=== PATIENT | female | born 1990 | race African-American/Black ===

== ENCOUNTER 2016-11-21 20:25 | Inpatient (IN) ==
[2016-11-21] MEDS ORDERED: MORPHINE 2 MG/1 ML SYRINGE IV STA (21:08)
[2016-11-21] MEDS ORDERED: ONDANSETRON 4 MG/2 ML VIAL IV STA (21:08)
[2016-11-21] MEDS ORDERED: SODIUM CHLORIDE 0.9% 1,000 ML IV STA (21:08)
[2016-11-21] MEDS ORDERED: MORPHINE 2 MG/1 ML SYRINGE ONE (21:13)
[2016-11-21] MEDS ORDERED: ONDANSETRON 4 MG/2 ML VIAL ONE (21:13)
--- NOTE | 2016-11-21 21:17 | Emergency Department Note ---
Osvaldo Ceja Emily, am scribing for, and in the presence of, Zenon Lin MD 21: 11. Riley Ceja Robert M, MD, personally performed the services described in this documentation, ascribed by Lucia Riley in my presence, and it is both accurate and complete . Arrival - Arrival Chief Complaint: Sickle Cell Stated Complaint: sickle cell anemia/hurting ED Nursing Triage Note: patient states she has scc and lupus and is hurting real bad all over. Mode of Arrival: Wheelchair Limitations: No Limitations Source: Patient - History of Present Illness HPI Narrative: Pt is a 26 y/o female with PMHx of sickle cell aneima & SCC, who came to ED with c/o generalized pain that started today. Pt notes having calf tenderness, feels bilateral hands are starting to swell, and a "knot" on the back of left knee. Pt has provider in [place]. Onset (ago): hour(s) Consistency: constant Severity: moderate Severity scale (1-10): 6 Quality: aching Allergies/Adverse Reactions: Allergies Allergy/AdvReac Type Severity Reaction Status Date / Time azithromycin Allergy RASH Verified 11/21/16 20:38 ketorolac [From Toradol] Allergy ITCHING Verified 11/21/16 20:38 vancomycin Allergy RASH Verified 11/21/16 20:38 Home Medications: Home Medications Medication Instructions Recorded Confirmed Type Unable To Obtain [Unable to Obtain] 11/21/16 11/21/16 History Review of System - Review of System 12 point system: reviewed and no additional remarkable complaints except as stated - Review of System Constitutional: Present: weakness (generalized pain). Absent: fever Respiratory: Absent: respiratory distress Gastrointestinal: Absent: nausea Musculoskeletal: Present: leg pain (calf tenderness; knot to back of left knee) . Absent: arm pain, neck pain Skin: Absent: rash Medical,Surgical,& Family Hx - Social History Smoking Status: Never smoker Frequency of Alcohol Use: None Type of Drug Use: None Marital Status: Single Functional capacity: independent ambulation Exam Vital Signs: Vital Signs Temperature 98.3 F 11/21/16 20:32 Pulse Rate 112 H 11/21/16 21:00 Respiratory Rate 18 11/21/16 21:00 Blood Pressure 115/72 11/21/16 21:00 O2 Sat by Pulse Oximetry 100 11/21/16 21:00 - General General appearance: alert, in distress (moderate secondary to pain) - Head Head exam: Present: atraumatic, normocephalic - Eye Eye exam: Present: PERRL, EOMI - ENT ENT exam: Present: mucous membranes moist. Absent: mucous membranes dry - Neck Neck exam: Present: full ROM. Absent: tenderness - Chest Chest inspection: Present: symmetric chest wall rise. Absent: tenderness - Respiratory Respiratory exam: Present: normal lung sounds bilaterally. Absent: respiratory distress - Cardiovascular Cardiovascular exam: Present: tachycardia, normal heart sounds - Abdominal Exam Abdominal exam: Present: soft. Absent: distention, tenderness - Extremities Exam Extremities exam: Present: full ROM, tenderness (2 cm soft, non mobile right posterior fossa). Absent: pedal edema - Neurological Exam Neurological exam: Present: alert, oriented X3, CN II-XII intact. Absent: motor sensory deficit - Psychiatric Psychiatric exam: Present: anxious - Skin Skin exam: Present: warm, dry Course - Consultations Consultation #1: Dr. King will admit the patient to the hospitalist service. Time: 21:50 Results - Labs CBC & BMP: 11/21/16 21:10 11/21/16 21:10 Lab Results: I have reviewed the patients labs Labs: Lab Results WBC 9.0 T/CUMM (4-12) 11/21/16 21:10 RBC 2.79 MC/CUMM (3.8-5.5) L 11/21/16 21:10 Hgb 7.9 GM/DL (12.0-16.0) L 11/21/16 21:10 Hct 22.5 VOL% (35.7-47.0) L 11/21/16 21:10 MCV 80.6 FL (87-102) L 11/21/16 21:10 MCH 28 PG (27-34) 11/21/16 21:10 MCHC 35.1 GM/DL (32-36) 11/21/16 21:10 RDW 18.0 % (9.3-17.3) H 11/21/16 21:10 Plt Count 370 T/CUMM (130-400) 11/21/16 21:10 MPV 10.3 FL (9.6-12.0) 11/21/16 21:10 Neut % (Auto) 82.3 % (38.7-73.9) H 11/21/16 21:10 Lymph % (Auto) 11.9 % (21.3-54.2) L 11/21/16 21:10 Wilkin % (Auto) 3.1 % (1.7-12.7) 11/21/16 21:10 Eos % (Auto) 0.1 % (0.00-10.9) 11/21/16 21:10 Baso % (Auto) 0.1 % (0.0-0.8) 11/21/16 21:10 Neut # (Auto) 7.4 10*3/uL (1.4-7.4) 11/21/16 21:10 Lymph # (Auto) 1.1 10*3/uL (1.4-4.0) L 11/21/16 21:10 Wilkin # (Auto) 0.3 10*3/uL (0.11-0.8) 11/21/16 21:10 Eos # (Auto) 0.0 10*3/uL (0.0-0.87) 11/21/16 21:10 Baso # (Auto) 0.0 10*3/uL (0.0-0.2) 11/21/16 21:10 Immature Gran % 2.5 % 11/21/16 21:10 Nucleated RBC % 2.1 /100WBC 11/21/16 21:10 Immature Gran # 0.23 # 11/21/16 21:10 Nucleated RBCs # 0.19 10*3/uL 11/21/16 21:10 Immature Plt Fraction 0.0 % (0.0-7.0) 11/21/16 21:10 Absolute Retic 0.1 10*6/uL 11/21/16 21:10 Percent Retic 3.3 % (0.5-1.5) H 11/21/16 21:10 Retic Hgb Equivalent 28.7 pg (28.2-36.6) 11/21/16 21:10 Sodium 134 MMOL/L (136-145) L 11/21/16 21:10 Potassium 4.3 MMOL/L (3.5-5.1) 11/21/16 21:10 Chloride 104 MMOL/L (98-107) 11/21/16 21:10 Carbon Dioxide 23 MMOL/L (21-32) 11/21/16 21:10 Anion Gap 11.3 MMOL/L (5.0-15.0) 11/21/16 21:10 BUN 7 MG/DL (7-18) 11/21/16 21:10 Creatinine 0.60 MG/DL (0.55-1.02) 11/21/16 21:10 GFR Calculation 133 ML/MIN 11/21/16 21:10 BUN/Creatinine Ratio 11.00 RATIO (6.00-20.00) 11/21/16 21:10 Glucose 94 MG/DL (74-106) 11/21/16 21:10 Calculated Osmolality 265.2 MOS/KG (273-304) L 11/21/16 21:10 Calcium 8.9 MG/DL (8.5-10.1) 11/21/16 21:10 Total Bilirubin 0.50 MG/DL (0.2-1.0) 11/21/16 21:10 Direct Bilirubin 0.20 MG/DL (0.0-0.20) 11/21/16 21:10 AST 34 U/L (0-37) 11/21/16 21:10 ALT 16 U/L (13-56) 11/21/16 21:10 Alkaline Phosphatase 68 U/L (45-117) 11/21/16 21:10 Lactate Dehydrogenase 257 U/L (84-246) H 11/21/16 21:10 Total Protein 10.1 G/DL (6.4-8.3) H 11/21/16 21:10 Albumin 2.8 G/DL (3.4-5.0) L 11/21/16 21:10 Globulin 7.3 G/DL (2.3-3.5) H 11/21/16 21:10 Albumin/Globulin Ratio 0.3 RATIO (1.1-2.2) L 11/21/16 21:10 Urine Color Yellow (Yellow) 11/21/16 21:10 Urine Appearance Slightly hazy (Clear) 11/21/16 21:10 Urine pH 7.0 (4.5-8.0) 11/21/16 21:10 Ur Specific [place] 1.008 (1.001-1.035) 11/21/16 21:10 Urine Protein Negative MG/DL 11/21/16 21:10 Urine Glucose (UA) Negative mg/dL (Negative) 11/21/16 21:10 Urine Ketones Negative mg/dL (Negative) 11/21/16 21:10 Urine Blood Negative mg/dL (Negative) 11/21/16 21:10 Urine Nitrate Negative (Negative) 11/21/16 21:10 Urine Bilirubin Negative mg/dL (Negative) 11/21/16 21:10 Urine Urobilinogen 2.0 EU/DL (0.2-1.0) H 11/21/16 21:10 Urine Leukocytes Negative Manjula/ul (Negative) 11/21/16 21:10 Urine WBC 1 /HPF (0-6) 11/21/16 21:10 Ur Squamous Epith Cells Few /HPF (0-10) 11/21/16 21:10 Urine Bacteria Occasional /HPF (Few) 11/21/16 21:10 Hyaline Casts 10 /LPF (0-3) 11/21/16 21:10 Granular Casts 1 /LPF (0-1) 11/21/16 21:10 Urine Mucus Occasional /LPF (Occasional) 11/21/16 21:10 Ur Culture Indicated? Not indicated 11/21/16 21:10 Disposition Clinical Impression: Sickle cell anemia with pain Case discussed with: patient Disposition: Still a Patient Condition: Stable Time of Disposition: 21:50
[2016-11-21 21:20] LABS: Basophils % 0.1 % (0.0-0.8); Eosinophils % 0.1 % (0.00-10.9); Hematocrit 22.5 VOL% (35.7-47.0); Hemoglobin 7.9 GM/DL (12.0-16.0); Immature Granulocytes % 2.5 %; Immature Granulocytes Absolute 0.23 #; Lymphocytes # 1.1 10*3/uL (1.4-4.0); Lymphocytes % 11.9 % (21.3-54.2); Mean Corpuscular HGB Conc 35.1 GM/DL (32-36); Mean Corpuscular Hemoglobin 28 PG (27-34); Mean Corpuscular Volume 80.6 FL (87-102); Mean Platelet Volume 10.3 FL (9.6-12.0); Monocytes # 0.3 10*3/uL (0.11-0.8); Monocytes % 3.1 % (1.7-12.7); NRBC # 0.19 10*3/uL; Neutrophils # 7.4 10*3/uL (1.4-7.4); Neutrophils % 82.3 % (38.7-73.9); Platelet Count 370 T/CUMM (130-400); Red Blood Count 2.79 MC/CUMM (3.8-5.5)
[2016-11-21 21:32] LABS: Apearance,Urine Slightly Hazy (Clear); Bacteria,Urine Occasional /HPF (Few); Bilirubin,Urine Negative (Negative); Blood, Urine Negative (Negative); Glucose,Urine (UA) Negative (Negative); Granular Casts,Urine 1 /LPF (0-1); Hyaline Casts,Urine 10 /LPF (0-3); Ketones,Urine Negative (Negative); Mucus,Urine Occasional /LPF (Occasional); Nitrite,Urine Negative (Negative); Protein,Urine Negative; Squamous Epithelial Cell,Urine Few /HPF (0-10); Urine Color Yellow (Yellow); Urine Specific Gravity 1.008 (1.001-1.035); WBC,Urine 1 /HPF (0-6)
[2016-11-21 21:36] LABS: Bilirubin,Direct 0.2 MG/DL (0.0-0.20)
[2016-11-21 21:38] LABS: Albumin 2.8 G/DL (3.4-5.0); Bilirubin,Total 0.5 MG/DL (0.2-1.0); Calcium 8.9 MG/DL (8.5-10.1); Osmolality,Calculated 265.2 MOS/KG (273-304); Potassium 4.3 MMOL/L (3.5-5.1); Total Protein 10.1 G/DL (6.4-8.3)
[2016-11-21 21:52] LABS: Band Neutrophils 2 % (0-10); Lymphocytes 13 % (20-55); Nucleated Red Blood Cells 3 (0-5); Platelet Estimate Adequate; Segmented Neutrophils 82 % (50-85); Total Cells Counted 100
[2016-11-21 21:53] LABS: Hypochromasia 1+; Poikilocytosis Few; Polychromasia Few; Sickle Cells Few; Target Cells 2+
[2016-11-21 21:54] LABS: Anisocytosis 1+
[2016-11-21] MEDS ORDERED: HYDROmorphone 2 MG/1 ML VIAL ONE (22:21)
[2016-11-21] MEDS ORDERED: HYDROmorphone 2 MG/1 ML VIAL IV STA (22:26)
--- NOTE | 2016-11-21 23:04 | Hospitalist History & Physical ---
Assessment and Plan (1) Sickle cell anemia with pain Status: Acute Assessment and plan: Vs acute Lupus exacerbation Plan IVF IV morphine Prednisone ESR, C-reactive protein monitor H/H, repeat retic count in am CXR cardiac enzymes, D-dimer Current Visit: Yes (2) Anemia Status: Acute Assessment and plan: due to sickle cell crisis Plan monitor H/H see management plan above Current Visit: Yes (3) Bacteriuria Status: Acute Assessment and plan: BC, UC -will give Rocephin if she spikes a temp Current Visit: Yes History of Present Illness Chief complaint: generalized pain History of present illness: Ms. Renner is a 26 year old female with a history of sickle cell disease, Lupus whose last hospitalization was about 3-4months ago presents to the ER with generalized body pain. Pain started two days ago and had progressively worsened. She also complains of calf tenderness, feels bilateral hands are starting to swell, and a "knot" on the back of left knee.She denies associated nausea, vomiting,SOB, though she states a history of a low grade fever, chills and occasional chest pain.Upon arrival to the ER,H/H were 7.9/22.5, Retic count was 3.3 and LDH was 257. UA showed bacteria.She was given IV morphine, Zofran and IVF and we will admit for continuation of care. Home Medications Medication Instructions Recorded Confirmed Type Unable To Obtain [Unable to Obtain] 11/21/16 11/21/16 History Allergies Allergy/AdvReac Type Severity Reaction Status Date / Time azithromycin Allergy RASH Verified 11/21/16 20:38 ketorolac [From Toradol] Allergy ITCHING Verified 11/21/16 20:38 vancomycin Allergy RASH Verified 11/21/16 20:38 Medical,Surgical,& Family Hx - Medical History Rheumatology: History of;: Systemic Lupus Erythematosus Hematology: History of: Sickle Cell Disease - Surgical History Abdominal Surgeries: Surgical HX of: Cholecystectomy Reproductive Surgeries: Surgical HX of;: Section Orthopedic Surgeries: Surgical HX of;: Orthopedic Surgery - Social History Smoking Status: Never smoker Frequency of Alcohol Use: None Type of Drug Use: None 12 point system: reviewed and no additional remarkable complaints except as stated Exam - Constitutional Vitals: Period Temp Pulse Resp BP Sys/Mcqueen Pulse Ox Last 24 Hr 98.3 F-98.3 F 83-119 16-20 92-115/68-77 100-100 General appearance: no acute distress, other (moaning and groaning in pain) - Respiratory Respiratory exam: Present: clear to auscultation bilaterally - Cardiovascular Cardiovascular exam: Present: regular rate and rhythm - GI/Abdominal GI/Abdominal exam: Present: normal bowel sounds - Extremities Exam Extremities exam: Present: normal inspection - Neurological Exam Neurological exam: Present: alert, oriented X3 Results - Labs CBC & BMP: 11/21/16 21:10 11/21/16 21:10 Lab Results: I have reviewed the past 24 hour labs
[2016-11-21] MEDS ORDERED: DOCUSATE SODIUM 100 MG CAPSULE PO PRN (23:40)
[2016-11-21] MEDS ORDERED: ACETAMINOPHEN 325 MG TABLET PO PRN (23:40)
[2016-11-21] MEDS ORDERED: PROMETHAZINE 25 MG TABLET PO PRN (23:40)
[2016-11-21] MEDS ORDERED: ONDANSETRON 4 MG/2 ML VIAL IV PRN (23:40)
[2016-11-21] MEDS ORDERED: predniSONE 20 MG TABLET PO STA (23:40)
[2016-11-22] MEDS: SODIUM CHLORIDE 0.9% 1,000 ML IV SCH ×3 (00:46→17:56)
[2016-11-22] MEDS: MORPHINE 2 MG/1 ML SYRINGE IV PRN ×2 (01:34→05:30)
[2016-11-22 01:50] LABS: Risk Ratio 4.26; Thyroid Stimulating Hormone 0.308 uIU/ml (0.358-3.74); VLDL CHOLESTEROL 12.6 MG/DL
[2016-11-22 02:21] LABS: Sedimentation Rate-Westergren 136 MM/HR (0-20)
[2016-11-22 06:34] LABS: Basophils % 0.2 % (0.0-0.8); Eosinophils # 0.1 10*3/uL (0.0-0.87); Eosinophils % 1.6 % (0.00-10.9); Hematocrit 19.1 VOL% (35.7-47.0); Immature Granulocytes % 3.4 %; Immature Granulocytes Absolute 0.21 #; Lymphocytes # 1.3 10*3/uL (1.4-4.0); Lymphocytes % 20.5 % (21.3-54.2); Mean Corpuscular HGB Conc 34.6 GM/DL (32-36); Mean Corpuscular Hemoglobin 28 PG (27-34); Mean Corpuscular Volume 80.9 FL (87-102); Mean Platelet Volume 12.8 FL (9.6-12.0); Monocytes # 0.3 10*3/uL (0.11-0.8); Monocytes % 4.2 % (1.7-12.7); NRBC # 0.17 10*3/uL; Neutrophils # 4.4 10*3/uL (1.4-7.4); Neutrophils % 70.1 % (38.7-73.9); Red Blood Count 2.36 MC/CUMM (3.8-5.5); White Blood Count 6.2 T/CUMM (4-12)
[2016-11-22 06:55] LABS: Alanine Aminotransferase 14 U/L (13-56); Albumin 2.1 G/DL (3.4-5.0); Alkaline Phosphatase 58 U/L (45-117); Aspartate Amino Transferase 28 U/L (0-37); Bilirubin,Total < 0.39 MG/DL (0.2-1.0); Blood Urea Nitrogen 7 MG/DL (7-18); Calcium 7.8 MG/DL (8.5-10.1); Glucose 94 MG/DL (74-106); Osmolality,Calculated 272.7 MOS/KG (273-304); Potassium 4.2 MMOL/L (3.5-5.1); Sodium 138 MMOL/L (136-145); Total Protein 8.1 G/DL (6.4-8.3)
--- NOTE | 2016-11-22 07:24 | XRay Report ---
Exam: XR chest 1V portable Date: 11/22/2016 4:00 AM Indication: Shortness of breath Comparison: 07/25/2013 Findings: Mild cardiomegaly. A port catheter is in placement right IJ approach with the distal tip in the superior vena cava. Minimal interstitial thickening in the right base. No obvious pneumothorax or effusions on the mid inspiratory exam. Bony structures are intact Impression: 1. Mild cardiac prominence 2. Interval placement of a right-sided subclavian port catheter with compared to the previous study from 2013. Are at least placement of a new port and repositioning of the catheter track cephalad on the previous exam 3. Mild interstitial thickening right base and atelectatic change left base minimally present PROCEDURE INTERPRETED AT [facility] DEPARTMENT OF RADIOLOGY Final Report Signed by: Dr. Pernell Frye
[2016-11-22 08:49] LABS: Hemoglobin 6.6 GM/DL (12.0-16.0)
[2016-11-22 08:50] LABS: Platelet Count 200 T/CUMM (130-400)
[2016-11-22 09:00] LABS: Band Neutrophils 2 % (0-10); Lymphocytes 13 % (20-55); Nucleated Red Blood Cells 6 (0-5); Segmented Neutrophils 80 % (50-85); Total Cells Counted 100
[2016-11-22 09:01] LABS: Hypochromasia 1+; Microcytosis 1+; Target Cells 2+
[2016-11-22 09:02] LABS: Anisocytosis 1+; Pappenheimer Bodies Few
[2016-11-22 09:03] LABS: Sickle Cells Slight
[2016-11-22 09:04] LABS: Polychromasia Slight
[2016-11-22] MEDS ORDERED: ALUMINUM/MAGNES/SIMETH MAX STR 30 ML UDCUP PO PRN (09:16)
[2016-11-22] MEDS: PANTOPRAZOLE 40 MG TABLET PO SCH (09:30)
[2016-11-22] MEDS: ENOXAPARIN 40 MG/0.4 ML SYRINGE SUBCUT SCH (09:31)
[2016-11-22] MEDS: IBUPROFEN 800 MG TABLET PO SCH ×4 (10:07→23:41)
[2016-11-22] MEDS: HYDROmorphone 2 MG/1 ML VIAL IV PRN ×5 (10:11→21:32)
[2016-11-22] MEDS: diphenhydrAMINE 50 MG/1 ML VIAL IV PRN ×3 (10:20→23:41)
--- NOTE | 2016-11-22 11:02 | Hospitalist Progress Note ---
Assessment and Plan (1) Sickle cell anemia with pain Status: Acute Assessment and plan: This appears a p.o. of his occlusive crisis. LDH is not very elevated. Patient has some musculoskeletal pains including the substernal area. EKG is normal there is no suggestion of chest syndrome at this time. If symptoms get worse he has since the patient has chest x-ray EKG and cover her with the atypical coverage with antibiotics i.e. Levaquin 750 daily Current Visit: Yes (2) Anemia Status: Acute Assessment and plan: Continue to observe repeat H&H in the morning Current Visit: Yes (3) Bacteriuria Status: Acute Assessment and plan: This is a symptomatic bacteriuria continue to observe Current Visit: Yes Hospitalist: Subjective Interval history: Patient has been seen interviewed and examined and chart has been reviewed and a 6-year-old female admitted overnight with sickle cell crisis. Still complaining of a lot of pain especially in the carbs of both lower extremity also on the left side. Patient had an ultrasound of the venous structures in the lower extremity will be reviewed for DVTs. She acknowledges history of DVTs. She claimed allergy to Toradol which will verify that this itching. There is no anaphylaxis to these medication. This patient would benefit from a high dose ibuprofen from start to continue with inflammatory process that is contributing to the pain crisis. Patient will be given Benadryl 50 mg IV 5 getting the ibuprofen. She is asked agreed to doing the ultrasound. Exam - Constitutional Vitals: Period Temp Pulse Resp BP Sys/Mcqueen Pulse Ox Last 24 Hr 97.5 F-99.2 F 80-119 16-20 92-115/60-77 97-100 General appearance: normal weight, severe distress, other (Distress with pain. Patient crying ) - Head Head exam: Present: normocephalic, atraumatic - Eye Eye exam: Present: EOMI, other Pupils: Present: MOLINA - Respiratory Respiratory exam: Present: clear to auscultation bilaterally - Cardiovascular Cardiovascular exam: Present: regular rate and rhythm - GI/Abdominal GI/Abdominal exam: Present: normal bowel sounds, soft - Extremities Exam Extremities exam: Present: full ROM, other (Diffuse musculoskeletal pain) - Neurological Exam Neurological exam: Present: alert, oriented X3, CN II-XII intact - Psychiatric Psychiatric exam: Present: other (Subdued affect) - Skin Skin exam: Present: normal color, warm Results - Labs CBC & BMP: 11/22/16 08:01 11/22/16 04:55 Lab Results: I have reviewed the past 24 hour labs (Noted drop in hematocrit of 6.6/19.1 this morning. LDH is not elevated. This could be effect of her crystalloid infusions. Repeat H&H in the morning)
--- NOTE | 2016-11-22 14:57 | Ultrasound Report ---
History: Bilateral calf tenderness Date: 11/22/2016 Study: Bilateral lower extremity color-flow venous Doppler study Comparison exam: No previous venous ultrasound available Color Doppler, wave form analysis, and compression analysis of the deep veins of both lower extremities from the common femoral vein level through the popliteal vein level shows that the veins are readily compressible. There is no abnormal intraluminal material to suggest thrombus. Waveform analysis is unremarkable. Ultrasound images were captured and archived. Incidental note is made of some mild left inguinal lymphadenopathy. Impression: No evidence of acute DVT. Mild left inguinal lymphadenopathy PROCEDURE INTERPRETED AT [facility] DEPARTMENT OF RADIOLOGY Final Report Signed by: Dr. Shari Morris
[2016-11-23] MEDS: HYDROmorphone 2 MG/1 ML VIAL IV PRN ×6 (01:32→22:08)
[2016-11-23] MEDS: SODIUM CHLORIDE 0.9% 1,000 ML IV SCH ×3 (01:33→18:17)
[2016-11-23] MEDS: diphenhydrAMINE 50 MG/1 ML VIAL IV PRN ×3 (05:36→19:14)
[2016-11-23 06:04] LABS: Hematocrit 18.6 VOL% (35.7-47.0)
[2016-11-23 06:13] LABS: Hemoglobin 6.4 GM/DL (12.0-16.0)
[2016-11-23] MEDS ORDERED: SODIUM CHLORIDE 0.9% 250 ML IV PRN (07:19)
[2016-11-23 07:47] LABS: Alanine Aminotransferase 13 U/L (13-56); Albumin 2.1 G/DL (3.4-5.0); Alkaline Phosphatase 57 U/L (45-117); Aspartate Amino Transferase 25 U/L (0-37); Bilirubin,Total < 0.39 MG/DL (0.2-1.0); Blood Urea Nitrogen 8 MG/DL (7-18); Calcium 8.1 MG/DL (8.5-10.1); Glucose 81 MG/DL (74-106); Osmolality,Calculated 279.1 MOS/KG (273-304); Phosphorous 3.3 MG/DL (2.5-4.9); Potassium 4.3 MMOL/L (3.5-5.1); Sodium 142 MMOL/L (136-145); Total Protein 7.7 G/DL (6.4-8.3)
[2016-11-23] MEDS: IBUPROFEN 800 MG TABLET PO SCH ×3 (08:43→21:26)
[2016-11-23] MEDS: MORPHINE 2 MG/1 ML SYRINGE IV PRN ×2 (08:43→15:01)
[2016-11-23] MEDS: ENOXAPARIN 40 MG/0.4 ML SYRINGE SUBCUT SCH ×2 (08:44→08:45)
[2016-11-23] MEDS ORDERED: HYDROmorphone 2 MG/1 ML VIAL IM PRN (08:45)
--- NOTE | 2016-11-23 08:49 | Hospitalist Progress Note ---
<AngelSheila - Last Filed: 11/23/16 08:47> Assessment and Plan (1) Anemia Status: Acute Assessment and plan: Hemoglobin and hematocrit noted at 6.4/18.6. We will type and screen transfuse 2 units PRBCs. Will recheck H&H in a.m. Current Visit: Yes Qualifiers: Anemia type: other cause (2) Sickle cell anemia with pain Status: Acute Assessment and plan: We will continue supportive measures hydration, pain management, oxygen supplementation as previously ordered. Current Visit: Yes Hospitalist: Subjective Interval history: Patient seen and examined; no significant overnight events reported per staff. Hemoglobin and hematocrit noted at 6.4/18.6; we will transfuse this a.m. Exam - Constitutional Vitals: Period Temp Pulse Resp BP Sys/Mcqueen Pulse Ox Last 24 Hr 97.0 F-99.2 F 61-90 18-20 101-110/65-73 94-98 General appearance: mild distress, under weight - Head Head exam: Present: normal inspection, normocephalic, atraumatic - Eye Eye exam: Present: EOMI. Absent: conjunctival injection Pupils: Present: MOLINA, normal accommodation - ENT ENT exam: Present: normal exam, normal external ear exam, normal oropharynx - Neck Neck exam: Present: normal inspection. Absent: lymphadenopathy, meningismus, thyromegaly - Respiratory Respiratory exam: Present: clear to auscultation bilaterally. Absent: rales, rhonchi, stridor, wheezes - Cardiovascular Cardiovascular exam: Present: regular rate and rhythm. Absent: carotid bruit, diastolic murmur, gallop, JVD, rubs, systolic murmur - GI/Abdominal GI/Abdominal exam: Present: normal bowel sounds, soft - Extremities Exam Extremities exam: Present: normal inspection, normal capillary refill, full ROM. Absent: edema - Back Exam Back exam: Present: normal inspection - Neurological Exam Neurological exam: Present: alert, oriented X3, altered - Psychiatric Psychiatric exam: Present: flat affect - Skin Skin exam: Present: normal color, warm, dry Results - Labs CBC & BMP: 11/23/16 05:30 11/23/16 05:30 Lab Results: I have reviewed the past 24 hour labs <Erika Chapa - Last Filed: 11/23/16 09:29> Assessment and Plan (1) Sickle cell anemia with pain Status: Acute Current Visit: Yes (2) Anemia Status: Acute Current Visit: Yes Qualifiers: Anemia type: other cause (3) Bacteriuria Status: Acute Current Visit: Yes Hospitalist: Subjective Interval history: Patient is still in pain, I think she also having some Lupus flare as well. Her ESR is high. We will start her on prednisone and continue with pain meds and IVF Exam - Constitutional Vitals: Period Temp Pulse Resp BP Sys/Mcqueen Pulse Ox Last 24 Hr 97.0 F-99.2 F 61-90 18-20 101-110/65-73 94-98 Results - Labs CBC & BMP: 11/23/16 05:30 11/23/16 05:30
[2016-11-23] MEDS: predniSONE 20 MG TABLET PO SCH (09:38)
[2016-11-23] MEDS: PANTOPRAZOLE 40 MG TABLET PO SCH (09:38)
--- NOTE | 2016-11-23 15:26 | XRay Report ---
XR chest 1V portable Indication: Sickle cell crisis. Comparison: Chest x-ray 11/22/2016. Technique: Portable AP chest was performed. Findings: Heart size is normal. Pulmonary vasculature appears within normal limits. No significant abnormality of the mediastinal contours demonstrated. Interstitial markings in the lung bases are minimally prominent. This prominence has slightly increased since comparison but this may reflect difference in technique. Right-sided venous access device is stable.. Bones and soft tissues demonstrate no significant abnormalities. Impression: 1. Increased interstitial markings in the lung bases have increased in prominence since comparison study. This likely reflects differences in technique. Other considerations could include atelectasis, edema, or infection. 11/23/2016 3:23 PM PROCEDURE INTERPRETED AT [facility] DEPARTMENT OF RADIOLOGY Final Report Signed by: Dr. Uriel Lin
[2016-11-23] MEDS: ZALEPLON 5 MG CAPSULE PO PRN (21:26)
[2016-11-24] MEDS: HYDROmorphone 2 MG/1 ML VIAL IV PRN ×8 (01:12→22:26)
[2016-11-24] MEDS: diphenhydrAMINE 50 MG/1 ML VIAL IV PRN ×4 (01:12→19:29)
[2016-11-24] MEDS: SODIUM CHLORIDE 0.9% 1,000 ML IV SCH ×3 (02:19→19:30)
[2016-11-24 07:46] LABS: Basophils % 0.2 % (0.0-0.8); Eosinophils % 0.6 % (0.00-10.9); Immature Granulocytes % 2.2 %; Immature Granulocytes Absolute 0.14 #; Lymphocytes # 1.2 10*3/uL (1.4-4.0); Lymphocytes % 19.3 % (21.3-54.2); Mean Corpuscular Hemoglobin 28 PG (27-34); Mean Corpuscular Volume 80.5 FL (87-102); Mean Platelet Volume 11.5 FL (9.6-12.0); Monocytes # 0.3 10*3/uL (0.11-0.8); Monocytes % 5.3 % (1.7-12.7); NRBC # 0.12 10*3/uL; Neutrophils # 4.7 10*3/uL (1.4-7.4); Neutrophils % 72.4 % (38.7-73.9); Platelet Count 279 T/CUMM (130-400); Red Cell Distribution Width 18.2 % (9.3-17.3); White Blood Count 6.4 T/CUMM (4-12)
[2016-11-24 07:49] LABS: Hematocrit 17.7 VOL% (35.7-47.0); Hemoglobin 6.2 GM/DL (12.0-16.0)
[2016-11-24 08:20] LABS: Albumin 2.1 G/DL (3.4-5.0); Bilirubin,Total 0.4 MG/DL (0.2-1.0); Calcium 7.8 MG/DL (8.5-10.1); Magnesium 1.8 MG/DL (1.8-2.4); Osmolality,Calculated 281.1 MOS/KG (273-304); Phosphorous 2.9 MG/DL (2.5-4.9); Potassium 3.9 MMOL/L (3.5-5.1); Total Protein 7.8 G/DL (6.4-8.3)
[2016-11-24 08:22] LABS: Band Neutrophils 5 % (0-10); Elliptocytes Few; Eosinophils 1 % (0-10); Giant Platelets Few; Hypochromasia 1+; Lymphocytes 16 % (20-55); Myelocytes 1 %; Nucleated Red Blood Cells 2 (0-5); Platelet Estimate Adequate; Segmented Neutrophils 71 % (50-85); Target Cells 1+; Total Cells Counted 100
[2016-11-24 08:23] LABS: Pappenheimer Bodies Few; Sickle Cells Slight
[2016-11-24] MEDS ORDERED: NALOXONE 0.4 MG/ML VIAL IV PRN (08:34)
--- NOTE | 2016-11-24 08:38 | Hospitalist Progress Note ---
<Sheila Ortiz - Last Filed: 11/24/16 08:36> Assessment and Plan (1) Anemia Status: Acute Assessment and plan: Hemoglobin and hematocrit noted at 6.4/18.6. We will type and screen transfuse 2 units PRBCs. Will recheck H&H in a.m. 11/24-Patient refused blood transfusion on yesterday reported to staff that she had multiple blood antibodies and that she had experience severe reactions in the past. External facility medical records were obtained and reviewed. The multiple antibodies were identified and reported to the blood bank. Hemoglobin and hematocrit are noted at 6.2 and 17.7 today. We will await blood product preparation and transfuse when available. We will recheck hemoglobin and hematocrit in a.m. Current Visit: Yes Qualifiers: Anemia type: other cause (2) Sickle cell anemia with pain Status: Acute Assessment and plan: We will continue supportive measures hydration, pain management, oxygen supplementation as previously ordered. 11/24-The patient was started on low-dose steroids on yesterday; however the patient continues to verbalize ineffective pain management measures. We will start Dilaudid SILK SOAKER pump with basal dose and reassess. We will continue supportive measures as previously ordered. Current Visit: Yes Hospitalist: Subjective Interval history: Patient seen and examined; chart reviewed. The patient refused blood transfusion on yesterday reported to staff that she had multiple antibodies and had experienced severe reactions in the past. Medical records were obtained from an outside facility in which the patient had been previously transfused and the antibodies were identified. We will await blood preparation for transfusion. In addition, the patient also verbalized issues regarding lack of pain control. We will start Dilaudid SILK SOAKER pump this a.m. Exam - Constitutional Vitals: Period Temp Pulse Resp BP Sys/Mcqueen Pulse Ox Last 24 Hr 97.0 F-98.8 F 53-78 18-20 113-128/65-90 96-99 General appearance: normal weight, mild distress - Head Head exam: Present: normal inspection, normocephalic, atraumatic - Eye Eye exam: Present: EOMI. Absent: conjunctival injection Pupils: Present: MOLINA, normal accommodation - ENT ENT exam: Present: normal exam, normal external ear exam, normal oropharynx - Neck Neck exam: Present: normal inspection. Absent: lymphadenopathy, meningismus, tenderness, thyromegaly - Respiratory Respiratory exam: Present: clear to auscultation bilaterally. Absent: rales, rhonchi, stridor, wheezes - Cardiovascular Cardiovascular exam: Present: regular rate and rhythm. Absent: carotid bruit, diastolic murmur, gallop, JVD, rubs, systolic murmur - GI/Abdominal GI/Abdominal exam: Present: normal bowel sounds, soft. Absent: tenderness - Extremities Exam Extremities exam: Present: normal inspection, normal capillary refill, full ROM. Absent: edema - Back Exam Back exam: Present: normal inspection - Neurological Exam Neurological exam: Present: alert, oriented X3, CN II-XII intact - Psychiatric Psychiatric exam: Present: flat affect - Skin Skin exam: Present: normal color, warm, dry Results - Labs CBC & BMP: 11/24/16 07:16 11/24/16 07:16 Lab Results: I have reviewed the past 24 hour labs <Erika Chapa - Last Filed: 11/24/16 10:01> Assessment and Plan (1) Sickle cell anemia with pain Status: Acute Current Visit: Yes (2) Anemia Status: Acute Current Visit: Yes Qualifiers: Anemia type: other cause (3) Bacteriuria Status: Acute Current Visit: Yes Hospitalist: Subjective Interval history: Patient is still complaining of pain. We offered her a SILK SOAKER pump and she declined , she states she would rather continue with the current regime.She states that she was unable to swallow her prednisone yesterday. Plan: give IV steroids x1 and continue with po, start hydoxyCQ, get ESR, C-reactive protein and DNA double stranded Ab. Since patient has a history of multiple antibodies in her blood, we will hold off on transfusion till Hb drops less than 6.0 or if patient becomes symptomatic. Exam - Constitutional Vitals: Period Temp Pulse Resp BP Sys/Mcqueen Pulse Ox Last 24 Hr 97.0 F-98.8 F 53-78 18-20 113-128/65-90 96-99 Results - Labs CBC & BMP: 11/24/16 07:16 11/24/16 07:16
[2016-11-24] MEDS ORDERED: HYDROmorphone PCA 30 MG/30 ML SYRINGE IV SCH (09:00)
[2016-11-24] MEDS ORDERED: methylPREDNISolone SOD SUC 40 MG/1 ML VIAL IV ONE (09:54)
[2016-11-24] MEDS ORDERED: methylPREDNISolone SOD SUC 40 MG/1 ML VIAL IV SCH (10:00)
[2016-11-24] MEDS: ENOXAPARIN 40 MG/0.4 ML SYRINGE SUBCUT SCH (10:15)
[2016-11-24] MEDS: PANTOPRAZOLE 40 MG TABLET PO SCH (10:16)
[2016-11-24] MEDS: predniSONE 20 MG TABLET PO SCH (10:17)
[2016-11-24] MEDS: HYDROXYCHLOROQUINE 200 MG TABLET PO SCH (10:17)
[2016-11-24] MEDS: LINEZOLID INJ 600 MG in PREMIX 1 EACH IV SCH (16:02)
[2016-11-24] MEDS: ZALEPLON 5 MG CAPSULE PO PRN (22:28)
[2016-11-25] MEDS: diphenhydrAMINE 50 MG/1 ML VIAL IV PRN ×4 (01:28→19:33)
[2016-11-25] MEDS: HYDROmorphone 2 MG/1 ML VIAL IV PRN ×8 (01:29→22:32)
[2016-11-25] MEDS: LINEZOLID INJ 600 MG in PREMIX 1 EACH IV SCH ×2 (02:59→15:36)
[2016-11-25 06:27] LABS: Basophils % 0.1 % (0.0-0.8); Eosinophils % 0.5 % (0.00-10.9); Immature Granulocytes % 6.4 %; Immature Granulocytes Absolute 0.55 #; Lymphocytes % 22.6 % (21.3-54.2); Mean Corpuscular Hemoglobin 28 PG (27-34); Mean Corpuscular Volume 80.4 FL (87-102); Mean Platelet Volume 12.3 FL (9.6-12.0); Monocytes # 0.5 10*3/uL (0.11-0.8); Monocytes % 5.6 % (1.7-12.7); NRBC # 0.26 10*3/uL; Neutrophils # 5.6 10*3/uL (1.4-7.4); Neutrophils % 64.8 % (38.7-73.9); Platelet Count 252 T/CUMM (130-400); Red Blood Count 2.24 MC/CUMM (3.8-5.5); White Blood Count 8.6 T/CUMM (4-12)
[2016-11-25 06:43] LABS: Hemoglobin 6.3 GM/DL (12.0-16.0)
[2016-11-25 07:07] LABS: Albumin 2.3 G/DL (3.4-5.0); Bilirubin,Total 0.6 MG/DL (0.2-1.0); Calcium 8.4 MG/DL (8.5-10.1); Magnesium 1.7 MG/DL (1.8-2.4); Osmolality,Calculated 275.4 MOS/KG (273-304); Phosphorous 2.3 MG/DL (2.5-4.9); Potassium 3.4 MMOL/L (3.5-5.1); Total Protein 8.1 G/DL (6.4-8.3)
[2016-11-25 07:11] LABS: Macrocytosis 1+; Target Cells 1+
[2016-11-25 07:12] LABS: Hypochromasia Slight; Pappenheimer Bodies 1+
[2016-11-25] MEDS: PANTOPRAZOLE 40 MG TABLET PO SCH (08:28)
[2016-11-25] MEDS: ENOXAPARIN 40 MG/0.4 ML SYRINGE SUBCUT SCH (08:28)
[2016-11-25] MEDS: HYDROXYCHLOROQUINE 200 MG TABLET PO SCH (08:28)
[2016-11-25] MEDS: predniSONE 10 MG TABLET PO SCH (08:30)
[2016-11-25] MEDS: SODIUM CHLORIDE 0.9% 1,000 ML IV SCH ×2 (08:30→15:26)
--- NOTE | 2016-11-25 10:21 | Hospitalist Progress Note ---
Assessment and Plan (1) Sickle cell anemia with pain Status: Acute Assessment and plan: Vs acute Lupus exacerbation .CXR showed Increased interstitial markings in the lung bases have increased in prominence since comparison study. This likely reflects differences in technique. Other considerations could include atelectasis, edema, or infection. Plan Continue IVF IV Dilaudid,Prednisone, Plaquenil monitor H/H, repeat retic count in am CT chest for PTE protocol Current Visit: Yes (2) Anemia Status: Acute Assessment and plan: due to sickle cell crisis Plan monitor H/H see management plan above Current Visit: Yes Qualifiers: Anemia type: other cause (3) Bacteriuria Status: Acute Assessment and plan: UC grew Staph epidermidis -Patient is on IV Linezolid Current Visit: Yes (4) Bacteremia Status: Acute Assessment and plan: BC grew staph aureus, MRSA negative Continue with current Iv antibiotics, follow sensitivity Current Visit: Yes (5) Lupus Status: Acute Assessment and plan: Flare up. continue with steroids and plaquenil Current Visit: Yes Hospitalist: Subjective Interval history: Patient states pain is fairly controlled. Her H/H is still stable. Exam - Constitutional Vitals: Period Temp Pulse Resp BP Sys/Mcqueen Pulse Ox Last 24 Hr 98.0 F-99.0 F 63-80 18-20 124-143/77-102 96-98 General appearance: no acute distress - Head Head exam: Present: normal inspection - Respiratory Respiratory exam: Present: clear to auscultation bilaterally - Cardiovascular Cardiovascular exam: Present: regular rate and rhythm - GI/Abdominal GI/Abdominal exam: Present: normal bowel sounds - Extremities Exam Extremities exam: Present: normal inspection - Neurological Exam Neurological exam: Present: alert, oriented X3 Results - Labs CBC & BMP: 11/25/16 05:41 11/25/16 05:41 Lab Results: I have reviewed the past 24 hour labs
--- NOTE | 2016-11-25 12:44 | CT Report ---
CT chest PE study Indication: Chest pain, sickle cell, lupus Comparison: None Technique: Multiple axial tomographic images of the chest were obtained after the administration of 80 cc Omnipaque 350 intravenous contrast. PE protocol followed. Coronal and sagittal maximum intensity projection images provided. Findings: No definitive segmental or larger pulmonary embolism demonstrated. Mild cardiomegaly. [id number] bibasilar atelectasis. Linear atelectasis noted within the posterior right middle lobe. Port catheter noted within the right chest. Visualized upper abdomen demonstrates no acute abnormality. Visualized osseous and surrounding soft tissue structures demonstrate no acute abnormality. IMPRESSION: No definitive segmental or larger pulmonary embolism. Mild cardiomegaly. Scattered atelectasis. The CT exam was performed using one or more of the following dose reduction techniques: Automated exposure control, adjustment of the mA and/or kV according to patient size, or use of iterative reconstruction technique. PROCEDURE INTERPRETED AT [facility] DEPARTMENT OF RADIOLOGY Final Report Signed by: Dr David Bryan
[2016-11-26] MEDS: HYDROmorphone 2 MG/1 ML VIAL IV PRN ×8 (01:32→23:19)
[2016-11-26] MEDS: diphenhydrAMINE 50 MG/1 ML VIAL IV PRN ×4 (01:33→20:03)
[2016-11-26] MEDS: SODIUM CHLORIDE 0.9% 1,000 ML IV SCH ×2 (01:33→13:58)
[2016-11-26] MEDS: LINEZOLID INJ 600 MG in PREMIX 1 EACH IV SCH ×2 (02:36→15:33)
[2016-11-26 05:05] LABS: Basophils % 0.1 % (0.0-0.8); Eosinophils # 0.1 10*3/uL (0.0-0.87); Eosinophils % 1.6 % (0.00-10.9); Hematocrit 20.4 VOL% (35.7-47.0); Immature Granulocytes % 4.3 %; Immature Granulocytes Absolute 0.35 #; Lymphocytes # 1.2 10*3/uL (1.4-4.0); Lymphocytes % 14.3 % (21.3-54.2); Mean Corpuscular HGB Conc 34.3 GM/DL (32-36); Mean Corpuscular Hemoglobin 28 PG (27-34); Mean Platelet Volume 11.5 FL (9.6-12.0); Monocytes # 0.3 10*3/uL (0.11-0.8); Monocytes % 3.1 % (1.7-12.7); NRBC # 0.66 10*3/uL; Neutrophils # 6.2 10*3/uL (1.4-7.4); Neutrophils % 76.6 % (38.7-73.9); Platelet Count 183 T/CUMM (130-400); Red Blood Count 2.52 MC/CUMM (3.8-5.5); Red Cell Distribution Width 18.4 % (9.3-17.3); White Blood Count 8.1 T/CUMM (4-12)
[2016-11-26 06:14] LABS: Band Neutrophils 1 % (0-10); Eosinophils 1 % (0-10); Lymphocytes 15 % (20-55); Nucleated Red Blood Cells 8 (0-5); Segmented Neutrophils 78 % (50-85); Total Cells Counted 100
[2016-11-26 06:15] LABS: Hypochromasia 2+; Macrocytosis 1+
[2016-11-26 06:16] LABS: Pappenheimer Bodies 1+; Platelet Estimate Adequate; Polychromasia 1+
[2016-11-26] MEDS: HYDROXYCHLOROQUINE 200 MG TABLET PO SCH (08:00)
[2016-11-26] MEDS: PANTOPRAZOLE 40 MG TABLET PO SCH (08:00)
[2016-11-26] MEDS: predniSONE 10 MG TABLET PO SCH (09:06)
[2016-11-26] MEDS: ENOXAPARIN 40 MG/0.4 ML SYRINGE SUBCUT SCH (09:06)
[2016-11-26] MEDS: methylPREDNISolone SOD SUC 40 MG/1 ML VIAL IV SCH (10:53)
--- NOTE | 2016-11-26 11:30 | Hospitalist Progress Note ---
Assessment and Plan (1) Sickle cell anemia with pain Status: Acute Assessment and plan: Vs acute Lupus exacerbation . CXR showed Increased interstitial markings in the lung bases have increased in prominence since comparison study. This likely reflects differences in technique. Other considerations could include atelectasis, edema, or infection. CT chest- negative for a PE Plan Continue IVF IV Dilaudid, Plaquenil monitor H/H, repeat retic count in am Switch steroids to IV Current Visit: Yes (2) Anemia Status: Acute Assessment and plan: due to sickle cell crisis. H/H is slowly improving Plan monitor H/H see management plan above Current Visit: Yes Qualifiers: Anemia type: other cause (3) Bacteriuria Status: Acute Assessment and plan: UC grew Staph epidermidis -Patient is on IV Linezolid Current Visit: Yes (4) Bacteremia Status: Acute Assessment and plan: BC grew staph aureus, MRSA negative Continue with current Iv antibiotics, follow sensitivity Current Visit: Yes (5) Lupus Status: Acute Assessment and plan: Flare up. continue with steroids and plaquenil Current Visit: Yes Hospitalist: Subjective Interval history: Patient states her pain is slowly improving. She requests for IV steroids and starts she is unable to tolerate po prednisone.CT chest was negative for a PE. Exam - Constitutional Vitals: Period Temp Pulse Resp BP Sys/Mcqueen Pulse Ox Last 24 Hr 96.5 F-100.3 F 77-88 18-22 118-135/76-81 94-98 General appearance: no acute distress - Head Head exam: Present: normal inspection - Respiratory Respiratory exam: Present: clear to auscultation bilaterally - Cardiovascular Cardiovascular exam: Present: regular rate and rhythm - GI/Abdominal GI/Abdominal exam: Present: normal bowel sounds - Extremities Exam Extremities exam: Present: normal inspection - Neurological Exam Neurological exam: Present: alert, oriented X3 Results - Labs CBC & BMP: 11/26/16 03:38 11/25/16 05:41 Lab Results: I have reviewed the past 24 hour labs
[2016-11-27] MEDS: diphenhydrAMINE 50 MG/1 ML VIAL IV PRN ×4 (02:12→20:18)
[2016-11-27] MEDS: HYDROmorphone 2 MG/1 ML VIAL IV PRN ×8 (02:14→23:24)
[2016-11-27] MEDS: SODIUM CHLORIDE 0.9% 1,000 ML IV SCH ×3 (02:15→23:29)
[2016-11-27] MEDS: LINEZOLID INJ 600 MG in PREMIX 1 EACH IV SCH ×2 (02:16→17:16)
[2016-11-27 07:52] LABS: Eosinophils # 0.1 10*3/uL (0.0-0.87); Hematocrit 19.2 VOL% (35.7-47.0); Hemoglobin 6.8 GM/DL (12.0-16.0); Immature Granulocytes % 1.6 %; Immature Granulocytes Absolute 0.11 #; Lymphocytes # 1.8 10*3/uL (1.4-4.0); Lymphocytes % 26.6 % (21.3-54.2); Mean Corpuscular HGB Conc 35.4 GM/DL (32-36); Mean Corpuscular Hemoglobin 28 PG (27-34); Mean Corpuscular Volume 79.3 FL (87-102); Monocytes # 0.4 10*3/uL (0.11-0.8); Monocytes % 5.3 % (1.7-12.7); NRBC # 0.75 10*3/uL; Neutrophils # 4.4 10*3/uL (1.4-7.4); Neutrophils % 65.5 % (38.7-73.9); Platelet Count 339 T/CUMM (130-400); Red Blood Count 2.42 MC/CUMM (3.8-5.5); Red Cell Distribution Width 18.1 % (9.3-17.3); White Blood Count 6.7 T/CUMM (4-12)
[2016-11-27 08:16] LABS: Elliptocytes Few; Hypochromasia 1+; Platelet Estimate Adequate; Target Cells Few
[2016-11-27 08:17] LABS: Macrocytosis Slight; Polychromasia Slight
[2016-11-27] MEDS: ENOXAPARIN 40 MG/0.4 ML SYRINGE SUBCUT SCH (08:21)
[2016-11-27] MEDS: methylPREDNISolone SOD SUC 40 MG/1 ML VIAL IV SCH (09:58)
[2016-11-27] MEDS: PANTOPRAZOLE 40 MG TABLET PO SCH (09:59)
[2016-11-27] MEDS: HYDROXYCHLOROQUINE 200 MG TABLET PO SCH (09:59)
--- NOTE | 2016-11-27 12:12 | EKG Report ---
Stationary ECG Study [facility] Test Date: 11/27/2016 12:10:15 PM Pat Name: LIAN FERNÁNDEZ Department: Room: 234 Gender: F Activity Director: AMOL : 1990 Requested by: Erika Chapa Order Number: [id number] Reading MD: EDGAR NDIAYE Intervals Baker Rate: 77 P: 69 MI: 148 QRS: 80 QRSD: 93 T: 89 QT: 404 QTc: 436 Interpretive Statements SINUS RHYTHM NONSPECIFIC T-WAVE ABNORMALITY Electronically Signed On 11-27-16 14:15:48 CDT by EDGAR NDIAYE [email or web address]
--- NOTE | 2016-11-27 12:17 | Hospitalist Progress Note ---
Assessment and Plan (1) Sickle cell anemia with pain Status: Acute Assessment and plan: Vs acute Lupus exacerbation .Still in pain CXR showed Increased interstitial markings in the lung bases have increased in prominence since comparison study. This likely reflects differences in technique. Other considerations could include atelectasis, edema, or infection. CT chest- negative for a PE Plan Continue IVF IV Dilaudid, Plaquenil, steroids monitor H/H, repeat retic count in am Current Visit: Yes (2) Anemia Status: Acute Assessment and plan: due to sickle cell crisis. H/H is slowly improving Plan monitor H/H see management plan above Current Visit: Yes Qualifiers: Anemia type: other cause (3) Bacteriuria Status: Acute Assessment and plan: UC grew Staph epidermidis -Patient is on IV Linezolid Current Visit: Yes (4) Bacteremia Status: Acute Assessment and plan: BC grew staph aureus, MRSA negative Continue with current Iv antibiotics Current Visit: Yes (5) Lupus Status: Acute Assessment and plan: Flare up. continue with steroids and plaquenil Current Visit: Yes (6) Chest pain Status: Acute Assessment and plan: most likely due to sickle cell crisis. CT was negative for a PE plan EKG Cardiac enzymes. asa 81mg Current Visit: Yes Hospitalist: Subjective Interval history: Patient seen. She was moaning and groaning in pain. She had some chest pain. Exam - Constitutional Vitals: Period Temp Pulse Resp BP Sys/Mcqueen Pulse Ox Last 24 Hr 97.8 F-99.0 F 64-81 16-20 118-140/67-93 97-100 General appearance: no acute distress - Head Head exam: Present: normal inspection - Respiratory Respiratory exam: Present: clear to auscultation bilaterally - Cardiovascular Cardiovascular exam: Present: regular rate and rhythm - GI/Abdominal GI/Abdominal exam: Present: normal bowel sounds - Extremities Exam Extremities exam: Present: normal inspection - Neurological Exam Neurological exam: Present: alert, oriented X3 Results - Labs CBC & BMP: 11/27/16 07:35 11/25/16 05:41 Lab Results: I have reviewed the past 24 hour labs
[2016-11-27] MEDS: ASPIRIN CHEW 81 MG TABLET PO SCH (12:48)
[2016-11-27 13:25] LABS: Troponin I Only < 0.015 NG/ML (0.00-0.045)
[2016-11-28] MEDS: HYDROmorphone 2 MG/1 ML VIAL IV PRN ×8 (02:13→23:55)
[2016-11-28] MEDS: diphenhydrAMINE 50 MG/1 ML VIAL IV PRN ×4 (02:14→20:27)
[2016-11-28 07:15] LABS: Basophils % 0.1 % (0.0-0.8); Eosinophils # 0.1 10*3/uL (0.0-0.87); Eosinophils % 0.6 % (0.00-10.9); Hematocrit 18.8 VOL% (35.7-47.0); Hemoglobin 6.7 GM/DL (12.0-16.0); Immature Granulocytes % 1.4 %; Immature Granulocytes Absolute 0.12 #; Lymphocytes # 1.9 10*3/uL (1.4-4.0); Lymphocytes % 21.1 % (21.3-54.2); Mean Corpuscular HGB Conc 35.6 GM/DL (32-36); Mean Corpuscular Hemoglobin 29 PG (27-34); Mean Corpuscular Volume 80.7 FL (87-102); Mean Platelet Volume 11.3 FL (9.6-12.0); Monocytes # 0.4 10*3/uL (0.11-0.8); Monocytes % 4.8 % (1.7-12.7); NRBC # 1.24 10*3/uL; Neutrophils # 6.4 10*3/uL (1.4-7.4); Platelet Count 260 T/CUMM (130-400); Red Blood Count 2.33 MC/CUMM (3.8-5.5); Red Cell Distribution Width 18.4 % (9.3-17.3); White Blood Count 8.8 T/CUMM (4-12)
[2016-11-28 07:50] LABS: Calcium 8.3 MG/DL (8.5-10.1); Osmolality,Calculated 278.3 MOS/KG (273-304); Potassium 3.5 MMOL/L (3.5-5.1)
[2016-11-28] MEDS: LINEZOLID INJ 600 MG in PREMIX 1 EACH IV SCH ×2 (08:03→20:34)
[2016-11-28] MEDS: HYDROXYCHLOROQUINE 200 MG TABLET PO SCH (08:07)
[2016-11-28] MEDS: PANTOPRAZOLE 40 MG TABLET PO SCH (08:07)
[2016-11-28] MEDS: SODIUM CHLORIDE 0.9% 1,000 ML IV SCH ×2 (08:07→17:18)
[2016-11-28] MEDS: ENOXAPARIN 40 MG/0.4 ML SYRINGE SUBCUT SCH (08:19)
[2016-11-28] MEDS: ASPIRIN CHEW 81 MG TABLET PO SCH (08:19)
[2016-11-28] MEDS: methylPREDNISolone SOD SUC 40 MG/1 ML VIAL IV SCH (08:20)
[2016-11-28 08:37] LABS: Band Neutrophils 1 % (0-10); Eosinophils 1 % (0-10); Hypochromasia 1+; Lymphocytes 31 % (20-55); Nucleated Red Blood Cells 13 (0-5); Segmented Neutrophils 62 % (50-85); Total Cells Counted 100
[2016-11-28 08:38] LABS: Macrocytosis 1+; Pappenheimer Bodies 1+; Target Cells 1+
[2016-11-28 08:39] LABS: Ovalocytes Slight; Polychromasia Slight
[2016-11-28 08:40] LABS: Platelet Estimate Normal
--- NOTE | 2016-11-28 14:24 | Hospitalist Progress Note ---
Assessment and Plan (1) Sickle cell anemia with pain Status: Acute Assessment and plan: Vs acute Lupus exacerbation .Still complaining of pleuritic chest pain. Cardiac enzymes, EKG are negative CXR showed Increased interstitial markings in the lung bases have increased in prominence since comparison study. This likely reflects differences in technique. Other considerations could include atelectasis, edema, or infection. CT chest- negative for a PE Plan Repeat CXR Echo Continue IVF IV Dilaudid, Plaquenil, steroids monitor H/H, repeat retic count in am Current Visit: Yes (2) Anemia Status: Acute Assessment and plan: due to sickle cell crisis. H/H is stable Plan monitor H/H see management plan above Current Visit: Yes Qualifiers: Anemia type: other cause (3) Bacteriuria Status: Acute Assessment and plan: UC grew Staph epidermidis -Patient is on IV Linezolid Current Visit: Yes (4) Bacteremia Status: Acute Assessment and plan: BC grew staph aureus, MRSA negative Continue with current Iv antibiotics Current Visit: Yes (5) Lupus Status: Acute Assessment and plan: Flare up. continue with steroids and plaquenil Current Visit: Yes (6) Chest pain Status: Acute Assessment and plan: most likely due to sickle cell crisis. CT was negative for a PE.cardiac enzymes and EKG are negative. It is pleuritic in nature plan repeat CXR ECHO continue with pain meds and asa Current Visit: Yes (7) Hypokalemia Status: Acute Assessment and plan: Improved Current Visit: Yes Hospitalist: Subjective Interval history: patient was still complaining of chest pain which is pleuritic in nature. Cardiac enzymes, EKG are negative. Exam - Constitutional Vitals: Period Temp Pulse Resp BP Sys/Mcqueen Pulse Ox Last 24 Hr 98.2 F-99.3 F 63-85 18-20 121-154/74-104 96-99 General appearance: no acute distress - Head Head exam: Present: normal inspection - Respiratory Respiratory exam: Present: clear to auscultation bilaterally - Cardiovascular Cardiovascular exam: Present: regular rate and rhythm - GI/Abdominal GI/Abdominal exam: Present: normal bowel sounds - Extremities Exam Extremities exam: Present: normal inspection - Neurological Exam Neurological exam: Present: alert, oriented X3 Results - Labs CBC & BMP: 11/28/16 06:45 11/28/16 06:00 Lab Results: I have reviewed the past 24 hour labs
--- NOTE | 2016-11-28 14:44 | ECHO Report ---
Anatoliy Renner Exam Date: 11/28/2016 11:37 Referring Physician: Technologist: Britany Gao RDCS Age: 26 Ht (in): 65 Wt (lb): 117 Gender: F Exam Location: [facility] Echo Indications: Chest pain, unspecified, Sickle cell anemia with pain, Lupus, Bacteremia BP: 121 / 74 HR: 74 Rhythm: Sinus Technical Quality: IMPRESSIONS Normal left ventricular cavity size. Mild left ventricular hypertrophy. Left ventricular ejection fraction is estimated at 60 %. The right ventricle is normal in size and function. The right atrium is mildly enlarged. The left atrium is mildly enlarged. Mildly thickened mitral valve. Trace mitral valve regurgitation. Morphologically normal aortic valve without significant sclerosis or stenosis. There is no aortic regurgitation. Morphologically normal tricuspid valve. Mild to moderate tricuspid valve regurgitation. Tricuspid regurgitation velocities suggest a PAP of 42 mmHg. Morphologically normal pulmonic valve without significant stenosis. There is no pulmonic regurgitation. Normal pericardium without effusion. Normal ascending aorta dimension. MEASUREMENTS (Male / Female) Normal Values 2D ECHO LV Diastolic Diameter PLAX 3.8 cm 4.2 - 5.9 / 3.9 - 5.3 cm LV Systolic Diameter PLAX 2.6 cm LV Fractional Shortening PLAX 30.1 % IVS Diastolic Thickness 1.2 cm 0.6 - 1.0 / 0.6 - 0.9 cm LVPW Diastolic Thickness 1.2 cm 0.6 - 1.0 / 0.6 - 0.9 cm RV Internal Dim ED PLAX 3.1 cm Aortic Root Diameter 3.5 cm LA Systolic Diameter LX 4.1 cm 3.0 - 4.0 / 2.7 - 3.8 cm DOPPLER TR Peak Velocity 282.0 cm/s TR Peak Gradient 31.8 mmHg FINDINGS Left Ventricle Normal left ventricular cavity size. Mild left ventricular hypertrophy. Left ventricular ejection fraction is estimated at 60 %. Right Ventricle The right ventricle is normal in size and function. Right Atrium The right atrium is mildly enlarged. Left Atrium The left atrium is mildly enlarged. Mitral Valve Mildly thickened mitral valve. Trace mitral valve regurgitation. Aortic Valve Morphologically normal aortic valve without significant sclerosis or stenosis. There is no aortic regurgitation. Tricuspid Valve Morphologically normal tricuspid valve. Mild to moderate tricuspid valve regurgitation. Tricuspid regurgitation velocities suggest a PAP of 42 mmHg. Pulmonic Valve Morphologically normal pulmonic valve without significant stenosis. There is no pulmonic regurgitation. Pericardium Normal pericardium without effusion. Aorta Normal ascending aorta dimension. Rao Amanda MD (Electronically Signed) Final Date: 28 November 2016 14:43
--- NOTE | 2016-11-28 15:14 | XRay Report ---
XR chest 1V portable Indication: Chest pain and Comparison: Chest x-ray 11/23/2016 Technique: Portable AP chest was performed. Findings: The heart is borderline in size, stable. Right-sided venous access device is stable. Lungs demonstrate interval partial clearing since comparison study with nonspecific interstitial stranding remain present bilaterally. Minimal blunting of the right costophrenic angle is suggested. Impression: 1. There is been some improvement in aeration of the lung bases likely in part due to improved inspiration. A small amount of right-sided pleural fluid is not excluded. Infectious process of the lung bases and/or atelectasis could be considered. 11/28/2016 3:10 PM PROCEDURE INTERPRETED AT [facility] DEPARTMENT OF RADIOLOGY Final Report Signed by: Dr. Uriel Lin
[2016-11-28] MEDS: ZALEPLON 5 MG CAPSULE PO PRN (23:59)
[2016-11-29] MEDS: HYDROmorphone 2 MG/1 ML VIAL IV PRN ×7 (02:53→22:23)
[2016-11-29] MEDS: diphenhydrAMINE 50 MG/1 ML VIAL IV PRN ×4 (02:54→22:23)
[2016-11-29] MEDS: SODIUM CHLORIDE 0.9% 1,000 ML IV SCH (03:00)
[2016-11-29 05:29] LABS: Basophils % 0.1 % (0.0-0.8); Eosinophils # 0.1 10*3/uL (0.0-0.87); Eosinophils % 0.6 % (0.00-10.9); Hematocrit 19.7 VOL% (35.7-47.0); Immature Granulocytes % 2.1 %; Immature Granulocytes Absolute 0.18 #; Lymphocytes # 1.9 10*3/uL (1.4-4.0); Lymphocytes % 21.6 % (21.3-54.2); Mean Corpuscular HGB Conc 35.5 GM/DL (32-36); Mean Corpuscular Hemoglobin 29 PG (27-34); Mean Corpuscular Volume 80.1 FL (87-102); Mean Platelet Volume 10.7 FL (9.6-12.0); Monocytes # 0.3 10*3/uL (0.11-0.8); Monocytes % 3.9 % (1.7-12.7); NRBC # 2.27 10*3/uL; Neutrophils # 6.3 10*3/uL (1.4-7.4); Neutrophils % 71.7 % (38.7-73.9); Platelet Count 276 T/CUMM (130-400); Red Blood Count 2.46 MC/CUMM (3.8-5.5); Red Cell Distribution Width 18.5 % (9.3-17.3); White Blood Count 8.7 T/CUMM (4-12)
[2016-11-29 05:51] LABS: Band Neutrophils 1 % (0-10); Eosinophils 1 % (0-10); Lymphocytes 27 % (20-55); Myelocytes 2 %; Nucleated Red Blood Cells 38 (0-5); Segmented Neutrophils 68 % (50-85); Total Cells Counted 100
[2016-11-29 05:52] LABS: Anisocytosis 2+; Ovalocytes 1+; Platelet Estimate Normal; Target Cells 3+
[2016-11-29 06:04] LABS: Osmolality,Calculated 278.1 MOS/KG (273-304); Potassium 3.2 MMOL/L (3.5-5.1)
[2016-11-29] MEDS: methylPREDNISolone SOD SUC 40 MG/1 ML VIAL IV SCH (08:38)
[2016-11-29] MEDS: ASPIRIN CHEW 81 MG TABLET PO SCH (08:39)
[2016-11-29] MEDS: HYDROXYCHLOROQUINE 200 MG TABLET PO SCH (08:39)
[2016-11-29] MEDS: PANTOPRAZOLE 40 MG TABLET PO SCH (08:40)
[2016-11-29] MEDS: LINEZOLID INJ 600 MG in PREMIX 1 EACH IV SCH ×2 (08:46→21:40)
[2016-11-29] MEDS ORDERED: POTASSIUM CHLORIDE 20 MEQ TABLET PO ONE (09:18)
[2016-11-29] MEDS: ENOXAPARIN 40 MG/0.4 ML SYRINGE SUBCUT SCH (09:51)
--- NOTE | 2016-11-29 12:19 | Hospitalist Progress Note ---
Assessment and Plan (1) Sickle cell anemia with pain Status: Acute Assessment and plan: Vs acute Lupus exacerbation .Pleuritic chest pain is improved. Cardiac enzymes, EKG are negative CXR showed Increased interstitial markings in the lung bases have increased in prominence since comparison study. This likely reflects differences in technique. Other considerations could include atelectasis, edema, or infection. CT chest- negative for a PE Repeat CXR showed some improvement in aeration of the lung bases likely in part due to improved inspiration. A small amount of right-sided pleural fluid is not excluded. Infectious process of the lung bases and/or atelectasis could be considered. Echo showed Normal left ventricular cavity size. Mild left ventricular hypertrophy. Left ventricular ejection fraction is estimated at 60 %. Plan reduce IVF Continue IV Dilaudid, Plaquenil, steroids monitor H/H, repeat retic count in am Current Visit: Yes (2) Anemia Status: Acute Assessment and plan: due to sickle cell crisis. H/H is stable Plan monitor H/H see management plan above Current Visit: Yes Qualifiers: Anemia type: other cause (3) Bacteriuria Status: Acute Assessment and plan: UC grew Staph epidermidis -Patient is on IV Linezolid Current Visit: Yes (4) Bacteremia Status: Acute Assessment and plan: BC grew staph aureus, MRSA negative Continue with current Iv antibiotics Current Visit: Yes (5) Lupus Status: Acute Assessment and plan: Flare up. continue with steroids and plaquenil Current Visit: Yes (6) Chest pain Status: Acute Assessment and plan: most likely due to sickle cell crisis. CT was negative for a PE.cardiac enzymes and EKG are negative. It is pleuritic in nature Repeat CXR showed some improvement in aeration of the lung bases likely in part due to improved inspiration. A small amount of right-sided pleural fluid is not excluded. Infectious process of the lung bases and/or atelectasis could be considered. Echo showed Normal left ventricular cavity size. Mild left ventricular hypertrophy. Left ventricular ejection fraction is estimated at 60 %. Plan reduce IVF continue with pain meds and asa Current Visit: Yes (7) Hypokalemia Status: Acute Assessment and plan: will replete Current Visit: Yes Hospitalist: Subjective Interval history: Patient seen. She appears comfortable today.Pain is subsiding. Exam - Constitutional Vitals: Period Temp Pulse Resp BP Sys/Mcqueen Pulse Ox Last 24 Hr 97.0 F-99.2 F 62-75 18-20 124-154/90-102 96-100 General appearance: no acute distress - Head Head exam: Present: normal inspection - Respiratory Respiratory exam: Present: clear to auscultation bilaterally - Cardiovascular Cardiovascular exam: Present: regular rate and rhythm - GI/Abdominal GI/Abdominal exam: Present: normal bowel sounds - Extremities Exam Extremities exam: Present: normal inspection - Neurological Exam Neurological exam: Present: alert, oriented X3 Results - Labs CBC & BMP: 11/29/16 05:01 11/29/16 05:01
[2016-11-30] MEDS: HYDROmorphone 2 MG/1 ML VIAL IV PRN ×8 (01:39→22:22)
[2016-11-30] MEDS: diphenhydrAMINE 50 MG/1 ML VIAL IV PRN ×4 (04:27→22:23)
[2016-11-30] MEDS: PANTOPRAZOLE 40 MG TABLET PO SCH (08:22)
[2016-11-30] MEDS: HYDROXYCHLOROQUINE 200 MG TABLET PO SCH (08:22)
[2016-11-30] MEDS: ASPIRIN CHEW 81 MG TABLET PO SCH (08:22)
[2016-11-30] MEDS: methylPREDNISolone SOD SUC 40 MG/1 ML VIAL IV SCH (08:22)
[2016-11-30] MEDS: LINEZOLID INJ 600 MG in PREMIX 1 EACH IV SCH ×2 (08:25→21:58)
[2016-11-30] MEDS: ENOXAPARIN 40 MG/0.4 ML SYRINGE SUBCUT SCH (09:13)
--- NOTE | 2016-11-30 10:28 | Hospitalist Progress Note ---
Assessment and Plan (1) Sickle cell anemia with pain Status: Acute Assessment and plan: Vs acute Lupus exacerbation .Pleuritic chest pain is improved. Cardiac enzymes, EKG are negative CXR showed Increased interstitial markings in the lung bases have increased in prominence since comparison study. This likely reflects differences in technique. Other considerations could include atelectasis, edema, or infection. CT chest- negative for a PE Repeat CXR showed some improvement in aeration of the lung bases likely in part due to improved inspiration. A small amount of right-sided pleural fluid is not excluded. Infectious process of the lung bases and/or atelectasis could be considered. Echo showed Normal left ventricular cavity size. Mild left ventricular hypertrophy. Left ventricular ejection fraction is estimated at 60 %. Pain is slowly subsiding. Plan Continue IVF, IV Dilaudid, Plaquenil, steroids monitor H/H, repeat retic count in am Current Visit: Yes (2) Anemia Status: Acute Assessment and plan: due to sickle cell crisis. H/H is stable Plan monitor H/H see management plan above Current Visit: Yes Qualifiers: Anemia type: other cause (3) Bacteriuria Status: Acute Assessment and plan: UC grew Staph epidermidis -Patient is on IV Linezolid Current Visit: Yes (4) Bacteremia Status: Acute Assessment and plan: BC grew staph aureus, MRSA negative Continue with current Iv antibiotics Current Visit: Yes (5) Lupus Status: Acute Assessment and plan: Flare up. continue with steroids and plaquenil Current Visit: Yes (6) Chest pain Status: Acute Assessment and plan: most likely due to sickle cell crisis. CT was negative for a PE.cardiac enzymes and EKG are negative. It is pleuritic in nature Repeat CXR showed some improvement in aeration of the lung bases likely in part due to improved inspiration. A small amount of right-sided pleural fluid is not excluded. Infectious process of the lung bases and/or atelectasis could be considered. Echo showed Normal left ventricular cavity size. Mild left ventricular hypertrophy. Left ventricular ejection fraction is estimated at 60 %. Plan will reduce IVF more continue with pain meds and asa Current Visit: Yes (7) Hypokalemia Status: Acute Assessment and plan: will replete Current Visit: Yes Hospitalist: Subjective Interval history: Patient seen, she requests for a heating pad.Pain is slowly subsiding Exam - Constitutional Vitals: Period Temp Pulse Resp BP Sys/Mcqueen Pulse Ox Last 24 Hr 97.1 F-99.7 F 71-90 18-22 126-131/88-95 96-99 General appearance: no acute distress - Head Head exam: Present: normal inspection - Respiratory Respiratory exam: Present: clear to auscultation bilaterally - Cardiovascular Cardiovascular exam: Present: regular rate and rhythm - GI/Abdominal GI/Abdominal exam: Present: normal bowel sounds - Extremities Exam Extremities exam: Present: normal inspection Results - Labs CBC & BMP: 11/29/16 05:01 11/29/16 05:01 Lab Results: I have reviewed the past 24 hour labs
[2016-11-30] MEDS: POTASSIUM CHLORIDE 20 MEQ/15 ML UDCUP PO SCH (11:33)
[2016-12-01] MEDS: HYDROmorphone 2 MG/1 ML VIAL IV PRN ×8 (01:38→21:50)
[2016-12-01] MEDS: diphenhydrAMINE 50 MG/1 ML VIAL IV PRN ×4 (04:24→21:49)
[2016-12-01] MEDS: ASPIRIN CHEW 81 MG TABLET PO SCH (08:27)
[2016-12-01] MEDS: PANTOPRAZOLE 40 MG TABLET PO SCH (08:27)
[2016-12-01] MEDS: HYDROXYCHLOROQUINE 200 MG TABLET PO SCH (08:27)
[2016-12-01] MEDS: methylPREDNISolone SOD SUC 40 MG/1 ML VIAL IV SCH (08:28)
[2016-12-01] MEDS: LINEZOLID INJ 600 MG in PREMIX 1 EACH IV SCH ×2 (08:32→21:50)
--- NOTE | 2016-12-01 10:56 | Hospitalist Progress Note ---
Assessment and Plan (1) Sickle cell anemia with pain Status: Acute Assessment and plan: Vs acute Lupus exacerbation .Pleuritic chest pain is improved. Cardiac enzymes, EKG are negative CXR showed Increased interstitial markings in the lung bases have increased in prominence since comparison study. This likely reflects differences in technique. Other considerations could include atelectasis, edema, or infection. CT chest- negative for a PE Repeat CXR showed some improvement in aeration of the lung bases likely in part due to improved inspiration. A small amount of right-sided pleural fluid is not excluded. Infectious process of the lung bases and/or atelectasis could be considered. Echo showed Normal left ventricular cavity size. Mild left ventricular hypertrophy. Left ventricular ejection fraction is estimated at 60 %. Pain is slowly subsiding. Plan Continue IVF, IV Dilaudid, Plaquenil, steroids monitor H/H, Current Visit: Yes (2) Anemia Status: Acute Assessment and plan: due to sickle cell crisis. H/H is stable Plan monitor H/H see management plan above Current Visit: Yes Qualifiers: Anemia type: other cause (3) Bacteriuria Status: Acute Assessment and plan: UC grew Staph epidermidis -Patient is on IV Linezolid Current Visit: Yes (4) Bacteremia Status: Acute Assessment and plan: BC grew staph aureus, MRSA negative Continue with current Iv antibiotics Current Visit: Yes (5) Lupus Status: Acute Assessment and plan: Flare up. continue with steroids and plaquenil Current Visit: Yes (6) Chest pain Status: Acute Assessment and plan: most likely due to sickle cell crisis. CT was negative for a PE.cardiac enzymes and EKG are negative. It is pleuritic in nature Repeat CXR showed some improvement in aeration of the lung bases likely in part due to improved inspiration. A small amount of right-sided pleural fluid is not excluded. Infectious process of the lung bases and/or atelectasis could be considered. Echo showed Normal left ventricular cavity size. Mild left ventricular hypertrophy. Left ventricular ejection fraction is estimated at 60 %. Plan dc IVf continue with pain meds and asa Current Visit: Yes (7) Hypokalemia Status: Acute Assessment and plan: repleted Current Visit: Yes Hospitalist: Subjective Interval history: Patient appears to be slowly improving. She has no new issues. Exam - Constitutional Vitals: Period Temp Pulse Resp BP Sys/Mcqueen Pulse Ox Last 24 Hr 97.3 F-98.1 F 76-91 16-20 115-128/77-88 96-97 General appearance: no acute distress - Head Head exam: Present: normal inspection - Respiratory Respiratory exam: Present: clear to auscultation bilaterally - Cardiovascular Cardiovascular exam: Present: regular rate and rhythm - GI/Abdominal GI/Abdominal exam: Present: normal bowel sounds - Extremities Exam Extremities exam: Present: normal inspection - Neurological Exam Neurological exam: Present: alert, oriented X3 Results - Labs CBC & BMP: 11/29/16 05:01 11/29/16 05:01 Lab Results: I have reviewed the past 24 hour labs
[2016-12-01] MEDS: POTASSIUM CHLORIDE 20 MEQ/15 ML UDCUP PO SCH (12:04)
[2016-12-01] MEDS: ENOXAPARIN 40 MG/0.4 ML SYRINGE SUBCUT SCH (12:04)
[2016-12-01] MEDS: SODIUM CHLORIDE 0.9% 1,000 ML IV SCH (23:05)
[2016-12-02] MEDS: HYDROmorphone 2 MG/1 ML VIAL IV PRN ×8 (00:39→21:27)
[2016-12-02] MEDS: diphenhydrAMINE 50 MG/1 ML VIAL IV PRN ×4 (03:55→21:24)
--- NOTE | 2016-12-02 10:34 | Hospitalist Progress Note ---
Assessment and Plan (1) Sickle cell anemia with pain Status: Acute Assessment and plan: Vs acute Lupus exacerbation .Pleuritic chest pain is improved. Cardiac enzymes, EKG are negative CXR showed Increased interstitial markings in the lung bases have increased in prominence since comparison study. This likely reflects differences in technique. Other considerations could include atelectasis, edema, or infection. CT chest- negative for a PE Repeat CXR showed some improvement in aeration of the lung bases likely in part due to improved inspiration. A small amount of right-sided pleural fluid is not excluded. Infectious process of the lung bases and/or atelectasis could be considered. Echo showed Normal left ventricular cavity size. Mild left ventricular hypertrophy. Left ventricular ejection fraction is estimated at 60 %. Pain is much better. Plan continue current regime. Hopefully dc in am Current Visit: Yes (2) Anemia Status: Acute Assessment and plan: due to sickle cell crisis. H/H is stable Plan monitor H/H see management plan above Current Visit: Yes Qualifiers: Anemia type: other cause (3) Bacteriuria Status: Acute Assessment and plan: UC grew Staph epidermidis -Patient is on IV Linezolid Current Visit: Yes (4) Bacteremia Status: Acute Assessment and plan: BC grew staph aureus, MRSA negative Continue with current Iv antibiotics Current Visit: Yes (5) Lupus Status: Acute Assessment and plan: Flare up. continue with steroids and plaquenil Current Visit: Yes (6) Chest pain Status: Acute Assessment and plan: most likely due to sickle cell crisis. CT was negative for a PE.cardiac enzymes and EKG are negative. It is pleuritic in nature Repeat CXR showed some improvement in aeration of the lung bases likely in part due to improved inspiration. A small amount of right-sided pleural fluid is not excluded. Infectious process of the lung bases and/or atelectasis could be considered. Echo showed Normal left ventricular cavity size. Mild left ventricular hypertrophy. Left ventricular ejection fraction is estimated at 60 %. Plan continue with pain meds and asa Current Visit: Yes (7) Hypokalemia Status: Acute Assessment and plan: repleted Current Visit: Yes Hospitalist: Subjective Interval history: Patient is feeling much better. She has agreed to be dcd in am. No new complaints. Exam - Constitutional Vitals: Period Temp Pulse Resp BP Sys/Mcqueen Pulse Ox Last 24 Hr 97.5 F-98.1 F 88-98 18-18 119-125/87-88 96-98 General appearance: no acute distress - Head Head exam: Present: normal inspection - Respiratory Respiratory exam: Present: clear to auscultation bilaterally - Cardiovascular Cardiovascular exam: Present: regular rate and rhythm - GI/Abdominal GI/Abdominal exam: Present: normal bowel sounds - Extremities Exam Extremities exam: Present: normal inspection - Neurological Exam Neurological exam: Present: alert, oriented X3 Results - Labs CBC & BMP: 11/29/16 05:01 11/29/16 05:01 Lab Results: I have reviewed the past 24 hour labs
[2016-12-02] MEDS: HYDROXYCHLOROQUINE 200 MG TABLET PO SCH (11:34)
[2016-12-02] MEDS: ENOXAPARIN 40 MG/0.4 ML SYRINGE SUBCUT SCH ×2 (11:34→12:02)
[2016-12-02] MEDS: ASPIRIN CHEW 81 MG TABLET PO SCH (11:34)
[2016-12-02] MEDS: methylPREDNISolone SOD SUC 40 MG/1 ML VIAL IV SCH (11:35)
[2016-12-02] MEDS: POTASSIUM CHLORIDE 20 MEQ/15 ML UDCUP PO SCH (11:35)
[2016-12-02] MEDS: PANTOPRAZOLE 40 MG TABLET PO SCH (11:35)
[2016-12-02] MEDS: LINEZOLID INJ 600 MG in PREMIX 1 EACH IV SCH ×2 (11:36→21:32)
[2016-12-03] MEDS: HYDROmorphone 2 MG/1 ML VIAL IV PRN ×6 (00:46→14:43)
[2016-12-03] MEDS: diphenhydrAMINE 50 MG/1 ML VIAL IV PRN ×3 (03:32→14:43)
[2016-12-03 06:35] LABS: Basophils % 0.1 % (0.0-0.8); Eosinophils % 0.3 % (0.00-10.9); Hematocrit 22.4 VOL% (35.7-47.0); Hemoglobin 7.9 GM/DL (12.0-16.0); Immature Granulocytes % 1.1 %; Lymphocytes % 22.8 % (21.3-54.2); Mean Corpuscular HGB Conc 35.3 GM/DL (32-36); Mean Corpuscular Hemoglobin 29 PG (27-34); Mean Corpuscular Volume 81.2 FL (87-102); Monocytes # 0.4 10*3/uL (0.11-0.8); NRBC # 2.56 10*3/uL; Neutrophils # 6.3 10*3/uL (1.4-7.4); Neutrophils % 71.7 % (38.7-73.9); Platelet Count 231 T/CUMM (130-400); Red Blood Count 2.76 MC/CUMM (3.8-5.5); Red Cell Distribution Width 19.2 % (9.3-17.3); White Blood Count 8.8 T/CUMM (4-12)
[2016-12-03 07:11] LABS: Calcium 8.8 MG/DL (8.5-10.1); Osmolality,Calculated 276.4 MOS/KG (273-304)
[2016-12-03 07:14] LABS: Anisocytosis 1+; Band Neutrophils 1 % (0-10); Hypochromasia 1+; Lymphocytes 23 % (20-55); Microcytosis 1+; Nucleated Red Blood Cells 32 (0-5); Segmented Neutrophils 74 % (50-85); Target Cells 2+; Total Cells Counted 100
[2016-12-03 07:15] LABS: Pappenheimer Bodies 1+; Platelet Estimate Normal; Polychromasia Slight
[2016-12-03] MEDS: ENOXAPARIN 40 MG/0.4 ML SYRINGE SUBCUT SCH (08:32)
[2016-12-03] MEDS: POTASSIUM CHLORIDE 20 MEQ/15 ML UDCUP PO SCH (08:32)
[2016-12-03] MEDS: HYDROXYCHLOROQUINE 200 MG TABLET PO SCH (08:33)
[2016-12-03] MEDS: LINEZOLID INJ 600 MG in PREMIX 1 EACH IV SCH (08:33)
[2016-12-03] MEDS: methylPREDNISolone SOD SUC 40 MG/1 ML VIAL IV SCH (08:33)
[2016-12-03] MEDS: PANTOPRAZOLE 40 MG TABLET PO SCH (08:33)
[2016-12-03] MEDS: ASPIRIN CHEW 81 MG TABLET PO SCH (08:34)
--- NOTE | 2016-12-03 08:51 | Discharge Summary ---
<Iris Ortizda - Last Filed: 12/03/16 08:38> Hospital Course - Hospital Course Hospital Course: This is a chronically ill 26-year-old female that presented to the ED at [facility] on the night of November 21, 2016 further evaluation of sickle cell crisis. The patient has a medical history significant for sickle cell anemia and systemic lupus erythematous. The patient reported no surgical history at the time of ED encounter. The patient reported the onset of symptoms on the day of presentation. She describes the pain as "calf tenderness", "bilateral hand swelling", and a "knot" on the back of the left knee. Labs were obtained and remarkable for hemoglobin of 7.9, hematocrit 22.5, and sodium of 134. The patient was subsequently admitted to the hospitalist service for continuation of care. Aggressive rehydration, oxygen supplementation, and pain management was initiated at the time of admission. The patient's hemoglobin and hematocrit on November 22, 2016 was noted at 6.6 and 19.1; at that time blood products were ordered for transfusion. Due to the presence of multiple antibodies reported by the patient, blood products were not transfused during the clinical encounter. The patient's hemoglobin and hematocrit gradually improved. Blood and urine cultures obtained at the time of admission reported staphylococcus epidermidis methicillin-resistant Staphylococcus; She was treated with IV Linezolid. She complained of a chest pain, CT chest- negative for a PE, CXR showed Increased interstitial markings in the lung bases have increased in prominence since comparison study. This likely reflects differences in technique. Other considerations could include atelectasis, edema, or infection. Cardiac enzymes, EKG were negative.Echo showed Normal left ventricular cavity size. Mild left ventricular hypertrophy.Left ventricular ejection fraction is estimated at 60 %.She also received some steroids for her Lupus flare up and was placed on plaquenil. The patient's condition is stable. She has not experienced any significant overnight events. Today, we feel that the patient is indeed appropriate for discharge to follow-up with her primary care physician as directed. Diagnosis - Discharge Diagnosis (1) Anemia Status: Acute (2) Sickle cell anemia with pain Status: Acute Discharge Plan - Discharge Data Disposition: Disch To Home/Self Care - Discharge Medications New Acetaminophen Tab [Tylenol Tab] 325 mg PO Q4H PRN tablet PRN Reason: fever, headache/body aches Alum/Mag/Simeth Max Str Liquid [Mylanta Max Strength Liquid] 30 ml PO Q4H PRN PRN Reason: Dyspepsia Docusate Sodium Cap [Colace Cap] 100 mg PO BID PRN #30 capsule PRN Reason: Constipation HYDROmorphone TAB [Dilaudid Tab] 1 mg PO Q4H #20 tablet Hydroxychloroquine [Plaquenil] 200 mg PO DAILY #30 tablet Linezolid Tab [Zyvox Tab] 600 mg PO Q12HR #7 tablet predniSONE TAB [PredniSONE] 10 mg PO DAILY #7 tablet Promethazine Tab [Phenergan Tab] 25 mg PO Q6H PRN #20 tablet PRN Reason: Nausea Aspirin Chew Tab 81 mg PO DAILY #30 tablet Pantoprazole Tab [Protonix Tab] 40 mg PO DAILY #30 tablet Folic Acid Tab 1 mg PO DAILY #30 tablet Iron,Carbonyl [Ferretts Chew Tab] 18 mg PO DAILY #30 tablet - Follow Up or Referral - Forms/Instructions Exam - Constitutional Vitals: Period Temp Pulse Resp BP Sys/Mcqueen Pulse Ox Last 24 Hr 98 F-98.9 F 75-88 20-20 115-139/71-99 98-99 Discharge Results Procedures and tests throughout hospitalization: Pending Orders 11/23/16 05:30 Red Blood Cells Leuko Red Stat Type and Screen Stat Labs on day of discharge: Labs from last 24 hours 12/03/16 12/03/16 05:44 05:44 WBC 8.8 RBC 2.76 L Hgb 7.9 L Hct 22.4 L MCV 81.2 L MCH 29 MCHC 35.3 RDW 19.2 H Plt Count 231 MPV 12.0 Neut % (Auto) 71.7 Lymph % (Auto) 22.8 Winn % (Auto) 4.0 Eos % (Auto) 0.3 Baso % (Auto) 0.1 Neut # (Auto) 6.3 Lymph # (Auto) 2.0 Winn # (Auto) 0.4 Eos # (Auto) 0.0 Baso # (Auto) 0.0 Total Counted 100 Immature Gran % 1.1 Nucleated RBC % 29.0 Immature Gran # 0.10 Segmented Neutrophils 74 Band Neutrophils 1 Lymphocytes 23 Monocytes 2 Nucleated RBCs 32 H Nucleated RBCs # 2.56 Platelet Estimate Normal Immature Plt Fraction 0.0 Polychromasia Slight Hypochromasia 1+ Anisocytosis 1+ Microcytosis 1+ Pappenheimer Bodies 1+ Target Cells 2+ Morphology Comment Sodium 140 Potassium 4.0 Chloride 107 Carbon Dioxide 28 Anion Gap 9.0 BUN 9 Creatinine 0.50 L GFR Calculation 141 BUN/Creatinine Ratio 18.00 Glucose 72 L Calculated Osmolality 276.4 Calcium 8.8 DS: Provider Date of admission: 11/21/16 23:08 Primary care physician: . No PCP Attending physician on admission: Erika Chapa MD Discharging clinician: Sheila Ortiz CNP <Erika Chapa - Last Filed: 12/03/16 12:50> Hospital Course - Time spent with patient Time with patient DS: Greater than 30 minutes (Time spent greater than 35mins) Diagnosis - Discharge Diagnosis (1) Sickle cell anemia with pain Status: Acute (2) Anemia Status: Acute (3) Bacteriuria Status: Acute (4) Bacteremia Status: Acute (5) Lupus Status: Acute (6) Chest pain Status: Acute (7) Hypokalemia Status: Acute Discharge Plan - Discharge Data Condition at Discharge: Stable Discharge Diet: advance to your usual diet Activity: resume usual activities as tolerated - Forms/Instructions Additional Discharge Instructions: Follow with PCP in 1week Exam - Constitutional General appearance: no acute distress - Head Head exam: Present: normal inspection - Eye Eye exam: Present: EOMI - Neck Neck exam: Present: normal inspection - Respiratory Respiratory exam: Present: clear to auscultation bilaterally - GI/Abdominal GI/Abdominal exam: Present: normal bowel sounds - Extremities Exam Extremities exam: Present: normal inspection - Neurological Exam Neurological exam: Present: alert, oriented X3
[2016-12-03 12:05] VITALS: BP 115/71
== END 2016-12-03 16:29 | disposition home or self-care (01) | DRG 545 ==
LOC: N.ED 20:25 → SUATTDRO 23:08 → N.EDINP 23:08 → N.2E 23:26
PROVIDERS: ADMIT Internal Medicine; ATTEND Internal Medicine

== ENCOUNTER 2017-09-11 19:44 | Inpatient (IN) ==
[2017-09-11] MEDS ORDERED: SODIUM CHLORIDE 0.9% 1,000 ML IV STA (20:18)
[2017-09-11] MEDS ORDERED: ONDANSETRON 4 MG/2 ML VIAL IV STA (20:18)
[2017-09-11] MEDS ORDERED: ALUM/MAG/SIMETH/LIDO VISC 1:1 30 ML BOTTLE PO STA (20:18)
[2017-09-11] MEDS ORDERED: HYDROmorphone 2 MG/1 ML VIAL IV STA (20:18)
[2017-09-11 20:30] LABS: Basophils # 0.1 10*3/uL (0.0-0.2); Basophils % 0.5 % (0.0-0.8); Eosinophils # 0.2 10*3/uL (0.0-0.87); Eosinophils % 1.5 % (0.00-10.9); Hematocrit 32.4 VOL% (35.7-47.0); Hemoglobin 11.6 GM/DL (12.0-16.0); Immature Granulocytes % 1.4 %; Immature Granulocytes Absolute 0.16 #; Lymphocytes # 0.9 10*3/uL (1.4-4.0); Lymphocytes % 7.9 % (21.3-54.2); Mean Corpuscular HGB Conc 35.8 GM/DL (32-36); Mean Corpuscular Hemoglobin 30 PG (27-34); Mean Corpuscular Volume 82.9 FL (87-102); Mean Platelet Volume 11.1 FL (9.6-12.0); Monocytes # 0.8 10*3/uL (0.11-0.8); Monocytes % 7.6 % (1.7-12.7); NRBC # 0.18 10*3/uL; Neutrophils % 81.1 % (38.7-73.9); Platelet Count 187 T/CUMM (130-400); Red Blood Count 3.91 MC/CUMM (3.8-5.5); Red Cell Distribution Width 20.7 % (9.3-17.3); White Blood Count 11.1 T/CUMM (4-12)
[2017-09-11 20:47] LABS: Albumin 3.9 G/DL (3.4-5.0); Bilirubin,Total 0.7 MG/DL (0.2-1.0); Calcium 9.2 MG/DL (8.5-10.1); Osmolality,Calculated 263.4 MOS/KG (273-304); Total Protein 8.6 G/DL (6.4-8.3)
[2017-09-11] MEDS ORDERED: ENOXAPARIN 100 MG/ML SYRINGE SUBCUT STA (21:13)
[2017-09-11] MEDS ORDERED: HEPARIN 5,000 UNIT/1 ML VIAL ONE (22:12)
[2017-09-11] MEDS ORDERED: HEPARIN/NACL 0.9% 2 UNITS/ML 0 ML IV ONE (22:18)
[2017-09-11] MEDS ORDERED: fentaNYL 100 MCG/2 ML VIAL ONE (22:43)
[2017-09-11] MEDS ORDERED: MIDAZOLAM 2 MG/2 ML VIAL ONE (22:43)
[2017-09-11 22:55] LABS: Apearance,Urine CLOUDY (Clear); Bacteria,Urine Few /HPF (Few); Bilirubin,Urine Negative (Negative); Blood, Urine Small mg/dL (Negative); Glucose,Urine (UA) Negative (Negative); Ketones,Urine Negative (Negative); Mucus,Urine Occasional /LPF (Occasional); Nitrite,Urine Positive (Negative); Protein,Urine Negative; Urine Color Yellow (Yellow); Urine Specific Gravity 1.025 (1.001-1.035); WBC,Urine 234 /HPF (0-6)
[2017-09-11 22:57] LABS: Barbiturates Screen,Urine Negative (Negative); Benzodiazepines Screen,Urine Negative (Negative); Cannabinoid Screen,Urine Negative (Negative); Opiate Screen,Urine Positive (Negative); Phencyclidine Screen,Urine Negative (Negative)
[2017-09-11] MEDS ORDERED: HEPARIN 1,000 UNIT/1 ML VIAL IV STA (23:01)
[2017-09-11] MEDS ORDERED: ACETAMINOPHEN 325 MG TABLET PO PRN (23:03)
[2017-09-11] MEDS ORDERED: BISACODYL 5 MG TABLET PO PRN (23:03)
[2017-09-11] MEDS ORDERED: ONDANSETRON 4 MG/2 ML VIAL IV PRN (23:03)
[2017-09-11] MEDS ORDERED: PROMETHAZINE 25 MG TABLET PO PRN (23:06)
[2017-09-11] MEDS ORDERED: LORazepam 4 MG/1 ML VIAL ONE (23:20)
[2017-09-11] MEDS ORDERED: ALTEPLASE 12 MG in SODIUM CHLORIDE 0.9% 240 ML IV SCH (23:30)
[2017-09-11] MEDS ORDERED: HEPARIN DRIP 25,000 UNITS/500 ML PREMIX IV SCH ×2 (23:30)
[2017-09-12] MEDS: SODIUM CHLORIDE 0.9% 1,000 ML IV SCH ×4 (00:57→17:16)
[2017-09-12] MEDS: BACLOFEN 20 MG TABLET PO SCH ×6 (00:58→23:41)
[2017-09-12] MEDS: MORPHINE 4 MG/1 ML VIAL IV PRN ×4 (01:21→20:37)
[2017-09-12 02:37] LABS: Basophils % 0.3 % (0.0-0.8); Eosinophils # 0.1 10*3/uL (0.0-0.87); Immature Granulocytes % 1.6 %; Immature Granulocytes Absolute 0.18 #; Lymphocytes % 9.2 % (21.3-54.2); Mean Corpuscular HGB Conc 36.2 GM/DL (32-36); Mean Corpuscular Hemoglobin 30 PG (27-34); Mean Corpuscular Volume 82.3 FL (87-102); Mean Platelet Volume 11.1 FL (9.6-12.0); Monocytes # 1.3 10*3/uL (0.11-0.8); Monocytes % 11.7 % (1.7-12.7); NRBC # 0.16 10*3/uL; Neutrophils # 8.5 10*3/uL (1.4-7.4); Neutrophils % 76.2 % (38.7-73.9); Platelet Count 165 T/CUMM (130-400); Red Blood Count 3.16 MC/CUMM (3.8-5.5); Red Cell Distribution Width 19.7 % (9.3-17.3); White Blood Count 11.2 T/CUMM (4-12)
[2017-09-12 02:42] LABS: INR 1.1; PT Patient Result 11.8 SECS; Partial Thromboplastin Time 36.9 SECS (0-40)
[2017-09-12 02:43] LABS: Hemoglobin 9.4 GM/DL (12.0-16.0)
[2017-09-12] MEDS: ZALEPLON 5 MG CAPSULE PO PRN (02:59)
[2017-09-12 03:05] LABS: Albumin 3.4 G/DL (3.4-5.0); Bilirubin,Total 0.7 MG/DL (0.2-1.0); Calcium 8.2 MG/DL (8.5-10.1); Osmolality,Calculated 276.4 MOS/KG (273-304); Potassium 3.3 MMOL/L (3.5-5.1); Total Protein 6.7 G/DL (6.4-8.3)
[2017-09-12] MEDS: HYDROmorphone 2 MG TABLET PO PRN ×4 (03:27→23:44)
[2017-09-12] MEDS ORDERED: SODIUM CHLORIDE 0.9% 1,000 ML IV PRN (04:35)
[2017-09-12] MEDS: POTASSIUM CHLORIDE RIDER 10 MEQ in PREMIX 1 EACH IV PRN ×4 (05:04→09:02)
[2017-09-12] MEDS ORDERED: hydroCHLOROthiazide 25 MG TABLET PO SCH (09:00)
[2017-09-12 11:14] LABS: Hematocrit 25.8 VOL% (35.7-47.0); Hemoglobin 9.2 GM/DL (12.0-16.0)
[2017-09-12 11:17] LABS: Partial Thromboplastin Time 37.6 SECS (0-40)
[2017-09-12] MEDS: GABAPENTIN 600 MG TABLET PO SCH ×2 (11:43→20:37)
[2017-09-12] MEDS: carBAMazepine 200 MG TABLET PO SCH ×2 (11:44→20:38)
[2017-09-12] MEDS: FOLIC ACID 1 MG TABLET PO SCH (11:45)
[2017-09-12] MEDS: HYDROXYUREA 500 MG CAPSULE PO SCH ×2 (11:46→20:38)
[2017-09-12] MEDS: HYDROXYCHLOROQUINE 200 MG TABLET PO SCH (11:48)
[2017-09-12] MEDS: PANTOPRAZOLE 40 MG TABLET PO SCH (11:48)
[2017-09-12] MEDS: MYCOPHENOLATE MOFETIL 250 MG CAPSULE PO SCH ×2 (11:50→20:38)
[2017-09-12] MEDS: predniSONE 10 MG TABLET PO SCH (11:50)
[2017-09-12] MEDS: DULoxetine 30 MG CAPSULE PO SCH (11:52)
[2017-09-12] MEDS: NYSTATIN 500,000 UNIT/5 ML UDCUP PO SCH ×4 (11:57→20:39)
[2017-09-12] MEDS ORDERED: CIPROFLOXACIN 500 MG TABLET PO SCH (13:00)
[2017-09-12] MEDS: diphenhydrAMINE 50 MG/1 ML VIAL IV PRN (15:03)
[2017-09-12] MEDS: ENOXAPARIN 80 MG/0.8 ML SYRINGE SUBCUT SCH (15:11)
[2017-09-12] MEDS: MEROPENEM 1,000 MG in SYRINGE 1 EACH IV SCH ×2 (16:56→23:41)
[2017-09-12 17:23] LABS: Hematocrit 25.4 VOL% (35.7-47.0); Hemoglobin 9.3 GM/DL (12.0-16.0)
[2017-09-12 23:29] LABS: Partial Thromboplastin Time 33.6 SECS (0-40)
[2017-09-13] MEDS: ENOXAPARIN 80 MG/0.8 ML SYRINGE SUBCUT SCH ×2 (02:52→15:27)
[2017-09-13] MEDS: MORPHINE 4 MG/1 ML VIAL IV PRN ×5 (02:53→20:29)
[2017-09-13 04:53] LABS: Basophils % 0.2 % (0.0-0.8); Eosinophils % 0.1 % (0.00-10.9); Hematocrit 24.3 VOL% (35.7-47.0); Hemoglobin 8.9 GM/DL (12.0-16.0); Immature Granulocytes % 1.3 %; Immature Granulocytes Absolute 0.23 #; Lymphocytes # 1.2 10*3/uL (1.4-4.0); Lymphocytes % 7.3 % (21.3-54.2); Mean Corpuscular HGB Conc 36.6 GM/DL (32-36); Mean Corpuscular Hemoglobin 30 PG (27-34); Mean Corpuscular Volume 81.5 FL (87-102); Mean Platelet Volume 11.5 FL (9.6-12.0); Monocytes # 1.5 10*3/uL (0.11-0.8); Monocytes % 8.6 % (1.7-12.7); NRBC # 0.07 10*3/uL; Neutrophils # 14.1 10*3/uL (1.4-7.4); Neutrophils % 82.5 % (38.7-73.9); Platelet Count 162 T/CUMM (130-400); Red Blood Count 2.98 MC/CUMM (3.8-5.5); Red Cell Distribution Width 20.1 % (9.3-17.3); White Blood Count 17.1 T/CUMM (4-12)
[2017-09-13 05:29] LABS: Calcium 8.4 MG/DL (8.5-10.1); Osmolality,Calculated 279.3 MOS/KG (273-304); Potassium 3.9 MMOL/L (3.5-5.1)
[2017-09-13] MEDS: BACLOFEN 20 MG TABLET PO SCH ×4 (05:36→22:56)
[2017-09-13] MEDS: HYDROmorphone 2 MG TABLET PO PRN ×3 (05:37→20:52)
[2017-09-13] MEDS: POTASSIUM CHLORIDE RIDER 10 MEQ in PREMIX 1 EACH IV PRN ×2 (06:50→08:32)
[2017-09-13] MEDS: MEROPENEM 1,000 MG in SYRINGE 1 EACH IV SCH ×3 (07:17→22:55)
[2017-09-13] MEDS: SODIUM CHLORIDE 0.9% 1,000 ML IV SCH (07:18)
[2017-09-13] MEDS: GABAPENTIN 600 MG TABLET PO SCH ×2 (08:32→20:51)
[2017-09-13] MEDS: DULoxetine 30 MG CAPSULE PO SCH (08:33)
[2017-09-13] MEDS: MYCOPHENOLATE MOFETIL 250 MG CAPSULE PO SCH ×2 (08:33→20:52)
[2017-09-13] MEDS: HYDROXYUREA 500 MG CAPSULE PO SCH ×2 (08:33→20:51)
[2017-09-13] MEDS: carBAMazepine 200 MG TABLET PO SCH ×2 (08:33→20:52)
[2017-09-13] MEDS: FOLIC ACID 1 MG TABLET PO SCH (08:34)
[2017-09-13] MEDS: PANTOPRAZOLE 40 MG TABLET PO SCH (08:35)
[2017-09-13] MEDS: predniSONE 10 MG TABLET PO SCH (08:35)
[2017-09-13] MEDS: HYDROXYCHLOROQUINE 200 MG TABLET PO SCH (08:36)
[2017-09-13] MEDS: NYSTATIN 500,000 UNIT/5 ML UDCUP PO SCH ×3 (08:36→16:35)
[2017-09-13] MEDS ORDERED: SODIUM CHLORIDE 0.9% 1,000 ML IV PRN (10:04)
[2017-09-13 11:51] LABS: Partial Thromboplastin Time 33.2 SECS (0-40)
[2017-09-13] MEDS: ZALEPLON 5 MG CAPSULE PO PRN (20:52)
[2017-09-13 23:27] LABS: Partial Thromboplastin Time 33.6 SECS (0-40)
[2017-09-14] MEDS: MORPHINE 4 MG/1 ML VIAL IV PRN ×6 (00:22→22:08)
[2017-09-14] MEDS: NYSTATIN 500,000 UNIT/5 ML UDCUP PO SCH ×5 (00:43→20:23)
[2017-09-14] MEDS: ENOXAPARIN 80 MG/0.8 ML SYRINGE SUBCUT SCH ×2 (04:39→15:49)
[2017-09-14] MEDS: BACLOFEN 20 MG TABLET PO SCH ×3 (04:39→17:39)
[2017-09-14 05:02] LABS: Basophils # 0.1 10*3/uL (0.0-0.2); Basophils % 0.3 % (0.0-0.8); Eosinophils # 0.1 10*3/uL (0.0-0.87); Eosinophils % 0.3 % (0.00-10.9); Hematocrit 25.8 VOL% (35.7-47.0); Hemoglobin 9.3 GM/DL (12.0-16.0); Immature Granulocytes % 1.8 %; Immature Granulocytes Absolute 0.32 #; Lymphocytes # 1.9 10*3/uL (1.4-4.0); Lymphocytes % 10.6 % (21.3-54.2); Mean Corpuscular Hemoglobin 30 PG (27-34); Mean Corpuscular Volume 82.4 FL (87-102); Mean Platelet Volume 11.7 FL (9.6-12.0); Monocytes # 1.9 10*3/uL (0.11-0.8); Monocytes % 10.7 % (1.7-12.7); NRBC # 0.07 10*3/uL; Neutrophils # 13.4 10*3/uL (1.4-7.4); Neutrophils % 76.3 % (38.7-73.9); Platelet Count 188 T/CUMM (130-400); Red Blood Count 3.13 MC/CUMM (3.8-5.5); Red Cell Distribution Width 19.9 % (9.3-17.3); White Blood Count 17.6 T/CUMM (4-12)
[2017-09-14 05:32] LABS: Calcium 8.7 MG/DL (8.5-10.1); Osmolality,Calculated 277.3 MOS/KG (273-304)
[2017-09-14 05:40] LABS: Band Neutrophils 2 % (0-10); Hypochromasia 1+; Lymphocytes 16 % (20-55); Nucleated Red Blood Cells 2 (0-5); Pappenheimer Bodies Slight; Platelet Estimate Normal; Segmented Neutrophils 73 % (50-85); Target Cells Few; Total Cells Counted 100
[2017-09-14 05:42] LABS: Macrocytosis Slight
[2017-09-14] MEDS ORDERED: FUROSEMIDE 40 MG/4 ML VIAL IV ONE (07:18)
[2017-09-14] MEDS: MEROPENEM 1,000 MG in SYRINGE 1 EACH IV SCH ×2 (09:04→15:48)
[2017-09-14] MEDS: carBAMazepine 200 MG TABLET PO SCH ×2 (09:05→20:23)
[2017-09-14] MEDS: HYDROXYCHLOROQUINE 200 MG TABLET PO SCH (09:05)
[2017-09-14] MEDS: GABAPENTIN 600 MG TABLET PO SCH ×2 (09:05→20:23)
[2017-09-14] MEDS: FOLIC ACID 1 MG TABLET PO SCH (09:05)
[2017-09-14] MEDS: HYDROXYUREA 500 MG CAPSULE PO SCH ×2 (09:05→20:23)
[2017-09-14] MEDS: PANTOPRAZOLE 40 MG TABLET PO SCH (09:05)
[2017-09-14] MEDS: predniSONE 10 MG TABLET PO SCH (09:06)
[2017-09-14] MEDS: MYCOPHENOLATE MOFETIL 250 MG CAPSULE PO SCH ×2 (09:06→20:22)
[2017-09-14] MEDS: HYDROmorphone 2 MG TABLET PO PRN ×4 (09:07→20:23)
[2017-09-14] MEDS: DULoxetine 30 MG CAPSULE PO SCH (09:08)
[2017-09-14 11:44] LABS: Partial Thromboplastin Time 31.9 SECS (0-40)
[2017-09-14] MEDS: SODIUM CHLORIDE 0.9% 1,000 ML IV SCH (15:48)
[2017-09-14] MEDS: diphenhydrAMINE 50 MG/1 ML VIAL IV PRN (19:41)
[2017-09-14] MEDS: ZALEPLON 5 MG CAPSULE PO PRN (20:23)
[2017-09-15] MEDS: BACLOFEN 20 MG TABLET PO SCH ×5 (00:10→23:09)
[2017-09-15 00:52] LABS: Partial Thromboplastin Time 31.7 SECS (0-40)
[2017-09-15] MEDS: diphenhydrAMINE 50 MG/1 ML VIAL IV PRN ×4 (01:50→20:12)
[2017-09-15] MEDS: MORPHINE 4 MG/1 ML VIAL IV PRN ×6 (02:22→22:01)
[2017-09-15] MEDS: ENOXAPARIN 80 MG/0.8 ML SYRINGE SUBCUT SCH ×2 (02:36→14:09)
[2017-09-15 05:34] LABS: Basophils % 0.2 % (0.0-0.8); Eosinophils # 0.1 10*3/uL (0.0-0.87); Eosinophils % 0.6 % (0.00-10.9); Hematocrit 24.3 VOL% (35.7-47.0); Hemoglobin 8.6 GM/DL (12.0-16.0); Immature Granulocytes % 1.7 %; Immature Granulocytes Absolute 0.25 #; Lymphocytes # 2.3 10*3/uL (1.4-4.0); Lymphocytes % 15.9 % (21.3-54.2); Mean Corpuscular HGB Conc 35.4 GM/DL (32-36); Mean Corpuscular Hemoglobin 29 PG (27-34); Mean Corpuscular Volume 82.4 FL (87-102); Mean Platelet Volume 12.5 FL (9.6-12.0); Monocytes # 1.5 10*3/uL (0.11-0.8); Monocytes % 10.5 % (1.7-12.7); NRBC # 0.15 10*3/uL; Neutrophils # 10.4 10*3/uL (1.4-7.4); Neutrophils % 71.1 % (38.7-73.9); Platelet Count 241 T/CUMM (130-400); Red Blood Count 2.95 MC/CUMM (3.8-5.5); Red Cell Distribution Width 20.2 % (9.3-17.3); White Blood Count 14.6 T/CUMM (4-12)
[2017-09-15 06:23] LABS: Calcium 8.5 MG/DL (8.5-10.1); Osmolality,Calculated 274.4 MOS/KG (273-304); Potassium 3.7 MMOL/L (3.5-5.1)
[2017-09-15] MEDS: HYDROmorphone 2 MG TABLET PO PRN ×5 (08:33→23:08)
[2017-09-15] MEDS: MYCOPHENOLATE MOFETIL 250 MG CAPSULE PO SCH ×2 (09:26→20:07)
[2017-09-15] MEDS: GABAPENTIN 600 MG TABLET PO SCH ×2 (09:27→20:08)
[2017-09-15] MEDS: DULoxetine 30 MG CAPSULE PO SCH (09:27)
[2017-09-15] MEDS: FOLIC ACID 1 MG TABLET PO SCH (09:28)
[2017-09-15] MEDS: predniSONE 10 MG TABLET PO SCH (09:28)
[2017-09-15] MEDS: carBAMazepine 200 MG TABLET PO SCH ×2 (09:28→20:08)
[2017-09-15] MEDS: HYDROXYCHLOROQUINE 200 MG TABLET PO SCH (09:29)
[2017-09-15] MEDS: HYDROXYUREA 500 MG CAPSULE PO SCH ×2 (09:29→20:07)
[2017-09-15] MEDS: PANTOPRAZOLE 40 MG TABLET PO SCH (09:29)
[2017-09-15] MEDS: NYSTATIN 500,000 UNIT/5 ML UDCUP PO SCH ×4 (09:29→20:07)
[2017-09-16] MEDS: ENOXAPARIN 80 MG/0.8 ML SYRINGE SUBCUT SCH ×2 (03:21→14:30)
[2017-09-16] MEDS: MORPHINE 4 MG/1 ML VIAL IV PRN ×4 (03:21→21:44)
[2017-09-16] MEDS: diphenhydrAMINE 50 MG/1 ML VIAL IV PRN ×4 (04:01→23:09)
[2017-09-16 05:03] LABS: Basophils % 0.2 % (0.0-0.8); Eosinophils # 0.1 10*3/uL (0.0-0.87); Eosinophils % 1.1 % (0.00-10.9); Hematocrit 27.1 VOL% (35.7-47.0); Hemoglobin 9.8 GM/DL (12.0-16.0); Immature Granulocytes % 1.6 %; Immature Granulocytes Absolute 0.16 #; Lymphocytes # 1.9 10*3/uL (1.4-4.0); Lymphocytes % 18.7 % (21.3-54.2); Mean Corpuscular HGB Conc 36.2 GM/DL (32-36); Mean Corpuscular Hemoglobin 29 PG (27-34); Mean Corpuscular Volume 81.4 FL (87-102); Mean Platelet Volume 11.3 FL (9.6-12.0); Monocytes # 1.1 10*3/uL (0.11-0.8); Monocytes % 10.4 % (1.7-12.7); NRBC # 0.12 10*3/uL; Platelet Count 263 T/CUMM (130-400); Red Blood Count 3.33 MC/CUMM (3.8-5.5); Red Cell Distribution Width 19.9 % (9.3-17.3); White Blood Count 10.3 T/CUMM (4-12)
[2017-09-16 05:31] LABS: Calcium 8.8 MG/DL (8.5-10.1); Osmolality,Calculated 278.1 MOS/KG (273-304)
[2017-09-16] MEDS: BACLOFEN 20 MG TABLET PO SCH ×4 (05:49→23:09)
[2017-09-16] MEDS: HYDROmorphone 2 MG TABLET PO PRN ×4 (05:55→23:09)
[2017-09-16] MEDS: PANTOPRAZOLE 40 MG TABLET PO SCH (08:33)
[2017-09-16] MEDS: DULoxetine 30 MG CAPSULE PO SCH (08:33)
[2017-09-16] MEDS: carBAMazepine 200 MG TABLET PO SCH ×2 (08:33→21:24)
[2017-09-16] MEDS: HYDROXYCHLOROQUINE 200 MG TABLET PO SCH (08:34)
[2017-09-16] MEDS: predniSONE 10 MG TABLET PO SCH (08:34)
[2017-09-16] MEDS: GABAPENTIN 600 MG TABLET PO SCH ×2 (08:34→21:24)
[2017-09-16] MEDS: MYCOPHENOLATE MOFETIL 250 MG CAPSULE PO SCH ×2 (08:35→21:43)
[2017-09-16] MEDS: HYDROXYUREA 500 MG CAPSULE PO SCH ×2 (08:35→21:24)
[2017-09-16] MEDS: NYSTATIN 500,000 UNIT/5 ML UDCUP PO SCH ×4 (08:35→21:24)
[2017-09-16] MEDS: FOLIC ACID 1 MG TABLET PO SCH (08:35)
[2017-09-16] MEDS: MEROPENEM 1,000 MG in SYRINGE 1 EACH IV SCH ×2 (09:01→21:33)
[2017-09-16 09:30] LABS: II 31.6 % (30.4-36.4); III 18.8 % (19.2-24.8); IV 8.1 % (9.6-15.6); V. Liver 11.1 % (5.5-12.7)
[2017-09-16 14:43] LABS: Phospholipid Ab IgM, S < 9.4 MPL
[2017-09-16] MEDS: ZALEPLON 5 MG CAPSULE PO PRN (23:09)
[2017-09-17] MEDS: MORPHINE 4 MG/1 ML VIAL IV PRN ×4 (01:25→19:46)
[2017-09-17] MEDS: ZALEPLON 5 MG CAPSULE PO PRN ×2 (01:25→21:29)
[2017-09-17] MEDS: ENOXAPARIN 80 MG/0.8 ML SYRINGE SUBCUT SCH ×2 (03:13→16:10)
[2017-09-17] MEDS: HYDROmorphone 2 MG TABLET PO PRN ×4 (03:38→21:30)
[2017-09-17] MEDS: BACLOFEN 20 MG TABLET PO SCH ×3 (05:38→17:39)
[2017-09-17] MEDS: diphenhydrAMINE 50 MG/1 ML VIAL IV PRN (05:40)
[2017-09-17 08:28] LABS: Basophils % 0.5 % (0.0-0.8); Eosinophils # 0.1 10*3/uL (0.0-0.87); Hematocrit 27.2 VOL% (35.7-47.0); Hemoglobin 9.3 GM/DL (12.0-16.0); Immature Granulocytes % 4.5 %; Immature Granulocytes Absolute 0.36 #; Lymphocytes # 2.2 10*3/uL (1.4-4.0); Lymphocytes % 27.1 % (21.3-54.2); Mean Corpuscular HGB Conc 34.2 GM/DL (32-36); Mean Corpuscular Hemoglobin 28 PG (27-34); Mean Corpuscular Volume 83.2 FL (87-102); Mean Platelet Volume 11.3 FL (9.6-12.0); NRBC # 0.13 10*3/uL; Neutrophils # 4.4 10*3/uL (1.4-7.4); Neutrophils % 54.9 % (38.7-73.9); Platelet Count 311 T/CUMM (130-400); Red Blood Count 3.27 MC/CUMM (3.8-5.5); Red Cell Distribution Width 20.4 % (9.3-17.3); White Blood Count 7.9 T/CUMM (4-12)
[2017-09-17 08:39] LABS: Calcium 8.8 MG/DL (8.5-10.1); Osmolality,Calculated 277.3 MOS/KG (273-304); Potassium 3.6 MMOL/L (3.5-5.1)
[2017-09-17] MEDS: GABAPENTIN 600 MG TABLET PO SCH ×2 (09:19→21:23)
[2017-09-17] MEDS: NYSTATIN 500,000 UNIT/5 ML UDCUP PO SCH ×4 (09:19→21:24)
[2017-09-17] MEDS: FOLIC ACID 1 MG TABLET PO SCH (09:21)
[2017-09-17] MEDS: carBAMazepine 200 MG TABLET PO SCH ×2 (09:21→21:23)
[2017-09-17] MEDS: predniSONE 10 MG TABLET PO SCH (09:22)
[2017-09-17] MEDS: PANTOPRAZOLE 40 MG TABLET PO SCH (09:22)
[2017-09-17] MEDS: HYDROXYCHLOROQUINE 200 MG TABLET PO SCH (09:22)
[2017-09-17] MEDS: HYDROXYUREA 500 MG CAPSULE PO SCH ×2 (09:22→21:24)
[2017-09-17] MEDS: DULoxetine 30 MG CAPSULE PO SCH (09:22)
[2017-09-17] MEDS: MEROPENEM 1,000 MG in SYRINGE 1 EACH IV SCH ×2 (10:10→21:25)
[2017-09-17] MEDS: MYCOPHENOLATE MOFETIL 250 MG CAPSULE PO SCH ×3 (11:36→21:24)
[2017-09-17 13:31] LABS: Homocysteine 5 mcmol/L
[2017-09-18] MEDS: BACLOFEN 20 MG TABLET PO SCH ×5 (00:17→22:36)
[2017-09-18] MEDS: MORPHINE 4 MG/1 ML VIAL IV PRN ×4 (01:53→21:33)
[2017-09-18] MEDS: ENOXAPARIN 80 MG/0.8 ML SYRINGE SUBCUT SCH ×2 (03:58→15:05)
[2017-09-18] MEDS: HYDROmorphone 2 MG TABLET PO PRN ×3 (03:59→17:25)
[2017-09-18 05:46] LABS: Basophils # 0.1 10*3/uL (0.0-0.2); Basophils % 0.8 % (0.0-0.8); Eosinophils # 0.1 10*3/uL (0.0-0.87); Eosinophils % 1.7 % (0.00-10.9); Hematocrit 28.5 VOL% (35.7-47.0); Hemoglobin 9.6 GM/DL (12.0-16.0); Immature Granulocytes % 5.7 %; Immature Granulocytes Absolute 0.44 #; Lymphocytes % 26.4 % (21.3-54.2); Mean Corpuscular HGB Conc 33.7 GM/DL (32-36); Mean Corpuscular Hemoglobin 29 PG (27-34); Mean Corpuscular Volume 84.8 FL (87-102); Mean Platelet Volume 10.8 FL (9.6-12.0); Monocytes # 0.8 10*3/uL (0.11-0.8); Monocytes % 10.8 % (1.7-12.7); NRBC # 0.17 10*3/uL; Neutrophils # 4.2 10*3/uL (1.4-7.4); Neutrophils % 54.6 % (38.7-73.9); Platelet Count 340 T/CUMM (130-400); Red Blood Count 3.36 MC/CUMM (3.8-5.5); Red Cell Distribution Width 20.5 % (9.3-17.3); White Blood Count 7.7 T/CUMM (4-12)
[2017-09-18 06:16] LABS: Calcium 9.1 MG/DL (8.5-10.1); Potassium 3.4 MMOL/L (3.5-5.1)
[2017-09-18 06:31] LABS: Band Neutrophils 1 % (0-10); Eosinophils 1 % (0-10); Lymphocytes 22 % (20-55); Segmented Neutrophils 67 % (50-85); Total Cells Counted 100
[2017-09-18 06:32] LABS: Hypochromasia 1+; Microcytosis 1+
[2017-09-18 06:33] LABS: Pappenheimer Bodies Few; Target Cells 1+
[2017-09-18 06:34] LABS: Platelet Estimate Normal
[2017-09-18] MEDS: FOLIC ACID 1 MG TABLET PO SCH (08:34)
[2017-09-18] MEDS: predniSONE 10 MG TABLET PO SCH (08:35)
[2017-09-18] MEDS: GABAPENTIN 600 MG TABLET PO SCH ×2 (08:35→21:36)
[2017-09-18] MEDS: MYCOPHENOLATE MOFETIL 250 MG CAPSULE PO SCH ×2 (08:36→21:36)
[2017-09-18] MEDS: carBAMazepine 200 MG TABLET PO SCH ×2 (08:36→21:36)
[2017-09-18] MEDS: HYDROXYCHLOROQUINE 200 MG TABLET PO SCH (08:36)
[2017-09-18] MEDS: NYSTATIN 500,000 UNIT/5 ML UDCUP PO SCH ×4 (08:37→21:38)
[2017-09-18] MEDS: DULoxetine 30 MG CAPSULE PO SCH (08:37)
[2017-09-18] MEDS: PANTOPRAZOLE 40 MG TABLET PO SCH (08:37)
[2017-09-18] MEDS: HYDROXYUREA 500 MG CAPSULE PO SCH ×2 (08:37→21:37)
[2017-09-18] MEDS: MEROPENEM 1,000 MG in SYRINGE 1 EACH IV SCH ×2 (08:37→21:37)
[2017-09-18] MEDS: POTASSIUM CHLORIDE RIDER 10 MEQ in PREMIX 1 EACH IV PRN ×2 (09:35→10:28)
[2017-09-18] MEDS ORDERED: POTASSIUM CHLORIDE 20 MEQ TABLET PO ONE (11:33)
[2017-09-18 14:52] LABS: DRVVT Screen Ratio 1.1 ratio (0.0 - 1.1); INR 1.5
[2017-09-18] MEDS: diphenhydrAMINE CAP 50 MG CAPSULE PO PRN (21:36)
[2017-09-19] MEDS: HYDROmorphone 2 MG TABLET PO PRN ×5 (00:26→23:18)
[2017-09-19] MEDS: ENOXAPARIN 80 MG/0.8 ML SYRINGE SUBCUT SCH ×2 (03:28→14:46)
[2017-09-19] MEDS: MORPHINE 4 MG/1 ML VIAL IV PRN ×3 (03:28→20:40)
[2017-09-19] MEDS: BACLOFEN 20 MG TABLET PO SCH ×4 (04:33→23:18)
[2017-09-19 06:16] LABS: Basophils # 0.1 10*3/uL (0.0-0.2); Basophils % 0.6 % (0.0-0.8); Eosinophils # 0.1 10*3/uL (0.0-0.87); Eosinophils % 1.7 % (0.00-10.9); Hematocrit 27.5 VOL% (35.7-47.0); Hemoglobin 9.9 GM/DL (12.0-16.0); Immature Granulocytes % 7.3 %; Immature Granulocytes Absolute 0.56 #; Lymphocytes # 1.8 10*3/uL (1.4-4.0); Lymphocytes % 23.7 % (21.3-54.2); Mean Corpuscular Hemoglobin 30 PG (27-34); Mean Corpuscular Volume 81.8 FL (87-102); Mean Platelet Volume 10.1 FL (9.6-12.0); Monocytes # 0.5 10*3/uL (0.11-0.8); NRBC # 0.21 10*3/uL; Neutrophils # 4.6 10*3/uL (1.4-7.4); Neutrophils % 59.7 % (38.7-73.9); Platelet Count 367 T/CUMM (130-400); Red Blood Count 3.36 MC/CUMM (3.8-5.5); Red Cell Distribution Width 20.5 % (9.3-17.3); White Blood Count 7.7 T/CUMM (4-12)
[2017-09-19 06:39] LABS: Calcium 8.6 MG/DL (8.5-10.1); Osmolality,Calculated 276.4 MOS/KG (273-304); Potassium 3.4 MMOL/L (3.5-5.1)
[2017-09-19 07:41] LABS: Lymphocytes 23 % (20-55); Segmented Neutrophils 73 % (50-85); Total Cells Counted 100
[2017-09-19 07:42] LABS: Giant Platelets Few; Hypochromasia 2+; Macrocytosis 1+; Pappenheimer Bodies 3+; Platelet Estimate Adequate; Polychromasia Slight; Target Cells Slight
[2017-09-19] MEDS ORDERED: predniSONE 5 MG TABLET ONE (08:41)
[2017-09-19] MEDS: MEROPENEM 1,000 MG in SYRINGE 1 EACH IV SCH ×2 (09:31→20:40)
[2017-09-19] MEDS: FOLIC ACID 1 MG TABLET PO SCH (09:33)
[2017-09-19] MEDS: PANTOPRAZOLE 40 MG TABLET PO SCH (09:34)
[2017-09-19] MEDS: GABAPENTIN 600 MG TABLET PO SCH ×2 (09:34→20:41)
[2017-09-19] MEDS: DULoxetine 30 MG CAPSULE PO SCH (09:34)
[2017-09-19] MEDS: HYDROXYCHLOROQUINE 200 MG TABLET PO SCH (09:34)
[2017-09-19] MEDS: predniSONE 10 MG TABLET PO SCH (09:35)
[2017-09-19] MEDS: NYSTATIN 500,000 UNIT/5 ML UDCUP PO SCH ×4 (09:35→20:41)
[2017-09-19] MEDS: MYCOPHENOLATE MOFETIL 250 MG CAPSULE PO SCH ×2 (09:36→20:40)
[2017-09-19] MEDS: HYDROXYUREA 500 MG CAPSULE PO SCH ×2 (09:46→20:49)
[2017-09-19] MEDS: carBAMazepine 200 MG TABLET PO SCH ×2 (09:46→20:41)
[2017-09-19] MEDS: POTASSIUM CHLORIDE RIDER 10 MEQ in PREMIX 1 EACH IV PRN ×3 (16:33→20:43)
[2017-09-20] MEDS: ENOXAPARIN 80 MG/0.8 ML SYRINGE SUBCUT SCH ×2 (02:50→15:27)
[2017-09-20] MEDS: HYDROmorphone 2 MG TABLET PO PRN ×5 (02:50→20:34)
[2017-09-20] MEDS: BACLOFEN 20 MG TABLET PO SCH ×3 (05:29→17:08)
[2017-09-20 06:41] LABS: Calcium 9.2 MG/DL (8.5-10.1); Osmolality,Calculated 275.4 MOS/KG (273-304); Potassium 3.8 MMOL/L (3.5-5.1)
[2017-09-20] MEDS: POTASSIUM CHLORIDE RIDER 10 MEQ in PREMIX 1 EACH IV PRN (06:50)
[2017-09-20] MEDS: MORPHINE 4 MG/1 ML VIAL IV PRN (08:51)
[2017-09-20] MEDS: MYCOPHENOLATE MOFETIL 250 MG CAPSULE PO SCH ×2 (08:55→20:33)
[2017-09-20] MEDS: GABAPENTIN 600 MG TABLET PO SCH ×2 (08:56→20:33)
[2017-09-20] MEDS: AMOXICILLIN/CLAV 500 MG TABLET PO SCH ×2 (08:56→20:34)
[2017-09-20] MEDS: HYDROXYUREA 500 MG CAPSULE PO SCH ×2 (08:56→20:33)
[2017-09-20] MEDS: DULoxetine 30 MG CAPSULE PO SCH (08:56)
[2017-09-20] MEDS: FOLIC ACID 1 MG TABLET PO SCH (08:57)
[2017-09-20] MEDS: HYDROXYCHLOROQUINE 200 MG TABLET PO SCH (08:57)
[2017-09-20] MEDS: PANTOPRAZOLE 40 MG TABLET PO SCH (08:58)
[2017-09-20] MEDS: carBAMazepine 200 MG TABLET PO SCH ×2 (08:58→20:34)
[2017-09-20] MEDS: predniSONE 10 MG TABLET PO SCH (08:58)
[2017-09-20] MEDS: NYSTATIN 500,000 UNIT/5 ML UDCUP PO SCH ×4 (08:59→21:03)
[2017-09-21] MEDS: BACLOFEN 20 MG TABLET PO SCH ×5 (00:09→23:41)
[2017-09-21] MEDS: HYDROmorphone 2 MG TABLET PO PRN ×7 (00:09→23:39)
[2017-09-21] MEDS: ENOXAPARIN 80 MG/0.8 ML SYRINGE SUBCUT SCH ×2 (03:44→15:57)
[2017-09-21] MEDS: GABAPENTIN 600 MG TABLET PO SCH ×2 (09:34→20:42)
[2017-09-21] MEDS: FOLIC ACID 1 MG TABLET PO SCH (09:34)
[2017-09-21] MEDS: HYDROXYCHLOROQUINE 200 MG TABLET PO SCH (09:35)
[2017-09-21] MEDS: carBAMazepine 200 MG TABLET PO SCH ×2 (09:35→20:42)
[2017-09-21] MEDS: PANTOPRAZOLE 40 MG TABLET PO SCH (09:35)
[2017-09-21] MEDS: MYCOPHENOLATE MOFETIL 250 MG CAPSULE PO SCH ×2 (09:35→20:42)
[2017-09-21] MEDS: HYDROXYUREA 500 MG CAPSULE PO SCH ×2 (09:35→22:13)
[2017-09-21] MEDS: AMOXICILLIN/CLAV 500 MG TABLET PO SCH ×2 (09:36→22:13)
[2017-09-21] MEDS: DULoxetine 30 MG CAPSULE PO SCH (09:36)
[2017-09-21] MEDS: predniSONE 10 MG TABLET PO SCH (09:36)
[2017-09-21] MEDS: NYSTATIN 500,000 UNIT/5 ML UDCUP PO SCH ×4 (09:37→22:13)
[2017-09-22] MEDS: HYDROmorphone 2 MG TABLET PO PRN ×4 (03:43→16:40)
[2017-09-22 04:19] LABS: Basophils % 0.5 % (0.0-0.8); Eosinophils # 0.1 10*3/uL (0.0-0.87); Eosinophils % 1.1 % (0.00-10.9); Hematocrit 30.6 VOL% (35.7-47.0); Hemoglobin 10.3 GM/DL (12.0-16.0); Immature Granulocytes Absolute 0.39 #; Lymphocytes # 2.1 10*3/uL (1.4-4.0); Lymphocytes % 32.2 % (21.3-54.2); Mean Corpuscular HGB Conc 33.7 GM/DL (32-36); Mean Corpuscular Hemoglobin 29 PG (27-34); Mean Corpuscular Volume 85.7 FL (87-102); Mean Platelet Volume 9.9 FL (9.6-12.0); Monocytes # 0.6 10*3/uL (0.11-0.8); Monocytes % 8.8 % (1.7-12.7); NRBC # 0.07 10*3/uL; Neutrophils # 3.3 10*3/uL (1.4-7.4); Neutrophils % 51.4 % (38.7-73.9); Platelet Count 460 T/CUMM (130-400); Red Blood Count 3.57 MC/CUMM (3.8-5.5); Red Cell Distribution Width 20.3 % (9.3-17.3); White Blood Count 6.5 T/CUMM (4-12)
[2017-09-22 04:34] LABS: Calcium 9.1 MG/DL (8.5-10.1); Osmolality,Calculated 274.5 MOS/KG (273-304); Potassium 3.7 MMOL/L (3.5-5.1)
[2017-09-22 04:52] LABS: Band Neutrophils 2 % (0-10); Eosinophils 2 % (0-10); Lymphocytes 31 % (20-55); Myelocytes 1 %; Segmented Neutrophils 63 % (50-85); Total Cells Counted 100
[2017-09-22 04:54] LABS: Anisocytosis 1+; Target Cells 2+
[2017-09-22 04:56] LABS: Howell-Jolly Bodies Few; Ovalocytes 1+; Pappenheimer Bodies 2+; Platelet Estimate Normal
[2017-09-22] MEDS: ENOXAPARIN 80 MG/0.8 ML SYRINGE SUBCUT SCH ×2 (05:02→14:25)
[2017-09-22] MEDS: BACLOFEN 20 MG TABLET PO SCH ×4 (05:02→23:27)
[2017-09-22] MEDS: HYDROXYUREA 500 MG CAPSULE PO SCH ×2 (09:07→21:21)
[2017-09-22] MEDS: MYCOPHENOLATE MOFETIL 250 MG CAPSULE PO SCH ×2 (09:07→21:20)
[2017-09-22] MEDS: carBAMazepine 200 MG TABLET PO SCH ×2 (09:08→21:21)
[2017-09-22] MEDS: GABAPENTIN 600 MG TABLET PO SCH ×2 (09:08→21:21)
[2017-09-22] MEDS: predniSONE 10 MG TABLET PO SCH (09:08)
[2017-09-22] MEDS: HYDROXYCHLOROQUINE 200 MG TABLET PO SCH (09:08)
[2017-09-22] MEDS: PANTOPRAZOLE 40 MG TABLET PO SCH (09:08)
[2017-09-22] MEDS: AMOXICILLIN/CLAV 500 MG TABLET PO SCH ×2 (09:08→21:21)
[2017-09-22] MEDS: DULoxetine 30 MG CAPSULE PO SCH (09:09)
[2017-09-22] MEDS: NYSTATIN 500,000 UNIT/5 ML UDCUP PO SCH ×4 (09:09→21:21)
[2017-09-22] MEDS: FOLIC ACID 1 MG TABLET PO SCH (09:09)
[2017-09-22] MEDS ORDERED: HYDROmorphone 2 MG/1 ML VIAL IV PRN (13:26)
[2017-09-22] MEDS ORDERED: SODIUM CHLORIDE 0.9% 1,000 ML IV SCH (14:00)
[2017-09-22] MEDS: MORPHINE 4 MG/1 ML VIAL IV PRN ×3 (14:25→23:24)
[2017-09-23] MEDS: MORPHINE 4 MG/1 ML VIAL IV PRN ×5 (03:19→21:13)
[2017-09-23] MEDS: ENOXAPARIN 80 MG/0.8 ML SYRINGE SUBCUT SCH ×2 (03:19→14:42)
[2017-09-23] MEDS: BACLOFEN 20 MG TABLET PO SCH ×3 (06:19→16:30)
[2017-09-23 06:30] LABS: Basophils # 0.1 10*3/uL (0.0-0.2); Basophils % 0.7 % (0.0-0.8); Eosinophils # 0.1 10*3/uL (0.0-0.87); Eosinophils % 0.8 % (0.00-10.9); Hematocrit 30.1 VOL% (35.7-47.0); Hemoglobin 10.3 GM/DL (12.0-16.0); Immature Granulocytes % 4.7 %; Immature Granulocytes Absolute 0.34 #; Lymphocytes # 2.2 10*3/uL (1.4-4.0); Lymphocytes % 31.2 % (21.3-54.2); Mean Corpuscular HGB Conc 34.2 GM/DL (32-36); Mean Corpuscular Hemoglobin 29 PG (27-34); Mean Corpuscular Volume 85.5 FL (87-102); Mean Platelet Volume 9.7 FL (9.6-12.0); Monocytes # 0.5 10*3/uL (0.11-0.8); Monocytes % 7.3 % (1.7-12.7); NRBC # 0.12 10*3/uL; Neutrophils % 55.3 % (38.7-73.9); Platelet Count 453 T/CUMM (130-400); Red Blood Count 3.52 MC/CUMM (3.8-5.5); Red Cell Distribution Width 20.4 % (9.3-17.3); White Blood Count 7.2 T/CUMM (4-12)
[2017-09-23] MEDS: HYDROXYUREA 500 MG CAPSULE PO SCH ×2 (08:12→21:14)
[2017-09-23] MEDS: DULoxetine 30 MG CAPSULE PO SCH (08:12)
[2017-09-23] MEDS: MYCOPHENOLATE MOFETIL 250 MG CAPSULE PO SCH ×2 (08:12→21:13)
[2017-09-23] MEDS: carBAMazepine 200 MG TABLET PO SCH ×2 (08:13→21:13)
[2017-09-23] MEDS: GABAPENTIN 600 MG TABLET PO SCH ×2 (08:13→21:13)
[2017-09-23] MEDS: AMOXICILLIN/CLAV 500 MG TABLET PO SCH ×2 (08:13→21:14)
[2017-09-23] MEDS: FOLIC ACID 1 MG TABLET PO SCH (08:13)
[2017-09-23] MEDS: NYSTATIN 500,000 UNIT/5 ML UDCUP PO SCH ×4 (08:14→22:28)
[2017-09-23] MEDS: predniSONE 10 MG TABLET PO SCH (08:14)
[2017-09-23] MEDS: PANTOPRAZOLE 40 MG TABLET PO SCH (08:14)
[2017-09-23] MEDS: HYDROXYCHLOROQUINE 200 MG TABLET PO SCH (08:14)
[2017-09-23 08:24] LABS: Sedimentation Rate-Westergren 98 MM/HR (0-20)
[2017-09-23 08:48] LABS: Apearance,Urine CLEAR (Clear); Bilirubin,Urine Negative (Negative); Blood, Urine Small mg/dL (Negative); Glucose,Urine (UA) Negative (Negative); Ketones,Urine Negative (Negative); Mucus,Urine Occasional /LPF (Occasional); Nitrite,Urine Negative (Negative); Protein,Urine Negative; RBC,Urine <1 /HPF (0-4); Squamous Epithelial Cell,Urine Occasional /HPF (0-10); Urine Color Yellow (Yellow); Urine Specific Gravity 1.012 (1.001-1.035); Urine Urobilinogen < 2.0 EU/DL (0.2-1.0); WBC,Urine 1 /HPF (0-6)
[2017-09-23] MEDS: HYDROmorphone 2 MG TABLET PO PRN ×2 (10:17→18:29)
[2017-09-24] MEDS: BACLOFEN 20 MG TABLET PO SCH ×5 (00:58→23:06)
[2017-09-24] MEDS: MORPHINE 4 MG/1 ML VIAL IV PRN ×6 (01:02→21:38)
[2017-09-24] MEDS: ENOXAPARIN 80 MG/0.8 ML SYRINGE SUBCUT SCH ×2 (03:55→17:23)
[2017-09-24] MEDS: PANTOPRAZOLE 40 MG TABLET PO SCH (09:00)
[2017-09-24] MEDS: predniSONE 10 MG TABLET PO SCH (09:00)
[2017-09-24] MEDS: FOLIC ACID 1 MG TABLET PO SCH (09:01)
[2017-09-24] MEDS: carBAMazepine 200 MG TABLET PO SCH ×2 (09:02→21:37)
[2017-09-24] MEDS: HYDROXYCHLOROQUINE 200 MG TABLET PO SCH (09:02)
[2017-09-24] MEDS: MYCOPHENOLATE MOFETIL 250 MG CAPSULE PO SCH ×2 (09:02→21:44)
[2017-09-24] MEDS: DULoxetine 30 MG CAPSULE PO SCH (09:02)
[2017-09-24] MEDS: AMOXICILLIN/CLAV 500 MG TABLET PO SCH ×2 (09:02→21:37)
[2017-09-24] MEDS: HYDROXYUREA 500 MG CAPSULE PO SCH ×2 (09:02→21:37)
[2017-09-24] MEDS: NYSTATIN 500,000 UNIT/5 ML UDCUP PO SCH ×4 (09:03→22:04)
[2017-09-24] MEDS: GABAPENTIN 600 MG TABLET PO SCH ×2 (09:10→21:37)
[2017-09-24] MEDS: HYDROmorphone 2 MG TABLET PO PRN (11:28)
[2017-09-25] MEDS: MORPHINE 4 MG/1 ML VIAL IV PRN ×5 (01:30→21:08)
[2017-09-25] MEDS: ENOXAPARIN 80 MG/0.8 ML SYRINGE SUBCUT SCH ×2 (03:52→15:23)
[2017-09-25] MEDS: BACLOFEN 20 MG TABLET PO SCH ×4 (05:30→23:21)
[2017-09-25] MEDS: MYCOPHENOLATE MOFETIL 250 MG CAPSULE PO SCH ×2 (08:55→21:07)
[2017-09-25] MEDS: carBAMazepine 200 MG TABLET PO SCH ×2 (08:55→21:07)
[2017-09-25] MEDS: GABAPENTIN 600 MG TABLET PO SCH ×2 (08:55→21:07)
[2017-09-25] MEDS: HYDROXYUREA 500 MG CAPSULE PO SCH ×2 (08:55→21:07)
[2017-09-25] MEDS: HYDROXYCHLOROQUINE 200 MG TABLET PO SCH (08:56)
[2017-09-25] MEDS: PANTOPRAZOLE 40 MG TABLET PO SCH (08:56)
[2017-09-25] MEDS: DULoxetine 30 MG CAPSULE PO SCH (08:56)
[2017-09-25] MEDS: predniSONE 10 MG TABLET PO SCH (08:56)
[2017-09-25] MEDS: FOLIC ACID 1 MG TABLET PO SCH (08:57)
[2017-09-25] MEDS: NYSTATIN 500,000 UNIT/5 ML UDCUP PO SCH ×4 (09:07→21:05)
[2017-09-25 11:51] LABS: PT Mix 1:1 (Mayo Reflex) 13.3 sec; Reptilase Time, P 15 sec (14 - 23); Thrombin Time (Bovine), P 43 sec (15 - 23)
[2017-09-25] MEDS: diphenhydrAMINE CAP 50 MG CAPSULE PO PRN (21:07)
[2017-09-26] MEDS: MORPHINE 4 MG/1 ML VIAL IV PRN ×4 (00:58→13:09)
[2017-09-26] MEDS: BACLOFEN 20 MG TABLET PO SCH ×2 (04:46→11:36)
[2017-09-26] MEDS: ENOXAPARIN 80 MG/0.8 ML SYRINGE SUBCUT SCH (04:46)
[2017-09-26] MEDS: HYDROXYUREA 500 MG CAPSULE PO SCH (09:18)
[2017-09-26] MEDS: predniSONE 10 MG TABLET PO SCH (09:19)
[2017-09-26] MEDS: GABAPENTIN 600 MG TABLET PO SCH (09:19)
[2017-09-26] MEDS: MYCOPHENOLATE MOFETIL 250 MG CAPSULE PO SCH (09:19)
[2017-09-26] MEDS: carBAMazepine 200 MG TABLET PO SCH (09:19)
[2017-09-26] MEDS: FOLIC ACID 1 MG TABLET PO SCH (09:20)
[2017-09-26] MEDS: HYDROXYCHLOROQUINE 200 MG TABLET PO SCH (09:21)
[2017-09-26] MEDS: NYSTATIN 500,000 UNIT/5 ML UDCUP PO SCH ×2 (09:21→12:33)
[2017-09-26] MEDS: PANTOPRAZOLE 40 MG TABLET PO SCH (09:21)
[2017-09-26] MEDS: DULoxetine 30 MG CAPSULE PO SCH (09:21)
[2017-09-26 12:21] VITALS: BP 115/79
== END 2017-09-26 13:19 | DRG 814 ==
LOC: EDUNIT# → N.ED 19:44 → N.CC 22:20 → N.EDINP 23:03 → SUATTDRO 23:03 → N.CC 23:52 → N.TELEN 09-16 14:53
PROVIDERS: ADMIT Internal Medicine; ATTEND Internal Medicine Cardiovascular Disease

== ENCOUNTER 2017-11-01 09:25 | Inpatient (IN) ==
[2017-11-09 11:57] VITALS: BP 155/111
== END 2017-11-09 15:13 | disposition home health service (06) | DRG 690 ==
LOC: EDBD → EDUNIT# → N.ED 09:25 → N.EDINP 13:46 → N.2E 14:17
PROVIDERS: ADMIT Internal Medicine; ATTEND Internal Medicine

== ENCOUNTER 2017-11-28 12:49 | Inpatient (IN) ==
[2017-11-28] MEDS ORDERED: SODIUM CHLORIDE 0.9% 1,000 ML IV STA ×2 (14:05→16:05)
[2017-11-28 14:11] LABS: Basophils % 0.5 % (0.0-0.8); Eosinophils # 0.1 10*3/uL (0.0-0.87); Eosinophils % 1.1 % (0.00-10.9); Hemoglobin 9.8 GM/DL (12.0-16.0); Immature Granulocytes % 1.1 %; Immature Granulocytes Absolute 0.05 #; Lymphocytes # 1.4 10*3/uL (1.4-4.0); Lymphocytes % 31.7 % (21.3-54.2); Mean Corpuscular HGB Conc 36.3 GM/DL (32-36); Mean Corpuscular Hemoglobin 31 PG (27-34); Mean Corpuscular Volume 84.4 FL (87-102); Mean Platelet Volume 11.1 FL (9.6-12.0); Monocytes # 0.5 10*3/uL (0.11-0.8); Monocytes % 11.5 % (1.7-12.7); NRBC # 0.11 10*3/uL; Neutrophils # 2.4 10*3/uL (1.4-7.4); Neutrophils % 54.1 % (38.7-73.9); Platelet Count 462 T/CUMM (130-400); Red Cell Distribution Width 18.6 % (9.3-17.3); White Blood Count 4.4 T/CUMM (4-12)
[2017-11-28 14:20] LABS: Apearance,Urine Slightly Hazy (Clear); Bilirubin,Urine Negative (Negative); Blood, Urine Negative (Negative); Glucose,Urine (UA) Negative (Negative); Ketones,Urine Negative (Negative); Mucus,Urine Occasional /LPF (Occasional); Nitrite,Urine Negative (Negative); Protein,Urine Negative; RBC,Urine 2 /HPF (0-4); Squamous Epithelial Cell,Urine Occasional /HPF (0-10); Urine Color Yellow (Yellow); WBC,Urine 319 /HPF (0-6)
[2017-11-28 14:34] LABS: Albumin 3.3 G/DL (3.4-5.0); Bilirubin,Total 0.6 MG/DL (0.2-1.0); Calcium 9.1 MG/DL (8.5-10.1); Osmolality,Calculated 281.8 MOS/KG (273-304); Potassium 3.9 MMOL/L (3.5-5.1); Total Protein 7.3 G/DL (6.4-8.3)
[2017-11-28] MEDS ORDERED: HYDROmorphone 2 MG/1 ML VIAL IV STA ×3 (14:49→17:22)
[2017-11-28] MEDS ORDERED: HYDROmorphone 2 MG/1 ML VIAL ONE ×3 (15:09→17:24)
[2017-11-28] MEDS ORDERED: hydrOXYzine HCL 25 MG TABLET PO PRN (19:17)
[2017-11-28] MEDS: HYDROmorphone 2 MG/1 ML VIAL IV PRN (21:15)
[2017-11-28] MEDS: MYCOPHENOLATE MOFETIL 250 MG CAPSULE PO SCH (23:21)
[2017-11-28] MEDS: PROMETHAZINE 25 MG TABLET PO SCH (23:22)
[2017-11-28] MEDS: AMITRIPTYLINE 10 MG TABLET PO SCH (23:22)
[2017-11-28] MEDS: BACLOFEN 20 MG TABLET PO SCH (23:22)
[2017-11-28] MEDS: HYDROXYUREA 500 MG CAPSULE PO SCH (23:22)
[2017-11-28] MEDS: MEROPENEM 1,000 MG in SYRINGE 1 EACH IV SCH (23:24)
[2017-11-29] MEDS: HYDROmorphone 2 MG/1 ML VIAL IV PRN ×6 (01:19→22:55)
[2017-11-29] MEDS: VANCOMYCIN INJ 1,000 MG in SODIUM CHLORIDE 0.9% 250 ML IV SCH ×3 (01:22→23:02)
[2017-11-29] MEDS: diphenhydrAMINE CAP 50 MG CAPSULE PO PRN ×3 (01:22→23:02)
[2017-11-29] MEDS: BACLOFEN 20 MG TABLET PO SCH ×4 (05:52→23:00)
[2017-11-29] MEDS: AMITRIPTYLINE 10 MG TABLET PO SCH ×4 (05:52→23:01)
[2017-11-29] MEDS: MEROPENEM 1,000 MG in SYRINGE 1 EACH IV SCH ×3 (05:52→22:54)
[2017-11-29] MEDS: PROMETHAZINE 25 MG TABLET PO SCH ×4 (05:52→23:03)
[2017-11-29] MEDS ORDERED: SODIUM CHLORIDE 0.9% 1,000 ML IV SCH (10:00)
[2017-11-29] MEDS: MYCOPHENOLATE MOFETIL 250 MG CAPSULE PO SCH ×2 (10:12→23:00)
[2017-11-29] MEDS: predniSONE 10 MG TABLET PO SCH (10:13)
[2017-11-29] MEDS: HYDROXYCHLOROQUINE 200 MG TABLET PO SCH (10:13)
[2017-11-29] MEDS: DULoxetine 30 MG CAPSULE PO SCH (10:13)
[2017-11-29] MEDS: FOLIC ACID 1 MG TABLET PO SCH (10:13)
[2017-11-29] MEDS: HYDROXYUREA 500 MG CAPSULE PO SCH ×2 (10:13→23:00)
[2017-11-29 10:14] LABS: Basophils % 0.1 % (0.0-0.8); Eosinophils # 0.1 10*3/uL (0.0-0.87); Eosinophils % 1.2 % (0.00-10.9); Hematocrit 25.6 VOL% (35.7-47.0); Hemoglobin 9.4 GM/DL (12.0-16.0); Immature Granulocytes % 1.1 %; Immature Granulocytes Absolute 0.08 #; Lymphocytes # 1.3 10*3/uL (1.4-4.0); Lymphocytes % 17.7 % (21.3-54.2); Mean Corpuscular HGB Conc 36.7 GM/DL (32-36); Mean Corpuscular Hemoglobin 31 PG (27-34); Mean Corpuscular Volume 85.6 FL (87-102); Mean Platelet Volume 11.8 FL (9.6-12.0); Monocytes # 0.5 10*3/uL (0.11-0.8); Monocytes % 6.9 % (1.7-12.7); NRBC # 0.11 10*3/uL; Neutrophils # 5.4 10*3/uL (1.4-7.4); Platelet Count 440 T/CUMM (130-400); Red Blood Count 2.99 MC/CUMM (3.8-5.5); Red Cell Distribution Width 18.5 % (9.3-17.3); White Blood Count 7.3 T/CUMM (4-12)
[2017-11-29 10:24] LABS: Bilirubin,Total 0.6 MG/DL (0.2-1.0); Calcium 8.5 MG/DL (8.5-10.1); Osmolality,Calculated 281.8 MOS/KG (273-304); Potassium 3.5 MMOL/L (3.5-5.1); Total Protein 7.1 G/DL (6.4-8.3)
[2017-11-29] MEDS ORDERED: FUROSEMIDE 20 MG/2 ML VIAL IV ONE (11:16)
[2017-11-29] MEDS ORDERED: MAGNESIUM SULF RIDER 2 GM in PREMIX 1 EACH IV ONE (11:22)
[2017-11-29] MEDS: PHENAZOPYRIDINE 95 MG TABLET PO SCH ×2 (12:29→17:25)
[2017-11-29] MEDS: GABAPENTIN 400 MG CAPSULE PO SCH ×2 (14:24→23:01)
[2017-11-30] MEDS: HYDROmorphone 2 MG/1 ML VIAL IV PRN ×4 (03:00→15:42)
[2017-11-30 04:30] LABS: Basophils % 0.1 % (0.0-0.8); Eosinophils % 0.1 % (0.00-10.9); Hematocrit 30.6 VOL% (35.7-47.0); Hemoglobin 10.9 GM/DL (12.0-16.0); Immature Granulocytes % 0.8 %; Immature Granulocytes Absolute 0.06 #; Lymphocytes # 1.1 10*3/uL (1.4-4.0); Lymphocytes % 15.3 % (21.3-54.2); Mean Corpuscular HGB Conc 35.6 GM/DL (32-36); Mean Corpuscular Hemoglobin 31 PG (27-34); Mean Corpuscular Volume 86.4 FL (87-102); Mean Platelet Volume 11.6 FL (9.6-12.0); Monocytes # 0.7 10*3/uL (0.11-0.8); Monocytes % 9.8 % (1.7-12.7); NRBC # 0.09 10*3/uL; Neutrophils # 5.3 10*3/uL (1.4-7.4); Neutrophils % 73.9 % (38.7-73.9); Platelet Count 373 T/CUMM (130-400); Red Blood Count 3.54 MC/CUMM (3.8-5.5); Red Cell Distribution Width 18.4 % (9.3-17.3); White Blood Count 7.2 T/CUMM (4-12)
[2017-11-30 04:51] LABS: Calcium 9.1 MG/DL (8.5-10.1)
[2017-11-30 05:39] LABS: Sedimentation Rate-Westergren 57 MM/HR (0-20)
[2017-11-30] MEDS: PROMETHAZINE 25 MG TABLET PO SCH ×4 (06:57→23:43)
[2017-11-30] MEDS: AMITRIPTYLINE 10 MG TABLET PO SCH ×4 (06:59→23:43)
[2017-11-30] MEDS: BACLOFEN 20 MG TABLET PO SCH ×4 (07:24→23:43)
[2017-11-30] MEDS: MEROPENEM 1,000 MG in SYRINGE 1 EACH IV SCH ×3 (07:28→23:44)
[2017-11-30] MEDS: GABAPENTIN 400 MG CAPSULE PO SCH ×3 (09:57→22:23)
[2017-11-30] MEDS: DULoxetine 30 MG CAPSULE PO SCH (09:57)
[2017-11-30] MEDS: PHENAZOPYRIDINE 95 MG TABLET PO SCH ×3 (09:57→17:10)
[2017-11-30] MEDS: FOLIC ACID 1 MG TABLET PO SCH (09:57)
[2017-11-30] MEDS: MYCOPHENOLATE MOFETIL 250 MG CAPSULE PO SCH ×2 (09:57→22:22)
[2017-11-30] MEDS: diphenhydrAMINE CAP 50 MG CAPSULE PO PRN (09:57)
[2017-11-30] MEDS: HYDROXYUREA 500 MG CAPSULE PO SCH ×2 (09:57→22:23)
[2017-11-30] MEDS: HYDROXYCHLOROQUINE 200 MG TABLET PO SCH (09:58)
[2017-11-30] MEDS: predniSONE 10 MG TABLET PO SCH (09:58)
[2017-11-30] MEDS: VANCOMYCIN INJ 1,000 MG in SODIUM CHLORIDE 0.9% 250 ML IV SCH (12:02)
[2017-11-30] MEDS ORDERED: HYDROmorphone 2 MG/1 ML VIAL IV PRN (18:37)
[2017-11-30] MEDS: HYDROmorphone 2 MG TABLET PO PRN (20:32)
[2017-12-01] MEDS: HYDROmorphone 2 MG TABLET PO PRN ×2 (04:35→09:54)
[2017-12-01 05:17] LABS: Osmolality,Calculated 276.4 MOS/KG (273-304); Potassium 4.1 MMOL/L (3.5-5.1)
[2017-12-01] MEDS: AMITRIPTYLINE 10 MG TABLET PO SCH ×2 (06:30→12:49)
[2017-12-01] MEDS: BACLOFEN 20 MG TABLET PO SCH ×2 (06:30→14:58)
[2017-12-01] MEDS: PROMETHAZINE 25 MG TABLET PO SCH ×2 (06:30→14:58)
[2017-12-01] MEDS: MEROPENEM 1,000 MG in SYRINGE 1 EACH IV SCH (06:31)
[2017-12-01] MEDS: predniSONE 10 MG TABLET PO SCH (09:54)
[2017-12-01] MEDS: HYDROXYCHLOROQUINE 200 MG TABLET PO SCH (09:54)
[2017-12-01] MEDS: GABAPENTIN 400 MG CAPSULE PO SCH ×2 (09:55→14:58)
[2017-12-01] MEDS: MYCOPHENOLATE MOFETIL 250 MG CAPSULE PO SCH (09:55)
[2017-12-01] MEDS: HYDROXYUREA 500 MG CAPSULE PO SCH (09:55)
[2017-12-01] MEDS: DULoxetine 30 MG CAPSULE PO SCH (09:55)
[2017-12-01] MEDS: PHENAZOPYRIDINE 95 MG TABLET PO SCH ×2 (09:55→12:49)
[2017-12-01] MEDS: FOLIC ACID 1 MG TABLET PO SCH (09:55)
[2017-12-01 12:47] VITALS: BP 137/97
== END 2017-12-01 15:25 | disposition home or self-care (01) | DRG 812 ==
LOC: N.ED 12:49 → SUATTDRO 18:55 → N.EDINP 18:55 → N.2E 20:51
PROVIDERS: ADMIT Internal Medicine; ATTEND Hospitalist

== ENCOUNTER 2017-12-06 11:29 | Inpatient (IN) ==
[2017-12-06] MEDS ORDERED: MORPHINE 4 MG/1 ML VIAL IV STA ×2 (12:05→15:15)
[2017-12-06] MEDS ORDERED: SODIUM CHLORIDE 0.9% 1,000 ML IV STA (12:05)
[2017-12-06] MEDS ORDERED: ONDANSETRON 4 MG/2 ML VIAL IV STA (12:05)
[2017-12-06 13:18] LABS: Basophils % 0.4 % (0.0-0.8); Eosinophils # 0.1 10*3/uL (0.0-0.87); Eosinophils % 0.6 % (0.00-10.9); Hematocrit 27.7 VOL% (35.7-47.0); Immature Granulocytes % 1.6 %; Immature Granulocytes Absolute 0.13 #; Lymphocytes # 1.2 10*3/uL (1.4-4.0); Lymphocytes % 15.4 % (21.3-54.2); Mean Corpuscular HGB Conc 36.1 GM/DL (32-36); Mean Corpuscular Hemoglobin 31 PG (27-34); Mean Corpuscular Volume 85.8 FL (87-102); Mean Platelet Volume 10.4 FL (9.6-12.0); Monocytes # 0.7 10*3/uL (0.11-0.8); Monocytes % 8.8 % (1.7-12.7); NRBC # 0.06 10*3/uL; Neutrophils # 5.9 10*3/uL (1.4-7.4); Neutrophils % 73.2 % (38.7-73.9); Platelet Count 257 T/CUMM (130-400); Red Blood Count 3.23 MC/CUMM (3.8-5.5); Red Cell Distribution Width 17.9 % (9.3-17.3)
[2017-12-06 13:28] LABS: INR 1.1; Partial Thromboplastin Time 25.9 SECS (0-40)
[2017-12-06 14:10] LABS: Apearance,Urine CLOUDY (Clear); Bilirubin,Urine Negative (Negative); Blood, Urine Small mg/dL (Negative); Glucose,Urine (UA) Negative (Negative); Ketones,Urine Negative (Negative); Mucus,Urine Occasional /LPF (Occasional); Nitrite,Urine Negative (Negative); Protein,Urine 100 MG/DL; Squamous Epithelial Cell,Urine Occasional /HPF (0-10); Urine Color Yellow (Yellow); WBC,Urine 863 /HPF (0-6)
[2017-12-06 14:23] LABS: Albumin 3.3 G/DL (3.4-5.0); Bilirubin,Total 0.8 MG/DL (0.2-1.0); Calcium 8.4 MG/DL (8.5-10.1); Osmolality,Calculated 270.7 MOS/KG (273-304); Total Protein 6.7 G/DL (6.4-8.3)
[2017-12-06 14:25] LABS: Troponin I Only < 0.015 NG/ML (0.00-0.045)
[2017-12-06] MEDS ORDERED: ONDANSETRON 4 MG/2 ML VIAL IV PRN (16:25)
[2017-12-06] MEDS ORDERED: ENOXAPARIN 40 MG/0.4 ML SYRINGE SUBCUT SCH (16:30)
[2017-12-06] MEDS ORDERED: PROMETHAZINE 25 MG TABLET PO PRN (16:47)
[2017-12-06] MEDS ORDERED: diphenhydrAMINE CAP 50 MG CAPSULE PO PRN (16:47)
[2017-12-06] MEDS ORDERED: AMITRIPTYLINE 10 MG TABLET PO PRN (16:47)
[2017-12-06] MEDS ORDERED: IBUPROFEN 800 MG TABLET PO PRN (17:41)
[2017-12-06] MEDS: methylPREDNISolone SOD SUC 125 MG/2 ML VIAL IV SCH (18:20)
[2017-12-06] MEDS: SODIUM CHLORIDE 0.9% 1,000 ML IV SCH (18:20)
[2017-12-06] MEDS: HYDROmorphone 2 MG TABLET PO PRN ×2 (18:20→22:12)
[2017-12-06] MEDS: HYDROmorphone 2 MG/1 ML VIAL IV PRN (20:12)
[2017-12-06] MEDS: ENOXAPARIN 120 MG/0.8 ML SYRINGE SUBCUT SCH (21:01)
[2017-12-06] MEDS: GABAPENTIN 400 MG CAPSULE PO SCH (21:01)
[2017-12-06] MEDS: BACLOFEN 20 MG TABLET PO SCH (21:01)
[2017-12-06] MEDS: MYCOPHENOLATE MOFETIL 250 MG CAPSULE PO SCH (21:01)
[2017-12-06] MEDS: HYDROXYCHLOROQUINE 200 MG TABLET PO SCH (21:01)
[2017-12-06] MEDS: HYDROXYUREA 500 MG CAPSULE PO SCH (21:03)
[2017-12-07] MEDS: HYDROmorphone 2 MG/1 ML VIAL IV PRN ×4 (02:01→21:22)
[2017-12-07] MEDS: methylPREDNISolone SOD SUC 125 MG/2 ML VIAL IV SCH ×3 (02:02→21:22)
[2017-12-07] MEDS: SODIUM CHLORIDE 0.9% 1,000 ML IV SCH ×3 (02:07→18:40)
[2017-12-07] MEDS: HYDROmorphone 2 MG TABLET PO PRN ×3 (06:03→17:50)
[2017-12-07] MEDS: GABAPENTIN 400 MG CAPSULE PO SCH ×3 (08:45→21:22)
[2017-12-07] MEDS: HYDROXYUREA 500 MG CAPSULE PO SCH ×2 (08:45→21:21)
[2017-12-07] MEDS: DULoxetine 30 MG CAPSULE PO SCH (08:45)
[2017-12-07] MEDS: FOLIC ACID 1 MG TABLET PO SCH (08:45)
[2017-12-07] MEDS: BACLOFEN 20 MG TABLET PO SCH ×3 (08:45→21:21)
[2017-12-07] MEDS: MYCOPHENOLATE MOFETIL 250 MG CAPSULE PO SCH ×2 (08:45→21:21)
[2017-12-07] MEDS: HYDROXYCHLOROQUINE 200 MG TABLET PO SCH ×2 (08:45→21:22)
[2017-12-07] MEDS: diphenhydrAMINE 2% CREAM 28 GM TUBE TOP SCH ×3 (13:20→21:27)
[2017-12-07] MEDS: IBUPROFEN 800 MG TABLET PO SCH ×2 (13:20→21:22)
[2017-12-07] MEDS: AMITRIPTYLINE 25 MG TABLET PO SCH (21:22)
[2017-12-07] MEDS: ENOXAPARIN 120 MG/0.8 ML SYRINGE SUBCUT SCH (21:27)
[2017-12-08] MEDS: HYDROmorphone 2 MG TABLET PO PRN ×4 (00:18→17:55)
[2017-12-08] MEDS: HYDROmorphone 2 MG/1 ML VIAL IV PRN ×4 (03:23→21:32)
[2017-12-08] MEDS: SODIUM CHLORIDE 0.9% 1,000 ML IV SCH ×4 (03:26→19:44)
[2017-12-08 05:08] LABS: Basophils % 0.1 % (0.0-0.8); Hematocrit 26.1 VOL% (35.7-47.0); Hemoglobin 9.6 GM/DL (12.0-16.0); Immature Granulocytes % 0.6 %; Immature Granulocytes Absolute 0.08 #; Lymphocytes # 0.5 10*3/uL (1.4-4.0); Lymphocytes % 4.4 % (21.3-54.2); Mean Corpuscular HGB Conc 36.8 GM/DL (32-36); Mean Corpuscular Hemoglobin 31 PG (27-34); Mean Corpuscular Volume 84.2 FL (87-102); Mean Platelet Volume 12.1 FL (9.6-12.0); Monocytes # 0.2 10*3/uL (0.11-0.8); Monocytes % 1.9 % (1.7-12.7); NRBC # 0.04 10*3/uL; Neutrophils # 11.5 10*3/uL (1.4-7.4); Platelet Count 233 T/CUMM (130-400); Red Cell Distribution Width 17.6 % (9.3-17.3); White Blood Count 12.4 T/CUMM (4-12)
[2017-12-08 05:36] LABS: Calcium 9.1 MG/DL (8.5-10.1); Osmolality,Calculated 284.8 MOS/KG (273-304); Potassium 4.3 MMOL/L (3.5-5.1)
[2017-12-08 06:20] LABS: Band Neutrophils 1 % (0-10); Lymphocytes 10 % (20-55); Segmented Neutrophils 87 % (50-85); Target Cells 1+; Total Cells Counted 100
[2017-12-08 06:21] LABS: Hypochromasia Slight; Pappenheimer Bodies Few
[2017-12-08 06:22] LABS: Microcytosis 1+
[2017-12-08 06:23] LABS: Platelet Estimate Normal
[2017-12-08] MEDS: IBUPROFEN 800 MG TABLET PO SCH ×3 (06:27→21:19)
[2017-12-08] MEDS: methylPREDNISolone SOD SUC 125 MG/2 ML VIAL IV SCH ×3 (06:27→21:28)
[2017-12-08] MEDS: diphenhydrAMINE 2% CREAM 28 GM TUBE TOP SCH ×4 (09:13→21:18)
[2017-12-08] MEDS: BACLOFEN 20 MG TABLET PO SCH ×3 (09:14→21:26)
[2017-12-08] MEDS: FOLIC ACID 1 MG TABLET PO SCH (09:14)
[2017-12-08] MEDS: MYCOPHENOLATE MOFETIL 250 MG CAPSULE PO SCH ×2 (09:14→21:18)
[2017-12-08] MEDS: DULoxetine 30 MG CAPSULE PO SCH (09:14)
[2017-12-08] MEDS: GABAPENTIN 400 MG CAPSULE PO SCH ×3 (09:15→21:19)
[2017-12-08] MEDS: HYDROXYUREA 500 MG CAPSULE PO SCH ×2 (09:15→21:19)
[2017-12-08] MEDS: HYDROXYCHLOROQUINE 200 MG TABLET PO SCH ×2 (09:15→21:19)
[2017-12-08] MEDS: AMITRIPTYLINE 25 MG TABLET PO SCH (21:18)
[2017-12-08] MEDS: ENOXAPARIN 120 MG/0.8 ML SYRINGE SUBCUT SCH (21:21)
[2017-12-09] MEDS: HYDROmorphone 2 MG TABLET PO PRN ×4 (00:03→18:17)
[2017-12-09] MEDS: SODIUM CHLORIDE 0.9% 1,000 ML IV SCH ×3 (02:52→19:13)
[2017-12-09] MEDS: HYDROmorphone 2 MG/1 ML VIAL IV PRN ×4 (03:19→21:05)
[2017-12-09] MEDS: IBUPROFEN 800 MG TABLET PO SCH (05:51)
[2017-12-09] MEDS: methylPREDNISolone SOD SUC 125 MG/2 ML VIAL IV SCH (05:52)
[2017-12-09 08:24] LABS: Basophils % 0.1 % (0.0-0.8); Hematocrit 26.7 VOL% (35.7-47.0); Hemoglobin 9.7 GM/DL (12.0-16.0); Immature Granulocytes % 0.8 %; Lymphocytes # 0.6 10*3/uL (1.4-4.0); Mean Corpuscular HGB Conc 36.3 GM/DL (32-36); Mean Corpuscular Hemoglobin 31 PG (27-34); Mean Corpuscular Volume 84.5 FL (87-102); Mean Platelet Volume 11.2 FL (9.6-12.0); Monocytes # 0.1 10*3/uL (0.11-0.8); NRBC # 0.05 10*3/uL; Neutrophils # 11.7 10*3/uL (1.4-7.4); Neutrophils % 93.1 % (38.7-73.9); Platelet Count 252 T/CUMM (130-400); Red Blood Count 3.16 MC/CUMM (3.8-5.5); Red Cell Distribution Width 17.5 % (9.3-17.3); White Blood Count 12.6 T/CUMM (4-12)
[2017-12-09 08:44] LABS: Hypochromasia 1+; Lymphocytes 5 % (20-55); Platelet Estimate Adequate; Segmented Neutrophils 94 % (50-85); Target Cells Few; Total Cells Counted 100
[2017-12-09 08:45] LABS: Microcytosis Slight
[2017-12-09 08:52] LABS: Potassium 3.7 MMOL/L (3.5-5.1)
[2017-12-09] MEDS: FOLIC ACID 1 MG TABLET PO SCH (10:09)
[2017-12-09] MEDS: hydroCHLOROthiazide 12.5 MG CAPSULE PO SCH (10:09)
[2017-12-09] MEDS: HYDROXYUREA 500 MG CAPSULE PO SCH ×2 (10:10→21:09)
[2017-12-09] MEDS: MYCOPHENOLATE MOFETIL 250 MG CAPSULE PO SCH ×2 (10:10→21:03)
[2017-12-09] MEDS: BACLOFEN 20 MG TABLET PO SCH ×3 (10:10→21:04)
[2017-12-09] MEDS: HYDROXYCHLOROQUINE 200 MG TABLET PO SCH ×2 (10:11→21:04)
[2017-12-09] MEDS: DULoxetine 30 MG CAPSULE PO SCH (10:11)
[2017-12-09] MEDS: GABAPENTIN 400 MG CAPSULE PO SCH ×3 (10:12→21:04)
[2017-12-09] MEDS: diphenhydrAMINE 2% CREAM 28 GM TUBE TOP SCH ×4 (10:16→21:05)
[2017-12-09] MEDS: methylPREDNISolone SOD SUC 40 MG/1 ML VIAL IV SCH (18:18)
[2017-12-09] MEDS: AMITRIPTYLINE 25 MG TABLET PO SCH (21:04)
[2017-12-09] MEDS: ENOXAPARIN 120 MG/0.8 ML SYRINGE SUBCUT SCH (21:04)
[2017-12-10] MEDS: HYDROmorphone 2 MG TABLET PO PRN ×3 (01:20→09:15)
[2017-12-10] MEDS: HYDROmorphone 2 MG/1 ML VIAL IV PRN ×2 (03:12→09:25)
[2017-12-10] MEDS: SODIUM CHLORIDE 0.9% 1,000 ML IV SCH ×2 (03:16→11:54)
[2017-12-10 05:09] LABS: Hematocrit 25.5 VOL% (35.7-47.0); Hemoglobin 9.6 GM/DL (12.0-16.0); Red Blood Count 3.09 MC/CUMM (3.8-5.5); White Blood Count 15.1 T/CUMM (4-12)
[2017-12-10 05:10] LABS: Basophils % 0.1 % (0.0-0.8); Immature Granulocytes Absolute 0.15 #; Lymphocytes # 1.9 10*3/uL (1.4-4.0); Lymphocytes % 12.8 % (21.3-54.2); Mean Corpuscular HGB Conc 37.6 GM/DL (32-36); Mean Corpuscular Hemoglobin 31 PG (27-34); Mean Corpuscular Volume 82.5 FL (87-102); Mean Platelet Volume 11.4 FL (9.6-12.0); Monocytes % 6.3 % (1.7-12.7); NRBC # 0.18 10*3/uL; Neutrophils # 12.1 10*3/uL (1.4-7.4); Neutrophils % 79.8 % (38.7-73.9); Platelet Count 221 T/CUMM (130-400); Red Cell Distribution Width 17.7 % (9.3-17.3)
[2017-12-10 05:29] LABS: Giant Platelets Few; Hypochromasia 1+; Platelet Estimate Adequate; Target Cells Few
[2017-12-10 05:30] LABS: Microcytosis Slight; Pappenheimer Bodies Few
[2017-12-10] MEDS: methylPREDNISolone SOD SUC 40 MG/1 ML VIAL IV SCH (05:44)
[2017-12-10 05:50] LABS: Calcium 8.5 MG/DL (8.5-10.1); Osmolality,Calculated 282.8 MOS/KG (273-304); Potassium 3.5 MMOL/L (3.5-5.1)
[2017-12-10] MEDS: MYCOPHENOLATE MOFETIL 250 MG CAPSULE PO SCH (09:14)
[2017-12-10] MEDS: hydroCHLOROthiazide 12.5 MG CAPSULE PO SCH (09:15)
[2017-12-10] MEDS: HYDROXYCHLOROQUINE 200 MG TABLET PO SCH (09:15)
[2017-12-10] MEDS: GABAPENTIN 400 MG CAPSULE PO SCH (09:15)
[2017-12-10] MEDS: FOLIC ACID 1 MG TABLET PO SCH (09:15)
[2017-12-10] MEDS: BACLOFEN 20 MG TABLET PO SCH (09:15)
[2017-12-10] MEDS: HYDROXYUREA 500 MG CAPSULE PO SCH (09:15)
[2017-12-10] MEDS: DULoxetine 30 MG CAPSULE PO SCH (09:15)
[2017-12-10] MEDS: diphenhydrAMINE 2% CREAM 28 GM TUBE TOP SCH (09:19)
[2017-12-10 11:56] VITALS: BP 132/67
== END 2017-12-10 12:05 | disposition home or self-care (01) | DRG 812 ==
LOC: N.ED 11:29 → N.EDINP 16:19 → SUATTDRO 16:19 → N.3E 17:34
PROVIDERS: ADMIT Internal Medicine; ATTEND Internal Medicine

== ENCOUNTER 2017-12-22 08:53 | Inpatient (IN) ==
[2017-12-22] MEDS ORDERED: ONDANSETRON 4 MG/2 ML VIAL IV STA ×2 (09:17→11:30)
[2017-12-22] MEDS ORDERED: MEPERIDINE 25 MG/1 ML VIAL IV STA ×2 (09:17→11:30)
[2017-12-22] MEDS ORDERED: methylPREDNISolone SOD SUC 125 MG/2 ML VIAL IV STA (09:21)
[2017-12-22 09:50] LABS: Basophils % 0.7 % (0.0-0.8); Eosinophils # 0.1 10*3/uL (0.0-0.87); Eosinophils % 1.7 % (0.00-10.9); Hematocrit 25.7 VOL% (35.7-47.0); Hemoglobin 9.4 GM/DL (12.0-16.0); Immature Granulocytes % 1.4 %; Immature Granulocytes Absolute 0.08 #; Lymphocytes # 0.9 10*3/uL (1.4-4.0); Lymphocytes % 15.2 % (21.3-54.2); Mean Corpuscular HGB Conc 36.6 GM/DL (32-36); Mean Corpuscular Hemoglobin 31 PG (27-34); Mean Corpuscular Volume 84.5 FL (87-102); Mean Platelet Volume 10.9 FL (9.6-12.0); Monocytes # 0.7 10*3/uL (0.11-0.8); Monocytes % 11.3 % (1.7-12.7); NRBC # 0.02 10*3/uL; Neutrophils # 4.1 10*3/uL (1.4-7.4); Neutrophils % 69.7 % (38.7-73.9); Platelet Count 366 T/CUMM (130-400); Red Blood Count 3.04 MC/CUMM (3.8-5.5); Red Cell Distribution Width 18.6 % (9.3-17.3); White Blood Count 5.8 T/CUMM (4-12)
[2017-12-22 09:59] LABS: INR 1.1; PT Patient Result 11.5 SECS
[2017-12-22 10:23] LABS: Albumin 3.2 G/DL (3.4-5.0); Apearance,Urine CLOUDY (Clear); Bacteria,Urine Many /HPF (Few); Bilirubin,Total 0.8 MG/DL (0.2-1.0); Bilirubin,Urine Negative (Negative); Blood, Urine Small mg/dL (Negative); Calcium 9.2 MG/DL (8.5-10.1); Glucose,Urine (UA) Negative (Negative); Ketones,Urine Negative (Negative); Lactic Acid 0.8 MMOL/L (0.4-2.0); Mucus,Urine Occasional /LPF (Occasional); Nitrite,Urine Positive (Negative); Osmolality,Calculated 272.5 MOS/KG (273-304); Potassium 3.5 MMOL/L (3.5-5.1); Protein,Urine Negative; RBC,Urine 4 /HPF (0-4); Squamous Epithelial Cell,Urine Occasional /HPF (0-10); Total Protein 7.6 G/DL (6.4-8.3); Urine Color Amber (Yellow); Urine Specific Gravity 1.012 (1.001-1.035); WBC,Urine 466 /HPF (0-6)
[2017-12-22] MEDS ORDERED: AMPICILLIN/SULBACTAM 3,000 MG in SODIUM CHLORIDE 0.9% 100 ML IV STA (10:27)
[2017-12-22] MEDS ORDERED: PHENAZOPYRIDINE 95 MG TABLET PO STA (10:27)
[2017-12-22 11:00] LABS: Sedimentation Rate-Westergren 94 MM/HR (0-20)
[2017-12-22] MEDS ORDERED: ONDANSETRON 4 MG/2 ML VIAL IV PRN (12:58)
[2017-12-22] MEDS ORDERED: ZALEPLON 5 MG CAPSULE PO PRN (12:58)
[2017-12-22] MEDS ORDERED: DOCUSATE SODIUM 100 MG CAPSULE PO PRN (12:58)
[2017-12-22] MEDS ORDERED: MORPHINE 4 MG/1 ML VIAL IV PRN (12:58)
[2017-12-22] MEDS ORDERED: guaiFENesin/DM ER 600-30 MG TABLET PO PRN (12:58)
[2017-12-22] MEDS ORDERED: PROMETHAZINE 25 MG TABLET PO PRN ×2 (12:58→13:01)
[2017-12-22] MEDS ORDERED: ENOXAPARIN 40 MG/0.4 ML SYRINGE SUBCUT SCH (13:00)
[2017-12-22] MEDS ORDERED: diphenhydrAMINE CAP 50 MG CAPSULE PO PRN (13:01)
[2017-12-22] MEDS ORDERED: ENOXAPARIN 40 MG/0.4 ML SYRINGE ONE (13:18)
[2017-12-22] MEDS: cefTRIAXone 1,000 MG in SYRINGE 1 EACH IV SCH (14:54)
[2017-12-22] MEDS: GABAPENTIN 400 MG CAPSULE PO SCH ×2 (14:54→20:35)
[2017-12-22] MEDS: SODIUM CHLORIDE 0.9% 1,000 ML IV SCH (14:54)
[2017-12-22] MEDS: BACLOFEN 10 MG TABLET PO SCH ×2 (14:54→20:35)
[2017-12-22] MEDS: HYDROmorphone 2 MG/1 ML VIAL IV PRN ×2 (17:02→22:47)
[2017-12-22] MEDS: HYDROXYCHLOROQUINE 200 MG TABLET PO SCH (20:35)
[2017-12-22] MEDS: MYCOPHENOLATE MOFETIL 250 MG CAPSULE PO SCH (20:36)
[2017-12-22] MEDS: HYDROXYUREA 500 MG CAPSULE PO SCH (20:36)
[2017-12-22] MEDS: ENOXAPARIN 120 MG/0.8 ML SYRINGE SUBCUT SCH (20:36)
[2017-12-23] MEDS: SODIUM CHLORIDE 0.9% 1,000 ML IV SCH ×3 (01:13→17:27)
[2017-12-23] MEDS: HYDROmorphone 2 MG/1 ML VIAL IV PRN ×5 (05:01→21:29)
[2017-12-23] MEDS: BACLOFEN 10 MG TABLET PO SCH ×3 (08:43→21:28)
[2017-12-23] MEDS: GABAPENTIN 400 MG CAPSULE PO SCH ×3 (08:43→21:27)
[2017-12-23] MEDS: FOLIC ACID 1 MG TABLET PO SCH (08:43)
[2017-12-23] MEDS: MYCOPHENOLATE MOFETIL 250 MG CAPSULE PO SCH ×2 (08:43→21:28)
[2017-12-23] MEDS: HYDROXYCHLOROQUINE 200 MG TABLET PO SCH ×2 (08:44→21:29)
[2017-12-23] MEDS: HYDROXYUREA 500 MG CAPSULE PO SCH ×2 (08:44→22:23)
[2017-12-23] MEDS: DULoxetine 30 MG CAPSULE PO SCH (08:44)
[2017-12-23] MEDS: PANTOPRAZOLE 40 MG TABLET PO SCH (08:44)
[2017-12-23] MEDS: predniSONE 10 MG TABLET PO SCH (08:44)
[2017-12-23] MEDS: predniSONE 5 MG TABLET PO SCH (08:53)
[2017-12-23 10:22] LABS: Basophils % 0.5 % (0.0-0.8); Eosinophils % 0.6 % (0.00-10.9); Hematocrit 23.6 VOL% (35.7-47.0); Hemoglobin 8.4 GM/DL (12.0-16.0); Immature Granulocytes % 0.9 %; Immature Granulocytes Absolute 0.06 #; Lymphocytes # 1.7 10*3/uL (1.4-4.0); Lymphocytes % 25.1 % (21.3-54.2); Mean Corpuscular HGB Conc 35.6 GM/DL (32-36); Mean Corpuscular Hemoglobin 31 PG (27-34); Mean Corpuscular Volume 86.4 FL (87-102); Mean Platelet Volume 12.1 FL (9.6-12.0); Monocytes # 0.6 10*3/uL (0.11-0.8); Monocytes % 9.2 % (1.7-12.7); NRBC # 0.03 10*3/uL; Neutrophils # 4.2 10*3/uL (1.4-7.4); Neutrophils % 63.7 % (38.7-73.9); Platelet Count 392 T/CUMM (130-400); Red Blood Count 2.73 MC/CUMM (3.8-5.5); Red Cell Distribution Width 20.4 % (9.3-17.3); White Blood Count 6.7 T/CUMM (4-12)
[2017-12-23 10:50] LABS: Albumin 2.7 G/DL (3.4-5.0); Bilirubin,Total 0.7 MG/DL (0.2-1.0); Calcium 8.2 MG/DL (8.5-10.1); Osmolality,Calculated 274.4 MOS/KG (273-304); Potassium 5.7 MMOL/L (3.5-5.1); Total Protein 7.3 G/DL (6.4-8.3)
[2017-12-23] MEDS: cefTRIAXone 1,000 MG in SYRINGE 1 EACH IV SCH (13:04)
[2017-12-23] MEDS: ENOXAPARIN 120 MG/0.8 ML SYRINGE SUBCUT SCH (21:29)
[2017-12-23] MEDS: AMITRIPTYLINE 10 MG TABLET PO PRN (22:23)
[2017-12-24] MEDS: HYDROmorphone 2 MG/1 ML VIAL IV PRN ×6 (01:28→21:43)
[2017-12-24] MEDS: SODIUM CHLORIDE 0.9% 1,000 ML IV SCH ×3 (01:41→20:48)
[2017-12-24] MEDS: BACLOFEN 10 MG TABLET PO SCH ×3 (08:57→20:40)
[2017-12-24] MEDS: GABAPENTIN 400 MG CAPSULE PO SCH ×3 (08:57→20:41)
[2017-12-24] MEDS: FOLIC ACID 1 MG TABLET PO SCH (08:58)
[2017-12-24] MEDS: HYDROXYUREA 500 MG CAPSULE PO SCH ×2 (08:58→20:41)
[2017-12-24] MEDS: DULoxetine 30 MG CAPSULE PO SCH (08:58)
[2017-12-24] MEDS: MYCOPHENOLATE MOFETIL 250 MG CAPSULE PO SCH ×2 (08:58→20:40)
[2017-12-24] MEDS: PANTOPRAZOLE 40 MG TABLET PO SCH (08:59)
[2017-12-24] MEDS: predniSONE 5 MG TABLET PO SCH (08:59)
[2017-12-24] MEDS: HYDROXYCHLOROQUINE 200 MG TABLET PO SCH ×2 (08:59→20:41)
[2017-12-24] MEDS: predniSONE 10 MG TABLET PO SCH (08:59)
[2017-12-24 09:20] LABS: Calcium 8.3 MG/DL (8.5-10.1); Osmolality,Calculated 282.7 MOS/KG (273-304); Potassium 3.7 MMOL/L (3.5-5.1)
[2017-12-24] MEDS ORDERED: MAGNESIUM SULF RIDER 4 GM in PREMIX 1 EACH IV PRN (10:09)
[2017-12-24] MEDS ORDERED: MAGNESIUM SULF RIDER 2 GM in PREMIX 1 EACH IV PRN (10:09)
[2017-12-24] MEDS: cefTRIAXone 1,000 MG in SYRINGE 1 EACH IV SCH (13:44)
[2017-12-24] MEDS: ENOXAPARIN 120 MG/0.8 ML SYRINGE SUBCUT SCH (21:45)
[2017-12-25] MEDS: HYDROmorphone 2 MG/1 ML VIAL IV PRN ×5 (01:46→21:46)
[2017-12-25] MEDS: SODIUM CHLORIDE 0.9% 1,000 ML IV SCH ×3 (04:32→21:52)
[2017-12-25] MEDS: HYDROXYCHLOROQUINE 200 MG TABLET PO SCH ×2 (09:42→21:50)
[2017-12-25] MEDS: GABAPENTIN 400 MG CAPSULE PO SCH ×3 (09:42→21:50)
[2017-12-25] MEDS: HYDROXYUREA 500 MG CAPSULE PO SCH ×2 (09:42→21:50)
[2017-12-25] MEDS: BACLOFEN 10 MG TABLET PO SCH ×3 (09:42→21:49)
[2017-12-25] MEDS: FOLIC ACID 1 MG TABLET PO SCH (09:42)
[2017-12-25] MEDS: MYCOPHENOLATE MOFETIL 250 MG CAPSULE PO SCH ×2 (09:42→21:49)
[2017-12-25] MEDS: predniSONE 5 MG TABLET PO SCH (09:43)
[2017-12-25] MEDS: PANTOPRAZOLE 40 MG TABLET PO SCH (09:43)
[2017-12-25] MEDS: predniSONE 10 MG TABLET PO SCH (09:43)
[2017-12-25] MEDS: DULoxetine 30 MG CAPSULE PO SCH (11:54)
[2017-12-25] MEDS: ERTAPENEM 1,000 MG in SODIUM CHLORIDE 0.9% 100 ML IV SCH (11:54)
[2017-12-25] MEDS: HYDROmorphone 2 MG TABLET PO PRN (13:15)
[2017-12-25] MEDS: AMITRIPTYLINE 10 MG TABLET PO PRN (21:50)
[2017-12-25] MEDS: ENOXAPARIN 120 MG/0.8 ML SYRINGE SUBCUT SCH (21:55)
[2017-12-26] MEDS: HYDROmorphone 2 MG TABLET PO PRN ×2 (01:55→09:38)
[2017-12-26] MEDS: HYDROmorphone 2 MG/1 ML VIAL IV PRN ×2 (03:45→11:49)
[2017-12-26] MEDS: SODIUM CHLORIDE 0.9% 1,000 ML IV SCH ×3 (05:35→15:10)
[2017-12-26] MEDS: BACLOFEN 10 MG TABLET PO SCH ×2 (09:37→15:10)
[2017-12-26] MEDS: MYCOPHENOLATE MOFETIL 250 MG CAPSULE PO SCH (09:37)
[2017-12-26] MEDS: DULoxetine 30 MG CAPSULE PO SCH (09:37)
[2017-12-26] MEDS: HYDROXYUREA 500 MG CAPSULE PO SCH (09:37)
[2017-12-26] MEDS: GABAPENTIN 400 MG CAPSULE PO SCH ×2 (09:38→15:10)
[2017-12-26] MEDS: FOLIC ACID 1 MG TABLET PO SCH (09:38)
[2017-12-26] MEDS: PANTOPRAZOLE 40 MG TABLET PO SCH (09:38)
[2017-12-26] MEDS: predniSONE 10 MG TABLET PO SCH (09:39)
[2017-12-26] MEDS: predniSONE 5 MG TABLET PO SCH (09:39)
[2017-12-26] MEDS: HYDROXYCHLOROQUINE 200 MG TABLET PO SCH (09:39)
[2017-12-26] MEDS: ERTAPENEM 1,000 MG in SODIUM CHLORIDE 0.9% 100 ML IV SCH (12:08)
[2017-12-26 15:11] VITALS: BP 139/88
== END 2017-12-26 15:12 | disposition home or self-care (01) | DRG 812 ==
LOC: EDUNIT# → EDBD → N.ED 08:53 → N.EDINP 12:43 → SUATTDRO 12:43 → N.5E 13:48
PROVIDERS: ADMIT Internal Medicine; ATTEND Internal Medicine

== ENCOUNTER 2018-01-09 11:12 | Inpatient (IN) ==
[2018-01-09] MEDS ORDERED: HYDROmorphone 2 MG/1 ML VIAL IV STA ×2 (11:32→15:14)
[2018-01-09] MEDS ORDERED: ONDANSETRON 4 MG/2 ML VIAL IV STA (11:32)
[2018-01-09] MEDS ORDERED: SODIUM CHLORIDE 0.9% 1,000 ML IV STA (11:32)
[2018-01-09 12:33] LABS: Basophils # 0.1 10*3/uL (0.0-0.2); Eosinophils % 0.4 % (0.00-10.9); Hematocrit 26.8 VOL% (35.7-47.0); Immature Granulocytes % 0.8 %; Immature Granulocytes Absolute 0.04 #; Lymphocytes # 1.1 10*3/uL (1.4-4.0); Lymphocytes % 20.4 % (21.3-54.2); Mean Corpuscular HGB Conc 37.3 GM/DL (32-36); Mean Corpuscular Hemoglobin 30 PG (27-34); Mean Platelet Volume 11.1 FL (9.6-12.0); Monocytes # 0.5 10*3/uL (0.11-0.8); Monocytes % 10.1 % (1.7-12.7); NRBC # 0.03 10*3/uL; Neutrophils # 3.5 10*3/uL (1.4-7.4); Neutrophils % 67.3 % (38.7-73.9); Platelet Count 320 T/CUMM (130-400); Red Blood Count 3.35 MC/CUMM (3.8-5.5); Red Cell Distribution Width 19.9 % (9.3-17.3); White Blood Count 5.2 T/CUMM (4-12)
[2018-01-09 12:41] LABS: PT Patient Result 10.8 SECS
[2018-01-09 12:54] LABS: Hypochromasia 1+; Lymphocytes 21 % (20-55); Platelet Estimate Adequate; Segmented Neutrophils 65 % (50-85); Target Cells Few; Total Cells Counted 100
[2018-01-09 13:03] LABS: Alanine Aminotransferase 11 U/L (13-56); Albumin 3.4 G/DL (3.4-5.0); Alkaline Phosphatase 87 U/L (45-117); Aspartate Amino Transferase 15 U/L (0-37); Blood Urea Nitrogen 4 MG/DL (7-18); Calcium 9.3 MG/DL (8.5-10.1); Glucose 78 MG/DL (74-106); Osmolality,Calculated 276.3 MOS/KG (273-304); Potassium 3.7 MMOL/L (3.5-5.1); Sodium 141 MMOL/L (136-145); Total Protein 8.5 G/DL (6.4-8.3); Troponin I < 0.015 NG/ML (0.00-0.045)
[2018-01-09 13:05] LABS: Apearance,Urine Slightly Hazy (Clear); Bacteria,Urine Few /HPF (Few); Bilirubin,Urine Negative (Negative); Blood, Urine Negative (Negative); Glucose,Urine (UA) Negative (Negative); Ketones,Urine Negative (Negative); Mucus,Urine Occasional /LPF (Occasional); Nitrite,Urine Negative (Negative); Protein,Urine Negative; RBC,Urine <1 /HPF (0-4); Squamous Epithelial Cell,Urine Occasional /HPF (0-10); Urine Color Yellow (Yellow); Urine Specific Gravity 1.011 (1.001-1.035); WBC,Urine 138 /HPF (0-6)
[2018-01-09 13:26] LABS: Barbiturates Screen,Urine Negative (Negative); Benzodiazepines Screen,Urine Negative (Negative); Cannabinoid Screen,Urine Negative (Negative); Opiate Screen,Urine Positive (Negative); Phencyclidine Screen,Urine Negative (Negative)
[2018-01-09] MEDS ORDERED: ACETAMINOPHEN 325 MG TABLET PO PRN (16:52)
[2018-01-09] MEDS ORDERED: ONDANSETRON 4 MG/2 ML VIAL IV PRN (16:52)
[2018-01-09] MEDS ORDERED: DOCUSATE SODIUM 100 MG CAPSULE PO PRN (16:52)
[2018-01-09] MEDS ORDERED: AMITRIPTYLINE 10 MG TABLET PO PRN (17:06)
[2018-01-09] MEDS ORDERED: diphenhydrAMINE CAP 50 MG CAPSULE PO PRN (17:06)
[2018-01-09] MEDS: SODIUM CHLORIDE 0.9% 1,000 ML IV SCH (17:55)
[2018-01-09] MEDS: predniSONE 20 MG TABLET PO SCH (18:15)
[2018-01-09] MEDS: HYDROmorphone 2 MG/1 ML VIAL IV PRN ×2 (18:15→22:14)
[2018-01-09] MEDS: MYCOPHENOLATE MOFETIL 250 MG CAPSULE PO SCH (22:17)
[2018-01-09] MEDS: TOPIRAMATE 25 MG TABLET PO SCH (22:18)
[2018-01-09] MEDS: GABAPENTIN 600 MG TABLET PO SCH (22:18)
[2018-01-09] MEDS: HYDROXYCHLOROQUINE 200 MG TABLET PO SCH (22:18)
[2018-01-09] MEDS: ENOXAPARIN 40 MG/0.4 ML SYRINGE SUBCUT SCH (22:19)
[2018-01-09] MEDS: HYDROXYUREA 500 MG CAPSULE PO SCH (22:19)
[2018-01-10] MEDS: HYDROmorphone 2 MG/1 ML VIAL IV PRN ×7 (02:22→23:10)
[2018-01-10] MEDS: SODIUM CHLORIDE 0.9% 1,000 ML IV SCH ×3 (02:31→17:32)
[2018-01-10 08:46] LABS: Basophils % 0.4 % (0.0-0.8); Hematocrit 23.9 VOL% (35.7-47.0); Hemoglobin 8.6 GM/DL (12.0-16.0); Immature Granulocytes % 0.5 %; Immature Granulocytes Absolute 0.03 #; Lymphocytes % 18.4 % (21.3-54.2); Mean Corpuscular Hemoglobin 30 PG (27-34); Mean Corpuscular Volume 82.1 FL (87-102); Mean Platelet Volume 11.1 FL (9.6-12.0); Monocytes # 0.3 10*3/uL (0.11-0.8); Monocytes % 5.8 % (1.7-12.7); NRBC # 0.03 10*3/uL; Neutrophils # 4.2 10*3/uL (1.4-7.4); Neutrophils % 74.9 % (38.7-73.9); Platelet Count 296 T/CUMM (130-400); Red Blood Count 2.91 MC/CUMM (3.8-5.5); Red Cell Distribution Width 19.6 % (9.3-17.3); White Blood Count 5.5 T/CUMM (4-12)
[2018-01-10] MEDS: PANTOPRAZOLE 40 MG TABLET PO SCH (09:14)
[2018-01-10] MEDS: GABAPENTIN 600 MG TABLET PO SCH ×4 (09:14→20:29)
[2018-01-10] MEDS: FOLIC ACID 1 MG TABLET PO SCH (09:14)
[2018-01-10] MEDS: MYCOPHENOLATE MOFETIL 250 MG CAPSULE PO SCH ×2 (09:14→20:29)
[2018-01-10] MEDS: DULoxetine 30 MG CAPSULE PO SCH (09:15)
[2018-01-10] MEDS: TOPIRAMATE 25 MG TABLET PO SCH ×2 (09:15→20:29)
[2018-01-10] MEDS: HYDROXYUREA 500 MG CAPSULE PO SCH ×2 (09:15→20:29)
[2018-01-10] MEDS: HYDROXYCHLOROQUINE 200 MG TABLET PO SCH ×2 (09:15→20:29)
[2018-01-10] MEDS: predniSONE 20 MG TABLET PO SCH (09:15)
[2018-01-10] MEDS: NITROFURANTOIN MACRO/MONO 100 MG CAPSULE PO SCH (10:17)
[2018-01-10] MEDS: ENOXAPARIN 40 MG/0.4 ML SYRINGE SUBCUT SCH (20:30)
[2018-01-11] MEDS: SODIUM CHLORIDE 0.9% 1,000 ML IV SCH ×3 (02:28→17:22)
[2018-01-11] MEDS: HYDROmorphone 2 MG/1 ML VIAL IV PRN ×6 (03:32→23:20)
[2018-01-11 07:31] LABS: Basophils % 0.4 % (0.0-0.8); Eosinophils % 0.4 % (0.00-10.9); Hematocrit 26.9 VOL% (35.7-47.0); Hemoglobin 9.7 GM/DL (12.0-16.0); Immature Granulocytes % 0.4 %; Immature Granulocytes Absolute 0.03 #; Lymphocytes # 1.9 10*3/uL (1.4-4.0); Lymphocytes % 27.3 % (21.3-54.2); Mean Corpuscular HGB Conc 36.1 GM/DL (32-36); Mean Corpuscular Hemoglobin 29 PG (27-34); Mean Corpuscular Volume 80.3 FL (87-102); Mean Platelet Volume 10.9 FL (9.6-12.0); Monocytes # 0.6 10*3/uL (0.11-0.8); Monocytes % 9.1 % (1.7-12.7); NRBC # 0.03 10*3/uL; Neutrophils # 4.4 10*3/uL (1.4-7.4); Neutrophils % 62.4 % (38.7-73.9); Platelet Count 350 T/CUMM (130-400); Red Blood Count 3.35 MC/CUMM (3.8-5.5); Red Cell Distribution Width 19.9 % (9.3-17.3); White Blood Count 7.1 T/CUMM (4-12)
[2018-01-11 07:51] LABS: Albumin 3.1 G/DL (3.4-5.0); Bilirubin,Total 0.5 MG/DL (0.2-1.0); Calcium 9.1 MG/DL (8.5-10.1); Osmolality,Calculated 281.8 MOS/KG (273-304); Potassium 3.7 MMOL/L (3.5-5.1); Total Protein 7.9 G/DL (6.4-8.3)
[2018-01-11] MEDS: HYDROXYCHLOROQUINE 200 MG TABLET PO SCH ×2 (09:12→22:41)
[2018-01-11] MEDS: predniSONE 20 MG TABLET PO SCH (09:12)
[2018-01-11] MEDS: HYDROXYUREA 500 MG CAPSULE PO SCH ×2 (09:12→22:40)
[2018-01-11] MEDS: TOPIRAMATE 25 MG TABLET PO SCH ×2 (09:12→22:40)
[2018-01-11] MEDS: MYCOPHENOLATE MOFETIL 250 MG CAPSULE PO SCH ×2 (09:13→22:40)
[2018-01-11] MEDS: PANTOPRAZOLE 40 MG TABLET PO SCH (09:13)
[2018-01-11] MEDS: GABAPENTIN 600 MG TABLET PO SCH ×4 (09:13→22:41)
[2018-01-11] MEDS: DULoxetine 30 MG CAPSULE PO SCH (09:13)
[2018-01-11] MEDS: NITROFURANTOIN MACRO/MONO 100 MG CAPSULE PO SCH (09:13)
[2018-01-11] MEDS: FOLIC ACID 1 MG TABLET PO SCH (09:13)
[2018-01-11] MEDS: cefTRIAXone 1,000 MG in SYRINGE 1 EACH IV SCH (22:42)
[2018-01-11] MEDS: ENOXAPARIN 40 MG/0.4 ML SYRINGE SUBCUT SCH (22:42)
[2018-01-12] MEDS: HYDROmorphone 2 MG/1 ML VIAL IV PRN ×6 (03:25→23:21)
[2018-01-12] MEDS: SODIUM CHLORIDE 0.9% 1,000 ML IV SCH ×3 (07:20→23:23)
[2018-01-12] MEDS: DULoxetine 30 MG CAPSULE PO SCH (10:05)
[2018-01-12] MEDS: FOLIC ACID 1 MG TABLET PO SCH (10:06)
[2018-01-12] MEDS: NITROFURANTOIN MACRO/MONO 100 MG CAPSULE PO SCH (10:06)
[2018-01-12] MEDS: HYDROXYUREA 500 MG CAPSULE PO SCH ×2 (10:06→21:53)
[2018-01-12] MEDS: PANTOPRAZOLE 40 MG TABLET PO SCH (10:06)
[2018-01-12] MEDS: MYCOPHENOLATE MOFETIL 250 MG CAPSULE PO SCH ×2 (10:06→21:53)
[2018-01-12] MEDS: TOPIRAMATE 25 MG TABLET PO SCH ×2 (10:07→21:54)
[2018-01-12] MEDS: predniSONE 20 MG TABLET PO SCH (10:07)
[2018-01-12] MEDS: HYDROXYCHLOROQUINE 200 MG TABLET PO SCH ×2 (10:07→21:54)
[2018-01-12] MEDS: GABAPENTIN 600 MG TABLET PO SCH ×4 (10:07→21:53)
[2018-01-12] MEDS ORDERED: amLODIPine 2.5 MG TABLET PO SCH (11:00)
[2018-01-12 12:23] LABS: % Iron Saturation 86.9 % (18-50)
[2018-01-12] MEDS: cefTRIAXone 1,000 MG in SYRINGE 1 EACH IV SCH (21:52)
[2018-01-12] MEDS: ENOXAPARIN 40 MG/0.4 ML SYRINGE SUBCUT SCH (21:52)
[2018-01-12] MEDS: SULFAMETHOX/TRIMETHOPRIM 800-160 MG TABLET PO SCH (21:53)
[2018-01-13] MEDS: HYDROmorphone 2 MG/1 ML VIAL IV PRN ×6 (03:30→23:04)
[2018-01-13 04:59] LABS: Basophils % 0.2 % (0.0-0.8); Eosinophils % 0.2 % (0.00-10.9); Hematocrit 24.8 VOL% (35.7-47.0); Hemoglobin 9.1 GM/DL (12.0-16.0); Immature Granulocytes % 0.7 %; Immature Granulocytes Absolute 0.07 #; Lymphocytes # 2.3 10*3/uL (1.4-4.0); Lymphocytes % 22.3 % (21.3-54.2); Mean Corpuscular HGB Conc 36.7 GM/DL (32-36); Mean Corpuscular Hemoglobin 30 PG (27-34); Mean Corpuscular Volume 80.5 FL (87-102); Mean Platelet Volume 11.4 FL (9.6-12.0); Monocytes # 0.9 10*3/uL (0.11-0.8); Monocytes % 8.3 % (1.7-12.7); NRBC # 0.14 10*3/uL; Neutrophils % 68.3 % (38.7-73.9); Platelet Count 360 T/CUMM (130-400); Red Blood Count 3.08 MC/CUMM (3.8-5.5); Red Cell Distribution Width 19.6 % (9.3-17.3); White Blood Count 10.2 T/CUMM (4-12)
[2018-01-13 05:26] LABS: Calcium 8.8 MG/DL (8.5-10.1)
[2018-01-13 05:27] LABS: Osmolality,Calculated 278.1 MOS/KG (273-304); Potassium 3.4 MMOL/L (3.5-5.1)
[2018-01-13] MEDS: SODIUM CHLORIDE 0.9% 1,000 ML IV SCH ×2 (07:31→17:16)
[2018-01-13] MEDS: HYDROXYUREA 500 MG CAPSULE PO SCH ×2 (09:13→21:38)
[2018-01-13] MEDS: FOLIC ACID 1 MG TABLET PO SCH (09:14)
[2018-01-13] MEDS: PANTOPRAZOLE 40 MG TABLET PO SCH (09:14)
[2018-01-13] MEDS: GABAPENTIN 600 MG TABLET PO SCH ×4 (09:15→21:38)
[2018-01-13] MEDS: predniSONE 10 MG TABLET PO SCH (09:15)
[2018-01-13] MEDS: DULoxetine 30 MG CAPSULE PO SCH (09:15)
[2018-01-13] MEDS: TOPIRAMATE 25 MG TABLET PO SCH ×2 (09:15→21:39)
[2018-01-13] MEDS: SULFAMETHOX/TRIMETHOPRIM 800-160 MG TABLET PO SCH ×2 (09:15→21:39)
[2018-01-13] MEDS: HYDROXYCHLOROQUINE 200 MG TABLET PO SCH (09:16)
[2018-01-13] MEDS: MYCOPHENOLATE MOFETIL 250 MG CAPSULE PO SCH (09:17)
[2018-01-13] MEDS: POTASSIUM CHLORIDE 20 MEQ TABLET PO PRN ×4 (11:12→23:04)
[2018-01-13] MEDS: ENOXAPARIN 40 MG/0.4 ML SYRINGE SUBCUT SCH (21:39)
[2018-01-14] MEDS: POTASSIUM CHLORIDE 20 MEQ TABLET PO PRN ×6 (01:07→21:30)
[2018-01-14] MEDS: SODIUM CHLORIDE 0.9% 1,000 ML IV SCH ×3 (01:20→16:57)
[2018-01-14] MEDS: HYDROmorphone 2 MG/1 ML VIAL IV PRN ×2 (03:06→06:58)
[2018-01-14] MEDS: DULoxetine 30 MG CAPSULE PO SCH (10:01)
[2018-01-14] MEDS: predniSONE 10 MG TABLET PO SCH (10:01)
[2018-01-14] MEDS: FOLIC ACID 1 MG TABLET PO SCH (10:01)
[2018-01-14] MEDS: GABAPENTIN 600 MG TABLET PO SCH ×4 (10:01→21:30)
[2018-01-14] MEDS: HYDROXYUREA 500 MG CAPSULE PO SCH ×2 (10:01→21:30)
[2018-01-14] MEDS: SULFAMETHOX/TRIMETHOPRIM 800-160 MG TABLET PO SCH ×2 (10:01→21:30)
[2018-01-14] MEDS: PANTOPRAZOLE 40 MG TABLET PO SCH (10:01)
[2018-01-14] MEDS: TOPIRAMATE 25 MG TABLET PO SCH ×2 (10:02→21:30)
[2018-01-14] MEDS: HYDROmorphone 2 MG TABLET PO PRN ×3 (10:56→19:23)
[2018-01-14] MEDS: ENOXAPARIN 40 MG/0.4 ML SYRINGE SUBCUT SCH (21:31)
[2018-01-15] MEDS: HYDROmorphone 2 MG TABLET PO PRN ×3 (01:48→11:06)
[2018-01-15] MEDS: SODIUM CHLORIDE 0.9% 1,000 ML IV SCH (03:15)
[2018-01-15 07:37] VITALS: BP 132/105
[2018-01-15] MEDS: SULFAMETHOX/TRIMETHOPRIM 800-160 MG TABLET PO SCH (08:25)
[2018-01-15] MEDS: DULoxetine 30 MG CAPSULE PO SCH (08:25)
[2018-01-15] MEDS: TOPIRAMATE 25 MG TABLET PO SCH (08:25)
[2018-01-15] MEDS: predniSONE 10 MG TABLET PO SCH (08:25)
[2018-01-15] MEDS: HYDROXYUREA 500 MG CAPSULE PO SCH (08:25)
[2018-01-15] MEDS: FOLIC ACID 1 MG TABLET PO SCH (08:25)
[2018-01-15] MEDS: GABAPENTIN 600 MG TABLET PO SCH (08:25)
[2018-01-15] MEDS: PANTOPRAZOLE 40 MG TABLET PO SCH (08:25)
[2018-01-15] MEDS: POTASSIUM CHLORIDE 20 MEQ TABLET PO PRN ×2 (08:26→10:30)
[2018-01-15 11:05] LABS: Basophils % 0.2 % (0.0-0.8); Eosinophils # 0.1 10*3/uL (0.0-0.87); Eosinophils % 0.7 % (0.00-10.9); Hematocrit 28.6 VOL% (35.7-47.0); Hemoglobin 10.4 GM/DL (12.0-16.0); Immature Granulocytes % 1.2 %; Lymphocytes # 1.1 10*3/uL (1.4-4.0); Lymphocytes % 13.8 % (21.3-54.2); Mean Corpuscular HGB Conc 36.4 GM/DL (32-36); Mean Corpuscular Hemoglobin 30 PG (27-34); Monocytes # 0.3 10*3/uL (0.11-0.8); Monocytes % 3.9 % (1.7-12.7); NRBC # 1.58 10*3/uL; Neutrophils # 6.6 10*3/uL (1.4-7.4); Neutrophils % 80.2 % (38.7-73.9); Platelet Count 370 T/CUMM (130-400); Red Blood Count 3.53 MC/CUMM (3.8-5.5); White Blood Count 8.3 T/CUMM (4-12)
[2018-01-15 11:31] LABS: Lymphocytes 12 % (20-55); Nucleated Red Blood Cells 21 (0-5); Segmented Neutrophils 84 % (50-85); Total Cells Counted 100
[2018-01-15 11:32] LABS: Hypochromasia 1+; Microcytosis 1+; Polychromasia Slight
[2018-01-15 11:33] LABS: Anisocytosis 1+; Pappenheimer Bodies Few
[2018-01-15 11:34] LABS: Target Cells 1+
== END 2018-01-15 12:32 | disposition home or self-care (01) | DRG 689 ==
LOC: EDUNIT# → EDBD → N.ED 11:12 → N.EDINP 15:54 → SUATTDRO 15:54 → N.2E 17:35
PROVIDERS: ADMIT Hospitalist

== ENCOUNTER 2018-05-06 12:51 | Inpatient (IN) ==
[2018-05-06 15:12] LABS: Barbiturates Screen,Urine Negative (Negative); Benzodiazepines Screen,Urine Negative (Negative); Cannabinoid Screen,Urine Negative (Negative); Opiate Screen,Urine Positive (Negative); Phencyclidine Screen,Urine Negative (Negative)
[2018-05-06 15:18] LABS: Basophils % 0.7 % (0.0-0.8); Eosinophils % 0.7 % (0.00-10.9); Hematocrit 28.7 VOL% (35.7-47.0); Hemoglobin 10.4 GM/DL (12.0-16.0); Immature Granulocytes % 4.9 %; Immature Granulocytes Absolute 0.28 #; Lymphocytes # 1.1 10*3/uL (1.4-4.0); Lymphocytes % 19.8 % (21.3-54.2); Mean Corpuscular HGB Conc 36.2 GM/DL (32-36); Mean Corpuscular Hemoglobin 35 PG (27-34); Mean Corpuscular Volume 97.6 FL (87-102); Mean Platelet Volume 10.9 FL (9.6-12.0); Monocytes # 0.5 10*3/uL (0.11-0.8); NRBC # 0.39 10*3/uL; Neutrophils # 3.7 10*3/uL (1.4-7.4); Neutrophils % 64.9 % (38.7-73.9); Platelet Count 268 T/CUMM (130-400); Red Blood Count 2.94 MC/CUMM (3.8-5.5); Red Cell Distribution Width 14.7 % (9.3-17.3); White Blood Count 5.8 T/CUMM (4-12)
[2018-05-06] MEDS ORDERED: HYDROmorphone 2 MG/1 ML VIAL IM STA (15:22)
[2018-05-06] MEDS ORDERED: ONDANSETRON ODT 4 MG TABLET PO STA (15:23)
[2018-05-06 16:15] LABS: Bilirubin,Total 0.4 MG/DL (0.2-1.0); Calcium 8.4 MG/DL (8.5-10.1); Osmolality,Calculated 274.4 MOS/KG (273-304); Potassium 3.8 MMOL/L (3.5-5.1); Total Protein 7.3 G/DL (6.4-8.3)
[2018-05-06] MEDS ORDERED: methylPREDNISolone SOD SUC 125 MG/2 ML VIAL IV STA (16:19)
[2018-05-06 16:43] LABS: Apearance,Urine Slightly Hazy (Clear); Bacteria,Urine Occasional /HPF (Few); Bilirubin,Urine Negative (Negative); Blood, Urine Small mg/dL (Negative); Glucose,Urine (UA) Negative (Negative); Ketones,Urine Negative (Negative); Mucus,Urine Occasional /LPF (Occasional); Nitrite,Urine Positive (Negative); Protein,Urine Negative; RBC,Urine 7 /HPF (0-4); Squamous Epithelial Cell,Urine Occasional /HPF (0-10); Urine Color Yellow (Yellow); Urine Specific Gravity 1.012 (1.001-1.035); WBC,Urine 26 /HPF (0-6)
[2018-05-06] MEDS ORDERED: cefTRIAXone 1,000 MG in SODIUM CHLORIDE 0.9% 100 ML IV STA (17:02)
[2018-05-06] MEDS ORDERED: PROMETHAZINE 25 MG TABLET PO PRN (19:14)
[2018-05-06] MEDS ORDERED: ONDANSETRON 4 MG/2 ML VIAL IV PRN (19:14)
[2018-05-06] MEDS ORDERED: oxyCODONE/ACETAMINOPHEN 5-325 MG TABLET PO PRN (19:14)
[2018-05-06] MEDS: HYDROmorphone 2 MG/1 ML VIAL IV PRN ×2 (19:40→23:45)
[2018-05-06 21:21] LABS: Apearance,Urine Slightly Hazy (Clear); Bacteria,Urine Moderate /HPF (Few); Bilirubin,Urine Negative (Negative); Blood, Urine Negative (Negative); Glucose,Urine (UA) Negative (Negative); Ketones,Urine Negative (Negative); Mucus,Urine Occasional /LPF (Occasional); Nitrite,Urine Negative (Negative); Protein,Urine Negative; RBC,Urine 1 /HPF (0-4); Urine Color Yellow (Yellow); Urine Specific Gravity 1.011 (1.001-1.035); Urine Urobilinogen < 2.0 EU/DL (0.2-1.0); WBC,Urine 26 /HPF (0-6)
[2018-05-06] MEDS: SODIUM CHLORIDE 0.9% 1,000 ML IV SCH (21:33)
[2018-05-06] MEDS: traZODone 50 MG TABLET PO SCH (21:33)
[2018-05-06] MEDS: TOPIRAMATE 100 MG TABLET PO SCH (21:33)
[2018-05-06] MEDS: HYDROXYUREA 500 MG CAPSULE PO SCH (21:33)
[2018-05-06] MEDS: AMOXICILLIN/CLAV 500 MG TABLET PO SCH (21:34)
[2018-05-06] MEDS: HYDROXYCHLOROQUINE 200 MG TABLET PO SCH (21:34)
[2018-05-06] MEDS: GABAPENTIN 600 MG TABLET PO SCH (21:34)
[2018-05-06] MEDS: BACLOFEN 20 MG TABLET PO SCH (21:34)
[2018-05-07] MEDS: HYDROmorphone 2 MG/1 ML VIAL IV PRN ×5 (03:46→21:10)
[2018-05-07] MEDS: AMOXICILLIN/CLAV 500 MG TABLET PO SCH ×3 (06:21→21:06)
[2018-05-07 06:25] LABS: Hematocrit 27.5 VOL% (35.7-47.0); Immature Granulocytes % 0.9 %; Immature Granulocytes Absolute 0.06 #; Lymphocytes # 0.4 10*3/uL (1.4-4.0); Lymphocytes % 5.4 % (21.3-54.2); Mean Corpuscular HGB Conc 36.4 GM/DL (32-36); Mean Corpuscular Hemoglobin 35 PG (27-34); Mean Corpuscular Volume 96.5 FL (87-102); Mean Platelet Volume 11.5 FL (9.6-12.0); Monocytes # 0.1 10*3/uL (0.11-0.8); Monocytes % 1.5 % (1.7-12.7); NRBC # 0.22 10*3/uL; Neutrophils % 92.2 % (38.7-73.9); Platelet Count 262 T/CUMM (130-400); Red Blood Count 2.85 MC/CUMM (3.8-5.5); Red Cell Distribution Width 14.5 % (9.3-17.3); White Blood Count 6.5 T/CUMM (4-12)
[2018-05-07 06:45] LABS: Alanine Aminotransferase 14 U/L (13-56); Alkaline Phosphatase 80 U/L (45-117); Aspartate Amino Transferase 15 U/L (0-37); Blood Urea Nitrogen 7 MG/DL (7-18); Calcium 8.7 MG/DL (8.5-10.1); Glucose 121 MG/DL (74-106); Lipase < 50.0 U/L (73-393); Osmolality,Calculated 275.5 MOS/KG (273-304); Potassium 4.3 MMOL/L (3.5-5.1); Sodium 139 MMOL/L (136-145); Total Protein 7.1 G/DL (6.4-8.3); Troponin I < 0.015 NG/ML (0.00-0.045)
[2018-05-07 07:33] LABS: Lymphocytes 5 % (20-55); Nucleated Red Blood Cells 5 (0-5); Segmented Neutrophils 92 % (50-85); Total Cells Counted 100
[2018-05-07 07:34] LABS: Target Cells 2+
[2018-05-07 07:36] LABS: Macrocytosis Slight; Pappenheimer Bodies 1+
[2018-05-07 07:37] LABS: Hypochromasia Slight
[2018-05-07 07:38] LABS: Platelet Estimate Normal
[2018-05-07] MEDS: GABAPENTIN 600 MG TABLET PO SCH ×2 (08:04→21:06)
[2018-05-07] MEDS: HYDROXYUREA 500 MG CAPSULE PO SCH ×2 (08:04→21:06)
[2018-05-07] MEDS: TOPIRAMATE 100 MG TABLET PO SCH ×2 (08:04→21:06)
[2018-05-07] MEDS: PANTOPRAZOLE 40 MG TABLET PO SCH (08:04)
[2018-05-07] MEDS: HYDROXYCHLOROQUINE 200 MG TABLET PO SCH ×2 (08:04→21:06)
[2018-05-07] MEDS: FOLIC ACID 1 MG TABLET PO SCH (08:12)
[2018-05-07] MEDS: predniSONE 10 MG TABLET PO SCH (08:12)
[2018-05-07] MEDS: DULoxetine 30 MG CAPSULE PO SCH (08:12)
[2018-05-07] MEDS: ENOXAPARIN 100 MG/ML SYRINGE SUBCUT SCH (08:13)
[2018-05-07] MEDS: BACLOFEN 20 MG TABLET PO SCH ×3 (11:08→21:08)
[2018-05-07] MEDS: SODIUM CHLORIDE 0.9% 1,000 ML IV SCH ×2 (16:52→21:13)
[2018-05-07] MEDS: traZODone 50 MG TABLET PO SCH (21:06)
[2018-05-08] MEDS: HYDROmorphone 2 MG/1 ML VIAL IV PRN ×6 (01:01→21:14)
[2018-05-08] MEDS: SODIUM CHLORIDE 0.9% 1,000 ML IV SCH ×3 (05:10→19:00)
[2018-05-08] MEDS: AMOXICILLIN/CLAV 500 MG TABLET PO SCH ×3 (05:59→21:18)
[2018-05-08] MEDS: predniSONE 10 MG TABLET PO SCH (08:58)
[2018-05-08] MEDS: FOLIC ACID 1 MG TABLET PO SCH (08:59)
[2018-05-08] MEDS: HYDROXYCHLOROQUINE 200 MG TABLET PO SCH ×2 (08:59→21:17)
[2018-05-08] MEDS: BACLOFEN 20 MG TABLET PO SCH ×3 (08:59→21:18)
[2018-05-08] MEDS: GABAPENTIN 600 MG TABLET PO SCH ×2 (08:59→21:18)
[2018-05-08] MEDS: PANTOPRAZOLE 40 MG TABLET PO SCH (08:59)
[2018-05-08] MEDS: TOPIRAMATE 100 MG TABLET PO SCH ×2 (09:00→21:17)
[2018-05-08] MEDS: DULoxetine 30 MG CAPSULE PO SCH (09:00)
[2018-05-08] MEDS: ENOXAPARIN 100 MG/ML SYRINGE SUBCUT SCH (09:04)
[2018-05-08] MEDS: HYDROXYUREA 500 MG CAPSULE PO SCH ×2 (09:04→21:17)
[2018-05-08] MEDS ORDERED: cefTRIAXone 1,000 MG in SYRINGE 1 EACH IV ONE (10:57)
[2018-05-08] MEDS: traZODone 50 MG TABLET PO SCH (21:18)
[2018-05-09] MEDS: HYDROmorphone 2 MG/1 ML VIAL IV PRN ×6 (01:48→22:06)
[2018-05-09] MEDS: SODIUM CHLORIDE 0.9% 1,000 ML IV SCH (03:25)
[2018-05-09 04:45] LABS: Basophils % 0.2 % (0.0-0.8); Eosinophils % 0.2 % (0.00-10.9); Hematocrit 25.4 VOL% (35.7-47.0); Hemoglobin 9.3 GM/DL (12.0-16.0); Immature Granulocytes % 1.7 %; Immature Granulocytes Absolute 0.15 #; Lymphocytes # 2.1 10*3/uL (1.4-4.0); Lymphocytes % 24.5 % (21.3-54.2); Mean Corpuscular HGB Conc 36.6 GM/DL (32-36); Mean Corpuscular Hemoglobin 36 PG (27-34); Mean Corpuscular Volume 97.3 FL (87-102); Mean Platelet Volume 11.3 FL (9.6-12.0); Monocytes # 0.7 10*3/uL (0.11-0.8); Monocytes % 8.1 % (1.7-12.7); NRBC # 0.19 10*3/uL; Neutrophils # 5.6 10*3/uL (1.4-7.4); Neutrophils % 65.3 % (38.7-73.9); Platelet Count 231 T/CUMM (130-400); Red Blood Count 2.61 MC/CUMM (3.8-5.5); Red Cell Distribution Width 14.6 % (9.3-17.3); White Blood Count 8.6 T/CUMM (4-12)
[2018-05-09 05:12] LABS: Calcium 8.2 MG/DL (8.5-10.1); Osmolality,Calculated 281.1 MOS/KG (273-304); Potassium 3.3 MMOL/L (3.5-5.1)
[2018-05-09] MEDS: AMOXICILLIN/CLAV 500 MG TABLET PO SCH ×3 (05:26→21:22)
[2018-05-09] MEDS: ENOXAPARIN 100 MG/ML SYRINGE SUBCUT SCH (08:20)
[2018-05-09] MEDS: POTASSIUM CHLORIDE 20 MEQ TABLET PO SCH (08:21)
[2018-05-09] MEDS: FOLIC ACID 1 MG TABLET PO SCH (08:22)
[2018-05-09] MEDS: predniSONE 10 MG TABLET PO SCH (08:22)
[2018-05-09] MEDS: DULoxetine 30 MG CAPSULE PO SCH (08:23)
[2018-05-09] MEDS: TOPIRAMATE 100 MG TABLET PO SCH ×2 (08:24→21:25)
[2018-05-09] MEDS: GABAPENTIN 600 MG TABLET PO SCH ×2 (08:24→21:22)
[2018-05-09] MEDS: HYDROXYCHLOROQUINE 200 MG TABLET PO SCH ×2 (08:24→21:22)
[2018-05-09] MEDS: HYDROXYUREA 500 MG CAPSULE PO SCH ×2 (08:25→21:21)
[2018-05-09] MEDS: PANTOPRAZOLE 40 MG TABLET PO SCH (08:25)
[2018-05-09] MEDS: BACLOFEN 20 MG TABLET PO SCH ×3 (08:27→21:22)
[2018-05-09] MEDS: traZODone 50 MG TABLET PO SCH (21:22)
[2018-05-10] MEDS: HYDROmorphone 2 MG/1 ML VIAL IV PRN ×6 (02:29→22:40)
[2018-05-10] MEDS: AMOXICILLIN/CLAV 500 MG TABLET PO SCH (05:02)
[2018-05-10] MEDS: POTASSIUM CHLORIDE 20 MEQ TABLET PO SCH (07:09)
[2018-05-10] MEDS: DULoxetine 30 MG CAPSULE PO SCH (09:22)
[2018-05-10] MEDS: GABAPENTIN 600 MG TABLET PO SCH ×2 (09:23→20:20)
[2018-05-10] MEDS: FOLIC ACID 1 MG TABLET PO SCH (09:23)
[2018-05-10] MEDS: predniSONE 10 MG TABLET PO SCH (09:23)
[2018-05-10] MEDS: HYDROXYUREA 500 MG CAPSULE PO SCH ×2 (09:23→20:20)
[2018-05-10] MEDS: ENOXAPARIN 100 MG/ML SYRINGE SUBCUT SCH (09:24)
[2018-05-10] MEDS: BACLOFEN 20 MG TABLET PO SCH ×3 (09:24→20:21)
[2018-05-10] MEDS: TOPIRAMATE 100 MG TABLET PO SCH ×2 (09:24→20:21)
[2018-05-10] MEDS: HYDROXYCHLOROQUINE 200 MG TABLET PO SCH ×2 (09:24→20:21)
[2018-05-10] MEDS: PANTOPRAZOLE 40 MG TABLET PO SCH (09:24)
[2018-05-10] MEDS: ERTAPENEM 1,000 MG in SODIUM CHLORIDE 0.9% 100 ML IV SCH (13:34)
[2018-05-10] MEDS: traZODone 50 MG TABLET PO SCH (20:21)
[2018-05-11] MEDS: HYDROmorphone 2 MG/1 ML VIAL IV PRN ×4 (02:49→14:40)
[2018-05-11] MEDS: DULoxetine 30 MG CAPSULE PO SCH (08:24)
[2018-05-11] MEDS: FOLIC ACID 1 MG TABLET PO SCH (08:25)
[2018-05-11] MEDS: GABAPENTIN 600 MG TABLET PO SCH ×2 (08:25→20:26)
[2018-05-11] MEDS: predniSONE 10 MG TABLET PO SCH (08:26)
[2018-05-11] MEDS: TOPIRAMATE 100 MG TABLET PO SCH ×2 (08:26→20:27)
[2018-05-11] MEDS: PANTOPRAZOLE 40 MG TABLET PO SCH (08:26)
[2018-05-11] MEDS: HYDROXYUREA 500 MG CAPSULE PO SCH ×2 (08:26→20:27)
[2018-05-11] MEDS: BACLOFEN 20 MG TABLET PO SCH ×3 (08:26→20:30)
[2018-05-11] MEDS: HYDROXYCHLOROQUINE 200 MG TABLET PO SCH ×2 (08:27→20:27)
[2018-05-11] MEDS: ENOXAPARIN 100 MG/ML SYRINGE SUBCUT SCH (08:31)
[2018-05-11] MEDS: ERTAPENEM 1,000 MG in SODIUM CHLORIDE 0.9% 100 ML IV SCH (11:36)
[2018-05-11] MEDS: HYDROmorphone 2 MG TABLET PO PRN ×2 (18:24→22:42)
[2018-05-11] MEDS: traZODone 50 MG TABLET PO SCH (20:27)
[2018-05-12] MEDS: HYDROmorphone 2 MG TABLET PO PRN ×4 (03:21→16:28)
[2018-05-12] MEDS: FOLIC ACID 1 MG TABLET PO SCH (08:58)
[2018-05-12] MEDS: BACLOFEN 20 MG TABLET PO SCH ×2 (08:58→14:10)
[2018-05-12] MEDS: GABAPENTIN 600 MG TABLET PO SCH (08:59)
[2018-05-12] MEDS: DULoxetine 30 MG CAPSULE PO SCH (08:59)
[2018-05-12] MEDS: PANTOPRAZOLE 40 MG TABLET PO SCH (09:00)
[2018-05-12] MEDS: predniSONE 10 MG TABLET PO SCH (09:00)
[2018-05-12] MEDS: HYDROXYUREA 500 MG CAPSULE PO SCH (09:01)
[2018-05-12] MEDS: TOPIRAMATE 100 MG TABLET PO SCH (09:01)
[2018-05-12] MEDS: HYDROXYCHLOROQUINE 200 MG TABLET PO SCH (09:01)
[2018-05-12] MEDS: ENOXAPARIN 100 MG/ML SYRINGE SUBCUT SCH (09:02)
[2018-05-12] MEDS: ERTAPENEM 1,000 MG in SODIUM CHLORIDE 0.9% 100 ML IV SCH (10:30)
[2018-05-12 15:09] VITALS: BP 101/55
== END 2018-05-12 17:54 | disposition home health service (06) | DRG 812 ==
LOC: EDUNIT# → N.ED 12:51 → N.4E 17:18 → SUATTDRO 17:18 → N.4E 18:55
PROVIDERS: ADMIT Internal Medicine; ATTEND Internal Medicine

== ENCOUNTER 2018-05-16 06:12 | Observation (INO) ==
[2018-05-16] MEDS ORDERED: ONDANSETRON 4 MG/2 ML VIAL IV STA (06:37)
[2018-05-16] MEDS ORDERED: HYDROmorphone 2 MG/1 ML VIAL IV STA ×2 (06:37→09:00)
[2018-05-16] MEDS ORDERED: SODIUM CHLORIDE 0.9% 1,000 ML IV STA (06:38)
[2018-05-16 07:37] LABS: Basophils % 0.5 % (0.0-0.8); Eosinophils # 0.1 10*3/uL (0.0-0.87); Eosinophils % 0.9 % (0.00-10.9); Hemoglobin 10.8 GM/DL (12.0-16.0); Immature Granulocytes % 9.2 %; Immature Granulocytes Absolute 0.53 #; Lymphocytes # 0.6 10*3/uL (1.4-4.0); Lymphocytes % 9.8 % (21.3-54.2); Mean Corpuscular HGB Conc 37.2 GM/DL (32-36); Mean Corpuscular Hemoglobin 36 PG (27-34); Mean Corpuscular Volume 95.4 FL (87-102); Mean Platelet Volume 10.9 FL (9.6-12.0); Monocytes # 0.4 10*3/uL (0.11-0.8); Monocytes % 7.5 % (1.7-12.7); NRBC # 0.84 10*3/uL; Neutrophils # 4.1 10*3/uL (1.4-7.4); Neutrophils % 72.1 % (38.7-73.9); Platelet Count 258 T/CUMM (130-400); Red Blood Count 3.04 MC/CUMM (3.8-5.5); Red Cell Distribution Width 16.1 % (9.3-17.3); White Blood Count 5.7 T/CUMM (4-12)
[2018-05-16 08:09] LABS: Apearance,Urine CLEAR (Clear); Bilirubin,Urine Negative (Negative); Blood, Urine Negative (Negative); Glucose,Urine (UA) Negative (Negative); Ketones,Urine Negative (Negative); Nitrite,Urine Negative (Negative); Protein,Urine Negative; RBC,Urine <1 /HPF (0-4); Squamous Epithelial Cell,Urine Occasional /HPF (0-10); Urine Color Yellow (Yellow); Urine Specific Gravity 1.012 (1.001-1.035); WBC,Urine <1 /HPF (0-6)
[2018-05-16 08:26] LABS: Band Neutrophils 3 % (0-10); Lymphocytes 24 % (20-55); Nucleated Red Blood Cells 18 (0-5); Platelet Estimate Normal; Segmented Neutrophils 70 % (50-85); Total Cells Counted 100
[2018-05-16 08:27] LABS: Anisocytosis 2+; Macrocytosis 2+; Poikilocytosis Slight; Target Cells 2+
[2018-05-16 09:00] LABS: Calcium 8.7 MG/DL (8.5-10.1); Osmolality,Calculated 274.5 MOS/KG (273-304); Potassium 5.2 MMOL/L (3.5-5.1)
[2018-05-16 10:15] LABS: Sedimentation Rate-Westergren 55 MM/HR (0-20)
[2018-05-16] MEDS ORDERED: PROMETHAZINE 25 MG/1 ML VIAL IM PRN (11:25)
[2018-05-16] MEDS ORDERED: ACETAMINOPHEN 325 MG TABLET PO PRN (11:25)
[2018-05-16] MEDS ORDERED: ONDANSETRON 4 MG/2 ML VIAL IV PRN (11:25)
[2018-05-16] MEDS ORDERED: ENOXAPARIN 40 MG/0.4 ML SYRINGE SUBCUT SCH (11:30)
[2018-05-16] MEDS ORDERED: SODIUM CHLORIDE 0.9% 1,000 ML IV SCH (11:30)
[2018-05-16] MEDS ORDERED: HYDROmorphone 2 MG TABLET PO SCH ×2 (12:00→15:00)
[2018-05-16] MEDS ORDERED: fentaNYL 50 MCG/HR PATCH TRANSDERM SCH (14:00)
[2018-05-16] MEDS ORDERED: ENOXAPARIN 100 MG/ML SYRINGE SUBCUT SCH (14:30)
[2018-05-16] MEDS ORDERED: ERTAPENEM 1,000 MG in SODIUM CHLORIDE 0.9% 100 ML IV SCH (15:00)
[2018-05-16] MEDS ORDERED: ERTAPENEM 1,000 MG VIAL IV SCH (15:00)
[2018-05-16] MEDS: HYDROmorphone 2 MG/1 ML VIAL IV PRN ×3 (15:23→23:26)
[2018-05-16] MEDS: BACLOFEN 20 MG TABLET PO SCH ×2 (15:24→20:26)
[2018-05-16] MEDS: SODIUM CHLORIDE 0.45% 1,000 ML IV SCH (15:24)
[2018-05-16] MEDS: HYDROXYUREA 500 MG CAPSULE PO SCH (20:24)
[2018-05-16] MEDS: GABAPENTIN 600 MG TABLET PO SCH (20:25)
[2018-05-16] MEDS: HYDROXYCHLOROQUINE 200 MG TABLET PO SCH (20:25)
[2018-05-16] MEDS: TOPIRAMATE 100 MG TABLET PO SCH (20:26)
[2018-05-16] MEDS ORDERED: traZODone 50 MG TABLET PO SCH (21:00)
[2018-05-16 21:16] LABS: Barbiturates Screen,Urine Negative (Negative); Benzodiazepines Screen,Urine Negative (Negative); Cannabinoid Screen,Urine Negative (Negative); Opiate Screen,Urine Positive (Negative); Phencyclidine Screen,Urine Negative (Negative)
[2018-05-17] MEDS: HYDROmorphone 2 MG/1 ML VIAL IV PRN ×3 (03:23→11:30)
[2018-05-17] MEDS ORDERED: FOLIC ACID 1 MG TABLET PO SCH (09:00)
[2018-05-17] MEDS ORDERED: DULoxetine 30 MG CAPSULE PO SCH (09:00)
[2018-05-17] MEDS ORDERED: predniSONE 10 MG TABLET PO SCH (09:00)
[2018-05-17] MEDS ORDERED: PANTOPRAZOLE 40 MG TABLET PO SCH (09:00)
[2018-05-17] MEDS: BACLOFEN 20 MG TABLET PO SCH (09:03)
[2018-05-17] MEDS: GABAPENTIN 600 MG TABLET PO SCH (09:03)
[2018-05-17] MEDS: HYDROXYCHLOROQUINE 200 MG TABLET PO SCH (09:04)
[2018-05-17] MEDS: HYDROXYUREA 500 MG CAPSULE PO SCH (09:04)
[2018-05-17] MEDS: TOPIRAMATE 100 MG TABLET PO SCH (09:04)
[2018-05-17] MEDS: SODIUM CHLORIDE 0.45% 1,000 ML IV SCH (11:35)
[2018-05-17 14:18] VITALS: BP 102/57
== END 2018-05-17 13:10 | disposition home health service (06) ==
LOC: EDUNIT# → EDBD → N.EDINP 06:12 → N.ED 06:12 → N.EDINP 13:40 → N.4E 13:55
PROVIDERS: ADMIT Emergency Medicine; ATTEND Emergency Medicine

== ENCOUNTER 2018-05-26 08:53 | Inpatient (IN) ==
[2018-05-26] MEDS ORDERED: SODIUM CHLORIDE 0.9% 1,000 ML IV STA (09:11)
[2018-05-26 09:37] LABS: Basophils % 0.4 % (0.0-0.8); Eosinophils % 0.6 % (0.00-10.9); Hematocrit 26.1 VOL% (35.7-47.0); Hemoglobin 9.3 GM/DL (12.0-16.0); Immature Granulocytes % 1.3 %; Immature Granulocytes Absolute 0.07 #; Lymphocytes # 0.9 10*3/uL (1.4-4.0); Lymphocytes % 16.5 % (21.3-54.2); Mean Corpuscular HGB Conc 35.6 GM/DL (32-36); Mean Corpuscular Hemoglobin 34 PG (27-34); Mean Corpuscular Volume 95.3 FL (87-102); Mean Platelet Volume 11.4 FL (9.6-12.0); Monocytes # 0.7 10*3/uL (0.11-0.8); Monocytes % 12.4 % (1.7-12.7); NRBC # 0.05 10*3/uL; Neutrophils # 3.7 10*3/uL (1.4-7.4); Neutrophils % 68.8 % (38.7-73.9); Platelet Count 253 T/CUMM (130-400); Red Blood Count 2.74 MC/CUMM (3.8-5.5); Red Cell Distribution Width 17.2 % (9.3-17.3); White Blood Count 5.4 T/CUMM (4-12)
[2018-05-26 09:56] LABS: Bilirubin,Total 0.9 MG/DL (0.2-1.0); Calcium 8.5 MG/DL (8.5-10.1); Osmolality,Calculated 269.8 MOS/KG (273-304); Potassium 3.9 MMOL/L (3.5-5.1); Total Protein 7.8 G/DL (6.4-8.3)
[2018-05-26] MEDS ORDERED: HYDROmorphone 2 MG/1 ML VIAL IV STA ×2 (10:38→10:39)
[2018-05-26] MEDS ORDERED: ONDANSETRON 4 MG/2 ML VIAL IV STA ×2 (10:38)
[2018-05-26] MEDS ORDERED: ONDANSETRON 4 MG/2 ML VIAL IV PRN (11:34)
[2018-05-26] MEDS ORDERED: PROMETHAZINE 25 MG TABLET PO PRN (11:38)
[2018-05-26] MEDS: SODIUM CHLORIDE 0.9% 1,000 ML IV SCH (13:14)
[2018-05-26] MEDS: HYDROmorphone 2 MG/1 ML VIAL IV PRN ×3 (14:44→22:36)
[2018-05-26] MEDS: ENOXAPARIN 100 MG/ML SYRINGE SUBCUT SCH (14:47)
[2018-05-26] MEDS: BACLOFEN 20 MG TABLET PO SCH ×2 (14:49→20:32)
[2018-05-26] MEDS: PIPERACILLIN/TAZOBACTAM 3,375 MG in SODIUM CHLORIDE 0.9% 100 ML IV SCH (17:01)
[2018-05-26] MEDS: HYDROXYUREA 500 MG CAPSULE PO SCH (20:32)
[2018-05-26] MEDS: DOCUSATE SODIUM 100 MG CAPSULE PO SCH (20:32)
[2018-05-26] MEDS: TOPIRAMATE 25 MG TABLET PO SCH (20:33)
[2018-05-26] MEDS: GABAPENTIN 600 MG TABLET PO SCH (20:33)
[2018-05-26] MEDS: traZODone 50 MG TABLET PO SCH (20:33)
[2018-05-26] MEDS: HYDROXYCHLOROQUINE 200 MG TABLET PO SCH (20:33)
[2018-05-26 23:50] LABS: Apearance,Urine CLEAR (Clear); Bilirubin,Urine Negative (Negative); Blood, Urine Negative (Negative); Glucose,Urine (UA) Negative (Negative); Ketones,Urine Negative (Negative); Mucus,Urine Occasional /LPF (Occasional); Nitrite,Urine Negative (Negative); Protein,Urine Negative; RBC,Urine <1 /HPF (0-4); Squamous Epithelial Cell,Urine Occasional /HPF (0-10); Urine Color Yellow (Yellow)
[2018-05-27] MEDS: SODIUM CHLORIDE 0.9% 1,000 ML IV SCH ×3 (01:15→17:36)
[2018-05-27] MEDS: PIPERACILLIN/TAZOBACTAM 3,375 MG in SODIUM CHLORIDE 0.9% 100 ML IV SCH ×4 (01:20→18:27)
[2018-05-27] MEDS: HYDROmorphone 2 MG/1 ML VIAL IV PRN ×2 (02:29→06:37)
[2018-05-27 04:56] LABS: Basophils % 0.6 % (0.0-0.8); Eosinophils # 0.1 10*3/uL (0.0-0.87); Eosinophils % 2.4 % (0.00-10.9); Hematocrit 23.4 VOL% (35.7-47.0); Hemoglobin 8.4 GM/DL (12.0-16.0); Immature Granulocytes % 1.5 %; Immature Granulocytes Absolute 0.05 #; Lymphocytes # 1.2 10*3/uL (1.4-4.0); Mean Corpuscular HGB Conc 35.9 GM/DL (32-36); Mean Corpuscular Hemoglobin 34 PG (27-34); Mean Corpuscular Volume 95.5 FL (87-102); Monocytes # 0.5 10*3/uL (0.11-0.8); Monocytes % 15.1 % (1.7-12.7); NRBC # 0.04 10*3/uL; Neutrophils # 1.6 10*3/uL (1.4-7.4); Neutrophils % 46.4 % (38.7-73.9); Platelet Count 244 T/CUMM (130-400); Red Blood Count 2.45 MC/CUMM (3.8-5.5); Red Cell Distribution Width 17.3 % (9.3-17.3); White Blood Count 3.4 T/CUMM (4-12)
[2018-05-27 05:02] LABS: Calcium 8.3 MG/DL (8.5-10.1); Osmolality,Calculated 272.5 MOS/KG (273-304); Potassium 3.9 MMOL/L (3.5-5.1)
[2018-05-27] MEDS: FOLIC ACID 1 MG TABLET PO SCH ×3 (10:00→13:05)
[2018-05-27] MEDS: GABAPENTIN 600 MG TABLET PO SCH ×4 (10:02→21:02)
[2018-05-27] MEDS: DULoxetine 30 MG CAPSULE PO SCH ×3 (10:03→13:07)
[2018-05-27] MEDS: predniSONE 10 MG TABLET PO SCH ×3 (10:04→13:02)
[2018-05-27] MEDS: BACLOFEN 20 MG TABLET PO SCH ×5 (10:06→21:08)
[2018-05-27] MEDS: DOCUSATE SODIUM 100 MG CAPSULE PO SCH ×3 (10:08→21:01)
[2018-05-27] MEDS: HYDROXYCHLOROQUINE 200 MG TABLET PO SCH ×3 (10:09→21:02)
[2018-05-27] MEDS: HYDROXYUREA 500 MG CAPSULE PO SCH ×3 (10:09→21:02)
[2018-05-27] MEDS: TOPIRAMATE 25 MG TABLET PO SCH ×3 (10:10→21:02)
[2018-05-27] MEDS: PANTOPRAZOLE 40 MG TABLET PO SCH ×2 (10:10→13:07)
[2018-05-27] MEDS: HYDROmorphone 2 MG/1 ML VIAL IV SCH ×3 (12:59→23:50)
[2018-05-27] MEDS: ENOXAPARIN 100 MG/ML SYRINGE SUBCUT SCH (13:20)
[2018-05-27] MEDS ORDERED: ACETAMINOPHEN 500 MG TABLET PO PRN (14:29)
[2018-05-27] MEDS ORDERED: EPOETIN ALFA 2,000 UNIT/1 ML VIAL SUBCUT ONE (14:40)
[2018-05-27] MEDS ORDERED: SODIUM CHLORIDE 0.9% 1,000 ML IV SCH (15:00)
[2018-05-27] MEDS: MORPHINE ER 15 MG TABLET PO SCH ×2 (15:10→21:02)
[2018-05-27] MEDS: MEROPENEM 500 MG in SODIUM CHLORIDE 0.9% 100 ML IV SCH ×2 (15:11→23:51)
[2018-05-27] MEDS: traZODone 50 MG TABLET PO SCH (21:01)
[2018-05-28] MEDS: PIPERACILLIN/TAZOBACTAM 3,375 MG in SODIUM CHLORIDE 0.9% 100 ML IV SCH ×2 (01:25→09:15)
[2018-05-28] MEDS: HYDROmorphone 2 MG/1 ML VIAL IV SCH ×3 (05:56→21:48)
[2018-05-28] MEDS: MEROPENEM 500 MG in SODIUM CHLORIDE 0.9% 100 ML IV SCH ×3 (05:57→21:49)
[2018-05-28 06:18] LABS: Hemoglobin 8.1 GM/DL (12.0-16.0); Immature Granulocytes % 0.5 %; Immature Granulocytes Absolute 0.02 #; Lymphocytes # 0.8 10*3/uL (1.4-4.0); Lymphocytes % 21.6 % (21.3-54.2); Mean Corpuscular HGB Conc 35.2 GM/DL (32-36); Mean Corpuscular Hemoglobin 33 PG (27-34); Mean Corpuscular Volume 94.3 FL (87-102); Mean Platelet Volume 11.5 FL (9.6-12.0); Monocytes # 0.3 10*3/uL (0.11-0.8); Monocytes % 8.8 % (1.7-12.7); NRBC # 0.03 10*3/uL; Neutrophils # 2.7 10*3/uL (1.4-7.4); Neutrophils % 69.1 % (38.7-73.9); Platelet Count 252 T/CUMM (130-400); Red Blood Count 2.44 MC/CUMM (3.8-5.5); Red Cell Distribution Width 17.8 % (9.3-17.3); White Blood Count 3.9 T/CUMM (4-12)
[2018-05-28 06:36] LABS: Calcium 8.9 MG/DL (8.5-10.1); Osmolality,Calculated 276.4 MOS/KG (273-304); Potassium 4.3 MMOL/L (3.5-5.1)
[2018-05-28] MEDS: DULoxetine 30 MG CAPSULE PO SCH (09:14)
[2018-05-28] MEDS: FOLIC ACID 1 MG TABLET PO SCH (09:14)
[2018-05-28] MEDS: HYDROXYUREA 500 MG CAPSULE PO SCH ×2 (09:14→21:43)
[2018-05-28] MEDS: GABAPENTIN 600 MG TABLET PO SCH ×2 (09:14→21:43)
[2018-05-28] MEDS: PANTOPRAZOLE 40 MG TABLET PO SCH (09:14)
[2018-05-28] MEDS: TOPIRAMATE 25 MG TABLET PO SCH ×2 (09:14→21:44)
[2018-05-28] MEDS: DOCUSATE SODIUM 100 MG CAPSULE PO SCH ×2 (09:14→21:44)
[2018-05-28] MEDS: predniSONE 10 MG TABLET PO SCH (09:15)
[2018-05-28] MEDS: MORPHINE ER 15 MG TABLET PO SCH ×2 (09:15→21:43)
[2018-05-28] MEDS: HYDROXYCHLOROQUINE 200 MG TABLET PO SCH ×2 (09:15→21:43)
[2018-05-28] MEDS: BACLOFEN 20 MG TABLET PO SCH ×3 (09:21→21:44)
[2018-05-28] MEDS ORDERED: SODIUM CHLORIDE 0.9% 1,000 ML IV PRN ×2 (10:23→10:36)
[2018-05-28] MEDS: ENOXAPARIN 100 MG/ML SYRINGE SUBCUT SCH (13:51)
[2018-05-28] MEDS: traZODone 50 MG TABLET PO SCH (21:43)
[2018-05-29] MEDS: HYDROmorphone 2 MG/1 ML VIAL IV SCH ×2 (06:22→14:09)
[2018-05-29] MEDS ORDERED: SODIUM CHLORIDE 0.9% 1,000 ML IV PRN (07:25)
[2018-05-29] MEDS ORDERED: LINACLOTIDE 145 MCG CAPSULE PO SCH (07:30)
[2018-05-29] MEDS: MEROPENEM 500 MG in SODIUM CHLORIDE 0.9% 100 ML IV SCH ×2 (08:49→15:45)
[2018-05-29] MEDS: BACLOFEN 20 MG TABLET PO SCH ×2 (08:50→15:44)
[2018-05-29] MEDS: predniSONE 10 MG TABLET PO SCH (08:50)
[2018-05-29] MEDS: GABAPENTIN 600 MG TABLET PO SCH (08:50)
[2018-05-29] MEDS: PANTOPRAZOLE 40 MG TABLET PO SCH (08:51)
[2018-05-29] MEDS: FOLIC ACID 1 MG TABLET PO SCH (08:52)
[2018-05-29] MEDS: DULoxetine 30 MG CAPSULE PO SCH (08:52)
[2018-05-29] MEDS: DOCUSATE SODIUM 100 MG CAPSULE PO SCH (08:53)
[2018-05-29] MEDS: HYDROXYUREA 500 MG CAPSULE PO SCH (08:53)
[2018-05-29] MEDS: HYDROXYCHLOROQUINE 200 MG TABLET PO SCH (08:54)
[2018-05-29] MEDS: MORPHINE ER 15 MG TABLET PO SCH (08:54)
[2018-05-29] MEDS: TOPIRAMATE 25 MG TABLET PO SCH (08:54)
[2018-05-29 13:07] LABS: Basophils % 0.3 % (0.0-0.8); Eosinophils % 0.3 % (0.00-10.9); Hematocrit 32.6 VOL% (35.7-47.0); Hemoglobin 11.1 GM/DL (12.0-16.0); Immature Granulocytes % 1.1 %; Immature Granulocytes Absolute 0.04 #; Lymphocytes # 0.4 10*3/uL (1.4-4.0); Lymphocytes % 11.7 % (21.3-54.2); Mean Corpuscular Hemoglobin 30 PG (27-34); Mean Corpuscular Volume 88.3 FL (87-102); Mean Platelet Volume 11.6 FL (9.6-12.0); Monocytes # 0.1 10*3/uL (0.11-0.8); Monocytes % 3.4 % (1.7-12.7); NRBC # 0.09 10*3/uL; Neutrophils # 2.9 10*3/uL (1.4-7.4); Neutrophils % 83.2 % (38.7-73.9); Platelet Count 282 T/CUMM (130-400); Red Blood Count 3.69 MC/CUMM (3.8-5.5); Red Cell Distribution Width 21.2 % (9.3-17.3); White Blood Count 3.5 T/CUMM (4-12)
[2018-05-29] MEDS: ENOXAPARIN 100 MG/ML SYRINGE SUBCUT SCH (14:09)
[2018-05-29 15:56] VITALS: BP 132/95
== END 2018-05-29 18:25 | disposition home or self-care (01) | DRG 812 ==
LOC: N.EDINP 08:53 → N.ED 08:53 → N.4E 12:07
PROVIDERS: ADMIT Internal Medicine; ATTEND Internal Medicine

== ENCOUNTER 2018-07-06 05:38 | Inpatient (IN) ==
[2018-07-06] MEDS ORDERED: SODIUM CHLORIDE 0.9% 1,000 ML IV STA (06:08)
[2018-07-06] MEDS ORDERED: ONDANSETRON 4 MG/2 ML VIAL IV STA (06:11)
[2018-07-06] MEDS ORDERED: HYDROmorphone 2 MG/1 ML VIAL IV STA ×2 (06:11→09:00)
[2018-07-06 06:12] LABS: Basophils % 0.5 % (0.0-0.8); Eosinophils # 0.1 10*3/uL (0.0-0.87); Eosinophils % 1.9 % (0.00-10.9); Hematocrit 25.3 VOL% (35.7-47.0); Hemoglobin 8.8 GM/DL (12.0-16.0); Immature Granulocytes % 1.3 %; Immature Granulocytes Absolute 0.08 #; Lymphocytes # 1.3 10*3/uL (1.4-4.0); Lymphocytes % 22.4 % (21.3-54.2); Mean Corpuscular HGB Conc 34.8 GM/DL (32-36); Mean Corpuscular Hemoglobin 29 PG (27-34); Mean Corpuscular Volume 83.5 FL (87-102); Monocytes # 0.8 10*3/uL (0.11-0.8); Monocytes % 13.5 % (1.7-12.7); NRBC # 0.04 10*3/uL; Neutrophils # 3.6 10*3/uL (1.4-7.4); Neutrophils % 60.4 % (38.7-73.9); Platelet Count 325 T/CUMM (130-400); Red Blood Count 3.03 MC/CUMM (3.8-5.5); Red Cell Distribution Width 18.6 % (9.3-17.3); White Blood Count 5.9 T/CUMM (4-12)
[2018-07-06] MEDS ORDERED: methylPREDNISolone SOD SUC 125 MG/2 ML VIAL IV STA (06:12)
[2018-07-06 06:24] LABS: INR 1.1; PT Patient Result 11.5 SECS
[2018-07-06 06:35] LABS: Alanine Aminotransferase < 9 U/L (13-56); Albumin 2.7 G/DL (3.4-5.0); Alkaline Phosphatase 73 U/L (45-117); Aspartate Amino Transferase 18 U/L (0-37); Blood Urea Nitrogen 5 MG/DL (7-18); Calcium 8.7 MG/DL (8.5-10.1); Glucose 90 MG/DL (74-106); Osmolality,Calculated 271.7 MOS/KG (273-304); Potassium 3.8 MMOL/L (3.5-5.1); Sodium 138 MMOL/L (136-145); Total Protein 9.2 G/DL (6.4-8.3)
[2018-07-06 06:50] LABS: Troponin I < 0.015 NG/ML (0.00-0.045)
[2018-07-06 07:40] LABS: Apearance,Urine CLOUDY (Clear); Bacteria,Urine Moderate /HPF (Few); Bilirubin,Urine Negative (Negative); Blood, Urine Moderate mg/dL (Negative); Glucose,Urine (UA) Negative (Negative); Ketones,Urine Negative (Negative); Nitrite,Urine Positive (Negative); Protein,Urine Negative; RBC,Urine 117 /HPF (0-4); Squamous Epithelial Cell,Urine Occasional /HPF (0-10); Urine Color Yellow (Yellow); Urine Specific Gravity 1.011 (1.001-1.035); WBC,Urine 171 /HPF (0-6)
[2018-07-06] MEDS ORDERED: ONDANSETRON 4 MG/2 ML VIAL IV PRN (08:49)
[2018-07-06] MEDS ORDERED: oxyCODONE/ACETAMINOPHEN 5-325 MG TABLET PO PRN (08:59)
[2018-07-06] MEDS ORDERED: PANTOPRAZOLE 40 MG VIAL IV ONE (12:09)
[2018-07-06] MEDS ORDERED: predniSONE 20 MG TABLET ONE (12:09)
[2018-07-06] MEDS: predniSONE 10 MG TABLET PO SCH (12:20)
[2018-07-06] MEDS: PANTOPRAZOLE 40 MG TABLET PO SCH (12:20)
[2018-07-06] MEDS: SODIUM CHLORIDE 0.9% 1,000 ML IV SCH ×2 (12:21→16:06)
[2018-07-06] MEDS: HYDROmorphone 2 MG/1 ML VIAL IV PRN ×4 (12:22→21:51)
[2018-07-06] MEDS: FOLIC ACID 1 MG TABLET PO SCH (15:11)
[2018-07-06] MEDS: HYDROXYCHLOROQUINE 200 MG TABLET PO SCH ×2 (15:12→20:46)
[2018-07-06] MEDS: HYDROXYUREA 500 MG CAPSULE PO SCH ×2 (15:12→20:46)
[2018-07-06] MEDS: ENOXAPARIN 100 MG/ML SYRINGE SUBCUT SCH (20:46)
[2018-07-06] MEDS: GABAPENTIN 600 MG TABLET PO SCH (20:46)
[2018-07-06] MEDS: traZODone 50 MG TABLET PO SCH (20:46)
[2018-07-06] MEDS: TOPIRAMATE 25 MG TABLET PO SCH (21:51)
[2018-07-07] MEDS: HYDROmorphone 2 MG/1 ML VIAL IV PRN ×8 (00:46→21:15)
[2018-07-07] MEDS: SODIUM CHLORIDE 0.9% 1,000 ML IV SCH ×2 (00:48→09:19)
[2018-07-07 05:03] LABS: Basophils % 0.2 % (0.0-0.8); Hematocrit 22.5 VOL% (35.7-47.0); Hemoglobin 7.8 GM/DL (12.0-16.0); Immature Granulocytes % 0.7 %; Immature Granulocytes Absolute 0.03 #; Lymphocytes % 22.8 % (21.3-54.2); Mean Corpuscular HGB Conc 34.7 GM/DL (32-36); Mean Corpuscular Hemoglobin 29 PG (27-34); Mean Corpuscular Volume 82.7 FL (87-102); Mean Platelet Volume 11.6 FL (9.6-12.0); Monocytes # 0.5 10*3/uL (0.11-0.8); Monocytes % 11.5 % (1.7-12.7); NRBC # 0.03 10*3/uL; Neutrophils # 2.7 10*3/uL (1.4-7.4); Neutrophils % 64.8 % (38.7-73.9); Platelet Count 310 T/CUMM (130-400); Red Blood Count 2.72 MC/CUMM (3.8-5.5); Red Cell Distribution Width 18.6 % (9.3-17.3); White Blood Count 4.2 T/CUMM (4-12)
[2018-07-07 05:15] LABS: Albumin 2.2 G/DL (3.4-5.0); Bilirubin,Total 0.5 MG/DL (0.2-1.0); Calcium 8.6 MG/DL (8.5-10.1); Osmolality,Calculated 276.4 MOS/KG (273-304); Potassium 3.9 MMOL/L (3.5-5.1); Total Protein 8.4 G/DL (6.4-8.3)
[2018-07-07] MEDS ORDERED: diphenhydrAMINE 50 MG/1 ML VIAL IV PRN (07:53)
[2018-07-07] MEDS ORDERED: SODIUM CHLORIDE 0.9% 1,000 ML IV PRN (07:53)
[2018-07-07] MEDS: GABAPENTIN 600 MG TABLET PO SCH ×2 (09:20→21:18)
[2018-07-07] MEDS: FOLIC ACID 1 MG TABLET PO SCH (09:20)
[2018-07-07] MEDS: TOPIRAMATE 25 MG TABLET PO SCH ×2 (09:21→21:19)
[2018-07-07] MEDS: predniSONE 10 MG TABLET PO SCH (09:21)
[2018-07-07] MEDS: DULoxetine 30 MG CAPSULE PO SCH (09:21)
[2018-07-07] MEDS: HYDROXYCHLOROQUINE 200 MG TABLET PO SCH ×2 (09:22→21:19)
[2018-07-07] MEDS: HYDROXYUREA 500 MG CAPSULE PO SCH ×2 (09:22→21:19)
[2018-07-07] MEDS: PANTOPRAZOLE 40 MG TABLET PO SCH (09:22)
[2018-07-07] MEDS: SODIUM CHLORIDE 0.45% 1,000 ML IV SCH (12:31)
[2018-07-07] MEDS: LACTOBACILLUS ACIDOPHILUS/BULGARICUS CHEW TABLET PO SCH (14:55)
[2018-07-07] MEDS: traZODone 50 MG TABLET PO SCH (21:19)
[2018-07-07] MEDS: ENOXAPARIN 100 MG/ML SYRINGE SUBCUT SCH (21:20)
[2018-07-08] MEDS: HYDROmorphone 2 MG/1 ML VIAL IV PRN ×8 (00:29→23:20)
[2018-07-08] MEDS: SODIUM CHLORIDE 0.45% 1,000 ML IV SCH ×3 (00:33→16:34)
[2018-07-08 05:13] LABS: Basophils % 0.2 % (0.0-0.8); Eosinophils % 0.2 % (0.00-10.9); Hematocrit 23.5 VOL% (35.7-47.0); Hemoglobin 8.1 GM/DL (12.0-16.0); Immature Granulocytes % 0.7 %; Immature Granulocytes Absolute 0.04 #; Lymphocytes # 2.1 10*3/uL (1.4-4.0); Lymphocytes % 35.5 % (21.3-54.2); Mean Corpuscular HGB Conc 34.5 GM/DL (32-36); Mean Corpuscular Hemoglobin 29 PG (27-34); Mean Platelet Volume 11.4 FL (9.6-12.0); Monocytes # 0.4 10*3/uL (0.11-0.8); Monocytes % 7.6 % (1.7-12.7); NRBC # 0.03 10*3/uL; Neutrophils # 3.2 10*3/uL (1.4-7.4); Neutrophils % 55.8 % (38.7-73.9); Platelet Count 315 T/CUMM (130-400); Red Blood Count 2.83 MC/CUMM (3.8-5.5); Red Cell Distribution Width 18.6 % (9.3-17.3); White Blood Count 5.8 T/CUMM (4-12)
[2018-07-08 05:42] LABS: Alanine Aminotransferase < 9 U/L (13-56); Albumin 2.6 G/DL (3.4-5.0); Alkaline Phosphatase 61 U/L (45-117); Aspartate Amino Transferase 14 U/L (0-37); Blood Urea Nitrogen 10 MG/DL (7-18); Calcium 8.6 MG/DL (8.5-10.1); Glucose 79 MG/DL (74-106); Osmolality,Calculated 272.7 MOS/KG (273-304); Potassium 3.6 MMOL/L (3.5-5.1); Sodium 138 MMOL/L (136-145); Total Protein 8.9 G/DL (6.4-8.3)
[2018-07-08] MEDS: DULoxetine 30 MG CAPSULE PO SCH (08:48)
[2018-07-08] MEDS: predniSONE 10 MG TABLET PO SCH (08:48)
[2018-07-08] MEDS: HYDROXYUREA 500 MG CAPSULE PO SCH ×2 (08:49→21:06)
[2018-07-08] MEDS: GABAPENTIN 600 MG TABLET PO SCH ×2 (08:49→21:06)
[2018-07-08] MEDS: FOLIC ACID 1 MG TABLET PO SCH (08:49)
[2018-07-08] MEDS: PANTOPRAZOLE 40 MG TABLET PO SCH (08:50)
[2018-07-08] MEDS: HYDROXYCHLOROQUINE 200 MG TABLET PO SCH ×2 (08:50→21:06)
[2018-07-08] MEDS: TOPIRAMATE 25 MG TABLET PO SCH ×2 (08:50→21:06)
[2018-07-08] MEDS: LACTOBACILLUS ACIDOPHILUS/BULGARICUS CHEW TABLET PO SCH (08:50)
[2018-07-08] MEDS: ENOXAPARIN 100 MG/ML SYRINGE SUBCUT SCH (21:05)
[2018-07-08] MEDS: traZODone 50 MG TABLET PO SCH (21:06)
[2018-07-09] MEDS: HYDROmorphone 2 MG/1 ML VIAL IV PRN ×6 (03:45→21:31)
[2018-07-09] MEDS: SODIUM CHLORIDE 0.45% 1,000 ML IV SCH ×2 (03:49→16:03)
[2018-07-09 04:43] LABS: Basophils % 0.1 % (0.0-0.8); Eosinophils % 0.4 % (0.00-10.9); Hematocrit 24.3 VOL% (35.7-47.0); Hemoglobin 8.5 GM/DL (12.0-16.0); Immature Granulocytes % 0.5 %; Immature Granulocytes Absolute 0.04 #; Lymphocytes # 2.7 10*3/uL (1.4-4.0); Lymphocytes % 35.6 % (21.3-54.2); Mean Corpuscular Hemoglobin 29 PG (27-34); Mean Corpuscular Volume 81.8 FL (87-102); Mean Platelet Volume 11.6 FL (9.6-12.0); Monocytes # 0.6 10*3/uL (0.11-0.8); Monocytes % 7.7 % (1.7-12.7); NRBC # 0.11 10*3/uL; Neutrophils # 4.3 10*3/uL (1.4-7.4); Neutrophils % 55.7 % (38.7-73.9); Platelet Count 332 T/CUMM (130-400); Red Blood Count 2.97 MC/CUMM (3.8-5.5); Red Cell Distribution Width 18.7 % (9.3-17.3); White Blood Count 7.7 T/CUMM (4-12)
[2018-07-09] MEDS: HYDROXYCHLOROQUINE 200 MG TABLET PO SCH ×2 (09:51→20:42)
[2018-07-09] MEDS: HYDROXYUREA 500 MG CAPSULE PO SCH ×2 (09:55→20:41)
[2018-07-09] MEDS: FOLIC ACID 1 MG TABLET PO SCH (09:55)
[2018-07-09] MEDS: TOPIRAMATE 25 MG TABLET PO SCH ×2 (09:56→20:41)
[2018-07-09] MEDS: DULoxetine 30 MG CAPSULE PO SCH (09:56)
[2018-07-09] MEDS: GABAPENTIN 600 MG TABLET PO SCH ×2 (09:56→20:41)
[2018-07-09] MEDS: PANTOPRAZOLE 40 MG TABLET PO SCH (09:56)
[2018-07-09] MEDS: predniSONE 10 MG TABLET PO SCH (12:33)
[2018-07-09] MEDS: LACTOBACILLUS ACIDOPHILUS/BULGARICUS CHEW TABLET PO SCH (17:10)
[2018-07-09] MEDS ORDERED: ACETAMINOPHEN 325 MG TABLET PO ONE (18:37)
[2018-07-09] MEDS: traZODone 50 MG TABLET PO SCH (20:41)
[2018-07-09] MEDS: ENOXAPARIN 100 MG/ML SYRINGE SUBCUT SCH (20:42)
[2018-07-10] MEDS: HYDROmorphone 2 MG/1 ML VIAL IV PRN ×6 (00:49→17:01)
[2018-07-10 05:45] LABS: Hematocrit 31.7 VOL% (35.7-47.0)
[2018-07-10] MEDS: SODIUM CHLORIDE 0.45% 1,000 ML IV SCH ×2 (07:51→13:39)
[2018-07-10] MEDS ORDERED: predniSONE 5 MG TABLET ONE (08:06)
[2018-07-10] MEDS ORDERED: predniSONE 20 MG TABLET ONE (08:07)
[2018-07-10] MEDS: FOLIC ACID 1 MG TABLET PO SCH (08:15)
[2018-07-10] MEDS: LACTOBACILLUS ACIDOPHILUS/BULGARICUS CHEW TABLET PO SCH (08:15)
[2018-07-10] MEDS: DULoxetine 30 MG CAPSULE PO SCH (08:15)
[2018-07-10] MEDS: HYDROXYUREA 500 MG CAPSULE PO SCH (08:16)
[2018-07-10] MEDS: HYDROXYCHLOROQUINE 200 MG TABLET PO SCH (08:16)
[2018-07-10] MEDS: GABAPENTIN 600 MG TABLET PO SCH (08:16)
[2018-07-10] MEDS: PANTOPRAZOLE 40 MG TABLET PO SCH (08:16)
[2018-07-10] MEDS: predniSONE 10 MG TABLET PO SCH (08:16)
[2018-07-10] MEDS: TOPIRAMATE 25 MG TABLET PO SCH (08:16)
[2018-07-10 17:25] VITALS: BP 137/84
== END 2018-07-10 19:06 | disposition home or self-care (01) | DRG 812 ==
LOC: EDUNIT# → EDBD → N.ED 05:38 → SUATTDRO 08:34 → N.EDINP 08:34 → N.3E 15:14
PROVIDERS: ADMIT Internal Medicine; ATTEND Internal Medicine

== ENCOUNTER 2018-08-17 09:50 | Inpatient (IN) ==
[2018-08-17] MEDS ORDERED: SODIUM CHLORIDE 0.9% 1,000 ML IV STA (10:10)
[2018-08-17] MEDS ORDERED: HYDROmorphone 2 MG/1 ML VIAL IV STA (10:10)
[2018-08-17] MEDS ORDERED: ONDANSETRON 4 MG/2 ML VIAL IV STA (10:11)
[2018-08-17 10:36] LABS: Basophils % 0.6 % (0.0-0.8); Eosinophils # 0.1 10*3/uL (0.0-0.87); Eosinophils % 1.1 % (0.00-10.9); Hematocrit 26.2 VOL% (35.7-47.0); Hemoglobin 9.2 GM/DL (12.0-16.0); Immature Granulocytes % 1.8 %; Immature Granulocytes Absolute 0.12 #; Lymphocytes # 1.1 10*3/uL (1.4-4.0); Lymphocytes % 16.1 % (21.3-54.2); Mean Corpuscular HGB Conc 35.1 GM/DL (32-36); Mean Corpuscular Volume 82.6 FL (87-102); Mean Platelet Volume 11.7 FL (9.6-12.0); Monocytes % 11.9 % (1.7-12.7); NRBC # 0.04 10*3/uL; Neutrophils % 68.5 % (38.7-73.9); Platelet Count 239 T/CUMM (130-400); Red Blood Count 3.17 MC/CUMM (3.8-5.5); Red Cell Distribution Width 19.3 % (9.3-17.3); White Blood Count 6.6 T/CUMM (4-12)
[2018-08-17 10:38] LABS: Bilirubin,Total 0.8 MG/DL (0.2-1.0); Calcium 8.5 MG/DL (8.5-10.1); Osmolality,Calculated 265.1 MOS/KG (273-304); Total Protein 8.3 G/DL (6.4-8.3)
[2018-08-17] MEDS ORDERED: DOCUSATE SODIUM 100 MG CAPSULE PO PRN (13:38)
[2018-08-17] MEDS ORDERED: LACTULOSE 20 GM/30 ML UDCUP PO PRN (13:38)
[2018-08-17] MEDS ORDERED: ONDANSETRON 4 MG/2 ML VIAL IV PRN (13:38)
[2018-08-17] MEDS ORDERED: PROMETHAZINE 25 MG TABLET PO PRN (13:48)
[2018-08-17] MEDS: BACLOFEN 20 MG TABLET PO SCH ×2 (14:43→21:24)
[2018-08-17] MEDS: IBUPROFEN 800 MG TABLET PO SCH ×2 (14:44→21:26)
[2018-08-17] MEDS: SODIUM CHLORIDE 0.9% 1,000 ML IV SCH (14:45)
[2018-08-17] MEDS ORDERED: hydrOXYzine HCL 25 MG TABLET PO PRN (16:22)
[2018-08-17] MEDS: HYDROmorphone 2 MG/1 ML VIAL IV PRN ×2 (17:21→22:27)
[2018-08-17] MEDS: HYDROXYUREA 500 MG CAPSULE PO SCH (21:24)
[2018-08-17] MEDS: HYDROXYCHLOROQUINE 200 MG TABLET PO SCH (21:25)
[2018-08-17] MEDS: TOPIRAMATE 25 MG TABLET PO SCH (21:25)
[2018-08-17] MEDS: GABAPENTIN 600 MG TABLET PO SCH (21:25)
[2018-08-17] MEDS: QUEtiapine 25 MG TABLET PO SCH (21:25)
[2018-08-17] MEDS: AMITRIPTYLINE 25 MG TABLET PO SCH (21:26)
[2018-08-18] MEDS: SODIUM CHLORIDE 0.9% 1,000 ML IV SCH ×3 (00:50→23:42)
[2018-08-18 04:55] LABS: Basophils % 0.7 % (0.0-0.8); Eosinophils # 0.1 10*3/uL (0.0-0.87); Eosinophils % 3.2 % (0.00-10.9); Hematocrit 22.6 VOL% (35.7-47.0); Hemoglobin 7.7 GM/DL (12.0-16.0); Immature Granulocytes % 1.7 %; Immature Granulocytes Absolute 0.07 #; Lymphocytes # 1.1 10*3/uL (1.4-4.0); Lymphocytes % 25.7 % (21.3-54.2); Mean Corpuscular HGB Conc 34.1 GM/DL (32-36); Mean Corpuscular Volume 84.6 FL (87-102); Mean Platelet Volume 11.3 FL (9.6-12.0); Monocytes % 14.7 % (1.7-12.7); NRBC # 0.03 10*3/uL; Platelet Count 235 T/CUMM (130-400); Red Blood Count 2.67 MC/CUMM (3.8-5.5); Red Cell Distribution Width 19.4 % (9.3-17.3); White Blood Count 4.1 T/CUMM (4-12)
[2018-08-18 05:12] LABS: Calcium 8.2 MG/DL (8.5-10.1)
[2018-08-18] MEDS: PANTOPRAZOLE 40 MG TABLET PO SCH (05:54)
[2018-08-18] MEDS: HYDROmorphone 2 MG/1 ML VIAL IV PRN ×4 (05:58→19:05)
[2018-08-18] MEDS: DULoxetine 30 MG CAPSULE PO SCH (08:33)
[2018-08-18] MEDS: FOLIC ACID 1 MG TABLET PO SCH (08:33)
[2018-08-18] MEDS: predniSONE 10 MG TABLET PO SCH (08:34)
[2018-08-18] MEDS: HYDROXYUREA 500 MG CAPSULE PO SCH ×2 (08:34→21:38)
[2018-08-18] MEDS: GABAPENTIN 600 MG TABLET PO SCH ×2 (08:34→21:37)
[2018-08-18] MEDS: IBUPROFEN 800 MG TABLET PO SCH ×3 (08:34→21:37)
[2018-08-18] MEDS: BACLOFEN 20 MG TABLET PO SCH ×3 (08:34→21:38)
[2018-08-18] MEDS: HYDROXYCHLOROQUINE 200 MG TABLET PO SCH ×2 (08:35→21:38)
[2018-08-18] MEDS: TOPIRAMATE 25 MG TABLET PO SCH ×2 (08:35→21:38)
[2018-08-18] MEDS: ENOXAPARIN 100 MG/ML SYRINGE SUBCUT SCH (08:42)
[2018-08-18] MEDS ORDERED: diphenhydrAMINE 50 MG/1 ML VIAL IV PRN (17:51)
[2018-08-18] MEDS ORDERED: SODIUM CHLORIDE 0.9% 1,000 ML IV PRN (17:51)
[2018-08-18] MEDS: AMITRIPTYLINE 25 MG TABLET PO SCH (21:37)
[2018-08-18] MEDS: QUEtiapine 25 MG TABLET PO SCH (21:37)
[2018-08-19] MEDS: HYDROmorphone 2 MG/1 ML VIAL IV PRN ×2 (04:29→10:03)
[2018-08-19 05:07] LABS: Basophils % 0.1 % (0.0-0.8); Eosinophils % 0.6 % (0.00-10.9); Hematocrit 23.1 VOL% (35.7-47.0); Hemoglobin 7.9 GM/DL (12.0-16.0); Immature Granulocytes % 0.4 %; Immature Granulocytes Absolute 0.03 #; Lymphocytes # 1.4 10*3/uL (1.4-4.0); Lymphocytes % 20.7 % (21.3-54.2); Mean Corpuscular HGB Conc 34.2 GM/DL (32-36); Mean Platelet Volume 11.7 FL (9.6-12.0); Monocytes % 6.2 % (1.7-12.7); NRBC # 0.04 10*3/uL; Platelet Count 263 T/CUMM (130-400); Red Blood Count 2.75 MC/CUMM (3.8-5.5); Red Cell Distribution Width 19.4 % (9.3-17.3); White Blood Count 6.9 T/CUMM (4-12)
[2018-08-19 05:18] LABS: Calcium 8.6 MG/DL (8.5-10.1); Osmolality,Calculated 285.7 MOS/KG (273-304)
[2018-08-19] MEDS: PANTOPRAZOLE 40 MG TABLET PO SCH (06:44)
[2018-08-19] MEDS: IBUPROFEN 800 MG TABLET PO SCH ×2 (09:13→15:39)
[2018-08-19] MEDS: TOPIRAMATE 25 MG TABLET PO SCH (09:14)
[2018-08-19] MEDS: GABAPENTIN 600 MG TABLET PO SCH (09:14)
[2018-08-19] MEDS: predniSONE 10 MG TABLET PO SCH (09:15)
[2018-08-19] MEDS: HYDROXYCHLOROQUINE 200 MG TABLET PO SCH (09:15)
[2018-08-19] MEDS: DULoxetine 30 MG CAPSULE PO SCH (09:15)
[2018-08-19] MEDS: FOLIC ACID 1 MG TABLET PO SCH (09:15)
[2018-08-19] MEDS: HYDROXYUREA 500 MG CAPSULE PO SCH (10:01)
[2018-08-19] MEDS: BACLOFEN 20 MG TABLET PO SCH ×2 (10:02→15:39)
[2018-08-19] MEDS: ENOXAPARIN 100 MG/ML SYRINGE SUBCUT SCH (10:03)
[2018-08-19] MEDS: SODIUM CHLORIDE 0.9% 1,000 ML IV SCH (11:34)
[2018-08-19 16:03] VITALS: BP 101/67
== END 2018-08-19 19:06 | disposition home or self-care (01) | DRG 812 ==
LOC: EDBD → EDUNIT# → N.EDINP 09:50 → N.ED 09:50 → SUATTDRO 11:05 → N.2E 13:20
PROVIDERS: ADMIT Internal Medicine Infectious Disease; ATTEND Internal Medicine

== ENCOUNTER 2018-11-16 02:47 | Observation (INO) ==
[2018-11-16] MEDS ORDERED: ONDANSETRON 4 MG/2 ML VIAL IV STA (02:52)
[2018-11-16] MEDS ORDERED: SODIUM CHLORIDE 0.9% 1,000 ML IV STA (02:52)
[2018-11-16] MEDS ORDERED: HYDROmorphone 2 MG/1 ML VIAL IV STA ×4 (02:53→08:28)
[2018-11-16] MEDS ORDERED: HYDROmorphone 2 MG/1 ML VIAL IM STA (03:25)
[2018-11-16 04:29] LABS: Basophils # 0.1 10*3/uL (0.0-0.2); Basophils % 0.7 % (0.0-0.8); Eosinophils # 0.1 10*3/uL (0.0-0.87); Eosinophils % 1.3 % (0.00-10.9); Hematocrit 23.5 VOL% (35.7-47.0); Immature Granulocytes % 1.9 %; Immature Granulocytes Absolute 0.19 #; Lymphocytes # 1.6 10*3/uL (1.4-4.0); Mean Corpuscular Volume 74.6 FL (87-102); Mean Platelet Volume 9.8 FL (9.6-12.0); Monocytes % 9.5 % (1.7-12.7); NRBC # 0.11 10*3/uL; Neutrophils % 70.6 % (38.7-73.9); Platelet Count 343 T/CUMM (130-400); Red Blood Count 3.15 MC/CUMM (3.8-5.5); Red Cell Distribution Width 19.3 % (9.3-17.3); White Blood Count 9.8 T/CUMM (4-12)
[2018-11-16 04:50] LABS: Alanine Aminotransferase 11 U/L (13-56); Albumin 3.2 G/DL (3.4-5.0); Alkaline Phosphatase 107 U/L (45-117); Aspartate Amino Transferase 15 U/L (0-37); Bilirubin,Total < 0.39 MG/DL (0.2-1.0); Blood Urea Nitrogen 8 MG/DL (7-18); Calcium 8.9 MG/DL (8.5-10.1); Glucose 86 MG/DL (74-106); Osmolality,Calculated 273.5 MOS/KG (273-304); Total Protein 9.1 G/DL (6.4-8.3)
[2018-11-16] MEDS ORDERED: diphenhydrAMINE 50 MG/1 ML VIAL ONE (05:28)
[2018-11-16] MEDS ORDERED: diphenhydrAMINE 50 MG/1 ML VIAL IV STA (05:36)
[2018-11-16] MEDS ORDERED: methylPREDNISolone SOD SUC 125 MG/2 ML VIAL IV STA (08:28)
[2018-11-16] MEDS ORDERED: ACETAMINOPHEN 325 MG TABLET PO PRN (08:29)
[2018-11-16] MEDS ORDERED: ONDANSETRON 4 MG/2 ML VIAL IV PRN (08:29)
[2018-11-16] MEDS ORDERED: PROMETHAZINE 25 MG/1 ML VIAL IM PRN (08:29)
[2018-11-16] MEDS ORDERED: ENOXAPARIN 100 MG/ML SYRINGE SUBCUT SCH (09:00)
[2018-11-16] MEDS ORDERED: PANTOPRAZOLE 40 MG TABLET PO SCH (09:00)
[2018-11-16] MEDS: FOLIC ACID 1 MG TABLET PO SCH (09:49)
[2018-11-16] MEDS: HYDROmorphone 2 MG TABLET PO SCH ×4 (09:50→20:44)
[2018-11-16] MEDS: DULoxetine 30 MG CAPSULE PO SCH (09:51)
[2018-11-16] MEDS: GABAPENTIN 600 MG TABLET PO SCH ×2 (09:52→20:43)
[2018-11-16] MEDS: BACLOFEN 20 MG TABLET PO SCH ×3 (09:52→20:43)
[2018-11-16] MEDS: predniSONE 20 MG TABLET PO SCH (09:54)
[2018-11-16] MEDS: PANTOPRAZOLE 40 MG TABLET PO SCH (09:55)
[2018-11-16] MEDS: TOPIRAMATE 25 MG TABLET PO SCH ×2 (09:55→20:44)
[2018-11-16] MEDS: MYCOPHENOLATE MOFETIL 250 MG CAPSULE PO SCH ×2 (09:56→20:44)
[2018-11-16] MEDS ORDERED: PROMETHAZINE 25 MG TABLET PO PRN (16:10)
[2018-11-16] MEDS: HYDROXYUREA 500 MG CAPSULE PO SCH (20:43)
[2018-11-16] MEDS: HYDROXYCHLOROQUINE 200 MG TABLET PO SCH (20:44)
[2018-11-16] MEDS ORDERED: AMITRIPTYLINE 25 MG TABLET PO SCH (21:00)
[2018-11-16] MEDS ORDERED: QUEtiapine 25 MG TABLET PO SCH (21:00)
[2018-11-17] MEDS: HYDROmorphone 2 MG TABLET PO SCH ×3 (00:54→08:08)
[2018-11-17 07:44] VITALS: BP 93/58
[2018-11-17 07:55] LABS: Basophils % 0.4 % (0.0-0.8); Eosinophils # 0.1 10*3/uL (0.0-0.87); Eosinophils % 0.5 % (0.00-10.9); Hematocrit 23.5 VOL% (35.7-47.0); Hemoglobin 8.2 GM/DL (12.0-16.0); Immature Granulocytes % 0.9 %; Lymphocytes # 2.1 10*3/uL (1.4-4.0); Lymphocytes % 19.1 % (21.3-54.2); Mean Corpuscular HGB Conc 34.9 GM/DL (32-36); Mean Corpuscular Volume 74.1 FL (87-102); Mean Platelet Volume 10.9 FL (9.6-12.0); Monocytes % 8.6 % (1.7-12.7); Neutrophils % 70.5 % (38.7-73.9); Platelet Count 332 T/CUMM (130-400); Red Blood Count 3.17 MC/CUMM (3.8-5.5); Red Cell Distribution Width 19.5 % (9.3-17.3); White Blood Count 11.2 T/CUMM (4-12)
[2018-11-17] MEDS: MYCOPHENOLATE MOFETIL 250 MG CAPSULE PO SCH (08:03)
[2018-11-17] MEDS: DULoxetine 30 MG CAPSULE PO SCH (08:05)
[2018-11-17] MEDS: HYDROXYUREA 500 MG CAPSULE PO SCH (08:05)
[2018-11-17] MEDS: FOLIC ACID 1 MG TABLET PO SCH (08:06)
[2018-11-17] MEDS: predniSONE 20 MG TABLET PO SCH (08:06)
[2018-11-17] MEDS: BACLOFEN 20 MG TABLET PO SCH (08:07)
[2018-11-17] MEDS: GABAPENTIN 600 MG TABLET PO SCH (08:07)
[2018-11-17] MEDS: PANTOPRAZOLE 40 MG TABLET PO SCH (08:08)
[2018-11-17] MEDS: HYDROXYCHLOROQUINE 200 MG TABLET PO SCH (08:08)
[2018-11-17] MEDS: TOPIRAMATE 25 MG TABLET PO SCH (08:08)
[2018-11-17 08:38] LABS: Alanine Aminotransferase < 9 U/L (13-56); Albumin 3.2 G/DL (3.4-5.0); Alkaline Phosphatase 104 U/L (45-117); Aspartate Amino Transferase 13 U/L (0-37); Blood Urea Nitrogen 9 MG/DL (7-18); Calcium 9.4 MG/DL (8.5-10.1); Glucose 81 MG/DL (74-106); Osmolality,Calculated 278.3 MOS/KG (273-304)
[2018-11-17 10:38] LABS: Anti-Nuclear Antibody Pattern Speckled
[2018-11-18 12:30] LABS: Anti SS-A Antibodies > 100 EU/ML
== END 2018-11-17 11:02 | disposition home or self-care (01) ==
LOC: EDBD → EDUNIT# → N.EDINP 02:47 → N.ED 02:47 → N.EDINP 09:16 → N.2E 09:22
PROVIDERS: ADMIT Internal Medicine; ATTEND Internal Medicine

== ENCOUNTER 2018-11-24 04:45 | Observation (INO) ==
[2018-11-24] MEDS ORDERED: SODIUM CHLORIDE 0.9% 1,000 ML IV STA ×2 (05:01→07:53)
[2018-11-24] MEDS ORDERED: HYDROmorphone 2 MG/1 ML VIAL IV STA (05:01)
[2018-11-24] MEDS ORDERED: diphenhydrAMINE 50 MG/1 ML VIAL IV STA (05:02)
[2018-11-24] MEDS ORDERED: METOCLOPRAMIDE 10 MG/2 ML VIAL IV STA (05:02)
[2018-11-24] MEDS ORDERED: HYDROmorphone 2 MG/1 ML VIAL IM STA (05:03)
[2018-11-24 07:30] LABS: Basophils # 0.1 10*3/uL (0.0-0.2); Basophils % 0.4 % (0.0-0.8); Eosinophils # 0.1 10*3/uL (0.0-0.87); Eosinophils % 0.7 % (0.00-10.9); Hematocrit 22.9 VOL% (35.7-47.0); Immature Granulocytes Absolute 0.23 #; Lymphocytes # 2.5 10*3/uL (1.4-4.0); Lymphocytes % 22.3 % (21.3-54.2); Mean Corpuscular HGB Conc 34.9 GM/DL (32-36); Mean Corpuscular Volume 75.8 FL (87-102); Mean Platelet Volume 10.4 FL (9.6-12.0); Monocytes % 9.2 % (1.7-12.7); NRBC # 0.21 10*3/uL; Neutrophils % 65.4 % (38.7-73.9); Platelet Count 333 T/CUMM (130-400); Red Blood Count 3.02 MC/CUMM (3.8-5.5); Red Cell Distribution Width 20.8 % (9.3-17.3); White Blood Count 11.4 T/CUMM (4-12)
[2018-11-24 07:47] LABS: Albumin 3.2 G/DL (3.4-5.0); Bilirubin,Total 0.5 MG/DL (0.2-1.0); Calcium 8.5 MG/DL (8.5-10.1); Osmolality,Calculated 277.3 MOS/KG (273-304); Total Protein 8.3 G/DL (6.4-8.3)
[2018-11-24] MEDS ORDERED: methylPREDNISolone SOD SUC 125 MG/2 ML VIAL IV STA (09:17)
[2018-11-24] MEDS ORDERED: ONDANSETRON 4 MG/2 ML VIAL IV PRN (09:40)
[2018-11-24] MEDS ORDERED: ACETAMINOPHEN 325 MG TABLET PO PRN (09:40)
[2018-11-24] MEDS ORDERED: DOCUSATE SODIUM 100 MG CAPSULE PO PRN (09:40)
[2018-11-24] MEDS ORDERED: PROMETHAZINE 25 MG TABLET PO PRN (09:51)
[2018-11-24 10:08] LABS: Risk Ratio 3.9; Thyroid Stimulating Hormone 14.1 uIU/ml (0.358-3.74); VLDL CHOLESTEROL 16.4 MG/DL
[2018-11-24] MEDS: methylPREDNISolone SOD SUC 40 MG/1 ML VIAL IV SCH ×2 (10:52→17:49)
[2018-11-24] MEDS: ENOXAPARIN 40 MG/0.4 ML SYRINGE SUBCUT SCH (10:55)
[2018-11-24] MEDS: SODIUM CHLORIDE 0.9% 1,000 ML IV SCH ×2 (10:56→20:52)
[2018-11-24] MEDS: HYDROmorphone 2 MG TABLET PO PRN ×3 (11:06→20:57)
[2018-11-24 11:45] LABS: Amorphous Crystals,Urine Few /HPF (Few); Apearance,Urine Slightly Hazy (Clear); Bacteria,Urine Moderate /HPF (Few); Bilirubin,Urine Negative (Negative); Blood, Urine Negative (Negative); Glucose,Urine (UA) Negative (Negative); Ketones,Urine Negative (Negative); Mucus,Urine Occasional /LPF (Occasional); Nitrite,Urine Negative (Negative); Protein,Urine Negative; RBC,Urine 1 /HPF (0-4); Squamous Epithelial Cell,Urine Occasional /HPF (0-10); Urine Color Yellow (Yellow); Urine Specific Gravity 1.009 (1.001-1.035); WBC,Urine 34 /HPF (0-6)
[2018-11-24] MEDS: BACLOFEN 20 MG TABLET PO SCH ×2 (16:36→20:53)
[2018-11-24] MEDS: HYDROXYUREA 500 MG CAPSULE PO SCH (20:52)
[2018-11-24] MEDS: MYCOPHENOLATE MOFETIL 250 MG CAPSULE PO SCH (20:52)
[2018-11-24] MEDS: TOPIRAMATE 25 MG TABLET PO SCH (20:53)
[2018-11-24] MEDS: GABAPENTIN 600 MG TABLET PO SCH (20:53)
[2018-11-24] MEDS: DULoxetine 30 MG CAPSULE PO SCH (20:53)
[2018-11-24] MEDS: HYDROXYCHLOROQUINE 200 MG TABLET PO SCH (20:57)
[2018-11-24] MEDS ORDERED: AMITRIPTYLINE 25 MG TABLET PO SCH (21:00)
[2018-11-24] MEDS ORDERED: QUEtiapine 25 MG TABLET PO SCH (21:00)
[2018-11-25] MEDS: methylPREDNISolone SOD SUC 40 MG/1 ML VIAL IV SCH ×2 (01:59→10:10)
[2018-11-25] MEDS: SODIUM CHLORIDE 0.9% 1,000 ML IV SCH ×2 (01:59→10:10)
[2018-11-25] MEDS: HYDROmorphone 2 MG TABLET PO PRN ×3 (02:50→11:09)
[2018-11-25] MEDS ORDERED: PANTOPRAZOLE 40 MG TABLET PO SCH (09:00)
[2018-11-25] MEDS ORDERED: FOLIC ACID 1 MG TABLET PO SCH (09:00)
[2018-11-25] MEDS: DULoxetine 30 MG CAPSULE PO SCH (09:37)
[2018-11-25] MEDS: GABAPENTIN 600 MG TABLET PO SCH (09:37)
[2018-11-25] MEDS: HYDROXYUREA 500 MG CAPSULE PO SCH (09:38)
[2018-11-25] MEDS: MYCOPHENOLATE MOFETIL 250 MG CAPSULE PO SCH (09:38)
[2018-11-25] MEDS: BACLOFEN 20 MG TABLET PO SCH (09:38)
[2018-11-25] MEDS: ENOXAPARIN 40 MG/0.4 ML SYRINGE SUBCUT SCH (09:39)
[2018-11-25] MEDS: HYDROXYCHLOROQUINE 200 MG TABLET PO SCH (09:39)
[2018-11-25] MEDS: TOPIRAMATE 25 MG TABLET PO SCH (09:39)
[2018-11-25 10:47] LABS: Anti-Nuclear Antibody Pattern SPECKLED
[2018-11-25 12:06] LABS: Anti SS-A Antibodies > 100 EU/ML
[2018-11-25 12:39] VITALS: BP 130/90
== END 2018-11-25 12:15 | disposition home or self-care (01) ==
LOC: EDBD → EDUNIT# → N.ED 04:45 → N.EDINP 04:45 → N.2E 10:01
PROVIDERS: ADMIT Internal Medicine; ATTEND Internal Medicine

== ENCOUNTER 2018-12-13 02:16 | Inpatient (IN) ==
[2018-12-13] MEDS ORDERED: SODIUM CHLORIDE 0.9% 1,000 ML IV STA (04:46)
[2018-12-13] MEDS ORDERED: HYDROmorphone 2 MG/1 ML VIAL IV STA (04:47)
[2018-12-13] MEDS ORDERED: HYDROmorphone 2 MG/1 ML VIAL IM STA (04:48)
[2018-12-13] MEDS ORDERED: diphenhydrAMINE 50 MG/1 ML VIAL IM STA ×2 (04:48→04:49)
[2018-12-13] MEDS ORDERED: diphenhydrAMINE 50 MG/1 ML VIAL IV STA (04:49)
[2018-12-13 05:30] LABS: Basophils # 0.1 10*3/uL (0.0-0.2); Basophils % 1.1 % (0.0-0.8); Eosinophils # 0.2 10*3/uL (0.0-0.87); Eosinophils % 1.9 % (0.00-10.9); Immature Granulocytes % 3.9 %; Immature Granulocytes Absolute 0.33 #; Lymphocytes # 1.3 10*3/uL (1.4-4.0); Mean Corpuscular HGB Conc 34.5 GM/DL (32-36); Mean Corpuscular Volume 77.3 FL (87-102); Mean Platelet Volume 10.4 FL (9.6-12.0); Monocytes % 8.7 % (1.7-12.7); NRBC # 0.32 10*3/uL; Neutrophils % 69.4 % (38.7-73.9); Platelet Count 365 T/CUMM (130-400); Red Blood Count 3.75 MC/CUMM (3.8-5.5); Red Cell Distribution Width 20.4 % (9.3-17.3); White Blood Count 8.5 T/CUMM (4-12)
[2018-12-13 05:50] LABS: Alanine Aminotransferase < 9 U/L (13-56); Albumin 3.1 G/DL (3.4-5.0); Alkaline Phosphatase 112 U/L (45-117); Aspartate Amino Transferase 17 U/L (0-37); Bilirubin,Total < 0.39 MG/DL (0.2-1.0); Blood Urea Nitrogen 7 MG/DL (7-18); Calcium 8.5 MG/DL (8.5-10.1); Glucose 84 MG/DL (74-106); Osmolality,Calculated 279.1 MOS/KG (273-304); Total Protein 7.5 G/DL (6.4-8.3)
[2018-12-13] MEDS ORDERED: BISACODYL 5 MG TABLET PO PRN (08:43)
[2018-12-13] MEDS ORDERED: ONDANSETRON 4 MG/2 ML VIAL IV PRN (08:43)
[2018-12-13] MEDS ORDERED: ACETAMINOPHEN 325 MG TABLET PO PRN (08:43)
[2018-12-13] MEDS ORDERED: diphenhydrAMINE CAP 25 MG CAPSULE PO PRN (08:43)
[2018-12-13] MEDS ORDERED: PROMETHAZINE 25 MG TABLET PO PRN (08:53)
[2018-12-13] MEDS: HYDROmorphone 2 MG/1 ML VIAL IV PRN ×4 (10:56→23:19)
[2018-12-13] MEDS: SODIUM CHLORIDE 0.9% 1,000 ML IV SCH ×2 (11:36→22:11)
[2018-12-13] MEDS: GABAPENTIN 600 MG TABLET PO SCH ×2 (11:38→21:58)
[2018-12-13] MEDS: DULoxetine 30 MG CAPSULE PO SCH ×2 (11:38→21:58)
[2018-12-13] MEDS: predniSONE 10 MG TABLET PO SCH (11:39)
[2018-12-13] MEDS: FOLIC ACID 1 MG TABLET PO SCH (11:39)
[2018-12-13] MEDS: TOPIRAMATE 100 MG TABLET PO SCH ×2 (11:40→22:06)
[2018-12-13] MEDS: PANTOPRAZOLE 40 MG TABLET PO SCH (11:41)
[2018-12-13] MEDS: HYDROXYUREA 500 MG CAPSULE PO SCH ×2 (11:41→21:58)
[2018-12-13] MEDS: HYDROXYCHLOROQUINE 200 MG TABLET PO SCH ×2 (11:46→21:58)
[2018-12-13 13:50] LABS: Apearance,Urine CLOUDY (Clear); Bilirubin,Urine Negative (Negative); Blood, Urine Small mg/dL (Negative); Glucose,Urine (UA) Negative (Negative); Ketones,Urine Negative (Negative); Nitrite,Urine Positive (Negative); Protein,Urine 30 MG/DL; RBC,Urine 62 /HPF (0-4); Urine Color Yellow (Yellow); WBC,Urine 2665 /HPF (0-6)
[2018-12-13] MEDS: BACLOFEN 20 MG TABLET PO SCH ×2 (15:12→22:11)
[2018-12-13] MEDS: QUEtiapine 25 MG TABLET PO SCH (22:06)
[2018-12-13] MEDS: ENOXAPARIN 40 MG/0.4 ML SYRINGE SUBCUT SCH (22:06)
[2018-12-13] MEDS: AMITRIPTYLINE 25 MG TABLET PO SCH (22:07)
[2018-12-13] MEDS: MYCOPHENOLATE MOFETIL 250 MG CAPSULE PO SCH (22:10)
[2018-12-14] MEDS: HYDROmorphone 2 MG/1 ML VIAL IV PRN ×4 (05:31→18:16)
[2018-12-14] MEDS: SODIUM CHLORIDE 0.9% 1,000 ML IV SCH ×4 (05:45→19:47)
[2018-12-14 08:05] LABS: Calcium 9.1 MG/DL (8.5-10.1); Osmolality,Calculated 279.3 MOS/KG (273-304)
[2018-12-14] MEDS: FOLIC ACID 1 MG TABLET PO SCH (08:28)
[2018-12-14] MEDS: MYCOPHENOLATE MOFETIL 250 MG CAPSULE PO SCH ×2 (08:29→20:48)
[2018-12-14] MEDS: HYDROXYUREA 500 MG CAPSULE PO SCH ×2 (08:30→20:48)
[2018-12-14] MEDS: GABAPENTIN 600 MG TABLET PO SCH ×2 (08:30→20:48)
[2018-12-14] MEDS: DULoxetine 30 MG CAPSULE PO SCH ×2 (08:31→20:48)
[2018-12-14] MEDS: predniSONE 10 MG TABLET PO SCH (08:31)
[2018-12-14] MEDS: TOPIRAMATE 100 MG TABLET PO SCH ×2 (08:32→20:48)
[2018-12-14] MEDS: PANTOPRAZOLE 40 MG TABLET PO SCH (08:32)
[2018-12-14] MEDS: HYDROXYCHLOROQUINE 200 MG TABLET PO SCH ×2 (08:32→20:49)
[2018-12-14] MEDS: BACLOFEN 20 MG TABLET PO SCH ×3 (08:32→20:48)
[2018-12-14 09:17] LABS: Basophils # 0.1 10*3/uL (0.0-0.2); Basophils % 0.4 % (0.0-0.8); Eosinophils # 0.1 10*3/uL (0.0-0.87); Eosinophils % 0.9 % (0.00-10.9); Hematocrit 26.6 VOL% (35.7-47.0); Hemoglobin 9.1 GM/DL (12.0-16.0); Immature Granulocytes % 1.4 %; Immature Granulocytes Absolute 0.16 #; Lymphocytes # 2.3 10*3/uL (1.4-4.0); Lymphocytes % 20.5 % (21.3-54.2); Mean Corpuscular HGB Conc 34.2 GM/DL (32-36); Mean Corpuscular Volume 78.5 FL (87-102); Mean Platelet Volume 10.8 FL (9.6-12.0); Monocytes % 6.9 % (1.7-12.7); NRBC # 0.18 10*3/uL; Neutrophils % 69.9 % (38.7-73.9); Platelet Count 380 T/CUMM (130-400); Red Blood Count 3.39 MC/CUMM (3.8-5.5); Red Cell Distribution Width 20.3 % (9.3-17.3); White Blood Count 11.4 T/CUMM (4-12)
[2018-12-14] MEDS ORDERED: methylPREDNISolone SOD SUC 125 MG/2 ML VIAL IV ONE (13:37)
[2018-12-14] MEDS: methylPREDNISolone SOD SUC 40 MG/1 ML VIAL IV SCH (14:10)
[2018-12-14] MEDS ORDERED: TISSUE ADHESIVE 1 EACH APPLICATOR TOP ONE (18:29)
[2018-12-14] MEDS: ENOXAPARIN 40 MG/0.4 ML SYRINGE SUBCUT SCH (20:47)
[2018-12-14] MEDS: QUEtiapine 25 MG TABLET PO SCH (20:48)
[2018-12-14] MEDS: AMITRIPTYLINE 25 MG TABLET PO SCH (20:49)
[2018-12-15] MEDS: methylPREDNISolone SOD SUC 40 MG/1 ML VIAL IV SCH (01:30)
[2018-12-15] MEDS: SODIUM CHLORIDE 0.9% 1,000 ML IV SCH ×3 (03:52→19:54)
[2018-12-15 05:04] LABS: Basophils % 0.2 % (0.0-0.8); Hematocrit 25.4 VOL% (35.7-47.0); Hemoglobin 8.9 GM/DL (12.0-16.0); Immature Granulocytes % 0.9 %; Immature Granulocytes Absolute 0.12 #; Lymphocytes % 7.3 % (21.3-54.2); Mean Corpuscular Volume 78.6 FL (87-102); Mean Platelet Volume 11.4 FL (9.6-12.0); Monocytes % 1.2 % (1.7-12.7); NRBC # 0.12 10*3/uL; Neutrophils % 90.4 % (38.7-73.9); Platelet Count 374 T/CUMM (130-400); Red Blood Count 3.23 MC/CUMM (3.8-5.5); Red Cell Distribution Width 20.4 % (9.3-17.3)
[2018-12-15 05:24] LABS: Calcium 9.3 MG/DL (8.5-10.1); Osmolality,Calculated 282.1 MOS/KG (273-304)
[2018-12-15] MEDS: HYDROmorphone 2 MG/1 ML VIAL IV PRN ×5 (05:32→23:00)
[2018-12-15 06:04] LABS: Lymphocytes 7 % (20-55); Nucleated Red Blood Cells 1 (0-5); Segmented Neutrophils 92 % (50-85); Total Cells Counted 100
[2018-12-15 06:05] LABS: Hypochromasia 1+
[2018-12-15 06:07] LABS: Anisocytosis 1+; Microcytosis 1+; Ovalocytes Slight; Target Cells 1+
[2018-12-15 06:08] LABS: Pappenheimer Bodies Few; Platelet Estimate Normal; Polychromasia Slight
[2018-12-15] MEDS: MYCOPHENOLATE MOFETIL 250 MG CAPSULE PO SCH ×2 (08:54→21:01)
[2018-12-15] MEDS: PANTOPRAZOLE 40 MG TABLET PO SCH (08:55)
[2018-12-15] MEDS: GABAPENTIN 600 MG TABLET PO SCH ×2 (08:55→21:00)
[2018-12-15] MEDS: BACLOFEN 20 MG TABLET PO SCH ×3 (08:55→21:01)
[2018-12-15] MEDS: HYDROXYCHLOROQUINE 200 MG TABLET PO SCH ×2 (08:55→21:02)
[2018-12-15] MEDS: DULoxetine 30 MG CAPSULE PO SCH ×2 (08:55→21:00)
[2018-12-15] MEDS: FOLIC ACID 1 MG TABLET PO SCH (08:55)
[2018-12-15] MEDS: HYDROXYUREA 500 MG CAPSULE PO SCH ×2 (08:56→21:06)
[2018-12-15] MEDS: TOPIRAMATE 100 MG TABLET PO SCH ×2 (08:56→21:02)
[2018-12-15] MEDS: methylPREDNISolone SOD SUC 125 MG/2 ML VIAL IV SCH ×2 (11:42→22:58)
[2018-12-15] MEDS: ENOXAPARIN 100 MG/ML SYRINGE SUBCUT SCH (11:45)
[2018-12-15] MEDS: QUEtiapine 25 MG TABLET PO SCH (21:02)
[2018-12-15] MEDS: AMITRIPTYLINE 25 MG TABLET PO SCH (21:02)
[2018-12-16] MEDS: SODIUM CHLORIDE 0.9% 1,000 ML IV SCH ×3 (03:57→23:06)
[2018-12-16] MEDS: HYDROmorphone 2 MG/1 ML VIAL IV PRN ×5 (06:04→23:53)
[2018-12-16] MEDS: FOLIC ACID 1 MG TABLET PO SCH (09:22)
[2018-12-16] MEDS: MYCOPHENOLATE MOFETIL 250 MG CAPSULE PO SCH ×2 (09:22→21:44)
[2018-12-16] MEDS: HYDROXYUREA 500 MG CAPSULE PO SCH ×2 (09:23→21:46)
[2018-12-16] MEDS: GABAPENTIN 600 MG TABLET PO SCH ×2 (09:24→21:46)
[2018-12-16] MEDS: PANTOPRAZOLE 40 MG TABLET PO SCH (09:24)
[2018-12-16] MEDS: DULoxetine 30 MG CAPSULE PO SCH ×2 (09:24→21:45)
[2018-12-16] MEDS: TOPIRAMATE 100 MG TABLET PO SCH ×2 (09:24→21:46)
[2018-12-16] MEDS: BACLOFEN 20 MG TABLET PO SCH ×3 (09:25→21:58)
[2018-12-16] MEDS: HYDROXYCHLOROQUINE 200 MG TABLET PO SCH ×2 (09:28→21:49)
[2018-12-16] MEDS: methylPREDNISolone SOD SUC 40 MG/1 ML VIAL IV SCH ×3 (10:42→21:53)
[2018-12-16] MEDS: ENOXAPARIN 100 MG/ML SYRINGE SUBCUT SCH (11:59)
[2018-12-16] MEDS: QUEtiapine 25 MG TABLET PO SCH (21:03)
[2018-12-16] MEDS: AMITRIPTYLINE 25 MG TABLET PO SCH (21:45)
[2018-12-17] MEDS: methylPREDNISolone SOD SUC 40 MG/1 ML VIAL IV SCH ×4 (05:51→23:19)
[2018-12-17] MEDS: SODIUM CHLORIDE 0.9% 1,000 ML IV SCH ×3 (05:52→23:30)
[2018-12-17] MEDS: HYDROmorphone 2 MG/1 ML VIAL IV PRN (06:36)
[2018-12-17] MEDS: MYCOPHENOLATE MOFETIL 250 MG CAPSULE PO SCH ×2 (08:48→20:59)
[2018-12-17] MEDS: DOCUSATE SODIUM 100 MG CAPSULE PO PRN (08:48)
[2018-12-17] MEDS: GABAPENTIN 600 MG TABLET PO SCH ×2 (08:49→21:00)
[2018-12-17] MEDS: FOLIC ACID 1 MG TABLET PO SCH (08:50)
[2018-12-17] MEDS: HYDROXYUREA 500 MG CAPSULE PO SCH ×2 (08:50→20:57)
[2018-12-17] MEDS: PANTOPRAZOLE 40 MG TABLET PO SCH (08:50)
[2018-12-17] MEDS: DULoxetine 30 MG CAPSULE PO SCH ×2 (08:50→21:00)
[2018-12-17] MEDS: HYDROXYCHLOROQUINE 200 MG TABLET PO SCH ×2 (08:50→21:00)
[2018-12-17] MEDS: BACLOFEN 20 MG TABLET PO SCH ×3 (08:50→20:58)
[2018-12-17] MEDS: hydrALAZINE 20 MG/1 ML VIAL IV PRN ×2 (08:51→15:58)
[2018-12-17] MEDS: TOPIRAMATE 100 MG TABLET PO SCH ×2 (08:51→21:00)
[2018-12-17] MEDS: HYDROmorphone 2 MG TABLET PO PRN ×3 (11:32→20:59)
[2018-12-17] MEDS: ENOXAPARIN 100 MG/ML SYRINGE SUBCUT SCH (11:32)
[2018-12-17] MEDS: AMITRIPTYLINE 25 MG TABLET PO SCH (21:00)
[2018-12-17] MEDS: QUEtiapine 25 MG TABLET PO SCH (21:00)
[2018-12-18] MEDS: HYDROmorphone 2 MG TABLET PO PRN ×2 (02:41→08:08)
[2018-12-18] MEDS: methylPREDNISolone SOD SUC 40 MG/1 ML VIAL IV SCH (04:00)
[2018-12-18] MEDS: hydrALAZINE 20 MG/1 ML VIAL IV PRN (05:24)
[2018-12-18] MEDS: SODIUM CHLORIDE 0.9% 1,000 ML IV SCH (07:03)
[2018-12-18 08:49] LABS: Basophils % 0.2 % (0.0-0.8); Hematocrit 27.2 VOL% (35.7-47.0); Hemoglobin 9.5 GM/DL (12.0-16.0); Immature Granulocytes % 0.9 %; Immature Granulocytes Absolute 0.16 #; Lymphocytes # 2.2 10*3/uL (1.4-4.0); Lymphocytes % 12.7 % (21.3-54.2); Mean Corpuscular HGB Conc 34.9 GM/DL (32-36); Mean Corpuscular Volume 77.3 FL (87-102); Mean Platelet Volume 10.5 FL (9.6-12.0); Monocytes % 2.8 % (1.7-12.7); NRBC # 1.54 10*3/uL; Neutrophils % 83.4 % (38.7-73.9); Platelet Count 390 T/CUMM (130-400); Red Blood Count 3.52 MC/CUMM (3.8-5.5); Red Cell Distribution Width 20.3 % (9.3-17.3); White Blood Count 17.3 T/CUMM (4-12)
[2018-12-18] MEDS ORDERED: predniSONE 10 MG TABLET PO SCH (09:00)
[2018-12-18 09:06] LABS: Calcium 8.7 MG/DL (8.5-10.1)
[2018-12-18] MEDS: FOLIC ACID 1 MG TABLET PO SCH (10:14)
[2018-12-18] MEDS: GABAPENTIN 600 MG TABLET PO SCH (10:14)
[2018-12-18] MEDS: BACLOFEN 20 MG TABLET PO SCH (10:15)
[2018-12-18] MEDS: HYDROXYCHLOROQUINE 200 MG TABLET PO SCH (10:15)
[2018-12-18] MEDS: DOCUSATE SODIUM 100 MG CAPSULE PO PRN (10:15)
[2018-12-18] MEDS: DULoxetine 30 MG CAPSULE PO SCH (10:15)
[2018-12-18] MEDS: HYDROXYUREA 500 MG CAPSULE PO SCH (10:15)
[2018-12-18] MEDS: PANTOPRAZOLE 40 MG TABLET PO SCH (10:15)
[2018-12-18] MEDS: TOPIRAMATE 100 MG TABLET PO SCH (10:16)
[2018-12-18] MEDS: MYCOPHENOLATE MOFETIL 250 MG CAPSULE PO SCH (10:22)
[2018-12-18] MEDS: ENOXAPARIN 100 MG/ML SYRINGE SUBCUT SCH (10:24)
[2018-12-18 12:35] VITALS: BP 105/63
== END 2018-12-18 12:32 | disposition home or self-care (01) | DRG 545 ==
LOC: EDBD → EDUNIT# → N.ED 02:16 → SUATTDRO 08:43 → N.EDINP 08:43 → N.4E 10:32
PROVIDERS: ADMIT Internal Medicine; ATTEND Internal Medicine Cardiovascular Disease

== ENCOUNTER 2019-01-13 23:20 | Inpatient (IN) ==
[2019-01-13] MEDS ORDERED: SODIUM CHLORIDE 0.9% 500 ML IV STA (23:40)
[2019-01-13] MEDS ORDERED: MORPHINE 4 MG/1 ML VIAL IV STA (23:40)
[2019-01-13] MEDS ORDERED: ONDANSETRON 4 MG/2 ML VIAL IV STA (23:40)
[2019-01-13] MEDS ORDERED: NITROGLYCERIN 2% OINT 1 INCH/GM PACK TOP STA (23:40)
[2019-01-14 00:27] LABS: Alanine Aminotransferase 9 U/L (13-56); Albumin 3.2 G/DL (3.4-5.0); Alkaline Phosphatase 107 U/L (45-117); Aspartate Amino Transferase 16 U/L (0-37); Blood Urea Nitrogen 11 MG/DL (7-18); Calcium 9.4 MG/DL (8.5-10.1); Estimated Glom Filtration Rate 143 ML/MIN; Glucose 97 MG/DL (74-106); Osmolality,Calculated 277.4 MOS/KG (273-304); Total Protein 8.6 G/DL (6.4-8.3)
[2019-01-14 00:28] LABS: Basophils % 0.1 % (0.0-0.8); Hematocrit 30.6 VOL% (35.7-47.0); Hemoglobin 10.7 GM/DL (12.0-16.0); Immature Granulocytes % 1.2 %; Lymphocytes # 0.6 10*3/uL (1.4-4.0); Lymphocytes % 7.5 % (21.3-54.2); Mean Corpuscular Volume 80.5 FL (87-102); Mean Platelet Volume 9.6 FL (9.6-12.0); Monocytes % 1.4 % (1.7-12.7); NRBC # 0.17 10*3/uL; Neutrophils % 89.8 % (38.7-73.9); Platelet Count 476 T/CUMM (130-400)
[2019-01-14] MEDS ORDERED: HYDROmorphone 2 MG/1 ML VIAL IV ONE (00:41)
[2019-01-14 00:51] LABS: PT Patient Result 11.1 SECS (9.6-12.2)
[2019-01-14 01:12] LABS: Polychromasia Slight; Target Cells 3+
[2019-01-14 01:13] LABS: Stomatocytes Few
[2019-01-14 01:15] LABS: Anisocytosis 1+; Microcytosis 1+; Platelet Estimate Normal
[2019-01-14] MEDS ORDERED: ONDANSETRON 4 MG/2 ML VIAL IV PRN (02:08)
[2019-01-14] MEDS ORDERED: SODIUM POLYSTYRENE SULFATE 15 GM/60 ML BOTTLE PO STA (03:37)
[2019-01-14] MEDS: SODIUM CHLORIDE 0.9% 1,000 ML IV SCH ×3 (04:02→23:35)
[2019-01-14] MEDS ORDERED: diphenhydrAMINE CAP 25 MG CAPSULE PO PRN (04:25)
[2019-01-14] MEDS: HYDROmorphone 2 MG/1 ML VIAL IV PRN ×7 (04:34→23:09)
[2019-01-14 05:27] LABS: Apearance,Urine CLEAR (Clear); Bilirubin,Urine Negative (Negative); Blood, Urine Negative (Negative); Glucose,Urine (UA) Negative (Negative); Ketones,Urine Negative (Negative); Mucus,Urine Occasional /LPF (Occasional); Nitrite,Urine Negative (Negative); Protein,Urine Negative; RBC,Urine <1 /HPF (0-4); Squamous Epithelial Cell,Urine Occasional /HPF (0-10); Urine Color Yellow (Yellow); Urine Specific Gravity 1.009 (1.001-1.035); Urine Urobilinogen < 2.0 EU/DL (0.2-1.0); WBC,Urine <1 /HPF (0-6)
[2019-01-14 05:40] LABS: Barbiturates Screen,Urine Negative (Negative); Benzodiazepines Screen,Urine Negative (Negative); Cannabinoid Screen,Urine Negative (Negative); Opiate Screen,Urine Positive (Negative); Phencyclidine Screen,Urine Negative (Negative)
[2019-01-14] MEDS: NITROGLYCERIN 2% OINT 1 INCH/GM PACK TOP SCH ×3 (06:12→18:30)
[2019-01-14] MEDS ORDERED: predniSONE 10 MG TABLET PO SCH (09:00)
[2019-01-14] MEDS: ENOXAPARIN 100 MG/ML SYRINGE SUBCUT SCH (10:05)
[2019-01-14] MEDS: GABAPENTIN 600 MG TABLET PO SCH ×2 (11:48→20:53)
[2019-01-14] MEDS ORDERED: PROMETHAZINE 25 MG TABLET PO PRN (12:35)
[2019-01-14] MEDS: DULoxetine 30 MG CAPSULE PO SCH ×2 (13:42→20:53)
[2019-01-14] MEDS: HYDROXYUREA 500 MG CAPSULE PO SCH (13:43)
[2019-01-14] MEDS: HYDROXYCHLOROQUINE 200 MG TABLET PO SCH (13:44)
[2019-01-14] MEDS: TOPIRAMATE 25 MG TABLET PO SCH ×2 (13:44→20:51)
[2019-01-14] MEDS: predniSONE 10 MG TABLET PO SCH (13:44)
[2019-01-14] MEDS: FOLIC ACID 1 MG TABLET PO SCH (13:44)
[2019-01-14] MEDS: BACLOFEN 20 MG TABLET PO SCH ×2 (16:46→20:54)
[2019-01-14] MEDS: QUEtiapine 25 MG TABLET PO SCH (20:54)
[2019-01-14] MEDS: AMITRIPTYLINE 25 MG TABLET PO SCH (20:54)
[2019-01-15] MEDS: HYDROmorphone 2 MG/1 ML VIAL IV PRN ×7 (02:09→22:36)
[2019-01-15] MEDS: NITROGLYCERIN 2% OINT 1 INCH/GM PACK TOP SCH ×5 (02:13→18:36)
[2019-01-15] MEDS: ENOXAPARIN 100 MG/ML SYRINGE SUBCUT SCH (08:25)
[2019-01-15] MEDS: BACLOFEN 20 MG TABLET PO SCH ×3 (08:25→20:51)
[2019-01-15] MEDS: GABAPENTIN 600 MG TABLET PO SCH ×2 (08:25→20:49)
[2019-01-15] MEDS: DULoxetine 30 MG CAPSULE PO SCH ×2 (08:26→20:47)
[2019-01-15] MEDS: predniSONE 10 MG TABLET PO SCH (08:26)
[2019-01-15] MEDS: HYDROXYCHLOROQUINE 200 MG TABLET PO SCH (08:27)
[2019-01-15] MEDS: TOPIRAMATE 25 MG TABLET PO SCH ×2 (08:27→20:48)
[2019-01-15] MEDS: HYDROXYUREA 500 MG CAPSULE PO SCH (08:27)
[2019-01-15] MEDS: FOLIC ACID 1 MG TABLET PO SCH (11:29)
[2019-01-15] MEDS: SODIUM CHLORIDE 0.9% 1,000 ML IV SCH ×2 (18:38→20:45)
[2019-01-15] MEDS ORDERED: hydrALAZINE 20 MG/1 ML VIAL IV ONE (19:57)
[2019-01-15] MEDS: QUEtiapine 25 MG TABLET PO SCH (20:48)
[2019-01-15] MEDS: AMITRIPTYLINE 25 MG TABLET PO SCH (20:51)
[2019-01-16] MEDS: NITROGLYCERIN 2% OINT 1 INCH/GM PACK TOP SCH ×3 (00:03→18:36)
[2019-01-16] MEDS: HYDROmorphone 2 MG/1 ML VIAL IV PRN ×4 (02:39→18:32)
[2019-01-16] MEDS: DULoxetine 30 MG CAPSULE PO SCH ×2 (08:17→21:16)
[2019-01-16] MEDS: SODIUM CHLORIDE 0.9% 1,000 ML IV SCH ×2 (08:17→16:11)
[2019-01-16] MEDS: FOLIC ACID 1 MG TABLET PO SCH (08:17)
[2019-01-16] MEDS: BACLOFEN 20 MG TABLET PO SCH ×3 (08:18→21:18)
[2019-01-16] MEDS: GABAPENTIN 600 MG TABLET PO SCH ×2 (08:18→21:18)
[2019-01-16] MEDS: HYDROXYUREA 500 MG CAPSULE PO SCH (08:18)
[2019-01-16] MEDS: predniSONE 10 MG TABLET PO SCH (08:18)
[2019-01-16] MEDS: TOPIRAMATE 25 MG TABLET PO SCH ×2 (08:18→21:19)
[2019-01-16] MEDS: HYDROXYCHLOROQUINE 200 MG TABLET PO SCH (08:19)
[2019-01-16] MEDS: ENOXAPARIN 100 MG/ML SYRINGE SUBCUT SCH (08:19)
[2019-01-16] MEDS ORDERED: BISACODYL 5 MG TABLET PO SCH (21:00)
[2019-01-16] MEDS: AMITRIPTYLINE 25 MG TABLET PO SCH (21:18)
[2019-01-16] MEDS: QUEtiapine 25 MG TABLET PO SCH (21:18)
[2019-01-17] MEDS: HYDROmorphone 2 MG/1 ML VIAL IV PRN ×2 (01:00→07:30)
[2019-01-17] MEDS: NITROGLYCERIN 2% OINT 1 INCH/GM PACK TOP SCH ×3 (06:07→11:47)
[2019-01-17] MEDS: ENOXAPARIN 100 MG/ML SYRINGE SUBCUT SCH (08:26)
[2019-01-17] MEDS: predniSONE 10 MG TABLET PO SCH (08:31)
[2019-01-17] MEDS: HYDROXYUREA 500 MG CAPSULE PO SCH (08:32)
[2019-01-17] MEDS: GABAPENTIN 600 MG TABLET PO SCH (08:32)
[2019-01-17] MEDS: TOPIRAMATE 25 MG TABLET PO SCH (08:33)
[2019-01-17] MEDS: DULoxetine 30 MG CAPSULE PO SCH (08:33)
[2019-01-17] MEDS: FOLIC ACID 1 MG TABLET PO SCH (08:33)
[2019-01-17] MEDS: BACLOFEN 20 MG TABLET PO SCH (08:33)
[2019-01-17] MEDS: HYDROXYCHLOROQUINE 200 MG TABLET PO SCH (08:34)
[2019-01-17 11:51] VITALS: BP 103/70
== END 2019-01-17 14:39 | disposition home or self-care (01) | DRG 313 ==
LOC: EDBD → EDUNIT# → N.ED 23:20 → N.EDINP 23:20 → N.4E 01-14 03:22 → SUATTDRO 01-15 13:41
PROVIDERS: ADMIT Internal Medicine; ATTEND Internal Medicine

== ENCOUNTER 2019-02-09 19:15 | Inpatient (IN) ==
[2019-02-09] MEDS ORDERED: ONDANSETRON 4 MG/2 ML VIAL IV STA (20:56)
[2019-02-09] MEDS ORDERED: HYDROmorphone 2 MG/1 ML VIAL IV STA ×2 (20:56→22:45)
[2019-02-09] MEDS ORDERED: SODIUM CHLORIDE 0.9% 1,000 ML IV STA (20:56)
[2019-02-09 21:57] LABS: Basophils # 0.1 10*3/uL (0.0-0.2); Eosinophils # 0.1 10*3/uL (0.0-0.87); Eosinophils % 1.5 % (0.00-10.9); Hematocrit 28.9 VOL% (35.7-47.0); Hemoglobin 10.3 GM/DL (12.0-16.0); Immature Granulocytes % 3.6 %; Immature Granulocytes Absolute 0.29 #; Lymphocytes # 1.7 10*3/uL (1.4-4.0); Lymphocytes % 21.3 % (21.3-54.2); Mean Corpuscular HGB Conc 35.6 GM/DL (32-36); Mean Corpuscular Volume 80.5 FL (87-102); Neutrophils % 64.6 % (38.7-73.9); Platelet Count 459 T/CUMM (130-400); Red Blood Count 3.59 MC/CUMM (3.8-5.5); Red Cell Distribution Width 20.4 % (9.3-17.3); White Blood Count 8.1 T/CUMM (4-12)
[2019-02-09 22:09] LABS: INR 1.1; PT Patient Result 11.4 SECS (9.6-12.2)
[2019-02-09 22:25] LABS: Alanine Aminotransferase < 9 U/L (13-56); Albumin 3.7 G/DL (3.4-5.0); Alkaline Phosphatase 102 U/L (45-117); Aspartate Amino Transferase 12 U/L (0-37); Blood Urea Nitrogen 4 MG/DL (7-18); Calcium 9.8 MG/DL (8.5-10.1); Estimated Glom Filtration Rate 157 ML/MIN; Glucose 78 MG/DL (74-106); Osmolality,Calculated 278.1 MOS/KG (273-304); Total Protein 8.6 G/DL (6.4-8.3)
[2019-02-09 23:04] LABS: Apearance,Urine CLEAR (Clear); Bacteria,Urine Occasional /HPF (Few); Bilirubin,Urine Negative (Negative); Blood, Urine Negative (Negative); Glucose,Urine (UA) Negative (Negative); Ketones,Urine Negative (Negative); Mucus,Urine Occasional /LPF (Occasional); Nitrite,Urine Negative (Negative); Protein,Urine Negative; RBC,Urine 4 /HPF (0-4); Squamous Epithelial Cell,Urine Occasional /HPF (0-10); Urine Color Yellow (Yellow); WBC,Urine 58 /HPF (0-6)
[2019-02-09] MEDS ORDERED: cefTRIAXone 1,000 MG in SODIUM CHLORIDE 0.9% 100 ML IV STA (23:18)
[2019-02-09 23:42] LABS: Barbiturates Screen,Urine Negative (Negative); Benzodiazepines Screen,Urine Negative (Negative); Cannabinoid Screen,Urine Negative (Negative); Opiate Screen,Urine Positive (Negative); Phencyclidine Screen,Urine Negative (Negative)
[2019-02-10] MEDS ORDERED: ONDANSETRON 4 MG/2 ML VIAL IV PRN (01:11)
[2019-02-10] MEDS ORDERED: diphenhydrAMINE 50 MG/1 ML VIAL ONE (01:12)
[2019-02-10] MEDS ORDERED: diphenhydrAMINE 50 MG/1 ML VIAL IV STA (01:41)
[2019-02-10] MEDS: MORPHINE 4 MG/1 ML VIAL IV PRN ×3 (01:55→08:06)
[2019-02-10] MEDS: SODIUM CHLORIDE 0.9% 1,000 ML IV SCH ×2 (02:04→19:15)
[2019-02-10] MEDS: HYDROXYUREA 500 MG CAPSULE PO SCH (08:03)
[2019-02-10] MEDS: PANTOPRAZOLE 40 MG TABLET PO SCH (08:04)
[2019-02-10] MEDS: DOCUSATE SODIUM 100 MG CAPSULE PO PRN (08:04)
[2019-02-10] MEDS: predniSONE 10 MG TABLET PO SCH (08:04)
[2019-02-10] MEDS: GABAPENTIN 600 MG TABLET PO SCH ×2 (08:12→21:14)
[2019-02-10] MEDS: ENOXAPARIN 100 MG/ML SYRINGE SUBCUT SCH (08:13)
[2019-02-10] MEDS: BACLOFEN 20 MG TABLET PO SCH ×3 (08:13→21:14)
[2019-02-10] MEDS: FOLIC ACID 1 MG TABLET PO SCH (08:13)
[2019-02-10] MEDS ORDERED: DULoxetine 30 MG CAPSULE PO SCH (09:00)
[2019-02-10] MEDS: TOPIRAMATE 25 MG TABLET PO SCH ×2 (11:30→21:15)
[2019-02-10] MEDS: HYDROmorphone 2 MG/1 ML VIAL IV PRN ×4 (11:31→23:06)
[2019-02-10] MEDS ORDERED: QUEtiapine 25 MG TABLET PO SCH (21:00)
[2019-02-10] MEDS ORDERED: AMITRIPTYLINE 25 MG TABLET PO SCH (21:00)
[2019-02-11] MEDS: SODIUM CHLORIDE 0.9% 1,000 ML IV SCH ×2 (02:23→11:07)
[2019-02-11] MEDS: HYDROmorphone 2 MG/1 ML VIAL IV PRN ×3 (03:17→11:05)
[2019-02-11] MEDS: FOLIC ACID 1 MG TABLET PO SCH (09:17)
[2019-02-11] MEDS: predniSONE 10 MG TABLET PO SCH (09:17)
[2019-02-11] MEDS: GABAPENTIN 600 MG TABLET PO SCH (09:17)
[2019-02-11] MEDS: BACLOFEN 20 MG TABLET PO SCH (09:17)
[2019-02-11] MEDS: TOPIRAMATE 25 MG TABLET PO SCH (09:18)
[2019-02-11] MEDS: HYDROXYUREA 500 MG CAPSULE PO SCH (09:18)
[2019-02-11] MEDS: DOCUSATE SODIUM 100 MG CAPSULE PO PRN (09:18)
[2019-02-11] MEDS: PANTOPRAZOLE 40 MG TABLET PO SCH (09:18)
[2019-02-11] MEDS: ENOXAPARIN 100 MG/ML SYRINGE SUBCUT SCH (09:24)
[2019-02-11 11:13] LABS: Hematocrit 27.9 VOL% (35.7-47.0); Hemoglobin 9.6 GM/DL (12.0-16.0)
[2019-02-11 11:24] LABS: Troponin I < 0.015 NG/ML (0.00-0.045)
[2019-02-11] MEDS ORDERED: PROMETHAZINE 25 MG TABLET PO PRN (11:26)
[2019-02-11] MEDS ORDERED: oxyCODONE IR 5 MG TABLET PO PRN (11:27)
[2019-02-11] MEDS ORDERED: METAXALONE 800 MG TABLET PO SCH (15:00)
[2019-02-11 16:20] VITALS: BP 108/65
[2019-02-12] MEDS ORDERED: HYDROXYCHLOROQUINE 200 MG TABLET PO SCH (09:00)
== END 2019-02-11 17:06 | disposition home or self-care (01) | DRG 812 ==
LOC: N.ED 19:15 → N.EDINP 02-10 01:11 → N.4E 02-10 02:46
PROVIDERS: ADMIT Internal Medicine; ATTEND Internal Medicine

== ENCOUNTER 2019-03-12 14:18 | Inpatient (IN) ==
[2019-03-12] MEDS ORDERED: SODIUM CHLORIDE 0.9% 1,000 ML IV STA (15:12)
[2019-03-12 16:14] LABS: Basophils # 0.1 10*3/uL (0.0-0.2); Basophils % 0.5 % (0.0-0.8); Eosinophils % 0.2 % (0.00-10.9); Hemoglobin 8.3 GM/DL (12.0-16.0); Immature Granulocytes Absolute 1.04 #; Lymphocytes # 1.4 10*3/uL (1.4-4.0); Lymphocytes % 9.1 % (21.3-54.2); Mean Corpuscular HGB Conc 34.6 GM/DL (32-36); Mean Corpuscular Volume 78.2 FL (87-102); Mean Platelet Volume 10.9 FL (9.6-12.0); Monocytes % 6.4 % (1.7-12.7); NRBC # 0.06 10*3/uL; Neutrophils % 76.8 % (38.7-73.9); Platelet Count 448 T/CUMM (130-400); Red Blood Count 3.07 MC/CUMM (3.8-5.5); Red Cell Distribution Width 19.8 % (9.3-17.3)
[2019-03-12 16:20] LABS: PT Patient Result 11.1 SECS (9.6-12.2)
[2019-03-12 16:34] LABS: Alanine Aminotransferase 18 U/L (13-56); Alkaline Phosphatase 93 U/L (45-117); Amylase 48 U/L (25-115); Aspartate Amino Transferase 16 U/L (0-37); Blood Urea Nitrogen 11 MG/DL (7-18); Calcium 8.7 MG/DL (8.5-10.1); Estimated Glom Filtration Rate 105 ML/MIN; Glucose 81 MG/DL (74-106); Osmolality,Calculated 272.7 MOS/KG (273-304); Total Protein 8.5 G/DL (6.4-8.3); Troponin I < 0.015 NG/ML (0.00-0.045)
[2019-03-12] MEDS ORDERED: ALBUTEROL/IPRATROPIUM 3 ML NEB RESP TX STA (16:59)
[2019-03-12] MEDS ORDERED: methylPREDNISolone SOD SUC 125 MG/2 ML VIAL IV STA (16:59)
[2019-03-12] MEDS ORDERED: cefTRIAXone 1,000 MG in SODIUM CHLORIDE 0.9% 100 ML IV STA (16:59)
[2019-03-12 17:03] LABS: Anisocytosis 2+; Band Neutrophils 5 % (0-10); Lymphocytes 14 % (20-55); Macrocytosis 1+; Metamyelocytes 8 %; Microcytosis 2+; Myelocytes 1 %; Nucleated Red Blood Cells 1 (0-5); Platelet Estimate Increased; Poikilocytosis 2+; Polychromasia 1+; Segmented Neutrophils 67 % (50-85); Total Cells Counted 100
[2019-03-12 17:05] LABS: Reactive Lymphocytes 1+; Schistocytes Slight; Target Cells 2+
[2019-03-12 17:18] LABS: Apearance,Urine CLEAR (Clear); Bacteria,Urine Occasional /HPF (Few); Bilirubin,Urine Negative (Negative); Blood, Urine Negative (Negative); Glucose,Urine (UA) Negative (Negative); Ketones,Urine Negative (Negative); Nitrite,Urine Negative (Negative); Protein,Urine Negative; RBC,Urine 3 /HPF (0-4); Squamous Epithelial Cell,Urine Occasional /HPF (0-10); Urine Color Yellow (Yellow); Urine Specific Gravity 1.009 (1.001-1.035); Urine Urobilinogen < 2.0 EU/DL (0.2-1.0); WBC,Urine 38 /HPF (0-6)
[2019-03-12] MEDS ORDERED: HYDROMORPHONE 4 MG PO PRN (17:23)
[2019-03-12] MEDS ORDERED: HYDROmorphone 2 MG/1 ML VIAL IV STA (17:25)
[2019-03-12] MEDS ORDERED: HYDROmorphone 2 MG/1 ML VIAL IV PRN (17:27)
[2019-03-12 18:26] LABS: Sedimentation Rate-Westergren 127 MM/HR (0-20)
[2019-03-12] MEDS: diphenhydrAMINE 50 MG/1 ML VIAL IV SCH (21:34)
[2019-03-12] MEDS: MEROPENEM 500 MG in SODIUM CHLORIDE 0.9% 100 ML IV SCH (21:34)
[2019-03-12] MEDS: HYDROmorphone 2 MG TABLET PO SCH (21:34)
[2019-03-12] MEDS: GABAPENTIN 600 MG TABLET PO SCH (21:35)
[2019-03-12] MEDS: ENOXAPARIN 100 MG/ML SYRINGE SUBCUT SCH (21:35)
[2019-03-12] MEDS: AMITRIPTYLINE 25 MG TABLET PO SCH (21:35)
[2019-03-12] MEDS: DULoxetine 30 MG CAPSULE PO SCH (21:35)
[2019-03-12] MEDS: TOPIRAMATE 25 MG TABLET PO SCH (21:35)
[2019-03-12] MEDS: HYDROmorphone 2 MG/1 ML VIAL IV PRN (23:58)
[2019-03-13] MEDS: diphenhydrAMINE 50 MG/1 ML VIAL IV SCH ×5 (01:36→21:58)
[2019-03-13] MEDS: MEROPENEM 500 MG in SODIUM CHLORIDE 0.9% 100 ML IV SCH ×4 (02:40→21:56)
[2019-03-13] MEDS: HYDROmorphone 2 MG/1 ML VIAL IV PRN ×3 (05:59→18:13)
[2019-03-13] MEDS: DULoxetine 30 MG CAPSULE PO SCH ×2 (09:44→21:57)
[2019-03-13] MEDS: GABAPENTIN 600 MG TABLET PO SCH ×2 (09:44→21:57)
[2019-03-13] MEDS: HYDROXYUREA 500 MG CAPSULE PO SCH (09:44)
[2019-03-13] MEDS: HYDROXYCHLOROQUINE 200 MG TABLET PO SCH (09:44)
[2019-03-13] MEDS: HYDROmorphone 2 MG TABLET PO SCH ×2 (09:44→18:13)
[2019-03-13] MEDS: TOPIRAMATE 25 MG TABLET PO SCH ×2 (09:44→21:57)
[2019-03-13] MEDS: predniSONE 20 MG TABLET PO SCH ×2 (09:52→21:57)
[2019-03-13] MEDS: FOLIC ACID 1 MG TABLET PO SCH (09:53)
[2019-03-13 14:25] LABS: Basophils # 0.1 10*3/uL (0.0-0.2); Basophils % 0.3 % (0.0-0.8); Eosinophils % 0.1 % (0.00-10.9); Hematocrit 23.1 VOL% (35.7-47.0); Hemoglobin 8.1 GM/DL (12.0-16.0); Immature Granulocytes % 6.4 %; Immature Granulocytes Absolute 1.12 #; Lymphocytes # 1.4 10*3/uL (1.4-4.0); Lymphocytes % 7.8 % (21.3-54.2); Mean Corpuscular HGB Conc 35.1 GM/DL (32-36); Mean Platelet Volume 10.8 FL (9.6-12.0); Monocytes % 2.4 % (1.7-12.7); NRBC # 0.12 10*3/uL; Platelet Count 476 T/CUMM (130-400); Red Blood Count 2.96 MC/CUMM (3.8-5.5); White Blood Count 17.6 T/CUMM (4-12)
[2019-03-13 14:50] LABS: Albumin 2.8 G/DL (3.4-5.0); Bilirubin,Total 0.4 MG/DL (0.2-1.0); Calcium 8.8 MG/DL (8.5-10.1); Osmolality,Calculated 276.4 MOS/KG (273-304)
[2019-03-13 14:51] LABS: Hypochromasia 1+; Lymphocytes 7 % (20-55); Microcytosis 1+; Platelet Estimate Normal; Segmented Neutrophils 90 % (50-85); Total Cells Counted 100
[2019-03-13 14:52] LABS: Anisocytosis 1+; Poikilocytosis 1+; Schistocytes Slight; Target Cells 2+
[2019-03-13 14:53] LABS: Macrocytosis 1+; Polychromasia Slight
[2019-03-13] MEDS: ENOXAPARIN 100 MG/ML SYRINGE SUBCUT SCH (21:56)
[2019-03-13] MEDS: AMITRIPTYLINE 25 MG TABLET PO SCH (21:57)
[2019-03-14] MEDS: HYDROmorphone 2 MG/1 ML VIAL IV PRN ×4 (00:21→18:31)
[2019-03-14] MEDS: HYDROmorphone 2 MG TABLET PO SCH ×3 (02:04→17:02)
[2019-03-14] MEDS: diphenhydrAMINE 50 MG/1 ML VIAL IV SCH ×4 (02:33→21:04)
[2019-03-14] MEDS: MEROPENEM 500 MG in SODIUM CHLORIDE 0.9% 100 ML IV SCH ×4 (02:33→21:04)
[2019-03-14 05:52] LABS: Basophils # 0.1 10*3/uL (0.0-0.2); Basophils % 0.3 % (0.0-0.8); Hematocrit 24.9 VOL% (35.7-47.0); Hemoglobin 8.5 GM/DL (12.0-16.0); Immature Granulocytes % 4.5 %; Immature Granulocytes Absolute 0.83 #; Lymphocytes # 1.7 10*3/uL (1.4-4.0); Lymphocytes % 9.2 % (21.3-54.2); Mean Corpuscular HGB Conc 34.1 GM/DL (32-36); Monocytes % 1.5 % (1.7-12.7); Neutrophils % 84.5 % (38.7-73.9); Platelet Count 513 T/CUMM (130-400); Red Blood Count 3.15 MC/CUMM (3.8-5.5); Red Cell Distribution Width 20.4 % (9.3-17.3); White Blood Count 18.3 T/CUMM (4-12)
[2019-03-14 06:14] LABS: Hypochromasia 1+; Lymphocytes 9 % (20-55); Nucleated Red Blood Cells 1 (0-5); Pappenheimer Bodies Few; Platelet Estimate Increased; Segmented Neutrophils 90 % (50-85); Target Cells Few; Total Cells Counted 100
[2019-03-14 06:15] LABS: Macrocytosis Slight
[2019-03-14 06:18] LABS: Albumin 2.9 G/DL (3.4-5.0); Bilirubin,Total 0.7 MG/DL (0.2-1.0); Osmolality,Calculated 276.4 MOS/KG (273-304); Total Protein 8.2 G/DL (6.4-8.3)
[2019-03-14] MEDS: GABAPENTIN 600 MG TABLET PO SCH ×2 (09:12→21:04)
[2019-03-14] MEDS: HYDROXYUREA 500 MG CAPSULE PO SCH (09:13)
[2019-03-14] MEDS: FOLIC ACID 1 MG TABLET PO SCH (09:13)
[2019-03-14] MEDS: HYDROXYCHLOROQUINE 200 MG TABLET PO SCH (09:14)
[2019-03-14] MEDS: predniSONE 20 MG TABLET PO SCH ×2 (09:14→21:08)
[2019-03-14] MEDS: DULoxetine 30 MG CAPSULE PO SCH ×2 (09:14→21:04)
[2019-03-14] MEDS: TOPIRAMATE 25 MG TABLET PO SCH ×2 (09:14→21:03)
[2019-03-14] MEDS: ENOXAPARIN 100 MG/ML SYRINGE SUBCUT SCH (21:03)
[2019-03-14] MEDS: AMITRIPTYLINE 25 MG TABLET PO SCH (21:04)
[2019-03-15] MEDS: HYDROmorphone 2 MG/1 ML VIAL IV PRN ×4 (00:35→21:30)
[2019-03-15] MEDS: HYDROmorphone 2 MG TABLET PO SCH ×3 (01:49→17:16)
[2019-03-15] MEDS: diphenhydrAMINE 50 MG/1 ML VIAL IV SCH ×4 (04:08→21:09)
[2019-03-15] MEDS: MEROPENEM 500 MG in SODIUM CHLORIDE 0.9% 100 ML IV SCH ×2 (04:09→09:04)
[2019-03-15 07:57] LABS: Basophils # 0.1 10*3/uL (0.0-0.2); Basophils % 0.2 % (0.0-0.8); Hematocrit 25.2 VOL% (35.7-47.0); Hemoglobin 8.8 GM/DL (12.0-16.0); Immature Granulocytes % 7.3 %; Immature Granulocytes Absolute 1.73 #; Lymphocytes # 2.7 10*3/uL (1.4-4.0); Lymphocytes % 11.2 % (21.3-54.2); Mean Corpuscular HGB Conc 34.9 GM/DL (32-36); Mean Corpuscular Volume 78.8 FL (87-102); Mean Platelet Volume 10.4 FL (9.6-12.0); NRBC # 1.06 10*3/uL; Neutrophils % 77.3 % (38.7-73.9); Platelet Count 548 T/CUMM (130-400); Red Cell Distribution Width 21.1 % (9.3-17.3); White Blood Count 23.7 T/CUMM (4-12)
[2019-03-15 08:16] LABS: Albumin 2.9 G/DL (3.4-5.0); Bilirubin,Total 0.4 MG/DL (0.2-1.0); Calcium 9.2 MG/DL (8.5-10.1); Osmolality,Calculated 279.3 MOS/KG (273-304); Total Protein 8.2 G/DL (6.4-8.3)
[2019-03-15 08:25] LABS: Band Neutrophils 1 % (0-10); Hypochromasia Slight; Lymphocytes 9 % (20-55); Macrocytosis Slight; Nucleated Red Blood Cells 7 (0-5); Pappenheimer Bodies Few; Platelet Estimate Increased; Polychromasia Slight; Segmented Neutrophils 80 % (50-85); Total Cells Counted 100
[2019-03-15] MEDS: DULoxetine 30 MG CAPSULE PO SCH ×2 (09:01→21:07)
[2019-03-15] MEDS: GABAPENTIN 600 MG TABLET PO SCH ×2 (09:02→21:08)
[2019-03-15] MEDS: FOLIC ACID 1 MG TABLET PO SCH (09:02)
[2019-03-15] MEDS: TOPIRAMATE 25 MG TABLET PO SCH ×2 (09:03→21:07)
[2019-03-15] MEDS: predniSONE 20 MG TABLET PO SCH ×2 (09:03→21:07)
[2019-03-15] MEDS: HYDROXYCHLOROQUINE 200 MG TABLET PO SCH (09:03)
[2019-03-15] MEDS: HYDROXYUREA 500 MG CAPSULE PO SCH (09:04)
[2019-03-15] MEDS: ALBUTEROL/IPRATROPIUM 3 ML NEB RESP TX SCH ×3 (11:17→18:30)
[2019-03-15] MEDS: cefTRIAXone 1,000 MG in SYRINGE 1 EACH IV SCH (14:55)
[2019-03-15] MEDS: DOXYCYCLINE HYCLATE 100 MG CAPSULE PO SCH (17:16)
[2019-03-15] MEDS: AMITRIPTYLINE 25 MG TABLET PO SCH (21:07)
[2019-03-15] MEDS: ENOXAPARIN 100 MG/ML SYRINGE SUBCUT SCH (21:08)
[2019-03-16] MEDS: ALBUTEROL/IPRATROPIUM 3 ML NEB RESP TX SCH ×4 (00:05→20:14)
[2019-03-16] MEDS: HYDROmorphone 2 MG TABLET PO SCH ×3 (01:51→16:09)
[2019-03-16] MEDS: diphenhydrAMINE 50 MG/1 ML VIAL IV SCH ×4 (03:38→22:15)
[2019-03-16] MEDS: HYDROmorphone 2 MG/1 ML VIAL IV PRN ×3 (03:43→17:23)
[2019-03-16 08:55] LABS: Basophils # 0.1 10*3/uL (0.0-0.2); Basophils % 0.4 % (0.0-0.8); Hematocrit 28.1 VOL% (35.7-47.0); Hemoglobin 9.7 GM/DL (12.0-16.0); Immature Granulocytes % 8.6 %; Immature Granulocytes Absolute 2.01 #; Lymphocytes # 2.6 10*3/uL (1.4-4.0); Lymphocytes % 11.1 % (21.3-54.2); Mean Corpuscular HGB Conc 34.5 GM/DL (32-36); Mean Corpuscular Volume 78.9 FL (87-102); Mean Platelet Volume 10.3 FL (9.6-12.0); Monocytes % 4.1 % (1.7-12.7); NRBC # 2.53 10*3/uL; Neutrophils % 75.8 % (38.7-73.9); Platelet Count 621 T/CUMM (130-400); Red Blood Count 3.56 MC/CUMM (3.8-5.5); Red Cell Distribution Width 21.4 % (9.3-17.3); White Blood Count 23.3 T/CUMM (4-12)
[2019-03-16] MEDS: DULoxetine 30 MG CAPSULE PO SCH ×2 (09:18→22:17)
[2019-03-16] MEDS: HYDROXYCHLOROQUINE 200 MG TABLET PO SCH (09:18)
[2019-03-16] MEDS: HYDROXYUREA 500 MG CAPSULE PO SCH (09:18)
[2019-03-16] MEDS: DOXYCYCLINE HYCLATE 100 MG CAPSULE PO SCH ×2 (09:18→16:09)
[2019-03-16] MEDS: predniSONE 20 MG TABLET PO SCH ×2 (09:18→22:17)
[2019-03-16] MEDS: TOPIRAMATE 25 MG TABLET PO SCH ×2 (09:18→22:18)
[2019-03-16 09:19] LABS: Band Neutrophils 3 % (0-10); Howell-Jolly Bodies Few; Hypochromasia 1+; Lymphocytes 14 % (20-55); Macrocytosis Slight; Nucleated Red Blood Cells 16 (0-5); Pappenheimer Bodies Few; Platelet Estimate Increased; Polychromasia Slight; Segmented Neutrophils 79 % (50-85); Target Cells Few; Total Cells Counted 100
[2019-03-16] MEDS: FOLIC ACID 1 MG TABLET PO SCH (09:19)
[2019-03-16] MEDS: GABAPENTIN 600 MG TABLET PO SCH ×2 (09:19→22:18)
[2019-03-16] MEDS: cefTRIAXone 1,000 MG in SYRINGE 1 EACH IV SCH (09:19)
[2019-03-16 10:19] LABS: Alanine Aminotransferase 16 U/L (13-56); Albumin 3.2 G/DL (3.4-5.0); Alkaline Phosphatase 94 U/L (45-117); Aspartate Amino Transferase 12 U/L (0-37); Bilirubin,Total < 0.39 MG/DL (0.2-1.0); Blood Urea Nitrogen 11 MG/DL (7-18); Calcium 9.4 MG/DL (8.5-10.1); Estimated Glom Filtration Rate 124 ML/MIN; Glucose 92 MG/DL (74-106); Osmolality,Calculated 281.1 MOS/KG (273-304); Total Protein 8.4 G/DL (6.4-8.3)
[2019-03-16] MEDS: PROMETHAZINE 25 MG TABLET PO PRN (10:53)
[2019-03-16] MEDS: AMITRIPTYLINE 25 MG TABLET PO SCH (22:17)
[2019-03-16] MEDS: ENOXAPARIN 100 MG/ML SYRINGE SUBCUT SCH (22:17)
[2019-03-17] MEDS: HYDROmorphone 2 MG/1 ML VIAL IV PRN ×4 (00:19→18:54)
[2019-03-17] MEDS: ALBUTEROL/IPRATROPIUM 3 ML NEB RESP TX SCH ×4 (01:17→19:17)
[2019-03-17] MEDS: HYDROmorphone 2 MG TABLET PO SCH ×3 (01:51→16:49)
[2019-03-17] MEDS: diphenhydrAMINE 50 MG/1 ML VIAL IV SCH ×4 (04:16→21:53)
[2019-03-17 07:51] LABS: Basophils # 0.1 10*3/uL (0.0-0.2); Basophils % 0.4 % (0.0-0.8); Hematocrit 28.8 VOL% (35.7-47.0); Hemoglobin 10.1 GM/DL (12.0-16.0); Immature Granulocytes % 7.3 %; Immature Granulocytes Absolute 2.19 #; Lymphocytes # 2.9 10*3/uL (1.4-4.0); Lymphocytes % 9.6 % (21.3-54.2); Mean Corpuscular HGB Conc 35.1 GM/DL (32-36); Mean Corpuscular Volume 79.6 FL (87-102); Mean Platelet Volume 9.7 FL (9.6-12.0); Monocytes % 2.5 % (1.7-12.7); NRBC # 5.06 10*3/uL; Neutrophils % 80.2 % (38.7-73.9); Platelet Count 690 T/CUMM (130-400); Red Blood Count 3.62 MC/CUMM (3.8-5.5); Red Cell Distribution Width 21.6 % (9.3-17.3); White Blood Count 29.9 T/CUMM (4-12)
[2019-03-17 08:09] LABS: Albumin 3.2 G/DL (3.4-5.0); Bilirubin,Total 0.4 MG/DL (0.2-1.0); Calcium 9.3 MG/DL (8.5-10.1); Osmolality,Calculated 278.5 MOS/KG (273-304); Total Protein 8.6 G/DL (6.4-8.3)
[2019-03-17 08:14] LABS: Band Neutrophils 8 % (0-10); Lymphocytes 13 % (20-55); Nucleated Red Blood Cells 23 (0-5); Segmented Neutrophils 76 % (50-85); Total Cells Counted 100
[2019-03-17 08:15] LABS: Anisocytosis 2+; Platelet Estimate Increased
[2019-03-17 08:16] LABS: Macrocytosis 1+; Polychromasia 1+; Target Cells 3+
[2019-03-17 08:17] LABS: Basophilic Stippling Slight
[2019-03-17] MEDS: HYDROXYCHLOROQUINE 200 MG TABLET PO SCH (08:28)
[2019-03-17] MEDS: TOPIRAMATE 25 MG TABLET PO SCH ×2 (08:28→20:25)
[2019-03-17] MEDS: DOXYCYCLINE HYCLATE 100 MG CAPSULE PO SCH ×2 (08:29→16:50)
[2019-03-17] MEDS: FOLIC ACID 1 MG TABLET PO SCH (08:29)
[2019-03-17] MEDS: HYDROXYUREA 500 MG CAPSULE PO SCH (08:29)
[2019-03-17] MEDS: predniSONE 20 MG TABLET PO SCH (08:29)
[2019-03-17] MEDS: GABAPENTIN 600 MG TABLET PO SCH ×2 (08:29→20:24)
[2019-03-17] MEDS: DULoxetine 30 MG CAPSULE PO SCH ×2 (08:29→20:24)
[2019-03-17] MEDS: cefTRIAXone 1,000 MG in SYRINGE 1 EACH IV SCH (09:00)
[2019-03-17] MEDS: CLOTRIMAZOLE 10 MG TROCHE PO SCH ×4 (12:38→21:53)
[2019-03-17] MEDS: CALCIUM (CARBONATE)/VITAMIN D 600 MG-400 UNIT TABLET PO SCH ×2 (12:38→20:24)
[2019-03-17 12:47] LABS: Calcium 9.4 MG/DL (8.5-10.1); Osmolality,Calculated 276.7 MOS/KG (273-304)
[2019-03-17] MEDS ORDERED: SODIUM POLYSTYRENE SULFATE 15 GM/60 ML BOTTLE PO ONE (17:02)
[2019-03-17] MEDS: PROMETHAZINE 25 MG TABLET PO PRN (20:24)
[2019-03-17] MEDS: AMITRIPTYLINE 25 MG TABLET PO SCH (20:24)
[2019-03-17] MEDS: ENOXAPARIN 100 MG/ML SYRINGE SUBCUT SCH (20:25)
[2019-03-18] MEDS: ALBUTEROL/IPRATROPIUM 3 ML NEB RESP TX SCH ×4 (00:38→19:27)
[2019-03-18] MEDS: HYDROmorphone 2 MG/1 ML VIAL IV PRN ×4 (00:49→19:08)
[2019-03-18] MEDS: HYDROmorphone 2 MG TABLET PO SCH ×3 (01:55→17:11)
[2019-03-18] MEDS: diphenhydrAMINE 50 MG/1 ML VIAL IV SCH ×4 (03:08→21:50)
[2019-03-18] MEDS: CLOTRIMAZOLE 10 MG TROCHE PO SCH ×5 (06:50→21:42)
[2019-03-18 06:52] LABS: Calcium 8.7 MG/DL (8.5-10.1); Osmolality,Calculated 276.5 MOS/KG (273-304)
[2019-03-18 07:05] LABS: Basophils # 0.2 10*3/uL (0.0-0.2); Basophils % 0.8 % (0.0-0.8); Eosinophils # 0.1 10*3/uL (0.0-0.87); Eosinophils % 0.2 % (0.00-10.9); Hemoglobin 9.8 GM/DL (12.0-16.0); Immature Granulocytes % 8.2 %; Immature Granulocytes Absolute 2.05 #; Lymphocytes # 6.3 10*3/uL (1.4-4.0); Lymphocytes % 25.1 % (21.3-54.2); Mean Corpuscular HGB Conc 33.8 GM/DL (32-36); Mean Corpuscular Volume 82.4 FL (87-102); Mean Platelet Volume 10.1 FL (9.6-12.0); Monocytes % 5.9 % (1.7-12.7); NRBC # 6.78 10*3/uL; Neutrophils % 59.8 % (38.7-73.9); Platelet Count 492 T/CUMM (130-400); Red Blood Count 3.52 MC/CUMM (3.8-5.5); Red Cell Distribution Width 22.4 % (9.3-17.3); White Blood Count 24.9 T/CUMM (4-12)
[2019-03-18 07:17] LABS: Lymphocytes 41 % (20-55); Metamyelocytes 1 %; Myelocytes 2 %; Nucleated Red Blood Cells 46 (0-5); Segmented Neutrophils 52 % (50-85); Total Cells Counted 100
[2019-03-18 07:20] LABS: Macrocytosis 1+; Platelet Estimate Increased; Target Cells 3+
[2019-03-18 07:21] LABS: Anisocytosis 1+; Polychromasia Slight
[2019-03-18 07:24] LABS: Howell-Jolly Bodies Few; Pappenheimer Bodies Few
[2019-03-18] MEDS: CALCIUM (CARBONATE)/VITAMIN D 600 MG-400 UNIT TABLET PO SCH ×2 (09:09→21:40)
[2019-03-18] MEDS: cefTRIAXone 1,000 MG in SYRINGE 1 EACH IV SCH (09:09)
[2019-03-18] MEDS: FOLIC ACID 1 MG TABLET PO SCH (09:09)
[2019-03-18] MEDS: DULoxetine 30 MG CAPSULE PO SCH ×2 (09:10→21:40)
[2019-03-18] MEDS: HYDROXYUREA 500 MG CAPSULE PO SCH (09:10)
[2019-03-18] MEDS: DOXYCYCLINE HYCLATE 100 MG CAPSULE PO SCH ×2 (09:10→17:11)
[2019-03-18] MEDS: TOPIRAMATE 25 MG TABLET PO SCH ×2 (09:10→21:41)
[2019-03-18] MEDS: GABAPENTIN 600 MG TABLET PO SCH ×2 (09:10→21:41)
[2019-03-18] MEDS: predniSONE 20 MG TABLET PO SCH (09:11)
[2019-03-18] MEDS: HYDROXYCHLOROQUINE 200 MG TABLET PO SCH (09:11)
[2019-03-18] MEDS ORDERED: BACLOFEN 10 MG TABLET PO PRN (11:56)
[2019-03-18] MEDS: ENOXAPARIN 100 MG/ML SYRINGE SUBCUT SCH (21:41)
[2019-03-18] MEDS: AMITRIPTYLINE 25 MG TABLET PO SCH (21:41)
[2019-03-19] MEDS: ALBUTEROL/IPRATROPIUM 3 ML NEB RESP TX SCH ×3 (00:10→13:45)
[2019-03-19] MEDS: HYDROmorphone 2 MG TABLET PO SCH ×2 (01:00→09:25)
[2019-03-19] MEDS: HYDROmorphone 2 MG/1 ML VIAL IV PRN (04:13)
[2019-03-19] MEDS: diphenhydrAMINE 50 MG/1 ML VIAL IV SCH ×2 (04:17→09:24)
[2019-03-19] MEDS ORDERED: ERGOCALCIFEROL 50,000 UNIT CAPSULE PO ONE (08:14)
[2019-03-19 09:02] LABS: Basophils # 0.1 10*3/uL (0.0-0.2); Basophils % 0.4 % (0.0-0.8); Eosinophils # 0.1 10*3/uL (0.0-0.87); Eosinophils % 0.5 % (0.00-10.9); Hematocrit 27.2 VOL% (35.7-47.0); Hemoglobin 9.7 GM/DL (12.0-16.0); Immature Granulocytes % 6.4 %; Lymphocytes # 6.2 10*3/uL (1.4-4.0); Lymphocytes % 28.7 % (21.3-54.2); Mean Corpuscular HGB Conc 35.7 GM/DL (32-36); Mean Corpuscular Volume 79.8 FL (87-102); Mean Platelet Volume 10.2 FL (9.6-12.0); Monocytes % 4.7 % (1.7-12.7); NRBC # 6.08 10*3/uL; Neutrophils % 59.3 % (38.7-73.9); Platelet Count 569 T/CUMM (130-400); Red Blood Count 3.41 MC/CUMM (3.8-5.5); Red Cell Distribution Width 22.5 % (9.3-17.3); White Blood Count 21.7 T/CUMM (4-12)
[2019-03-19] MEDS: CALCIUM (CARBONATE)/VITAMIN D 600 MG-400 UNIT TABLET PO SCH (09:24)
[2019-03-19] MEDS: GABAPENTIN 600 MG TABLET PO SCH (09:25)
[2019-03-19] MEDS: FOLIC ACID 1 MG TABLET PO SCH (09:25)
[2019-03-19] MEDS: TOPIRAMATE 25 MG TABLET PO SCH (09:25)
[2019-03-19] MEDS: HYDROXYUREA 500 MG CAPSULE PO SCH (09:26)
[2019-03-19] MEDS: CLOTRIMAZOLE 10 MG TROCHE PO SCH ×2 (09:26→12:33)
[2019-03-19] MEDS: predniSONE 20 MG TABLET PO SCH (09:26)
[2019-03-19] MEDS: HYDROXYCHLOROQUINE 200 MG TABLET PO SCH (09:26)
[2019-03-19] MEDS: DOXYCYCLINE HYCLATE 100 MG CAPSULE PO SCH (09:27)
[2019-03-19] MEDS: DULoxetine 30 MG CAPSULE PO SCH (09:30)
[2019-03-19] MEDS: cefTRIAXone 1,000 MG in SYRINGE 1 EACH IV SCH (09:31)
[2019-03-19 09:34] LABS: Calcium 9.2 MG/DL (8.5-10.1); Osmolality,Calculated 284.1 MOS/KG (273-304)
[2019-03-19 10:01] LABS: Eosinophils 2 % (0-10); Lymphocytes 25 % (20-55); Metamyelocytes 2 %; Myelocytes 1 %; Nucleated Red Blood Cells 39 (0-5); Segmented Neutrophils 57 % (50-85); Target Cells 2+; Total Cells Counted 100
[2019-03-19 10:02] LABS: Anisocytosis 1+; Macrocytosis 1+
[2019-03-19 10:03] LABS: Ovalocytes Slight
[2019-03-19 10:06] LABS: Pappenheimer Bodies 1+; Platelet Estimate Increased; Polychromasia Slight
[2019-03-19 10:07] LABS: Hypochromasia 1+
[2019-03-19 17:03] VITALS: BP 94/60
[2019-03-20] MEDS ORDERED: predniSONE 10 MG TABLET PO SCH (09:00)
== END 2019-03-19 19:55 | disposition home or self-care (01) | DRG 193 ==
LOC: N.ED 14:18 → SUATTDRO 17:29 → N.EDINP 17:29 → N.5E 18:31
PROVIDERS: ADMIT Internal Medicine Cardiovascular Disease; ATTEND Internal Medicine Geriatric Medicine

== ENCOUNTER 2019-05-04 00:14 | Inpatient (IN) ==
[2019-05-04] MEDS ORDERED: SODIUM CHLORIDE 0.9% 1,000 ML IV STA (00:33)
[2019-05-04] MEDS ORDERED: HYDROmorphone 2 MG/1 ML VIAL IV STA (00:35)
[2019-05-04 01:28] LABS: Basophils # 0.1 10*3/uL (0.0-0.2); Basophils % 0.3 % (0.0-0.8); Eosinophils # 0.2 10*3/uL (0.0-0.87); Hematocrit 23.9 VOL% (35.7-47.0); Hemoglobin 8.4 GM/DL (12.0-16.0); Immature Granulocytes % 2.8 %; Immature Granulocytes Absolute 0.46 #; Lymphocytes # 0.9 10*3/uL (1.4-4.0); Lymphocytes % 5.5 % (21.3-54.2); Mean Corpuscular HGB Conc 35.1 GM/DL (32-36); Mean Corpuscular Volume 81.6 FL (87-102); Mean Platelet Volume 10.8 FL (9.6-12.0); Monocytes % 4.9 % (1.7-12.7); NRBC # 0.12 10*3/uL; Neutrophils % 85.5 % (38.7-73.9); Platelet Count 287 T/CUMM (130-400); Red Blood Count 2.93 MC/CUMM (3.8-5.5); Red Cell Distribution Width 22.1 % (9.3-17.3); White Blood Count 16.3 T/CUMM (4-12)
[2019-05-04 01:44] LABS: Albumin 3.3 G/DL (3.4-5.0); Bilirubin,Total 0.6 MG/DL (0.2-1.0); Calcium 7.9 MG/DL (8.5-10.1); Osmolality,Calculated 286.6 MOS/KG (273-304); Total Protein 7.6 G/DL (6.4-8.3)
[2019-05-04] MEDS ORDERED: ACETAMINOPHEN 500 MG TABLET PO STA (01:44)
[2019-05-04 02:12] LABS: Apearance,Urine Slightly Hazy (Clear); Bacteria,Urine Occasional /HPF (Few); Bilirubin,Urine Negative (Negative); Blood, Urine Negative (Negative); Glucose,Urine (UA) Negative (Negative); Ketones,Urine Negative (Negative); Mucus,Urine Occasional /LPF (Occasional); Nitrite,Urine Positive (Negative); Protein,Urine Negative; RBC,Urine <1 /HPF (0-4); Squamous Epithelial Cell,Urine Few /HPF (0-10); Urine Color Yellow (Yellow); Urine Urobilinogen < 2.0 EU/DL (0.2-1.0); WBC,Urine 12 /HPF (0-6)
[2019-05-04 02:42] LABS: Anisocytosis 1+; Hypochromasia Slight; Microcytosis 1+; Platelet Estimate Normal; Target Cells 4+
[2019-05-04 02:43] LABS: Polychromasia Few; Stomatocytes Slight
[2019-05-04] MEDS ORDERED: diphenhydrAMINE CAP 25 MG CAPSULE PO PRN (03:13)
[2019-05-04] MEDS ORDERED: NICOTINE 21 MG/24 HR PATCH TRANSDERM PRN (03:13)
[2019-05-04] MEDS ORDERED: ONDANSETRON 4 MG/2 ML VIAL IV PRN (03:13)
[2019-05-04] MEDS ORDERED: PROMETHAZINE 25 MG/1 ML VIAL IM PRN (03:13)
[2019-05-04] MEDS ORDERED: ACETAMINOPHEN 325 MG TABLET PO PRN (03:13)
[2019-05-04] MEDS: SODIUM CHLORIDE 0.9% 1,000 ML IV SCH ×2 (05:10→22:12)
[2019-05-04] MEDS: HYDROmorphone 2 MG/1 ML VIAL IV PRN ×5 (05:32→20:33)
[2019-05-04] MEDS: cefTRIAXone 1,000 MG in SYRINGE 1 EACH IV SCH (05:33)
[2019-05-04] MEDS ORDERED: IBUPROFEN 400 MG TABLET PO SCH (09:00)
[2019-05-04] MEDS: OSELTAMIVIR 75 MG CAPSULE PO SCH ×2 (09:42→20:35)
[2019-05-04] MEDS: IBUPROFEN 400 MG TABLET PO SCH ×4 (09:43→20:37)
[2019-05-04] MEDS ORDERED: PROMETHAZINE 25 MG TABLET PO PRN (11:16)
[2019-05-04] MEDS ORDERED: SODIUM CHLORIDE 0.9% 1,000 ML IV ONE (11:17)
[2019-05-04] MEDS ORDERED: ACETAMINOPHEN 500 MG TABLET PO SCH (12:00)
[2019-05-04] MEDS: ENOXAPARIN 100 MG/ML SYRINGE SUBCUT SCH (12:13)
[2019-05-04] MEDS: CALCIUM (CARBONATE)/VITAMIN D 600 MG-400 UNIT TABLET PO SCH (18:00)
[2019-05-04] MEDS: ACETAMINOPHEN 500 MG TABLET PO SCH (18:15)
[2019-05-04] MEDS: TOPIRAMATE 25 MG TABLET PO SCH (20:34)
[2019-05-04] MEDS: DULoxetine 30 MG CAPSULE PO SCH (20:34)
[2019-05-04] MEDS: GABAPENTIN 600 MG TABLET PO SCH (20:34)
[2019-05-04] MEDS ORDERED: AMITRIPTYLINE 25 MG TABLET PO SCH (21:00)
[2019-05-05] MEDS: ACETAMINOPHEN 500 MG TABLET PO SCH ×3 (00:37→12:57)
[2019-05-05] MEDS: HYDROmorphone 2 MG/1 ML VIAL IV PRN ×3 (00:38→08:34)
[2019-05-05] MEDS: SODIUM CHLORIDE 0.9% 1,000 ML IV SCH ×3 (01:23→08:21)
[2019-05-05] MEDS: cefTRIAXone 1,000 MG in SYRINGE 1 EACH IV SCH (04:35)
[2019-05-05 06:01] LABS: Basophils % 0.5 % (0.0-0.8); Eosinophils # 0.1 10*3/uL (0.0-0.87); Eosinophils % 1.4 % (0.00-10.9); Hematocrit 23.5 VOL% (35.7-47.0); Immature Granulocytes % 3.7 %; Immature Granulocytes Absolute 0.21 #; Lymphocytes # 1.5 10*3/uL (1.4-4.0); Lymphocytes % 27.3 % (21.3-54.2); Mean Corpuscular Volume 83.9 FL (87-102); Mean Platelet Volume 10.8 FL (9.6-12.0); Monocytes % 6.6 % (1.7-12.7); NRBC # 0.09 10*3/uL; Neutrophils % 60.5 % (38.7-73.9); Platelet Count 125 T/CUMM (130-400); Red Cell Distribution Width 22.5 % (9.3-17.3); White Blood Count 5.6 T/CUMM (4-12)
[2019-05-05 06:16] LABS: Calcium 8.1 MG/DL (8.5-10.1); Osmolality,Calculated 276.3 MOS/KG (273-304)
[2019-05-05 06:22] LABS: Hypochromasia 1+; Microcytosis 1+; Target Cells 2+
[2019-05-05 06:23] LABS: Anisocytosis 1+; Pappenheimer Bodies 1+; Polychromasia Slight
[2019-05-05 06:24] LABS: Ovalocytes Slight
[2019-05-05 06:25] LABS: Platelet Estimate Decreased
[2019-05-05] MEDS: IBUPROFEN 400 MG TABLET PO SCH ×2 (08:21→12:57)
[2019-05-05] MEDS: CALCIUM (CARBONATE)/VITAMIN D 600 MG-400 UNIT TABLET PO SCH (08:21)
[2019-05-05] MEDS: DULoxetine 30 MG CAPSULE PO SCH (08:21)
[2019-05-05] MEDS: OSELTAMIVIR 75 MG CAPSULE PO SCH (08:22)
[2019-05-05] MEDS: GABAPENTIN 600 MG TABLET PO SCH (08:22)
[2019-05-05] MEDS: TOPIRAMATE 25 MG TABLET PO SCH (08:22)
[2019-05-05] MEDS ORDERED: FOLIC ACID 1 MG TABLET PO SCH (09:00)
[2019-05-05] MEDS ORDERED: HYDROXYCHLOROQUINE 200 MG TABLET PO SCH (09:00)
[2019-05-05] MEDS ORDERED: HYDROXYUREA 500 MG CAPSULE PO SCH (09:00)
[2019-05-05 09:59] VITALS: BP 98/61
[2019-05-05] MEDS: ENOXAPARIN 100 MG/ML SYRINGE SUBCUT SCH (12:56)
== END 2019-05-05 13:20 | disposition home or self-care (01) | DRG 866 ==
LOC: EDUNIT# → EDBD → N.EDINP 00:14 → N.ED 00:14 → N.EDINP 04:13 → N.5E 04:42
PROVIDERS: ADMIT Internal Medicine; ATTEND Internal Medicine

== ENCOUNTER 2019-06-08 22:58 | Inpatient (IN) ==
[2019-06-08] MEDS ORDERED: ONDANSETRON 4 MG/2 ML VIAL IV STA (23:17)
[2019-06-08] MEDS ORDERED: HYDROmorphone 2 MG/1 ML VIAL IV STA (23:17)
[2019-06-08] MEDS ORDERED: methylPREDNISolone SOD SUC 125 MG/2 ML VIAL IV STA (23:17)
[2019-06-08] MEDS ORDERED: SODIUM CHLORIDE 0.9% 1,000 ML IV STA (23:17)
[2019-06-08 23:46] LABS: Basophils # 0.1 10*3/uL (0.0-0.2); Basophils % 0.5 % (0.0-0.8); Eosinophils % 0.1 % (0.00-10.9); Hematocrit 26.4 VOL% (35.7-47.0); Hemoglobin 9.5 GM/DL (12.0-16.0); Immature Granulocytes Absolute 0.11 #; Lymphocytes # 1.8 10*3/uL (1.4-4.0); Lymphocytes % 16.1 % (21.3-54.2); Mean Corpuscular Volume 77.4 FL (87-102); Mean Platelet Volume 10.4 FL (9.6-12.0); Monocytes % 5.9 % (1.7-12.7); NRBC # 0.06 10*3/uL; Neutrophils % 76.4 % (38.7-73.9); Platelet Count 408 T/CUMM (130-400); Red Blood Count 3.41 MC/CUMM (3.8-5.5); Red Cell Distribution Width 18.3 % (9.3-17.3); White Blood Count 11.3 T/CUMM (4-12)
[2019-06-08 23:53] LABS: PT Patient Result 11.2 SECS (9.6-12.2)
[2019-06-09 00:08] LABS: Albumin 3.2 G/DL (3.4-5.0); Bilirubin,Total 0.5 MG/DL (0.2-1.0); Calcium 9.1 MG/DL (8.5-10.1); Osmolality,Calculated 270.7 MOS/KG (273-304); Total Protein 8.8 G/DL (6.4-8.3)
[2019-06-09] MEDS ORDERED: DEXTROSE 50% 25 GM/50 ML VIAL IV STA (00:17)
[2019-06-09 01:36] LABS: Apearance,Urine CLEAR (Clear); Bilirubin,Urine Negative (Negative); Blood, Urine Negative (Negative); Glucose,Urine (UA) Negative (Negative); Ketones,Urine Negative (Negative); Nitrite,Urine Negative (Negative); Protein,Urine Negative; RBC,Urine 2 /HPF (0-4); Urine Color Yellow (Yellow); WBC,Urine 14 /HPF (0-6)
[2019-06-09] MEDS ORDERED: cefTRIAXone 1,000 MG in SODIUM CHLORIDE 0.9% 100 ML IV STA (01:46)
[2019-06-09 01:50] LABS: Barbiturates Screen,Urine Negative (Negative); Benzodiazepines Screen,Urine Negative (Negative); Cannabinoid Screen,Urine Negative (Negative); Opiate Screen,Urine Positive (Negative); Phencyclidine Screen,Urine Negative (Negative)
[2019-06-09] MEDS ORDERED: ONDANSETRON 4 MG/2 ML VIAL IV PRN (02:23)
[2019-06-09] MEDS: SODIUM CHLORIDE 0.9% 1,000 ML IV SCH ×2 (03:30→23:10)
[2019-06-09] MEDS ORDERED: INFLUENZA VIRUS VACCINE 0.5 ML SYRINGE IM ONE (04:25)
[2019-06-09] MEDS: HYDROmorphone 2 MG/1 ML VIAL IV PRN ×6 (05:07→20:13)
[2019-06-09 05:37] LABS: Basophils % 0.2 % (0.0-0.8); Hematocrit 26.2 VOL% (35.7-47.0); Hemoglobin 9.4 GM/DL (12.0-16.0); Immature Granulocytes % 0.8 %; Immature Granulocytes Absolute 0.08 #; Lymphocytes # 0.7 10*3/uL (1.4-4.0); Lymphocytes % 6.5 % (21.3-54.2); Mean Corpuscular HGB Conc 35.9 GM/DL (32-36); Mean Corpuscular Volume 76.8 FL (87-102); Mean Platelet Volume 10.5 FL (9.6-12.0); Monocytes % 0.4 % (1.7-12.7); NRBC # 0.04 10*3/uL; Neutrophils % 92.1 % (38.7-73.9); Platelet Count 436 T/CUMM (130-400); Red Blood Count 3.41 MC/CUMM (3.8-5.5); Red Cell Distribution Width 18.1 % (9.3-17.3); White Blood Count 10.1 T/CUMM (4-12)
[2019-06-09 06:05] LABS: Albumin 3.1 G/DL (3.4-5.0); Bilirubin,Total 0.4 MG/DL (0.2-1.0); Calcium 8.8 MG/DL (8.5-10.1); Lymphocytes 6 % (20-55); Osmolality,Calculated 272.7 MOS/KG (273-304); Segmented Neutrophils 93 % (50-85); Total Cells Counted 100
[2019-06-09 06:06] LABS: Platelet Estimate Increased
[2019-06-09 06:07] LABS: Anisocytosis 3+; Macrocytosis 1+; Microcytosis 2+
[2019-06-09 06:08] LABS: Hypochromasia 2+; Ovalocytes 1+; Pappenheimer Bodies 2+; Target Cells 3+
[2019-06-09 06:09] LABS: Acanthocytes Few; Howell-Jolly Bodies Few
[2019-06-09] MEDS: PANTOPRAZOLE 40 MG TABLET PO SCH (08:24)
[2019-06-09] MEDS: predniSONE 10 MG TABLET PO SCH ×2 (08:24→17:07)
[2019-06-09] MEDS: GABAPENTIN 600 MG TABLET PO SCH ×2 (10:57→20:13)
[2019-06-09] MEDS: FOLIC ACID 1 MG TABLET PO SCH (10:58)
[2019-06-09] MEDS: HYDROXYUREA 500 MG CAPSULE PO SCH (10:59)
[2019-06-09] MEDS: DULoxetine 30 MG CAPSULE PO SCH ×2 (10:59→20:13)
[2019-06-09] MEDS: TOPIRAMATE 25 MG TABLET PO SCH ×2 (10:59→20:13)
[2019-06-09] MEDS: HYDROXYCHLOROQUINE 200 MG TABLET PO SCH (11:00)
[2019-06-09] MEDS: diphenhydrAMINE 50 MG/1 ML VIAL IV PRN ×2 (12:01→18:02)
[2019-06-09] MEDS: ENOXAPARIN 100 MG/ML SYRINGE SUBCUT SCH (20:13)
[2019-06-10] MEDS: HYDROmorphone 2 MG/1 ML VIAL IV PRN ×7 (02:00→20:20)
[2019-06-10] MEDS: cefTRIAXone 1,000 MG in SYRINGE 1 EACH IV SCH ×2 (02:11→03:09)
[2019-06-10] MEDS: diphenhydrAMINE 50 MG/1 ML VIAL IV PRN ×4 (03:10→22:01)
[2019-06-10] MEDS: SODIUM CHLORIDE 0.9% 1,000 ML IV SCH ×2 (03:59→22:05)
[2019-06-10 06:49] LABS: Basophils % 0.2 % (0.0-0.8); Hematocrit 24.7 VOL% (35.7-47.0); Hemoglobin 8.8 GM/DL (12.0-16.0); Immature Granulocytes % 0.9 %; Immature Granulocytes Absolute 0.17 #; Lymphocytes # 2.2 10*3/uL (1.4-4.0); Lymphocytes % 12.1 % (21.3-54.2); Mean Corpuscular HGB Conc 35.6 GM/DL (32-36); Mean Corpuscular Volume 78.4 FL (87-102); Mean Platelet Volume 10.6 FL (9.6-12.0); Monocytes % 3.9 % (1.7-12.7); NRBC # 0.06 10*3/uL; Neutrophils % 82.9 % (38.7-73.9); Platelet Count 387 T/CUMM (130-400); Red Blood Count 3.15 MC/CUMM (3.8-5.5); Red Cell Distribution Width 18.3 % (9.3-17.3); White Blood Count 18.3 T/CUMM (4-12)
[2019-06-10 07:09] LABS: Calcium 8.8 MG/DL (8.5-10.1)
[2019-06-10 07:19] LABS: Thyroid Stimulating Hormone 0.846 uIU/ml (0.358-3.74); Uric Acid 3.6 MG/DL (2.6-6.0)
[2019-06-10] MEDS: predniSONE 10 MG TABLET PO SCH ×2 (07:57→17:36)
[2019-06-10] MEDS: DULoxetine 30 MG CAPSULE PO SCH ×2 (08:03→20:22)
[2019-06-10] MEDS: FOLIC ACID 1 MG TABLET PO SCH (08:03)
[2019-06-10] MEDS: HYDROXYUREA 500 MG CAPSULE PO SCH (08:03)
[2019-06-10] MEDS: HYDROXYCHLOROQUINE 200 MG TABLET PO SCH (08:04)
[2019-06-10] MEDS: GABAPENTIN 600 MG TABLET PO SCH ×2 (08:04→20:22)
[2019-06-10] MEDS: TOPIRAMATE 25 MG TABLET PO SCH ×2 (08:04→20:22)
[2019-06-10] MEDS: PANTOPRAZOLE 40 MG TABLET PO SCH (08:04)
[2019-06-10] MEDS: ENOXAPARIN 100 MG/ML SYRINGE SUBCUT SCH (20:22)
[2019-06-11] MEDS: cefTRIAXone 1,000 MG in SYRINGE 1 EACH IV SCH (02:45)
[2019-06-11] MEDS: HYDROmorphone 2 MG/1 ML VIAL IV PRN ×6 (02:50→23:03)
[2019-06-11] MEDS: SODIUM CHLORIDE 0.9% 1,000 ML IV SCH ×5 (07:38→23:32)
[2019-06-11] MEDS: diphenhydrAMINE 50 MG/1 ML VIAL IV PRN ×3 (07:38→23:02)
[2019-06-11] MEDS: FOLIC ACID 1 MG TABLET PO SCH (08:46)
[2019-06-11] MEDS: HYDROXYUREA 500 MG CAPSULE PO SCH (08:46)
[2019-06-11] MEDS: GABAPENTIN 600 MG TABLET PO SCH ×2 (08:46→20:57)
[2019-06-11] MEDS: TOPIRAMATE 25 MG TABLET PO SCH ×2 (08:47→20:57)
[2019-06-11] MEDS: HYDROXYCHLOROQUINE 200 MG TABLET PO SCH (08:47)
[2019-06-11] MEDS: predniSONE 10 MG TABLET PO SCH ×2 (08:47→17:48)
[2019-06-11] MEDS: PANTOPRAZOLE 40 MG TABLET PO SCH (08:49)
[2019-06-11] MEDS: DULoxetine 30 MG CAPSULE PO SCH ×2 (08:54→20:56)
[2019-06-11] MEDS ORDERED: HYDROmorphone 2 MG/1 ML VIAL IM PRN (13:54)
[2019-06-11] MEDS: ENOXAPARIN 100 MG/ML SYRINGE SUBCUT SCH (20:56)
[2019-06-12] MEDS: cefTRIAXone 1,000 MG in SYRINGE 1 EACH IV SCH (01:09)
[2019-06-12] MEDS: HYDROmorphone 2 MG/1 ML VIAL IV PRN ×3 (03:05→11:20)
[2019-06-12] MEDS: SODIUM CHLORIDE 0.9% 1,000 ML IV SCH ×2 (05:16→18:09)
[2019-06-12 06:07] LABS: Basophils % 0.2 % (0.0-0.8); Eosinophils % 0.1 % (0.00-10.9); Hematocrit 26.7 VOL% (35.7-47.0); Hemoglobin 9.4 GM/DL (12.0-16.0); Immature Granulocytes % 1.1 %; Immature Granulocytes Absolute 0.22 #; Lymphocytes % 15.5 % (21.3-54.2); Mean Corpuscular HGB Conc 35.2 GM/DL (32-36); Mean Corpuscular Volume 78.1 FL (87-102); NRBC # 0.26 10*3/uL; Neutrophils % 77.1 % (38.7-73.9); Platelet Count 401 T/CUMM (130-400); Red Blood Count 3.42 MC/CUMM (3.8-5.5); Red Cell Distribution Width 18.5 % (9.3-17.3); White Blood Count 19.3 T/CUMM (4-12)
[2019-06-12] MEDS: diphenhydrAMINE 50 MG/1 ML VIAL IV PRN (07:25)
[2019-06-12] MEDS: HYDROXYUREA 500 MG CAPSULE PO SCH (08:46)
[2019-06-12] MEDS: predniSONE 10 MG TABLET PO SCH ×2 (08:46→17:31)
[2019-06-12] MEDS: DULoxetine 30 MG CAPSULE PO SCH ×2 (08:46→20:52)
[2019-06-12] MEDS: FOLIC ACID 1 MG TABLET PO SCH (08:46)
[2019-06-12] MEDS: TOPIRAMATE 25 MG TABLET PO SCH ×2 (08:47→20:51)
[2019-06-12] MEDS: PANTOPRAZOLE 40 MG TABLET PO SCH (08:47)
[2019-06-12] MEDS: GABAPENTIN 600 MG TABLET PO SCH ×2 (08:47→20:52)
[2019-06-12] MEDS ORDERED: diphenhydrAMINE CAP 50 MG CAPSULE PO PRN (15:23)
[2019-06-12] MEDS: HYDROmorphone 2 MG TABLET PO PRN ×2 (15:29→20:52)
[2019-06-12] MEDS: ENOXAPARIN 100 MG/ML SYRINGE SUBCUT SCH (20:53)
[2019-06-13] MEDS: HYDROmorphone 2 MG TABLET PO PRN ×2 (01:22→08:23)
[2019-06-13] MEDS: cefTRIAXone 1,000 MG in SYRINGE 1 EACH IV SCH (01:23)
[2019-06-13] MEDS: HYDROXYUREA 500 MG CAPSULE PO SCH (08:20)
[2019-06-13] MEDS: FOLIC ACID 1 MG TABLET PO SCH (08:21)
[2019-06-13] MEDS: predniSONE 10 MG TABLET PO SCH (08:23)
[2019-06-13] MEDS: DULoxetine 30 MG CAPSULE PO SCH (08:24)
[2019-06-13] MEDS: TOPIRAMATE 25 MG TABLET PO SCH (08:24)
[2019-06-13] MEDS: PANTOPRAZOLE 40 MG TABLET PO SCH (08:25)
[2019-06-13] MEDS: GABAPENTIN 600 MG TABLET PO SCH (08:25)
[2019-06-13 08:44] VITALS: BP 156/67
[2019-06-13] MEDS ORDERED: MAGNESIUM CITRATE 300 ML BOTTLE PO ONE (08:56)
== END 2019-06-13 10:59 | disposition home or self-care (01) | DRG 811 ==
LOC: EDBD → EDUNIT# → N.ED 22:58 → N.EDINP 06-09 02:14 → N.4E 06-09 02:39
PROVIDERS: ADMIT Internal Medicine; ATTEND Internal Medicine

== ENCOUNTER 2019-07-06 07:04 | Inpatient (IN) ==
[2019-07-06] MEDS ORDERED: ONDANSETRON 4 MG/2 ML VIAL IV STA (07:29)
[2019-07-06] MEDS ORDERED: HYDROmorphone 2 MG/1 ML VIAL IV STA ×2 (07:29→09:08)
[2019-07-06] MEDS ORDERED: SODIUM CHLORIDE 0.9% 1,000 ML IV STA (07:30)
[2019-07-06 07:34] LABS: Basophils # 0.1 10*3/uL (0.0-0.2); Basophils % 0.6 % (0.0-0.8); Eosinophils # 0.2 10*3/uL (0.0-0.87); Eosinophils % 2.2 % (0.00-10.9); Hematocrit 25.5 VOL% (35.7-47.0); Hemoglobin 8.7 GM/DL (12.0-16.0); Immature Granulocytes % 1.9 %; Immature Granulocytes Absolute 0.19 #; Lymphocytes # 1.8 10*3/uL (1.4-4.0); Lymphocytes % 17.2 % (21.3-54.2); Mean Corpuscular HGB Conc 34.1 GM/DL (32-36); Mean Corpuscular Volume 79.4 FL (87-102); Mean Platelet Volume 10.3 FL (9.6-12.0); Monocytes % 7.5 % (1.7-12.7); NRBC # 0.11 10*3/uL; Neutrophils % 70.6 % (38.7-73.9); Platelet Count 534 T/CUMM (130-400); Red Blood Count 3.21 MC/CUMM (3.8-5.5); Red Cell Distribution Width 20.5 % (9.3-17.3); White Blood Count 10.2 T/CUMM (4-12)
[2019-07-06 07:48] LABS: Albumin 2.8 G/DL (3.4-5.0); Bilirubin,Total 0.4 MG/DL (0.2-1.0); Calcium 8.6 MG/DL (8.5-10.1); Osmolality,Calculated 273.5 MOS/KG (273-304); Total Protein 7.9 G/DL (6.4-8.3)
[2019-07-06 07:55] LABS: Apearance,Urine Slightly Hazy (Clear); Bilirubin,Urine Negative (Negative); Blood, Urine Negative (Negative); Glucose,Urine (UA) Negative (Negative); Ketones,Urine Negative (Negative); Nitrite,Urine Positive (Negative); Protein,Urine Negative; RBC,Urine <1 /HPF (0-4); Squamous Epithelial Cell,Urine Occasional /HPF (0-10); Urine Color Yellow (Yellow); Urine Specific Gravity 1.011 (1.001-1.035); WBC,Urine 9 /HPF (0-6)
[2019-07-06 07:58] LABS: Barbiturates Screen,Urine Negative (Negative); Benzodiazepines Screen,Urine Negative (Negative); Cannabinoid Screen,Urine Negative (Negative); Opiate Screen,Urine Positive (Negative); Phencyclidine Screen,Urine Negative (Negative)
[2019-07-06] MEDS ORDERED: NALOXONE 0.4 MG/ML VIAL IV PRN (10:24)
[2019-07-06] MEDS ORDERED: SODIUM CHLORIDE 0.9% 1,000 ML IV PRN (10:24)
[2019-07-06] MEDS ORDERED: ONDANSETRON 4 MG/2 ML VIAL IV PRN (10:26)
[2019-07-06] MEDS ORDERED: BISACODYL 5 MG TABLET PO PRN (10:26)
[2019-07-06] MEDS ORDERED: PROMETHAZINE 25 MG TABLET PO PRN (10:29)
[2019-07-06] MEDS ORDERED: ENOXAPARIN 40 MG/0.4 ML SYRINGE SUBCUT SCH (10:30)
[2019-07-06] MEDS ORDERED: HYDROmorphone PCA 30 MG/30 ML SYRINGE IV SCH (10:30)
[2019-07-06] MEDS ORDERED: POTASSIUM CHLORIDE 20 MEQ TABLET PO STA (10:39)
[2019-07-06] MEDS: diphenhydrAMINE CAP 25 MG CAPSULE PO PRN (12:19)
[2019-07-06] MEDS: cefTRIAXone 1,000 MG in SYRINGE 1 EACH IV SCH (12:25)
[2019-07-06] MEDS: SODIUM CHLORIDE 0.9% 1,000 ML IV SCH ×2 (20:16→21:18)
[2019-07-06] MEDS: DOCUSATE SODIUM 100 MG CAPSULE PO SCH (21:18)
[2019-07-06] MEDS: TOPIRAMATE 25 MG TABLET PO SCH (21:18)
[2019-07-06] MEDS: GABAPENTIN 600 MG TABLET PO SCH (21:18)
[2019-07-06] MEDS: ENOXAPARIN 100 MG/ML SYRINGE SUBCUT SCH (21:18)
[2019-07-06] MEDS: DULoxetine 30 MG CAPSULE PO SCH (21:19)
[2019-07-07] MEDS: ACETAMINOPHEN 325 MG TABLET PO PRN (02:07)
[2019-07-07] MEDS: SODIUM CHLORIDE 0.9% 1,000 ML IV SCH ×2 (05:45→12:48)
[2019-07-07] MEDS ORDERED: HYDROXYCHLOROQUINE 200 MG TABLET PO SCH (09:00)
[2019-07-07] MEDS: HYDROXYUREA 500 MG CAPSULE PO SCH (09:24)
[2019-07-07] MEDS: FOLIC ACID 1 MG TABLET PO SCH (09:24)
[2019-07-07] MEDS: GABAPENTIN 600 MG TABLET PO SCH ×2 (09:24→21:38)
[2019-07-07] MEDS: TOPIRAMATE 25 MG TABLET PO SCH ×2 (09:24→21:38)
[2019-07-07] MEDS: DOCUSATE SODIUM 100 MG CAPSULE PO SCH ×3 (09:25→21:38)
[2019-07-07] MEDS: methylPREDNISolone SOD SUC 40 MG/1 ML VIAL IV SCH (09:25)
[2019-07-07] MEDS: DULoxetine 30 MG CAPSULE PO SCH ×2 (09:25→21:38)
[2019-07-07 09:30] LABS: Basophils # 0.1 10*3/uL (0.0-0.2); Basophils % 0.7 % (0.0-0.8); Eosinophils # 0.2 10*3/uL (0.0-0.87); Eosinophils % 2.5 % (0.00-10.9); Hematocrit 24.4 VOL% (35.7-47.0); Hemoglobin 8.3 GM/DL (12.0-16.0); Immature Granulocytes % 2.5 %; Immature Granulocytes Absolute 0.24 #; Lymphocytes # 2.1 10*3/uL (1.4-4.0); Lymphocytes % 22.6 % (21.3-54.2); Mean Platelet Volume 10.7 FL (9.6-12.0); Monocytes % 9.1 % (1.7-12.7); NRBC # 0.09 10*3/uL; Neutrophils % 62.6 % (38.7-73.9); Red Blood Count 3.05 MC/CUMM (3.8-5.5); Red Cell Distribution Width 20.8 % (9.3-17.3); White Blood Count 9.5 T/CUMM (4-12)
[2019-07-07 09:34] LABS: Platelet Count 310 T/CUMM (130-400)
[2019-07-07 09:53] LABS: Eosinophils 1 % (0-10); Hypochromasia 1+; Lymphocytes 22 % (20-55); Nucleated Red Blood Cells 2 (0-5); Platelet Estimate Adequate; Segmented Neutrophils 71 % (50-85); Total Cells Counted 100
[2019-07-07 09:54] LABS: Macrocytosis Slight; Ovalocytes Slight; Polychromasia Slight; Target Cells Few
[2019-07-07 09:55] LABS: Howell-Jolly Bodies Few; Pappenheimer Bodies Slight
[2019-07-07 09:56] LABS: Sickle Cells Slight
[2019-07-07 10:32] LABS: Osmolality,Calculated 274.4 MOS/KG (273-304)
[2019-07-07] MEDS: cefTRIAXone 1,000 MG in SYRINGE 1 EACH IV SCH (12:48)
[2019-07-07] MEDS: ENOXAPARIN 100 MG/ML SYRINGE SUBCUT SCH (21:37)
[2019-07-08] MEDS: SODIUM CHLORIDE 0.9% 1,000 ML IV SCH (07:02)
[2019-07-08] MEDS: DOCUSATE SODIUM 100 MG CAPSULE PO SCH ×2 (09:55→20:43)
[2019-07-08] MEDS: GABAPENTIN 600 MG TABLET PO SCH ×2 (09:55→20:44)
[2019-07-08] MEDS: FOLIC ACID 1 MG TABLET PO SCH (09:55)
[2019-07-08] MEDS: methylPREDNISolone SOD SUC 40 MG/1 ML VIAL IV SCH (09:56)
[2019-07-08] MEDS: TOPIRAMATE 25 MG TABLET PO SCH ×2 (09:56→20:44)
[2019-07-08] MEDS: DULoxetine 30 MG CAPSULE PO SCH ×2 (09:56→20:44)
[2019-07-08] MEDS: HYDROXYUREA 500 MG CAPSULE PO SCH (09:56)
[2019-07-08] MEDS: HYDROmorphone PCA 30 MG/30 ML SYRINGE IV SCH ×2 (11:52→19:40)
[2019-07-08 15:20] LABS: Basophils # 0.1 10*3/uL (0.0-0.2); Basophils % 0.7 % (0.0-0.8); Eosinophils # 0.2 10*3/uL (0.0-0.87); Eosinophils % 2.1 % (0.00-10.9); Hematocrit 23.2 VOL% (35.7-47.0); Hemoglobin 7.9 GM/DL (12.0-16.0); Immature Granulocytes % 2.1 %; Immature Granulocytes Absolute 0.17 #; Lymphocytes # 2.1 10*3/uL (1.4-4.0); Lymphocytes % 25.7 % (21.3-54.2); Mean Corpuscular HGB Conc 34.1 GM/DL (32-36); Mean Corpuscular Volume 79.5 FL (87-102); Mean Platelet Volume 10.2 FL (9.6-12.0); Monocytes % 7.6 % (1.7-12.7); Neutrophils % 61.8 % (38.7-73.9); Platelet Count 584 T/CUMM (130-400); Red Blood Count 2.92 MC/CUMM (3.8-5.5); Red Cell Distribution Width 19.9 % (9.3-17.3); White Blood Count 8.2 T/CUMM (4-12)
[2019-07-08] MEDS: cefTRIAXone 1,000 MG in SYRINGE 1 EACH IV SCH (17:56)
[2019-07-08] MEDS: ACETAMINOPHEN 325 MG TABLET PO PRN (17:58)
[2019-07-08] MEDS: ENOXAPARIN 100 MG/ML SYRINGE SUBCUT SCH (20:44)
[2019-07-09 06:42] LABS: Calcium 9.2 MG/DL (8.5-10.1); Osmolality,Calculated 270.8 MOS/KG (273-304)
[2019-07-09 06:44] LABS: Basophils % 0.3 % (0.0-0.8); Hemoglobin 9.1 GM/DL (12.0-16.0); Immature Granulocytes % 1.1 %; Immature Granulocytes Absolute 0.11 #; Lymphocytes # 1.3 10*3/uL (1.4-4.0); Lymphocytes % 13.5 % (21.3-54.2); Mean Corpuscular HGB Conc 31.4 GM/DL (32-36); Mean Corpuscular Volume 87.3 FL (87-102); Mean Platelet Volume 13.2 FL (9.6-12.0); Monocytes % 2.8 % (1.7-12.7); NRBC # 0.13 10*3/uL; Neutrophils % 82.3 % (38.7-73.9); Platelet Count 945 T/CUMM (130-400); Red Blood Count 3.32 MC/CUMM (3.8-5.5); Red Cell Distribution Width 28.5 % (9.3-17.3); White Blood Count 9.7 T/CUMM (4-12)
[2019-07-09 07:52] LABS: Anisocytosis 1+; Hypochromasia 1+; Macrocytosis 1+
[2019-07-09 07:53] LABS: Ovalocytes Slight; Pappenheimer Bodies Slight; Polychromasia Slight; Target Cells 1+
[2019-07-09 07:54] LABS: Platelet Estimate Increased; Sickle Cells Slight
[2019-07-09] MEDS ORDERED: predniSONE 20 MG TABLET PO SCH (09:00)
[2019-07-09] MEDS: HYDROXYUREA 500 MG CAPSULE PO SCH (09:34)
[2019-07-09] MEDS: FOLIC ACID 1 MG TABLET PO SCH (09:35)
[2019-07-09] MEDS: GABAPENTIN 600 MG TABLET PO SCH ×2 (09:35→20:49)
[2019-07-09] MEDS: DULoxetine 30 MG CAPSULE PO SCH ×2 (09:36→20:49)
[2019-07-09] MEDS: TOPIRAMATE 25 MG TABLET PO SCH ×2 (09:36→20:49)
[2019-07-09] MEDS: DOCUSATE SODIUM 100 MG CAPSULE PO SCH ×2 (09:38→23:51)
[2019-07-09] MEDS: oxyCODONE IR 5 MG TABLET PO PRN ×2 (13:59→20:49)
[2019-07-09] MEDS: diphenhydrAMINE CAP 25 MG CAPSULE PO PRN (14:00)
[2019-07-09] MEDS: ACETAMINOPHEN 325 MG TABLET PO PRN (18:03)
[2019-07-09] MEDS: cefTRIAXone 1,000 MG in SYRINGE 1 EACH IV SCH (18:03)
[2019-07-09] MEDS: ENOXAPARIN 100 MG/ML SYRINGE SUBCUT SCH (20:50)
[2019-07-10] MEDS: oxyCODONE IR 5 MG TABLET PO PRN (02:49)
[2019-07-10 04:38] LABS: Basophils % 0.2 % (0.0-0.8); Eosinophils # 0.1 10*3/uL (0.0-0.87); Eosinophils % 0.5 % (0.00-10.9); Hematocrit 24.5 VOL% (35.7-47.0); Hemoglobin 8.7 GM/DL (12.0-16.0); Immature Granulocytes % 0.9 %; Immature Granulocytes Absolute 0.11 #; Lymphocytes # 3.2 10*3/uL (1.4-4.0); Lymphocytes % 25.9 % (21.3-54.2); Mean Corpuscular HGB Conc 35.5 GM/DL (32-36); Mean Corpuscular Volume 77.8 FL (87-102); NRBC # 0.16 10*3/uL; Neutrophils % 67.5 % (38.7-73.9); Platelet Count 632 T/CUMM (130-400); Red Blood Count 3.15 MC/CUMM (3.8-5.5); Red Cell Distribution Width 20.6 % (9.3-17.3); White Blood Count 12.2 T/CUMM (4-12)
[2019-07-10 05:09] LABS: Calcium 8.9 MG/DL (8.5-10.1); Osmolality,Calculated 275.4 MOS/KG (273-304)
[2019-07-10] MEDS ORDERED: POTASSIUM CHLORIDE 20 MEQ TABLET PO PRN (07:12)
[2019-07-10] MEDS ORDERED: POTASSIUM CHLORIDE 20 MEQ TABLET PO ONE (07:41)
[2019-07-10] MEDS ORDERED: HYDROmorphone 2 MG TABLET PO PRN (07:48)
[2019-07-10 08:26] VITALS: BP 145/98
[2019-07-10] MEDS: FOLIC ACID 1 MG TABLET PO SCH (08:59)
[2019-07-10] MEDS ORDERED: methylPREDNISolone SOD SUC 40 MG/1 ML VIAL IV SCH (09:00)
[2019-07-10] MEDS: TOPIRAMATE 25 MG TABLET PO SCH (09:01)
[2019-07-10] MEDS: HYDROXYUREA 500 MG CAPSULE PO SCH (09:02)
[2019-07-10] MEDS: GABAPENTIN 600 MG TABLET PO SCH (09:02)
[2019-07-10] MEDS: DULoxetine 30 MG CAPSULE PO SCH (09:02)
[2019-07-10] MEDS: DOCUSATE SODIUM 100 MG CAPSULE PO SCH (10:37)
== END 2019-07-10 12:20 | disposition home or self-care (01) | DRG 812 ==
LOC: EDBD → EDUNIT# → N.ED 07:04 → SUATTDRO 10:28 → N.EDINP 10:28 → N.4E 10:42
PROVIDERS: ADMIT Internal Medicine; ATTEND Internal Medicine

== ENCOUNTER 2019-08-04 18:15 | Observation (INO) ==
[2019-08-04] MEDS ORDERED: ONDANSETRON 4 MG/2 ML VIAL IV STA (18:36)
[2019-08-04] MEDS ORDERED: SODIUM CHLORIDE 0.9% 1,000 ML IV STA (18:36)
[2019-08-04] MEDS ORDERED: HYDROmorphone 2 MG/1 ML VIAL IV STA (18:40)
[2019-08-04 20:34] LABS: Basophils # 0.1 10*3/uL (0.0-0.2); Basophils % 0.4 % (0.0-0.8); Eosinophils # 0.1 10*3/uL (0.0-0.87); Eosinophils % 0.4 % (0.00-10.9); Hematocrit 29.7 VOL% (35.7-47.0); Hemoglobin 10.1 GM/DL (12.0-16.0); Immature Granulocytes % 1.1 %; Immature Granulocytes Absolute 0.15 #; Lymphocytes # 1.7 10*3/uL (1.4-4.0); Lymphocytes % 11.9 % (21.3-54.2); Mean Corpuscular Volume 80.3 FL (87-102); Mean Platelet Volume 10.3 FL (9.6-12.0); Monocytes % 4.4 % (1.7-12.7); NRBC # 0.11 10*3/uL; Neutrophils % 81.8 % (38.7-73.9); Platelet Count 521 T/CUMM (130-400); Red Cell Distribution Width 20.3 % (9.3-17.3); White Blood Count 14.2 T/CUMM (4-12)
[2019-08-04 20:46] LABS: INR 1.1
[2019-08-04 21:07] LABS: Albumin 3.7 G/DL (3.4-5.0); Bilirubin,Total 0.5 MG/DL (0.2-1.0); Ferritin 2875.6 ng/ml (8-252); Total Protein 9.7 G/DL (6.4-8.3)
[2019-08-04] MEDS ORDERED: methylPREDNISolone SOD SUC 125 MG/2 ML VIAL IV STA (21:11)
[2019-08-04] MEDS ORDERED: HYDROXYCHLOROQUINE 200 MG TABLET PO STA (21:12)
[2019-08-04] MEDS ORDERED: DOCUSATE SODIUM 100 MG CAPSULE PO PRN (21:24)
[2019-08-04] MEDS ORDERED: ALUMINUM/MAGNES/SIMETH MAX STR 30 ML UDCUP PO PRN (21:24)
[2019-08-04] MEDS ORDERED: DEXTROSE 50% 25 GM/50 ML SYRINGE IV PRN (21:24)
[2019-08-04] MEDS ORDERED: CALCIUM CARBONATE CHEW 500 MG TABLET PO PRN (21:24)
[2019-08-04] MEDS ORDERED: GLUCAGON 1 MG VIAL IM PRN (21:24)
[2019-08-04] MEDS ORDERED: ONDANSETRON 4 MG/2 ML VIAL IV PRN (21:24)
[2019-08-04 21:27] LABS: Apearance,Urine CLOUDY (Clear); Bacteria,Urine Many /HPF (Few); Bilirubin,Urine Negative (Negative); Blood, Urine Small mg/dL (Negative); Glucose,Urine (UA) Negative (Negative); Ketones,Urine Negative (Negative); Nitrite,Urine Negative (Negative); Protein,Urine Negative; Squamous Epithelial Cell,Urine Occasional /HPF (0-10); Urine Color Yellow (Yellow); Urine Specific Gravity 1.011 (1.001-1.035); WBC,Urine 1332 /HPF (0-6)
[2019-08-04] MEDS ORDERED: SODIUM CHLORIDE 0.9% 1,000 ML IV PRN (21:35)
[2019-08-04] MEDS ORDERED: NALOXONE 0.4 MG/ML VIAL IV PRN (21:35)
[2019-08-04] MEDS ORDERED: HYDROmorphone PCA 30 MG/30 ML SYRINGE IV SCH (22:00)
[2019-08-05] MEDS: SODIUM CHLORIDE 0.9% 1,000 ML IV SCH ×2 (00:15→12:14)
[2019-08-05] MEDS: DOXYCYCLINE HYCLATE INJ 100 MG in SODIUM CHLORIDE 0.9% 100 ML IV SCH ×3 (02:37→22:23)
[2019-08-05 06:34] LABS: Basophils % 0.3 % (0.0-0.8); Hematocrit 26.6 VOL% (35.7-47.0); Hemoglobin 9.1 GM/DL (12.0-16.0); Immature Granulocytes % 1.1 %; Immature Granulocytes Absolute 0.13 #; Lymphocytes # 0.6 10*3/uL (1.4-4.0); Lymphocytes % 5.1 % (21.3-54.2); Mean Corpuscular HGB Conc 34.2 GM/DL (32-36); Mean Corpuscular Volume 80.9 FL (87-102); Mean Platelet Volume 10.6 FL (9.6-12.0); Monocytes % 0.3 % (1.7-12.7); NRBC # 0.07 10*3/uL; Neutrophils % 93.2 % (38.7-73.9); Platelet Count 502 T/CUMM (130-400); Red Blood Count 3.29 MC/CUMM (3.8-5.5); Red Cell Distribution Width 19.6 % (9.3-17.3); White Blood Count 11.8 T/CUMM (4-12)
[2019-08-05 06:56] LABS: Albumin 3.3 G/DL (3.4-5.0); Bilirubin,Total 0.6 MG/DL (0.2-1.0); Calcium 8.8 MG/DL (8.5-10.1); Osmolality,Calculated 276.7 MOS/KG (273-304); Total Protein 8.6 G/DL (6.4-8.3)
[2019-08-05 07:01] LABS: Band Neutrophils 1 % (0-10); Hypochromasia 1+; Lymphocytes 4 % (20-55); Nucleated Red Blood Cells 3 (0-5); Segmented Neutrophils 93 % (50-85); Total Cells Counted 100
[2019-08-05 07:02] LABS: Polychromasia Slight
[2019-08-05 07:03] LABS: Anisocytosis 1+; Macrocytosis 1+; Pappenheimer Bodies Few
[2019-08-05 07:04] LABS: Platelet Estimate Increased; Target Cells 1+
[2019-08-05] MEDS ORDERED: HYDROXYCHLOROQUINE 200 MG TABLET PO SCH ×2 (09:00→12:00)
[2019-08-05] MEDS: PANTOPRAZOLE 40 MG TABLET PO SCH (09:33)
[2019-08-05] MEDS ORDERED: diphenhydrAMINE CAP 25 MG CAPSULE PO PRN (11:42)
[2019-08-05] MEDS ORDERED: ENOXAPARIN 100 MG/ML SYRINGE SUBCUT SCH (12:00)
[2019-08-05] MEDS: HYDROXYUREA 500 MG CAPSULE PO SCH (12:14)
[2019-08-05] MEDS: GABAPENTIN 600 MG TABLET PO SCH ×2 (12:15→20:57)
[2019-08-05] MEDS: TOPIRAMATE 25 MG TABLET PO SCH ×2 (12:15→20:57)
[2019-08-05] MEDS: predniSONE 20 MG TABLET PO SCH (12:15)
[2019-08-05] MEDS: HYDROXYCHLOROQUINE 200 MG TABLET PO SCH (20:57)
[2019-08-05] MEDS: ZALEPLON 5 MG CAPSULE PO PRN (20:57)
[2019-08-05] MEDS: ENOXAPARIN 100 MG/ML SYRINGE SUBCUT SCH (20:57)
[2019-08-06] MEDS: SODIUM CHLORIDE 0.9% 1,000 ML IV SCH ×5 (01:05→23:07)
[2019-08-06] MEDS: HYDROmorphone PCA 30 MG/30 ML SYRINGE IV SCH ×2 (02:45→21:54)
[2019-08-06 04:56] LABS: Basophils % 0.1 % (0.0-0.8); Eosinophils % 0.1 % (0.00-10.9); Hematocrit 24.6 VOL% (35.7-47.0); Hemoglobin 8.5 GM/DL (12.0-16.0); Immature Granulocytes % 0.8 %; Immature Granulocytes Absolute 0.11 #; Lymphocytes % 14.6 % (21.3-54.2); Mean Corpuscular HGB Conc 34.6 GM/DL (32-36); Mean Corpuscular Volume 80.9 FL (87-102); Mean Platelet Volume 11.2 FL (9.6-12.0); Monocytes % 4.7 % (1.7-12.7); NRBC # 0.05 10*3/uL; Neutrophils % 79.7 % (38.7-73.9); Platelet Count 445 T/CUMM (130-400); Red Blood Count 3.04 MC/CUMM (3.8-5.5); Red Cell Distribution Width 19.2 % (9.3-17.3); White Blood Count 13.8 T/CUMM (4-12)
[2019-08-06 04:57] LABS: Calcium 8.8 MG/DL (8.5-10.1); Osmolality,Calculated 275.5 MOS/KG (273-304)
[2019-08-06] MEDS: GABAPENTIN 600 MG TABLET PO SCH ×2 (08:31→21:53)
[2019-08-06] MEDS: PANTOPRAZOLE 40 MG TABLET PO SCH (08:32)
[2019-08-06] MEDS: TOPIRAMATE 25 MG TABLET PO SCH ×2 (08:32→21:53)
[2019-08-06] MEDS: predniSONE 20 MG TABLET PO SCH (08:32)
[2019-08-06] MEDS: HYDROXYUREA 500 MG CAPSULE PO SCH (08:33)
[2019-08-06] MEDS: HYDROXYCHLOROQUINE 200 MG TABLET PO SCH ×2 (08:36→21:53)
[2019-08-06] MEDS: DOXYCYCLINE HYCLATE INJ 100 MG in SODIUM CHLORIDE 0.9% 100 ML IV SCH ×2 (10:52→23:07)
[2019-08-06] MEDS: ZINC SULFATE 220 MG CAPSULE PO SCH (10:52)
[2019-08-06] MEDS: HYDROmorphone 2 MG TABLET PO PRN ×3 (11:15→23:08)
[2019-08-06] MEDS: FOLIC ACID 1 MG TABLET PO SCH (11:51)
[2019-08-06] MEDS ORDERED: HYDROmorphone 2 MG TABLET PO PRN (21:36)
[2019-08-06] MEDS: ZALEPLON 5 MG CAPSULE PO PRN (21:53)
[2019-08-06] MEDS: ENOXAPARIN 100 MG/ML SYRINGE SUBCUT SCH (21:53)
[2019-08-07 05:50] LABS: Basophils % 0.3 % (0.0-0.8); Eosinophils # 0.1 10*3/uL (0.0-0.87); Eosinophils % 0.5 % (0.00-10.9); Hematocrit 23.7 VOL% (35.7-47.0); Hemoglobin 8.1 GM/DL (12.0-16.0); Immature Granulocytes % 1.2 %; Immature Granulocytes Absolute 0.14 #; Lymphocytes # 3.7 10*3/uL (1.4-4.0); Lymphocytes % 31.2 % (21.3-54.2); Mean Corpuscular HGB Conc 34.2 GM/DL (32-36); Mean Corpuscular Volume 79.3 FL (87-102); Mean Platelet Volume 11.2 FL (9.6-12.0); Monocytes % 5.8 % (1.7-12.7); NRBC # 0.12 10*3/uL; Platelet Count 401 T/CUMM (130-400); Red Blood Count 2.99 MC/CUMM (3.8-5.5); Red Cell Distribution Width 19.1 % (9.3-17.3); White Blood Count 11.8 T/CUMM (4-12)
[2019-08-07 06:13] LABS: Calcium 8.3 MG/DL (8.5-10.1); Osmolality,Calculated 280.1 MOS/KG (273-304)
[2019-08-07] MEDS: HYDROmorphone 2 MG TABLET PO PRN (06:20)
[2019-08-07] MEDS ORDERED: POTASSIUM CHLORIDE 20 MEQ TABLET PO ONE (07:41)
[2019-08-07] MEDS: HYDROXYUREA 500 MG CAPSULE PO SCH (08:40)
[2019-08-07] MEDS: GABAPENTIN 600 MG TABLET PO SCH ×2 (08:41→21:15)
[2019-08-07] MEDS: TOPIRAMATE 25 MG TABLET PO SCH ×2 (08:41→21:15)
[2019-08-07] MEDS: FOLIC ACID 1 MG TABLET PO SCH (08:41)
[2019-08-07] MEDS: PANTOPRAZOLE 40 MG TABLET PO SCH (08:42)
[2019-08-07] MEDS: predniSONE 20 MG TABLET PO SCH (08:42)
[2019-08-07] MEDS: SODIUM CHLORIDE 0.9% 1,000 ML IV SCH ×2 (08:43→21:15)
[2019-08-07] MEDS: DOXYCYCLINE HYCLATE INJ 100 MG in SODIUM CHLORIDE 0.9% 100 ML IV SCH ×2 (14:35→22:46)
[2019-08-07] MEDS ORDERED: HYDROmorphone 2 MG TABLET PO PRN (17:30)
[2019-08-07] MEDS ORDERED: HYDROmorphone 2 MG TABLET PO ONE (18:12)
[2019-08-07] MEDS: ENOXAPARIN 100 MG/ML SYRINGE SUBCUT SCH (21:15)
[2019-08-07] MEDS: HYDROmorphone 2 MG TABLET PO SCH (21:15)
[2019-08-08] MEDS: HYDROmorphone 2 MG TABLET PO SCH (05:52)
[2019-08-08] MEDS: GABAPENTIN 600 MG TABLET PO SCH (09:10)
[2019-08-08] MEDS: FOLIC ACID 1 MG TABLET PO SCH (09:10)
[2019-08-08] MEDS: PANTOPRAZOLE 40 MG TABLET PO SCH (09:10)
[2019-08-08] MEDS: predniSONE 20 MG TABLET PO SCH (09:11)
[2019-08-08] MEDS: TOPIRAMATE 25 MG TABLET PO SCH (09:11)
[2019-08-08] MEDS: HYDROXYUREA 500 MG CAPSULE PO SCH (09:11)
[2019-08-08] MEDS: ZINC SULFATE 220 MG CAPSULE PO SCH (09:11)
[2019-08-08] MEDS: DOXYCYCLINE HYCLATE INJ 100 MG in SODIUM CHLORIDE 0.9% 100 ML IV SCH (11:26)
[2019-08-08 11:41] VITALS: BP 129/86
== END 2019-08-08 11:55 | disposition home or self-care (01) ==
LOC: EDBD → EDUNIT# → N.ED 18:15 → N.EDINP 18:15 → SUATTDRO 21:24 → N.2E 22:03
PROVIDERS: ADMIT Internal Medicine; ATTEND Internal Medicine

== ENCOUNTER 2019-09-19 04:47 | Inpatient (IN) ==
[2019-09-19] MEDS ORDERED: ACETAMINOPHEN 500 MG TABLET PO STA (05:10)
[2019-09-19] MEDS ORDERED: SODIUM CHLORIDE 0.9% 1,000 ML IV STA (05:10)
[2019-09-19] MEDS ORDERED: HYDROmorphone 2 MG/1 ML VIAL IV STA ×2 (05:10→07:57)
[2019-09-19] MEDS ORDERED: CEFEPIME 1,000 MG in SODIUM CHLORIDE 0.9% 100 ML IV STA (05:34)
[2019-09-19 05:53] LABS: Basophils # 0.1 10*3/uL (0.0-0.2); Basophils % 0.9 % (0.0-0.8); Eosinophils # 0.1 10*3/uL (0.0-0.87); Eosinophils % 1.4 % (0.00-10.9); Hematocrit 24.3 VOL% (35.7-47.0); Hemoglobin 8.6 GM/DL (12.0-16.0); Immature Granulocytes % 1.7 %; Immature Granulocytes Absolute 0.17 #; Lymphocytes # 1.4 10*3/uL (1.4-4.0); Lymphocytes % 13.8 % (21.3-54.2); Mean Corpuscular HGB Conc 35.4 GM/DL (32-36); Mean Corpuscular Volume 75.7 FL (87-102); Mean Platelet Volume 10.5 FL (9.6-12.0); Monocytes % 6.9 % (1.7-12.7); NRBC # 0.08 10*3/uL; Neutrophils % 75.3 % (38.7-73.9); Platelet Count 166 T/CUMM (130-400); Red Blood Count 3.21 MC/CUMM (3.8-5.5); Red Cell Distribution Width 18.7 % (9.3-17.3); White Blood Count 9.8 T/CUMM (4-12)
[2019-09-19 06:16] LABS: Albumin 3.2 G/DL (3.4-5.0); Bilirubin,Total 0.5 MG/DL (0.2-1.0); Osmolality,Calculated 262.4 MOS/KG (273-304)
[2019-09-19 09:23] LABS: Apearance,Urine Slightly Hazy (Clear); Bacteria,Urine Moderate /HPF (Few); Bilirubin,Urine Negative (Negative); Blood, Urine Negative (Negative); Glucose,Urine (UA) Negative (Negative); Ketones,Urine Negative (Negative); Mucus,Urine Occasional /LPF (Occasional); Nitrite,Urine Positive (Negative); Protein,Urine Negative; RBC,Urine <1 /HPF (0-4); Squamous Epithelial Cell,Urine Occasional /HPF (0-10); Urine Color Yellow (Yellow); Urine Urobilinogen < 2.0 EU/DL (0.2-1.0); WBC,Urine 11 /HPF (0-6)
[2019-09-19 10:11] LABS: Atypical Lymphocytes Few; Lymphocytes 12 % (20-55); Segmented Neutrophils 84 % (50-85); Total Cells Counted 100
[2019-09-19 10:12] LABS: Giant Platelets Few; Platelet Estimate Adequate; Target Cells 1+
[2019-09-19] MEDS ORDERED: DEXTROSE 10% 250 ML BAG IV PRN (11:06)
[2019-09-19] MEDS ORDERED: diphenhydrAMINE CAP 25 MG CAPSULE PO PRN (11:06)
[2019-09-19] MEDS ORDERED: GLUCAGON 1 MG VIAL IM PRN (11:06)
[2019-09-19] MEDS ORDERED: ZALEPLON 5 MG CAPSULE PO PRN (11:06)
[2019-09-19] MEDS ORDERED: ONDANSETRON 4 MG/2 ML VIAL IV PRN (11:06)
[2019-09-19] MEDS ORDERED: DICYCLOMINE 20 MG TABLET PO PRN (11:09)
[2019-09-19] MEDS ORDERED: cefTRIAXone 1,000 MG in SYRINGE 1 EACH IV SCH (11:30)
[2019-09-19] MEDS ORDERED: PNEUMOCOCCAL VACCINE (13 VALENT) 0.5 ML SYRINGE IM ONE (11:57)
[2019-09-19] MEDS: ENOXAPARIN 40 MG/0.4 ML SYRINGE SUBCUT SCH (12:08)
[2019-09-19] MEDS: HYDROmorphone 2 MG TABLET PO SCH ×2 (12:08→21:20)
[2019-09-19] MEDS: HYDROmorphone 2 MG/1 ML VIAL IV PRN ×4 (13:14→22:45)
[2019-09-19] MEDS: DEXTROSE 5% NACL 0.45% 1,000 ML IV SCH ×2 (15:59→22:40)
[2019-09-19] MEDS: TOPIRAMATE 25 MG TABLET PO SCH (21:20)
[2019-09-19] MEDS: GABAPENTIN 600 MG TABLET PO SCH (21:21)
[2019-09-20] MEDS: HYDROmorphone 2 MG/1 ML VIAL IV PRN ×3 (01:23→08:37)
[2019-09-20] MEDS ORDERED: ACETAMINOPHEN 325 MG TABLET PO PRN (01:58)
[2019-09-20] MEDS: DEXTROSE 5% NACL 0.45% 1,000 ML IV SCH ×3 (03:38→11:12)
[2019-09-20] MEDS: HYDROmorphone 2 MG TABLET PO SCH (03:40)
[2019-09-20] MEDS: FOLIC ACID 1 MG TABLET PO SCH (08:38)
[2019-09-20] MEDS: HYDROXYUREA 500 MG CAPSULE PO SCH (08:38)
[2019-09-20] MEDS: GABAPENTIN 600 MG TABLET PO SCH ×2 (08:39→21:58)
[2019-09-20] MEDS: predniSONE 20 MG TABLET PO SCH (08:39)
[2019-09-20] MEDS: PANTOPRAZOLE 40 MG TABLET PO SCH (08:39)
[2019-09-20] MEDS: TOPIRAMATE 25 MG TABLET PO SCH ×2 (08:39→21:58)
[2019-09-20] MEDS ORDERED: ACETAMINOPHEN 500 MG TABLET PO ONE (08:57)
[2019-09-20] MEDS ORDERED: HYDROXYCHLOROQUINE 200 MG TABLET PO SCH (09:00)
[2019-09-20] MEDS ORDERED: SODIUM CHLORIDE 0.9% 1,000 ML IV PRN (09:04)
[2019-09-20] MEDS ORDERED: NALOXONE 0.4 MG/ML VIAL IV PRN (09:04)
[2019-09-20 09:14] LABS: Albumin 2.7 G/DL (3.4-5.0); Bilirubin,Total 0.9 MG/DL (0.2-1.0); Calcium 8.7 MG/DL (8.5-10.1); Osmolality,Calculated 260.5 MOS/KG (273-304); Total Protein 7.9 G/DL (6.4-8.3)
[2019-09-20] MEDS ORDERED: HYDROmorphone PCA 30 MG/30 ML SYRINGE IV SCH (09:30)
[2019-09-20] MEDS: MEROPENEM 500 MG in SODIUM CHLORIDE 0.9% 100 ML IV SCH ×2 (10:45→15:05)
[2019-09-20] MEDS: ENOXAPARIN 40 MG/0.4 ML SYRINGE SUBCUT SCH (11:12)
[2019-09-20 11:42] LABS: Basophils # 0.1 10*3/uL (0.0-0.2); Basophils % 0.5 % (0.0-0.8); Eosinophils # 0.1 10*3/uL (0.0-0.87); Eosinophils % 0.7 % (0.00-10.9); Hematocrit 23.6 VOL% (35.7-47.0); Hemoglobin 8.1 GM/DL (12.0-16.0); Immature Granulocytes % 1.5 %; Immature Granulocytes Absolute 0.16 #; Lymphocytes # 1.2 10*3/uL (1.4-4.0); Lymphocytes % 11.2 % (21.3-54.2); Mean Corpuscular HGB Conc 34.3 GM/DL (32-36); Mean Corpuscular Volume 76.9 FL (87-102); Mean Platelet Volume 10.8 FL (9.6-12.0); Monocytes % 7.5 % (1.7-12.7); NRBC # 0.03 10*3/uL; Neutrophils % 78.6 % (38.7-73.9); Platelet Count 266 T/CUMM (130-400); Red Blood Count 3.07 MC/CUMM (3.8-5.5); Red Cell Distribution Width 18.6 % (9.3-17.3); White Blood Count 10.7 T/CUMM (4-12)
[2019-09-20] MEDS: cefTRIAXone 1,000 MG in SYRINGE 1 EACH IV SCH (16:10)
[2019-09-21] MEDS: DEXTROSE 5% NACL 0.45% 1,000 ML IV SCH ×4 (03:36→23:59)
[2019-09-21] MEDS: cefTRIAXone 1,000 MG in SYRINGE 1 EACH IV SCH ×2 (04:44→16:57)
[2019-09-21 05:37] LABS: Basophils # 0.1 10*3/uL (0.0-0.2); Basophils % 0.5 % (0.0-0.8); Eosinophils # 0.1 10*3/uL (0.0-0.87); Eosinophils % 0.8 % (0.00-10.9); Hematocrit 24.3 VOL% (35.7-47.0); Hemoglobin 8.6 GM/DL (12.0-16.0); Lymphocytes # 2.1 10*3/uL (1.4-4.0); Lymphocytes % 19.9 % (21.3-54.2); Mean Corpuscular HGB Conc 35.4 GM/DL (32-36); Mean Corpuscular Volume 76.2 FL (87-102); Monocytes % 8.4 % (1.7-12.7); NRBC # 0.03 10*3/uL; Neutrophils % 69.4 % (38.7-73.9); Platelet Count 108 T/CUMM (130-400); Red Blood Count 3.19 MC/CUMM (3.8-5.5); Red Cell Distribution Width 18.5 % (9.3-17.3); White Blood Count 10.4 T/CUMM (4-12)
[2019-09-21 05:58] LABS: Band Neutrophils 1 % (0-10); Hypochromasia 1+; Lymphocytes 25 % (20-55); Platelet Estimate Decreased; Segmented Neutrophils 66 % (50-85); Target Cells 1+; Total Cells Counted 100
[2019-09-21 05:59] LABS: Atypical Lymphocytes Few
[2019-09-21 06:16] LABS: Albumin 2.7 G/DL (3.4-5.0); Bilirubin,Total 0.4 MG/DL (0.2-1.0); Calcium 8.6 MG/DL (8.5-10.1); Osmolality,Calculated 267.1 MOS/KG (273-304)
[2019-09-21] MEDS ORDERED: HYDROmorphone PCA 30 MG/30 ML SYRINGE IV SCH ×2 (07:30→09:30)
[2019-09-21] MEDS: TOPIRAMATE 25 MG TABLET PO SCH ×2 (09:59→21:09)
[2019-09-21] MEDS: PANTOPRAZOLE 40 MG TABLET PO SCH (10:00)
[2019-09-21] MEDS: predniSONE 20 MG TABLET PO SCH (10:00)
[2019-09-21] MEDS: FOLIC ACID 1 MG TABLET PO SCH (10:00)
[2019-09-21] MEDS: HYDROXYUREA 500 MG CAPSULE PO SCH (10:00)
[2019-09-21] MEDS: GABAPENTIN 600 MG TABLET PO SCH ×2 (10:00→21:09)
[2019-09-21] MEDS: ENOXAPARIN 40 MG/0.4 ML SYRINGE SUBCUT SCH (11:44)
[2019-09-22] MEDS: cefTRIAXone 1,000 MG in SYRINGE 1 EACH IV SCH (03:17)
[2019-09-22 06:46] LABS: Basophils # 0.1 10*3/uL (0.0-0.2); Basophils % 0.8 % (0.0-0.8); Eosinophils # 0.2 10*3/uL (0.0-0.87); Hematocrit 25.2 VOL% (35.7-47.0); Hemoglobin 8.6 GM/DL (12.0-16.0); Immature Granulocytes % 0.9 %; Immature Granulocytes Absolute 0.09 #; Lymphocytes # 2.6 10*3/uL (1.4-4.0); Lymphocytes % 25.7 % (21.3-54.2); Mean Corpuscular HGB Conc 34.1 GM/DL (32-36); Mean Platelet Volume 11.1 FL (9.6-12.0); Monocytes % 7.1 % (1.7-12.7); NRBC # 0.12 10*3/uL; Neutrophils % 63.5 % (38.7-73.9); Platelet Count 255 T/CUMM (130-400); Red Blood Count 3.23 MC/CUMM (3.8-5.5); Red Cell Distribution Width 18.6 % (9.3-17.3)
[2019-09-22 07:02] LABS: Anisocytosis 1+; Band Neutrophils 1 % (0-10); Eosinophils 3 % (0-10); Hypochromasia 1+; Lymphocytes 22 % (20-55); Myelocytes 1 %; Nucleated Red Blood Cells 1 (0-5); Polychromasia Slight; Segmented Neutrophils 70 % (50-85); Total Cells Counted 100
[2019-09-22 07:03] LABS: Platelet Estimate Normal; Target Cells 1+; Tear Drop Cells Slight
[2019-09-22 07:04] LABS: Ovalocytes Slight
[2019-09-22 07:27] LABS: Alanine Aminotransferase 10 U/L (13-56); Albumin 2.7 G/DL (3.4-5.0); Alkaline Phosphatase 68 U/L (45-117); Aspartate Amino Transferase 18 U/L (0-37); Bilirubin,Total < 0.39 MG/DL (0.2-1.0); Blood Urea Nitrogen 9 MG/DL (7-18); Calcium 8.8 MG/DL (8.5-10.1); Estimated Glom Filtration Rate 146 ML/MIN; Glucose 84 MG/DL (74-106); Total Protein 8.2 G/DL (6.4-8.3)
[2019-09-22 08:08] VITALS: BP 103/61
[2019-09-22] MEDS: GABAPENTIN 600 MG TABLET PO SCH (08:52)
[2019-09-22] MEDS: TOPIRAMATE 25 MG TABLET PO SCH (08:53)
[2019-09-22] MEDS: PANTOPRAZOLE 40 MG TABLET PO SCH (08:54)
[2019-09-22] MEDS: HYDROXYUREA 500 MG CAPSULE PO SCH (08:54)
[2019-09-22] MEDS: predniSONE 20 MG TABLET PO SCH (08:54)
== END 2019-09-22 09:15 | disposition home or self-care (01) | DRG 812 ==
LOC: EDBD → EDUNIT# → N.ED 04:47 → N.EDINP 04:47 → SUATTDRO 10:17 → N.EDINP 11:08 → N.3E 11:16
PROVIDERS: ADMIT Family Medicine; ATTEND Internal Medicine

== ENCOUNTER 2019-12-28 08:10 | Observation (INO) ==
[2019-12-28] MEDS ORDERED: ONDANSETRON 4 MG/2 ML VIAL IV STA (08:28)
[2019-12-28] MEDS ORDERED: SODIUM CHLORIDE 0.9% 1,000 ML IV STA (08:28)
[2019-12-28] MEDS ORDERED: HYDROmorphone 2 MG/1 ML VIAL IV STA ×2 (08:28→11:43)
[2019-12-28 10:26] LABS: Basophils # 0.1 10*3/uL (0.0-0.2); Eosinophils # 0.1 10*3/uL (0.0-0.87); Eosinophils % 1.4 % (0.00-10.9); Hematocrit 24.4 VOL% (35.7-47.0); Hemoglobin 8.7 GM/DL (12.0-16.0); Immature Granulocytes % 1.9 %; Immature Granulocytes Absolute 0.15 #; Lymphocytes # 1.6 10*3/uL (1.4-4.0); Lymphocytes % 19.9 % (21.3-54.2); Mean Corpuscular HGB Conc 35.7 GM/DL (32-36); Mean Platelet Volume 10.2 FL (9.6-12.0); Monocytes % 7.3 % (1.7-12.7); Neutrophils % 68.5 % (38.7-73.9); Platelet Count 500 T/CUMM (130-400); Red Blood Count 3.17 MC/CUMM (3.8-5.5); Red Cell Distribution Width 18.6 % (9.3-17.3); White Blood Count 8.1 T/CUMM (4-12)
[2019-12-28 10:43] LABS: Apearance,Urine CLOUDY (Clear); Bacteria,Urine Many /HPF (Few); Bilirubin,Urine Negative (Negative); Blood, Urine Large mg/dL (Negative); Glucose,Urine (UA) Negative (Negative); Ketones,Urine Negative (Negative); Mucus,Urine Occasional /LPF (Occasional); Nitrite,Urine Negative (Negative); Protein,Urine Negative; RBC,Urine 36 /HPF (0-4); Squamous Epithelial Cell,Urine Occasional /HPF (0-10); Urine Color Yellow (Yellow); Urine Specific Gravity 1.012 (1.001-1.035); Urine Urobilinogen < 2.0 EU/DL (0.2-1.0); WBC,Urine 271 /HPF (0-6)
[2019-12-28 10:44] LABS: Albumin 3.2 G/DL (3.4-5.0); Bilirubin,Total 0.6 MG/DL (0.2-1.0); Calcium 8.8 MG/DL (8.5-10.1); Osmolality,Calculated 273.5 MOS/KG (273-304); Total Protein 9.3 G/DL (6.4-8.3)
[2019-12-28 10:46] LABS: Band Neutrophils 1 % (0-10); Eosinophils 1 % (0-10); Hypochromasia 1+; Lymphocytes 16 % (20-55); Nucleated Red Blood Cells 3 (0-5); Platelet Estimate Increased; Segmented Neutrophils 72 % (50-85); Target Cells Few; Total Cells Counted 100
[2019-12-28 10:48] LABS: Barbiturates Screen,Urine Negative (Negative); Benzodiazepines Screen,Urine Negative (Negative); Cannabinoid Screen,Urine Negative (Negative); Opiate Screen,Urine Positive (Negative); Phencyclidine Screen,Urine Negative (Negative)
[2019-12-28] MEDS ORDERED: SODIUM CHLORIDE 0.9% 1,000 ML IV PRN (11:11)
[2019-12-28] MEDS ORDERED: NALOXONE 0.4 MG/ML VIAL IV PRN (11:11)
[2019-12-28] MEDS ORDERED: diphenhydrAMINE CAP 25 MG CAPSULE PO PRN (11:12)
[2019-12-28] MEDS: SODIUM CHLORIDE 0.9% 1,000 ML IV SCH (17:05)
[2019-12-28] MEDS: HYDROmorphone PCA 30 MG/30 ML SYRINGE IV SCH (18:11)
[2019-12-28] MEDS: cefTRIAXone 1,000 MG in SYRINGE 1 EACH IV SCH (18:16)
[2019-12-28] MEDS: ENOXAPARIN 100 MG/ML SYRINGE SUBCUT SCH (18:19)
[2019-12-28] MEDS: TOPIRAMATE 25 MG TABLET PO SCH (20:46)
[2019-12-28] MEDS: GABAPENTIN 600 MG TABLET PO SCH (20:46)
[2019-12-29] MEDS: SODIUM CHLORIDE 0.9% 1,000 ML IV SCH ×2 (03:05→13:38)
[2019-12-29 06:08] LABS: Basophils # 0.1 10*3/uL (0.0-0.2); Eosinophils # 0.2 10*3/uL (0.0-0.87); Eosinophils % 2.2 % (0.00-10.9); Hematocrit 23.4 VOL% (35.7-47.0); Hemoglobin 8.1 GM/DL (12.0-16.0); Immature Granulocytes % 1.4 %; Immature Granulocytes Absolute 0.13 #; Lymphocytes # 2.9 10*3/uL (1.4-4.0); Lymphocytes % 31.4 % (21.3-54.2); Mean Corpuscular HGB Conc 34.6 GM/DL (32-36); Mean Corpuscular Volume 77.7 FL (87-102); Mean Platelet Volume 10.5 FL (9.6-12.0); Monocytes % 6.9 % (1.7-12.7); NRBC # 0.06 10*3/uL; Neutrophils % 57.1 % (38.7-73.9); Platelet Count 452 T/CUMM (130-400); Red Blood Count 3.01 MC/CUMM (3.8-5.5); Red Cell Distribution Width 18.4 % (9.3-17.3); White Blood Count 9.1 T/CUMM (4-12)
[2019-12-29 06:09] LABS: Hematocrit 23.5 VOL% (35.7-47.0); Hemoglobin 8.2 GM/DL (12.0-16.0)
[2019-12-29 06:29] LABS: Albumin 3.1 G/DL (3.4-5.0); Bilirubin,Total 0.6 MG/DL (0.2-1.0); Calcium 8.7 MG/DL (8.5-10.1); Osmolality,Calculated 274.4 MOS/KG (273-304); Total Protein 8.6 G/DL (6.4-8.3)
[2019-12-29 06:47] LABS: Eosinophils 2 % (0-10); Hypochromasia 1+; Lymphocytes 43 % (20-55); Platelet Estimate Adequate; Segmented Neutrophils 48 % (50-85); Target Cells Few; Total Cells Counted 100
[2019-12-29 06:48] LABS: Howell-Jolly Bodies Slight
[2019-12-29 06:49] LABS: Ovalocytes Slight
[2019-12-29 06:50] LABS: Macrocytosis Slight
[2019-12-29] MEDS ORDERED: predniSONE 5 MG TABLET ONE (09:27)
[2019-12-29] MEDS ORDERED: predniSONE 20 MG TABLET ONE (09:29)
[2019-12-29] MEDS: GABAPENTIN 600 MG TABLET PO SCH ×2 (09:37→20:57)
[2019-12-29] MEDS: HYDROXYUREA 500 MG CAPSULE PO SCH (09:37)
[2019-12-29] MEDS: DULoxetine 30 MG CAPSULE PO SCH (09:37)
[2019-12-29] MEDS: HYDROXYCHLOROQUINE 200 MG TABLET PO SCH (09:37)
[2019-12-29] MEDS: predniSONE 10 MG TABLET PO SCH (09:38)
[2019-12-29] MEDS: TOPIRAMATE 25 MG TABLET PO SCH ×2 (09:39→20:57)
[2019-12-29] MEDS: FOLIC ACID 1 MG TABLET PO SCH (09:44)
[2019-12-29] MEDS: HYDROmorphone PCA 30 MG/30 ML SYRINGE IV SCH (10:52)
[2019-12-29 15:59] LABS: Apearance,Urine CLEAR (Clear); Bilirubin,Urine Negative (Negative); Blood, Urine Small mg/dL (Negative); Glucose,Urine (UA) Negative (Negative); Ketones,Urine Negative (Negative); Mucus,Urine Occasional /LPF (Occasional); Nitrite,Urine Negative (Negative); Protein,Urine Negative; RBC,Urine 1 /HPF (0-4); Urine Color Yellow (Yellow); Urine Specific Gravity 1.008 (1.001-1.035); Urine Urobilinogen < 2.0 EU/DL (0.2-1.0); WBC,Urine 28 /HPF (0-6)
[2019-12-29] MEDS: cefTRIAXone 1,000 MG in SYRINGE 1 EACH IV SCH (16:25)
[2019-12-29] MEDS: ENOXAPARIN 100 MG/ML SYRINGE SUBCUT SCH (17:12)
[2019-12-29] MEDS ORDERED: HYDROmorphone PCA 30 MG/30 ML SYRINGE IV SCH (18:00)
[2019-12-30 06:05] LABS: Basophils # 0.1 10*3/uL (0.0-0.2); Basophils % 0.5 % (0.0-0.8); Eosinophils % 0.4 % (0.00-10.9); Hematocrit 22.4 VOL% (35.7-47.0); Hemoglobin 7.9 GM/DL (12.0-16.0); Immature Granulocytes % 0.9 %; Immature Granulocytes Absolute 0.09 #; Lymphocytes # 2.5 10*3/uL (1.4-4.0); Lymphocytes % 23.7 % (21.3-54.2); Mean Corpuscular HGB Conc 35.3 GM/DL (32-36); Mean Corpuscular Volume 76.5 FL (87-102); Mean Platelet Volume 10.6 FL (9.6-12.0); Monocytes % 4.8 % (1.7-12.7); NRBC # 0.04 10*3/uL; Neutrophils % 69.7 % (38.7-73.9); Platelet Count 421 T/CUMM (130-400); Red Blood Count 2.93 MC/CUMM (3.8-5.5); Red Cell Distribution Width 18.6 % (9.3-17.3); White Blood Count 10.6 T/CUMM (4-12)
[2019-12-30 06:26] LABS: Albumin 2.8 G/DL (3.4-5.0); Bilirubin,Total 0.5 MG/DL (0.2-1.0); Calcium 9.1 MG/DL (8.5-10.1); Osmolality,Calculated 271.7 MOS/KG (273-304); Total Protein 8.5 G/DL (6.4-8.3)
[2019-12-30 06:38] LABS: Folate 10.3 NG/ML (5.4-24.0); Vitamin B12 287 PG/ML (211-911)
[2019-12-30 06:46] LABS: Ferritin 2507.6 ng/ml (8-252)
[2019-12-30] MEDS ORDERED: SODIUM CHLORIDE 0.9% 1,000 ML IV PRN (06:50)
[2019-12-30 07:12] LABS: Sedimentation Rate-Westergren 96 MM/HR (0-20)
[2019-12-30] MEDS: GABAPENTIN 600 MG TABLET PO SCH ×2 (08:57→21:13)
[2019-12-30] MEDS: TOPIRAMATE 25 MG TABLET PO SCH ×2 (08:57→21:13)
[2019-12-30] MEDS: DULoxetine 30 MG CAPSULE PO SCH (08:57)
[2019-12-30] MEDS: predniSONE 10 MG TABLET PO SCH (08:58)
[2019-12-30] MEDS: HYDROXYUREA 500 MG CAPSULE PO SCH (08:58)
[2019-12-30] MEDS: HYDROXYCHLOROQUINE 200 MG TABLET PO SCH (08:58)
[2019-12-30] MEDS: FOLIC ACID 1 MG TABLET PO SCH (08:59)
[2019-12-30 10:53] LABS: Hepatitis B Core IgM Quant 0.25 Index; Hepatitis B Surface Ag Quant < 0.10 Index; Hepatitis B Surface Ag Result Negative (Negative); Hepatitis C Virus Ab Quant 0.15 Index; Hepatitis C Virus Ab Result Negative (Negative)
[2019-12-30] MEDS: LINACLOTIDE 145 MCG CAPSULE PO SCH (12:35)
[2019-12-30] MEDS: SODIUM CHLORIDE 0.9% 1,000 ML IV SCH (15:36)
[2019-12-30] MEDS: cefTRIAXone 1,000 MG in SYRINGE 1 EACH IV SCH (15:37)
[2019-12-30] MEDS: HYDROmorphone 2 MG TABLET PO SCH (17:58)
[2019-12-31] MEDS: HYDROmorphone 2 MG TABLET PO SCH ×2 (00:28→06:12)
[2019-12-31 05:56] LABS: Basophils # 0.1 10*3/uL (0.0-0.2); Basophils % 0.5 % (0.0-0.8); Eosinophils # 0.1 10*3/uL (0.0-0.87); Eosinophils % 0.7 % (0.00-10.9); Hematocrit 24.5 VOL% (35.7-47.0); Hemoglobin 8.5 GM/DL (12.0-16.0); Immature Granulocytes % 0.7 %; Immature Granulocytes Absolute 0.06 #; Lymphocytes # 2.8 10*3/uL (1.4-4.0); Lymphocytes % 30.3 % (21.3-54.2); Mean Corpuscular HGB Conc 34.7 GM/DL (32-36); Mean Corpuscular Volume 76.3 FL (87-102); Mean Platelet Volume 10.6 FL (9.6-12.0); Monocytes % 4.7 % (1.7-12.7); NRBC # 0.06 10*3/uL; Neutrophils % 63.1 % (38.7-73.9); Platelet Count 359 T/CUMM (130-400); Red Blood Count 3.21 MC/CUMM (3.8-5.5); Red Cell Distribution Width 18.6 % (9.3-17.3); White Blood Count 9.2 T/CUMM (4-12)
[2019-12-31 06:17] LABS: Albumin 3.1 G/DL (3.4-5.0); Bilirubin,Total 0.6 MG/DL (0.2-1.0); Calcium 9.2 MG/DL (8.5-10.1); Osmolality,Calculated 275.4 MOS/KG (273-304); Total Protein 8.8 G/DL (6.4-8.3)
[2019-12-31 06:50] LABS: Band Neutrophils 2 % (0-10); Lymphocytes 35 % (20-55); Nucleated Red Blood Cells 1 (0-5); Platelet Estimate Normal; Segmented Neutrophils 61 % (50-85); Total Cells Counted 100
[2019-12-31 06:51] LABS: Hypochromasia 1+; Microcytosis 1+; Target Cells Few
[2019-12-31] MEDS ORDERED: SODIUM CHLORIDE 0.9% 1,000 ML IV SCH (08:00)
[2019-12-31] MEDS ORDERED: propofoL 200 MG/20 ML VIAL IV ONE (09:00)
[2019-12-31] MEDS ORDERED: LIDOCAINE 2% 5 ML VIAL ONE (09:00)
[2019-12-31 09:55] VITALS: BP 102/68
[2019-12-31] MEDS ORDERED: predniSONE 5 MG TABLET ONE (11:12)
[2019-12-31] MEDS: DULoxetine 30 MG CAPSULE PO SCH (11:26)
[2019-12-31] MEDS: HYDROXYUREA 500 MG CAPSULE PO SCH (11:26)
[2019-12-31] MEDS: predniSONE 10 MG TABLET PO SCH (11:27)
[2019-12-31] MEDS: GABAPENTIN 600 MG TABLET PO SCH (11:28)
[2019-12-31] MEDS: HYDROXYCHLOROQUINE 200 MG TABLET PO SCH (11:32)
[2019-12-31] MEDS: FOLIC ACID 1 MG TABLET PO SCH (11:35)
[2019-12-31] MEDS: LINACLOTIDE 145 MCG CAPSULE PO SCH (11:42)
[2019-12-31] MEDS: TOPIRAMATE 25 MG TABLET PO SCH (11:43)
[2019-12-31] MEDS: SODIUM CHLORIDE 0.9% 1,000 ML IV SCH (11:45)
[2020-01-04 15:35] LABS: Variant 51.6 = Hb S %
[2020-01-05 07:17] LABS: Hemoglobin A2 (Alkaline) 3.9 % (1.5-3.5); Hemoglobin C (Alkaline) 41.9 %; Hemoglobin F (Alkaline) 2.6 %; Hemoglobin S (Alkaline) 51.6 %
== END 2019-12-31 11:59 | disposition home or self-care (01) ==
LOC: N.ED 08:10 → N.EDINP 08:10 → N.3E 16:45
PROVIDERS: ADMIT Hospitalist; ATTEND Hospitalist

== ENCOUNTER 2020-02-11 15:23 | Observation (INO) ==
[2020-02-11] MEDS ORDERED: HYDROmorphone 2 MG/1 ML VIAL IV STA ×2 (16:26→19:29)
[2020-02-11] MEDS ORDERED: LACTATED RINGERS 1,000 ML IV ONE (16:26)
[2020-02-11] MEDS ORDERED: ONDANSETRON 4 MG/2 ML VIAL IV ONE (16:26)
[2020-02-11 19:02] LABS: Basophils # 0.1 10*3/uL (0.0-0.2); Basophils % 0.7 % (0.0-0.8); Eosinophils # 0.5 10*3/uL (0.0-0.87); Eosinophils % 5.2 % (0.00-10.9); Hematocrit 24.9 VOL% (35.7-47.0); Hemoglobin 8.8 GM/DL (12.0-16.0); Immature Granulocytes % 1.3 %; Immature Granulocytes Absolute 0.13 #; Lymphocytes # 2.3 10*3/uL (1.4-4.0); Lymphocytes % 24.2 % (21.3-54.2); Mean Corpuscular HGB Conc 35.3 GM/DL (32-36); Mean Corpuscular Volume 76.9 FL (87-102); Mean Platelet Volume 10.5 FL (9.6-12.0); Monocytes % 7.1 % (1.7-12.7); NRBC # 0.02 10*3/uL; Neutrophils % 61.5 % (38.7-73.9); Platelet Count 233 T/CUMM (130-400); Red Blood Count 3.24 MC/CUMM (3.8-5.5); Red Cell Distribution Width 18.6 % (9.3-17.3); White Blood Count 9.7 T/CUMM (4-12)
[2020-02-11 19:25] LABS: Albumin 3.5 G/DL (3.4-5.0); Bilirubin,Total 0.5 MG/DL (0.2-1.0); Calcium 8.8 MG/DL (8.5-10.1); Osmolality,Calculated 274.8 MOS/KG (273-304); Total Protein 8.7 G/DL (6.4-8.3)
[2020-02-11] MEDS ORDERED: traZODone 50 MG TABLET PO PRN (20:33)
[2020-02-11] MEDS ORDERED: diphenhydrAMINE CAP 25 MG CAPSULE PO PRN (20:33)
[2020-02-11] MEDS ORDERED: ALBUTEROL/IPRATROPIUM 3 ML NEB RESP TX PRN (20:33)
[2020-02-11] MEDS ORDERED: GLUCAGON 1 MG VIAL IM PRN (20:33)
[2020-02-11] MEDS ORDERED: NICOTINE 21 MG/24 HR PATCH TRANSDERM PRN (20:33)
[2020-02-11] MEDS ORDERED: PROMETHAZINE 25 MG/1 ML VIAL IM PRN (20:33)
[2020-02-11] MEDS ORDERED: ACETAMINOPHEN 325 MG TABLET PO PRN (20:33)
[2020-02-11] MEDS ORDERED: guaiFENesin/DM ER 600-30 MG TABLET PO PRN (20:33)
[2020-02-11] MEDS ORDERED: DEXTROSE 50% 25 GM/50 ML VIAL IV PRN (20:33)
[2020-02-11] MEDS ORDERED: hydrALAZINE 20 MG/1 ML VIAL IV PRN (20:33)
[2020-02-11] MEDS ORDERED: ONDANSETRON 4 MG/2 ML VIAL IV PRN (20:33)
[2020-02-11] MEDS: SODIUM CHLORIDE 0.9% 1,000 ML IV SCH (21:59)
[2020-02-12] MEDS ORDERED: SODIUM CHLORIDE 0.9% 500 ML IV ONE (00:12)
[2020-02-12] MEDS: HYDROmorphone 2 MG/1 ML VIAL IV PRN ×7 (01:19→21:54)
[2020-02-12] MEDS: SODIUM CHLORIDE 0.9% 1,000 ML IV SCH ×3 (06:10→15:44)
[2020-02-12] MEDS ORDERED: diphenhydrAMINE CAP 25 MG CAPSULE PO PRN (10:28)
[2020-02-12] MEDS: GABAPENTIN 600 MG TABLET PO SCH ×2 (10:49→21:54)
[2020-02-12] MEDS: DULoxetine 30 MG CAPSULE PO SCH (10:49)
[2020-02-12] MEDS: predniSONE 10 MG TABLET PO SCH (10:49)
[2020-02-12] MEDS: FOLIC ACID 1 MG TABLET PO SCH (10:50)
[2020-02-12] MEDS: HYDROXYCHLOROQUINE 200 MG TABLET PO SCH (10:50)
[2020-02-12] MEDS: HYDROXYUREA 500 MG CAPSULE PO SCH (12:15)
[2020-02-12] MEDS: TOPIRAMATE 25 MG TABLET PO SCH ×2 (12:15→22:03)
[2020-02-12 12:48] LABS: Basophils # 0.1 10*3/uL (0.0-0.2); Basophils % 0.5 % (0.0-0.8); Eosinophils # 0.4 10*3/uL (0.0-0.87); Eosinophils % 3.6 % (0.00-10.9); Hemoglobin 8.3 GM/DL (12.0-16.0); Immature Granulocytes % 1.3 %; Immature Granulocytes Absolute 0.13 #; Lymphocytes # 1.3 10*3/uL (1.4-4.0); Lymphocytes % 12.8 % (21.3-54.2); Mean Corpuscular HGB Conc 36.1 GM/DL (32-36); Mean Corpuscular Volume 76.9 FL (87-102); Mean Platelet Volume 10.7 FL (9.6-12.0); Monocytes % 6.3 % (1.7-12.7); NRBC # 0.02 10*3/uL; Neutrophils % 75.5 % (38.7-73.9); Platelet Count 249 T/CUMM (130-400); Red Blood Count 2.99 MC/CUMM (3.8-5.5); Red Cell Distribution Width 18.7 % (9.3-17.3)
[2020-02-12 13:11] LABS: Albumin 3.1 G/DL (3.4-5.0); Bilirubin,Total 0.4 MG/DL (0.2-1.0); Calcium 8.8 MG/DL (8.5-10.1); Osmolality,Calculated 272.7 MOS/KG (273-304); Total Protein 7.9 G/DL (6.4-8.3)
[2020-02-12 13:17] LABS: Eosinophils 3 % (0-10); Lymphocytes 12 % (20-55); Nucleated Red Blood Cells 1 (0-5); Segmented Neutrophils 81 % (50-85); Total Cells Counted 100
[2020-02-12 13:24] LABS: Anisocytosis 1+; Elliptocytes Few; Microcytosis 1+; Platelet Estimate Normal; Reactive Lymphocytes Slight; Target Cells 3+
[2020-02-12] MEDS ORDERED: ENOXAPARIN 100 MG/ML SYRINGE SUBCUT SCH (21:00)
[2020-02-13] MEDS: HYDROmorphone 2 MG/1 ML VIAL IV PRN ×2 (03:33→07:03)
[2020-02-13] MEDS: SODIUM CHLORIDE 0.9% 1,000 ML IV SCH ×2 (07:07→08:18)
[2020-02-13] MEDS ORDERED: HYDROmorphone 2 MG TABLET PO PRN (09:08)
[2020-02-13] MEDS: predniSONE 10 MG TABLET PO SCH (09:51)
[2020-02-13] MEDS: HYDROXYUREA 500 MG CAPSULE PO SCH (09:52)
[2020-02-13] MEDS: DULoxetine 30 MG CAPSULE PO SCH (09:52)
[2020-02-13] MEDS: TOPIRAMATE 25 MG TABLET PO SCH (09:52)
[2020-02-13] MEDS: GABAPENTIN 600 MG TABLET PO SCH (09:52)
[2020-02-13] MEDS: HYDROXYCHLOROQUINE 200 MG TABLET PO SCH (09:52)
[2020-02-13] MEDS: FOLIC ACID 1 MG TABLET PO SCH (09:59)
[2020-02-13 12:09] VITALS: BP 116/69
== END 2020-02-13 13:30 | disposition home or self-care (01) ==
LOC: N.ED 15:23 → N.EDINP 15:23 → N.3E 21:10
PROVIDERS: ADMIT Emergency Medicine; ATTEND Emergency Medicine

== ENCOUNTER 2020-10-19 16:10 | Inpatient (IN) ==
[2020-10-19 18:32] LABS: Basophils # 0.1 10*3/uL (0.0-0.2); Basophils % 0.3 % (0.0-0.8); Eosinophils # 0.1 10*3/uL (0.0-0.87); Eosinophils % 0.3 % (0.00-10.9); Hematocrit 22.9 VOL% (35.7-47.0); Hemoglobin 8.1 GM/DL (12.0-16.0); Immature Granulocytes % 3.1 %; Immature Granulocytes Absolute 0.93 #; Lymphocytes # 1.6 10*3/uL (1.4-4.0); Lymphocytes % 5.3 % (21.3-54.2); Mean Corpuscular HGB Conc 35.4 GM/DL (32-36); Mean Corpuscular Volume 74.4 FL (87-102); Mean Platelet Volume 11.7 FL (9.6-12.0); Monocytes % 5.1 % (1.7-12.7); NRBC # 0.02 10*3/uL; Neutrophils % 85.9 % (38.7-73.9); Platelet Count 327 T/CUMM (130-400); Red Blood Count 3.08 MC/CUMM (3.8-5.5); Red Cell Distribution Width 17.4 % (9.3-17.3); White Blood Count 29.9 T/CUMM (4-12)
[2020-10-19 18:54] LABS: Albumin 2.7 G/DL (3.4-5.0); Bilirubin,Total 0.9 MG/DL (0.2-1.0); Osmolality,Calculated 261.5 MOS/KG (273-304); Potassium 4.8 MMOL/L (3.5-5.1); Total Protein 9.4 G/DL (6.4-8.2)
[2020-10-19 19:16] LABS: Bilirubin,Urine Negative (Negative); Blood, Urine Small mg/dL (Negative); Glucose,Urine (UA) Negative (Negative); Ketones,Urine Negative (Negative); Nitrite,Urine Negative (Negative); Protein,Urine 30 MG/DL; RBC,Urine 10 /HPF (0-4); Squamous Epithelial Cell,Urine Occasional /HPF (0-10); Urine Appearance CLOUDY (Clear); Urine Color Yellow (Yellow); Urine Specific Gravity 1.008 (1.001-1.035)
[2020-10-19 19:16] LABS: Band Neutrophils 3 % (0-10); Eosinophils 1 % (0-10); Lymphocytes 5 % (20-55); Segmented Neutrophils 85 % (50-85); Total Cells Counted 100
[2020-10-19 19:22] LABS: Barbiturates Screen,Urine Negative (Negative); Benzodiazepines Screen,Urine Negative (Negative); Cannabinoid Screen,Urine Positive (Negative); Opiate Screen,Urine Positive (Negative); Phencyclidine Screen,Urine Negative (Negative)
[2020-10-19 19:22] LABS: Hypochromasia 2+; Microcytosis 2+; Platelet Estimate Increased; Polychromasia Slight; Sickle Cells Slight; Target Cells 2+
[2020-10-19] MEDS ORDERED: SODIUM CHLORIDE 0.9% 1,000 ML IV STA (19:30)
[2020-10-19] MEDS ORDERED: HYDROmorphone 2 MG/1 ML VIAL IV STA (19:35)
[2020-10-19] MEDS ORDERED: GLUCAGON 1 MG VIAL IM PRN (20:46)
[2020-10-19] MEDS ORDERED: cefTRIAXone 1,000 MG in SODIUM CHLORIDE 0.9% 100 ML IV STA (20:46)
[2020-10-19] MEDS ORDERED: DEXTROSE 50% 25 GM/50 ML VIAL IV PRN (20:46)
[2020-10-19] MEDS ORDERED: NICOTINE 21 MG/24 HR PATCH TRANSDERM PRN (21:18)
[2020-10-19] MEDS ORDERED: hydrALAZINE 20 MG/1 ML VIAL IV PRN (21:18)
[2020-10-19] MEDS ORDERED: diphenhydrAMINE CAP 25 MG CAPSULE PO PRN (21:18)
[2020-10-19] MEDS ORDERED: traZODone 50 MG TABLET PO PRN (21:18)
[2020-10-19] MEDS ORDERED: ONDANSETRON 4 MG/2 ML VIAL IV PRN (21:18)
[2020-10-19] MEDS ORDERED: MORPHINE 4 MG/1 ML VIAL IV PRN (21:18)
[2020-10-19] MEDS ORDERED: SODIUM CHLORIDE 0.9% 500 ML IV STA (21:19)
[2020-10-19] MEDS ORDERED: MORPHINE 4 MG/1 ML VIAL IM PRN (23:43)
[2020-10-20] MEDS: MORPHINE 4 MG/1 ML VIAL IM PRN ×2 (03:54→09:35)
[2020-10-20 07:47] LABS: Basophils # 0.1 10*3/uL (0.0-0.2); Basophils % 0.3 % (0.0-0.8); Eosinophils # 0.4 10*3/uL (0.0-0.87); Eosinophils % 1.3 % (0.00-10.9); Hematocrit 19.9 VOL% (35.7-47.0); Hemoglobin 7.2 GM/DL (12.0-16.0); Immature Granulocytes % 3.7 %; Lymphocytes # 3.2 10*3/uL (1.4-4.0); Lymphocytes % 11.9 % (21.3-54.2); Mean Corpuscular HGB Conc 36.2 GM/DL (32-36); Mean Corpuscular Volume 74.3 FL (87-102); Mean Platelet Volume 11.6 FL (9.6-12.0); Monocytes % 7.9 % (1.7-12.7); Neutrophils % 74.9 % (38.7-73.9); Platelet Count 310 T/CUMM (130-400); Red Blood Count 2.68 MC/CUMM (3.8-5.5); Red Cell Distribution Width 17.4 % (9.3-17.3); White Blood Count 26.7 T/CUMM (4-12)
[2020-10-20 08:26] LABS: Lymphocytes 14 % (20-55); Myelocytes 1 %; Segmented Neutrophils 79 % (50-85); Total Cells Counted 100
[2020-10-20 08:27] LABS: Hypochromasia 2+; Microcytosis 1+; Platelet Estimate Normal; Target Cells 2+; Tear Drop Cells Few
[2020-10-20] MEDS: HYDROmorphone 2 MG/1 ML VIAL IV PRN ×4 (11:12→22:45)
[2020-10-20] MEDS: ERTAPENEM 1,000 MG in SODIUM CHLORIDE 0.9% 100 ML IV SCH (12:31)
[2020-10-20] MEDS: SODIUM CHLORIDE 0.9% 1,000 ML IV SCH ×3 (12:31→21:27)
[2020-10-20] MEDS ORDERED: diphenhydrAMINE CAP 25 MG CAPSULE PO PRN (16:55)
[2020-10-20] MEDS ORDERED: cefTRIAXone 1,000 MG in SODIUM CHLORIDE 0.9% 100 ML IV SCH (21:00)
[2020-10-20] MEDS: GABAPENTIN 600 MG TABLET PO SCH (21:28)
[2020-10-20] MEDS: TOPIRAMATE 25 MG TABLET PO SCH (21:28)
[2020-10-21] MEDS: HYDROmorphone 2 MG/1 ML VIAL IV PRN ×6 (02:50→23:21)
[2020-10-21] MEDS: SODIUM CHLORIDE 0.9% 1,000 ML IV SCH ×4 (05:30→23:25)
[2020-10-21 07:08] LABS: Basophils # 0.1 10*3/uL (0.0-0.2); Basophils % 0.4 % (0.0-0.8); Eosinophils # 0.6 10*3/uL (0.0-0.87); Eosinophils % 3.5 % (0.00-10.9); Hematocrit 20.2 VOL% (35.7-47.0); Hemoglobin 7.1 GM/DL (12.0-16.0); Immature Granulocytes % 6.5 %; Immature Granulocytes Absolute 1.06 #; Lymphocytes # 2.4 10*3/uL (1.4-4.0); Lymphocytes % 14.3 % (21.3-54.2); Mean Corpuscular HGB Conc 35.1 GM/DL (32-36); Mean Corpuscular Volume 75.1 FL (87-102); Mean Platelet Volume 11.4 FL (9.6-12.0); Monocytes % 7.4 % (1.7-12.7); NRBC # 0.04 10*3/uL; Neutrophils % 67.9 % (38.7-73.9); Platelet Count 174 T/CUMM (130-400); Red Blood Count 2.69 MC/CUMM (3.8-5.5); Red Cell Distribution Width 17.8 % (9.3-17.3); White Blood Count 16.4 T/CUMM (4-12)
[2020-10-21 07:21] LABS: Calcium 8.5 MG/DL (8.5-10.1); Osmolality,Calculated 271.7 MOS/KG (273-304); Potassium 4.5 MMOL/L (3.5-5.1)
[2020-10-21 07:29] LABS: Band Neutrophils 1 % (0-10); Eosinophils 3 % (0-10); Hypochromasia 1+; Lymphocytes 8 % (20-55); Microcytosis Slight; Nucleated Red Blood Cells 4 (0-5); Platelet Estimate Normal; Segmented Neutrophils 83 % (50-85); Target Cells Few
[2020-10-21 07:30] LABS: Total Cells Counted 100
[2020-10-21] MEDS: predniSONE 10 MG TABLET PO SCH (09:28)
[2020-10-21] MEDS: DULoxetine 30 MG CAPSULE PO SCH (09:28)
[2020-10-21] MEDS: TOPIRAMATE 25 MG TABLET PO SCH ×2 (09:28→21:32)
[2020-10-21] MEDS: HYDROXYCHLOROQUINE 200 MG TABLET PO SCH (09:28)
[2020-10-21] MEDS: HYDROXYUREA 500 MG CAPSULE PO SCH (09:29)
[2020-10-21] MEDS: FOLIC ACID 1 MG TABLET PO SCH (09:29)
[2020-10-21] MEDS: GABAPENTIN 600 MG TABLET PO SCH ×2 (09:29→21:32)
[2020-10-21] MEDS: ERTAPENEM 1,000 MG in SODIUM CHLORIDE 0.9% 100 ML IV SCH (09:33)
[2020-10-21] MEDS ORDERED: POLYETHYLENE GLYCOL POWDER 17 GM PACK PO PRN (17:06)
[2020-10-22] MEDS: HYDROmorphone 2 MG/1 ML VIAL IV PRN ×6 (03:17→23:11)
[2020-10-22] MEDS: SODIUM CHLORIDE 0.9% 1,000 ML IV SCH ×3 (07:41→17:39)
[2020-10-22 07:54] LABS: Basophils # 0.1 10*3/uL (0.0-0.2); Basophils % 0.4 % (0.0-0.8); Eosinophils # 0.1 10*3/uL (0.0-0.87); Eosinophils % 0.4 % (0.00-10.9); Hematocrit 20.1 VOL% (35.7-47.0); Hemoglobin 7.3 GM/DL (12.0-16.0); Immature Granulocytes % 4.3 %; Immature Granulocytes Absolute 0.74 #; Lymphocytes # 3.2 10*3/uL (1.4-4.0); Lymphocytes % 18.6 % (21.3-54.2); Mean Corpuscular HGB Conc 36.3 GM/DL (32-36); Mean Corpuscular Volume 73.9 FL (87-102); Mean Platelet Volume 11.3 FL (9.6-12.0); Monocytes % 5.1 % (1.7-12.7); NRBC # 0.05 10*3/uL; Neutrophils % 71.2 % (38.7-73.9); Platelet Count 404 T/CUMM (130-400); Red Blood Count 2.72 MC/CUMM (3.8-5.5); Red Cell Distribution Width 17.9 % (9.3-17.3)
[2020-10-22 07:56] LABS: Basophils # 0.1 10*3/uL (0.0-0.2); Basophils % 0.5 % (0.0-0.8); Eosinophils # 0.1 10*3/uL (0.0-0.87); Eosinophils % 0.6 % (0.00-10.9); Hematocrit 21.9 VOL% (35.7-47.0); Hemoglobin 7.9 GM/DL (12.0-16.0); Immature Granulocytes % 4.2 %; Immature Granulocytes Absolute 0.71 #; Lymphocytes # 3.1 10*3/uL (1.4-4.0); Lymphocytes % 18.6 % (21.3-54.2); Mean Corpuscular HGB Conc 36.1 GM/DL (32-36); Mean Corpuscular Volume 74.2 FL (87-102); Mean Platelet Volume 11.2 FL (9.6-12.0); Monocytes % 4.7 % (1.7-12.7); NRBC # 0.06 10*3/uL; Neutrophils % 71.4 % (38.7-73.9); Platelet Count 407 T/CUMM (130-400); Red Blood Count 2.95 MC/CUMM (3.8-5.5); Red Cell Distribution Width 17.7 % (9.3-17.3); White Blood Count 16.7 T/CUMM (4-12)
[2020-10-22 08:03] LABS: Osmolality,Calculated 276.4 MOS/KG (273-304); Potassium 4.5 MMOL/L (3.5-5.1)
[2020-10-22 08:14] LABS: Band Neutrophils 2 % (0-10); Lymphocytes 14 % (20-55); Platelet Estimate Adequate; Segmented Neutrophils 79 % (50-85); Total Cells Counted 100
[2020-10-22 08:15] LABS: Hypochromasia 1+; Macrocytosis Slight; Polychromasia Slight; Target Cells Few
[2020-10-22 08:19] LABS: % Iron Saturation 88.4 % (18-50); Band Neutrophils 2 % (0-10); Ferritin 4238.4 ng/ml (8-252); Hypochromasia 1+; Lymphocytes 23 % (20-55); Nucleated Red Blood Cells 1 (0-5); Platelet Estimate Adequate; Segmented Neutrophils 69 % (50-85); Target Cells Few; Total Cells Counted 100
[2020-10-22 08:20] LABS: Macrocytosis Slight; Polychromasia Slight
[2020-10-22 09:04] LABS: Sedimentation Rate-Westergren 84 MM/HR (0-20)
[2020-10-22] MEDS: predniSONE 10 MG TABLET PO SCH (09:11)
[2020-10-22] MEDS: DOCUSATE SODIUM 100 MG CAPSULE PO SCH (09:11)
[2020-10-22] MEDS: FOLIC ACID 1 MG TABLET PO SCH (09:12)
[2020-10-22] MEDS: TOPIRAMATE 25 MG TABLET PO SCH ×2 (09:12→20:01)
[2020-10-22] MEDS: GABAPENTIN 600 MG TABLET PO SCH ×2 (09:12→20:01)
[2020-10-22] MEDS: DULoxetine 30 MG CAPSULE PO SCH (09:22)
[2020-10-22] MEDS: HYDROXYCHLOROQUINE 200 MG TABLET PO SCH (09:22)
[2020-10-22] MEDS: ERTAPENEM 1,000 MG in SODIUM CHLORIDE 0.9% 100 ML IV SCH (09:23)
[2020-10-22] MEDS ORDERED: cefTRIAXone 2,000 MG in SODIUM CHLORIDE 0.9% 100 ML IV SCH (12:00)
[2020-10-22] MEDS: HYDROXYUREA 500 MG CAPSULE PO SCH (12:12)
[2020-10-23] MEDS: SODIUM CHLORIDE 0.9% 1,000 ML IV SCH ×4 (01:34→13:07)
[2020-10-23] MEDS: HYDROmorphone 2 MG/1 ML VIAL IV PRN ×2 (03:17→07:22)
[2020-10-23 05:23] LABS: Basophils # 0.1 10*3/uL (0.0-0.2); Basophils % 0.4 % (0.0-0.8); Eosinophils % 0.2 % (0.00-10.9); Hematocrit 22.1 VOL% (35.7-47.0); Hemoglobin 7.8 GM/DL (12.0-16.0); Immature Granulocytes Absolute 0.81 #; Lymphocytes # 3.9 10*3/uL (1.4-4.0); Lymphocytes % 24.5 % (21.3-54.2); Mean Corpuscular HGB Conc 35.3 GM/DL (32-36); Mean Corpuscular Volume 75.2 FL (87-102); Mean Platelet Volume 11.1 FL (9.6-12.0); NRBC # 0.14 10*3/uL; Neutrophils % 65.9 % (38.7-73.9); Platelet Count 448 T/CUMM (130-400); Red Blood Count 2.94 MC/CUMM (3.8-5.5); White Blood Count 16.1 T/CUMM (4-12)
[2020-10-23 05:30] LABS: Calcium 8.8 MG/DL (8.5-10.1); Osmolality,Calculated 278.3 MOS/KG (273-304); Potassium 4.6 MMOL/L (3.5-5.1)
[2020-10-23 05:58] LABS: Band Neutrophils 2 % (0-10); Hypochromasia 1+; Lymphocytes 28 % (20-55); Nucleated Red Blood Cells 1 (0-5); Platelet Estimate Adequate; Segmented Neutrophils 65 % (50-85); Target Cells 1+; Total Cells Counted 100
[2020-10-23 05:59] LABS: Macrocytosis Slight; Polychromasia Slight
[2020-10-23] MEDS: DULoxetine 30 MG CAPSULE PO SCH (09:14)
[2020-10-23] MEDS: HYDROXYCHLOROQUINE 200 MG TABLET PO SCH (09:15)
[2020-10-23] MEDS: DOCUSATE SODIUM 100 MG CAPSULE PO SCH (09:15)
[2020-10-23] MEDS: HYDROXYUREA 500 MG CAPSULE PO SCH (09:15)
[2020-10-23] MEDS: TOPIRAMATE 25 MG TABLET PO SCH (09:15)
[2020-10-23] MEDS: GABAPENTIN 600 MG TABLET PO SCH (09:15)
[2020-10-23] MEDS: FOLIC ACID 1 MG TABLET PO SCH (09:15)
[2020-10-23] MEDS: predniSONE 10 MG TABLET PO SCH (09:16)
[2020-10-23] MEDS ORDERED: HYDROmorphone 2 MG TABLET PO PRN (10:33)
[2020-10-23 12:31] VITALS: BP 124/90
[2020-10-23 18:27] LABS: Folate > 24.00 NG/ML (5.38-24.0); Vitamin B12 468 PG/ML (211-911)
[2020-10-25 11:05] LABS: Hb A 0 % (95.8-98.0); Hb A2 4.2 % (2.0-3.3); Hb F 2.3 % (0.0-0.9); Variant 1 51.1 Hb S % (0.0); Variant 2 42.4 Hb C % (0.0)
[2020-10-26 11:18] LABS: Hemoglobin C (Alkaline) 45.1 %; Hemoglobin F (Alkaline) 6.9 %
== END 2020-10-23 15:15 | disposition home or self-care (01) | DRG 812 ==
LOC: N.ED 16:10 → N.EDINP 16:10 → SUATTDRO 20:46 → N.EDINP 23:39 → N.5E 23:57
PROVIDERS: ADMIT Hospitalist; ATTEND Internal Medicine

== ENCOUNTER 2020-11-08 11:07 | Inpatient (IN) ==
[2020-11-08] MEDS ORDERED: HYDROmorphone 2 MG/1 ML VIAL IV STA (14:52)
[2020-11-08] MEDS ORDERED: ONDANSETRON 4 MG/2 ML VIAL IV STA (14:52)
[2020-11-08] MEDS ORDERED: SODIUM CHLORIDE 0.9% 1,000 ML IV STA (14:52)
[2020-11-08 15:54] LABS: Basophils # 0.1 10*3/uL (0.0-0.2); Basophils % 0.4 % (0.0-0.8); Eosinophils # 0.4 10*3/uL (0.0-0.87); Eosinophils % 3.2 % (0.00-10.9); Hematocrit 24.1 VOL% (35.7-47.0); Hemoglobin 8.4 GM/DL (12.0-16.0); Immature Granulocytes % 0.9 %; Immature Granulocytes Absolute 0.11 #; Lymphocytes # 1.5 10*3/uL (1.4-4.0); Lymphocytes % 12.5 % (21.3-54.2); Mean Corpuscular HGB Conc 34.9 GM/DL (32-36); Mean Corpuscular Volume 77.5 FL (87-102); Mean Platelet Volume 11.6 FL (9.6-12.0); Monocytes % 5.7 % (1.7-12.7); NRBC # 0.06 10*3/uL; Neutrophils % 77.3 % (38.7-73.9); Platelet Count 334 T/CUMM (130-400); Red Blood Count 3.11 MC/CUMM (3.8-5.5); Red Cell Distribution Width 20.7 % (9.3-17.3); White Blood Count 12.3 T/CUMM (4-12)
[2020-11-08 16:17] LABS: Bilirubin,Total 0.5 MG/DL (0.20-1.00); Calcium 9.2 MG/DL (8.5-10.1); Osmolality,Calculated 269.8 MOS/KG (273-304); Total Protein 9.2 G/DL (6.4-8.2)
[2020-11-08] MEDS ORDERED: HYDROmorphone 2 MG/1 ML VIAL IV ONE (17:17)
[2020-11-08] MEDS ORDERED: GLUCAGON 1 MG VIAL IM PRN (17:32)
[2020-11-08] MEDS ORDERED: DEXTROSE 50% 25 GM/50 ML VIAL IV PRN (17:32)
[2020-11-08] MEDS ORDERED: traZODone 50 MG TABLET PO PRN (17:38)
[2020-11-08] MEDS ORDERED: ONDANSETRON 4 MG/2 ML VIAL IV PRN (17:38)
[2020-11-08] MEDS ORDERED: diphenhydrAMINE CAP 25 MG CAPSULE PO PRN (17:46)
[2020-11-08] MEDS: TOPIRAMATE 25 MG TABLET PO SCH (20:34)
[2020-11-08] MEDS: GABAPENTIN 600 MG TABLET PO SCH (20:34)
[2020-11-08] MEDS: ENOXAPARIN 100 MG/ML SYRINGE SUBCUT SCH (20:34)
[2020-11-08] MEDS: HYDROmorphone 2 MG/1 ML VIAL IV PRN ×2 (20:36→23:50)
[2020-11-08] MEDS: SODIUM CHLORIDE 0.45% 1,000 ML IV SCH (20:53)
[2020-11-08] MEDS: DOCUSATE SODIUM 100 MG CAPSULE PO SCH (20:55)
[2020-11-09] MEDS: HYDROmorphone 2 MG/1 ML VIAL IV PRN ×2 (03:34→07:12)
[2020-11-09 05:43] LABS: Basophils # 0.1 10*3/uL (0.0-0.2); Basophils % 0.5 % (0.0-0.8); Eosinophils # 0.5 10*3/uL (0.0-0.87); Eosinophils % 3.8 % (0.00-10.9); Hematocrit 23.4 VOL% (35.7-47.0); Hemoglobin 8.4 GM/DL (12.0-16.0); Immature Granulocytes % 0.9 %; Immature Granulocytes Absolute 0.11 #; Lymphocytes # 1.6 10*3/uL (1.4-4.0); Lymphocytes % 13.2 % (21.3-54.2); Mean Corpuscular HGB Conc 35.9 GM/DL (32-36); Mean Corpuscular Volume 75.7 FL (87-102); Mean Platelet Volume 11.8 FL (9.6-12.0); Monocytes % 6.3 % (1.7-12.7); NRBC # 0.04 10*3/uL; Neutrophils % 75.3 % (38.7-73.9); Platelet Count 319 T/CUMM (130-400); Red Blood Count 3.09 MC/CUMM (3.8-5.5); Red Cell Distribution Width 20.9 % (9.3-17.3)
[2020-11-09] MEDS: SODIUM CHLORIDE 0.45% 1,000 ML IV SCH ×4 (06:06→18:45)
[2020-11-09 06:13] LABS: Calcium 8.4 MG/DL (8.5-10.1); Osmolality,Calculated 273.7 MOS/KG (273-304)
[2020-11-09] MEDS: GABAPENTIN 600 MG TABLET PO SCH ×2 (09:08→20:27)
[2020-11-09] MEDS: DOCUSATE SODIUM 100 MG CAPSULE PO SCH ×2 (09:08→21:01)
[2020-11-09] MEDS: DULoxetine 30 MG CAPSULE PO SCH (09:10)
[2020-11-09] MEDS: HYDROXYUREA 500 MG CAPSULE PO SCH (09:10)
[2020-11-09] MEDS: HYDROXYCHLOROQUINE 200 MG TABLET PO SCH (09:10)
[2020-11-09] MEDS: TOPIRAMATE 25 MG TABLET PO SCH ×2 (09:11→20:28)
[2020-11-09] MEDS: FOLIC ACID 1 MG TABLET PO SCH (09:12)
[2020-11-09] MEDS: predniSONE 10 MG TABLET PO SCH (09:14)
[2020-11-09] MEDS ORDERED: SODIUM CHLORIDE 0.9% 1,000 ML IV PRN (09:34)
[2020-11-09] MEDS ORDERED: NALOXONE 0.4 MG/ML VIAL IV PRN (09:34)
[2020-11-09] MEDS ORDERED: HYDROmorphone PCA 30 MG/30 ML SYRINGE IV SCH (10:00)
[2020-11-09] MEDS ORDERED: ALBUTEROL 2.5 MG/3 ML NEB RESP TX PRN (13:14)
[2020-11-09] MEDS: ENOXAPARIN 100 MG/ML SYRINGE SUBCUT SCH (20:28)
[2020-11-10] MEDS: SODIUM CHLORIDE 0.45% 1,000 ML IV SCH ×3 (02:45→21:14)
[2020-11-10 04:30] LABS: Basophils % 0.2 % (0.0-0.8); Eosinophils % 0.3 % (0.00-10.9); Hematocrit 24.3 VOL% (35.7-47.0); Hemoglobin 8.6 GM/DL (12.0-16.0); Immature Granulocytes % 0.8 %; Lymphocytes # 1.9 10*3/uL (1.4-4.0); Lymphocytes % 15.2 % (21.3-54.2); Mean Corpuscular HGB Conc 35.4 GM/DL (32-36); Mean Corpuscular Volume 76.4 FL (87-102); Mean Platelet Volume 11.6 FL (9.6-12.0); Monocytes % 5.5 % (1.7-12.7); NRBC # 0.02 10*3/uL; Platelet Count 323 T/CUMM (130-400); Red Blood Count 3.18 MC/CUMM (3.8-5.5); White Blood Count 12.5 T/CUMM (4-12)
[2020-11-10 05:09] LABS: Calcium 9.3 MG/DL (8.5-10.1); Osmolality,Calculated 263.4 MOS/KG (273-304); Potassium 4.5 MMOL/L (3.5-5.1)
[2020-11-10] MEDS: DULoxetine 30 MG CAPSULE PO SCH (10:31)
[2020-11-10] MEDS: GABAPENTIN 600 MG TABLET PO SCH ×2 (10:32→21:15)
[2020-11-10] MEDS: HYDROXYCHLOROQUINE 200 MG TABLET PO SCH (10:34)
[2020-11-10] MEDS: TOPIRAMATE 25 MG TABLET PO SCH ×2 (10:34→21:15)
[2020-11-10] MEDS: predniSONE 10 MG TABLET PO SCH (10:35)
[2020-11-10] MEDS: HYDROXYUREA 500 MG CAPSULE PO SCH (10:36)
[2020-11-10] MEDS: DOCUSATE SODIUM 100 MG CAPSULE PO SCH ×3 (10:49→21:19)
[2020-11-10] MEDS: FOLIC ACID 1 MG TABLET PO SCH (11:11)
[2020-11-10] MEDS: ENOXAPARIN 100 MG/ML SYRINGE SUBCUT SCH (21:15)
[2020-11-10] MEDS: HYDROmorphone PCA 30 MG/30 ML SYRINGE IV SCH (22:26)
[2020-11-11] MEDS: SODIUM CHLORIDE 0.45% 1,000 ML IV SCH (04:37)
[2020-11-11 06:24] LABS: Basophils % 0.2 % (0.0-0.8); Eosinophils # 0.1 10*3/uL (0.0-0.87); Eosinophils % 0.3 % (0.00-10.9); Hematocrit 26.7 VOL% (35.7-47.0); Hemoglobin 9.5 GM/DL (12.0-16.0); Immature Granulocytes % 0.8 %; Immature Granulocytes Absolute 0.15 #; Lymphocytes % 10.8 % (21.3-54.2); Mean Corpuscular HGB Conc 35.6 GM/DL (32-36); Mean Corpuscular Volume 77.4 FL (87-102); Mean Platelet Volume 11.8 FL (9.6-12.0); Monocytes % 4.6 % (1.7-12.7); NRBC # 0.04 10*3/uL; Neutrophils % 83.3 % (38.7-73.9); Platelet Count 341 T/CUMM (130-400); Red Blood Count 3.45 MC/CUMM (3.8-5.5); Red Cell Distribution Width 21.2 % (9.3-17.3); White Blood Count 18.7 T/CUMM (4-12)
[2020-11-11 06:36] LABS: Calcium 9.3 MG/DL (8.5-10.1); Osmolality,Calculated 266.1 MOS/KG (273-304); Potassium 4.3 MMOL/L (3.5-5.1)
[2020-11-11] MEDS: DOCUSATE SODIUM 100 MG CAPSULE PO SCH (08:17)
[2020-11-11] MEDS: GABAPENTIN 600 MG TABLET PO SCH (09:08)
[2020-11-11] MEDS: HYDROXYUREA 500 MG CAPSULE PO SCH (09:09)
[2020-11-11] MEDS: DULoxetine 30 MG CAPSULE PO SCH (09:09)
[2020-11-11] MEDS: FOLIC ACID 1 MG TABLET PO SCH (09:10)
[2020-11-11] MEDS: TOPIRAMATE 25 MG TABLET PO SCH (09:11)
[2020-11-11] MEDS: predniSONE 10 MG TABLET PO SCH (09:11)
[2020-11-11] MEDS: HYDROXYCHLOROQUINE 200 MG TABLET PO SCH (09:12)
[2020-11-11] MEDS ORDERED: SODIUM BICARB INJ 100 MEQ in DEXTROSE 5% 1,000 ML IV SCH (09:30)
[2020-11-11] MEDS: HYDROmorphone PCA 30 MG/30 ML SYRINGE IV SCH (10:03)
[2020-11-11] MEDS ORDERED: FUROSEMIDE 20 MG/2 ML VIAL IV ONE (12:31)
[2020-11-11] MEDS ORDERED: ALBUTEROL/IPRATROPIUM 3 ML NEB RESP TX SCH (13:00)
[2020-11-11 15:39] VITALS: BP 108/60
[2020-11-11 15:39] LABS: Osmolality,Calculated 267.2 MOS/KG (273-304); Potassium 4.1 MMOL/L (3.5-5.1)
[2020-11-11] MEDS ORDERED: CEFUROXIME 500 MG TABLET PO SCH (21:00)
== END 2020-11-11 17:59 | disposition home or self-care (01) | DRG 811 ==
LOC: N.ED 11:07 → N.EDINP 11:07 → N.4E 18:22
PROVIDERS: ADMIT Internal Medicine; ATTEND Internal Medicine

== ENCOUNTER 2020-11-24 03:30 | Inpatient (IN) ==
[2020-11-24] MEDS ORDERED: HYDROmorphone 2 MG/1 ML VIAL IV ONE (04:12)
[2020-11-24] MEDS ORDERED: ONDANSETRON 4 MG/2 ML VIAL IV STA (04:12)
[2020-11-24] MEDS ORDERED: SODIUM CHLORIDE 0.9% 1,000 ML IV STA (04:12)
[2020-11-24 05:55] LABS: Basophils # 0.1 10*3/uL (0.0-0.2); Basophils % 0.6 % (0.0-0.8); Eosinophils # 0.2 10*3/uL (0.0-0.87); Eosinophils % 1.6 % (0.00-10.9); Hematocrit 24.2 VOL% (35.7-47.0); Hemoglobin 8.3 GM/DL (12.0-16.0); Immature Granulocytes % 1.3 %; Immature Granulocytes Absolute 0.16 #; Lymphocytes # 2.9 10*3/uL (1.4-4.0); Lymphocytes % 23.6 % (21.3-54.2); Mean Corpuscular HGB Conc 34.3 GM/DL (32-36); Mean Corpuscular Volume 76.8 FL (87-102); Mean Platelet Volume 10.6 FL (9.6-12.0); Monocytes % 7.7 % (1.7-12.7); NRBC # 0.05 10*3/uL; Neutrophils % 65.2 % (38.7-73.9); Platelet Count 372 T/CUMM (130-400); Red Blood Count 3.15 MC/CUMM (3.8-5.5); Red Cell Distribution Width 20.3 % (9.3-17.3); White Blood Count 12.2 T/CUMM (4-12)
[2020-11-24 06:02] LABS: Bacteria,Urine Occasional /HPF (Few); Bilirubin,Urine Negative (Negative); Blood, Urine Negative (Negative); Glucose,Urine (UA) Negative (Negative); Ketones,Urine Negative (Negative); Nitrite,Urine Negative (Negative); Protein,Urine Negative; RBC,Urine 1 /HPF (0-4); Squamous Epithelial Cell,Urine Occasional /HPF (0-10); Urine Appearance CLEAR (Clear); Urine Color Straw (Yellow); Urine Specific Gravity 1.005 (1.001-1.035)
[2020-11-24 06:27] LABS: Barbiturates Screen,Urine Negative (Negative); Benzodiazepines Screen,Urine Negative (Negative); Cannabinoid Screen,Urine Positive (Negative); Opiate Screen,Urine Negative (Negative); Phencyclidine Screen,Urine Negative (Negative)
[2020-11-24 06:32] LABS: Alanine Aminotransferase < 9 U/L (13-56); Albumin 2.8 G/DL (3.4-5.0); Alkaline Phosphatase 78 U/L (45-117); Aspartate Amino Transferase 17 U/L (0-37); Blood Urea Nitrogen 7 MG/DL (7-18); Calcium 8.9 MG/DL (8.5-10.1); Carbon Dioxide 22 MMOL/L (21-32); Estimated Glom Filtration Rate 151 ML/MIN; Glucose 77 MG/DL (74-106); Osmolality,Calculated 269.8 MOS/KG (273-304); Potassium 4.5 MMOL/L (3.5-5.1); Sodium 137 MMOL/L (136-145); Total Protein 8.4 G/DL (6.4-8.2)
[2020-11-24] MEDS ORDERED: HYDROmorphone 2 MG/1 ML VIAL IV STA (07:11)
[2020-11-24 08:06] LABS: Platelet Estimate Normal; Target Cells 3+
[2020-11-24] MEDS ORDERED: cefTRIAXone 1,000 MG in SODIUM CHLORIDE 0.9% 100 ML IV STA (11:48)
[2020-11-24] MEDS ORDERED: diphenhydrAMINE CAP 25 MG CAPSULE PO PRN (12:30)
[2020-11-24] MEDS ORDERED: DEXTROSE 50% 25 GM/50 ML VIAL IV PRN (12:30)
[2020-11-24] MEDS ORDERED: ONDANSETRON 4 MG/2 ML VIAL IV PRN (12:30)
[2020-11-24] MEDS ORDERED: ACETAMINOPHEN 325 MG TABLET PO PRN (12:30)
[2020-11-24] MEDS ORDERED: GLUCAGON 1 MG VIAL IM PRN (12:30)
[2020-11-24] MEDS ORDERED: BISACODYL 5 MG TABLET PO PRN (12:30)
[2020-11-24] MEDS ORDERED: NALOXONE 0.4 MG/ML VIAL IV PRN (12:30)
[2020-11-24] MEDS ORDERED: FOLIC ACID 1 MG TABLET PO SCH (13:00)
[2020-11-24] MEDS: HYDROmorphone PCA 30 MG/30 ML SYRINGE IV SCH (16:00)
[2020-11-24] MEDS: SODIUM CHLORIDE 0.45% 1,000 ML IV SCH (16:00)
[2020-11-24] MEDS: cefTRIAXone 1,000 MG in SODIUM CHLORIDE 0.9% 100 ML IV SCH (19:33)
[2020-11-24] MEDS: GABAPENTIN 600 MG TABLET PO SCH (20:45)
[2020-11-24] MEDS: TOPIRAMATE 25 MG TABLET PO SCH (20:45)
[2020-11-24] MEDS ORDERED: ENOXAPARIN 100 MG/ML SYRINGE SUBCUT SCH (21:00)
[2020-11-24] MEDS: traZODone 50 MG TABLET PO PRN (22:10)
[2020-11-25] MEDS: SODIUM CHLORIDE 0.45% 1,000 ML IV SCH ×3 (00:30→17:33)
[2020-11-25 07:18] LABS: Basophils # 0.1 10*3/uL (0.0-0.2); Basophils % 0.6 % (0.0-0.8); Eosinophils # 0.3 10*3/uL (0.0-0.87); Eosinophils % 3.2 % (0.00-10.9); Hematocrit 23.7 VOL% (35.7-47.0); Hemoglobin 8.4 GM/DL (12.0-16.0); Immature Granulocytes % 1.1 %; Lymphocytes # 2.7 10*3/uL (1.4-4.0); Mean Corpuscular HGB Conc 35.4 GM/DL (32-36); Mean Platelet Volume 10.3 FL (9.6-12.0); Monocytes % 7.6 % (1.7-12.7); NRBC # 0.04 10*3/uL; Neutrophils % 58.5 % (38.7-73.9); Platelet Count 341 T/CUMM (130-400); Red Blood Count 3.12 MC/CUMM (3.8-5.5); Red Cell Distribution Width 20.3 % (9.3-17.3); White Blood Count 9.4 T/CUMM (4-12)
[2020-11-25 07:37] LABS: Calcium 8.4 MG/DL (8.5-10.1); Potassium 5.3 MMOL/L (3.5-5.1)
[2020-11-25 08:27] LABS: Anisocytosis 1+; Band Neutrophils 2 % (0-10); Eosinophils 6 % (0-10); Hypochromasia 1+; Lymphocytes 25 % (20-55); Nucleated Red Blood Cells 2 (0-5); Platelet Estimate Normal; Segmented Neutrophils 58 % (50-85); Target Cells 2+; Total Cells Counted 100
[2020-11-25] MEDS: FOLIC ACID 1 MG TABLET PO SCH (09:12)
[2020-11-25] MEDS: DULoxetine 30 MG CAPSULE PO SCH (09:12)
[2020-11-25] MEDS: HYDROXYCHLOROQUINE 200 MG TABLET PO SCH (09:12)
[2020-11-25] MEDS: predniSONE 10 MG TABLET PO SCH (09:13)
[2020-11-25] MEDS: GABAPENTIN 600 MG TABLET PO SCH ×2 (09:13→20:38)
[2020-11-25] MEDS: HYDROXYUREA 500 MG CAPSULE PO SCH (09:13)
[2020-11-25] MEDS: TOPIRAMATE 25 MG TABLET PO SCH ×2 (09:13→20:38)
[2020-11-25] MEDS ORDERED: HYDROmorphone PCA 30 MG/30 ML SYRINGE IV SCH (12:30)
[2020-11-25] MEDS: cefTRIAXone 1,000 MG in SODIUM CHLORIDE 0.9% 100 ML IV SCH (13:12)
[2020-11-25] MEDS: HYDROmorphone PCA 30 MG/30 ML SYRINGE IV SCH (20:36)
[2020-11-25] MEDS: ENOXAPARIN 100 MG/ML SYRINGE SUBCUT SCH (20:39)
[2020-11-25] MEDS: traZODone 50 MG TABLET PO PRN (20:39)
[2020-11-26] MEDS: SODIUM CHLORIDE 0.45% 1,000 ML IV SCH ×3 (01:16→18:29)
[2020-11-26 07:37] LABS: Basophils % 0.4 % (0.0-0.8); Eosinophils # 0.1 10*3/uL (0.0-0.87); Eosinophils % 0.8 % (0.00-10.9); Hematocrit 24.6 VOL% (35.7-47.0); Hemoglobin 8.8 GM/DL (12.0-16.0); Immature Granulocytes % 0.7 %; Immature Granulocytes Absolute 0.07 #; Lymphocytes # 2.4 10*3/uL (1.4-4.0); Lymphocytes % 23.2 % (21.3-54.2); Mean Corpuscular HGB Conc 35.8 GM/DL (32-36); Mean Corpuscular Volume 75.9 FL (87-102); Mean Platelet Volume 10.3 FL (9.6-12.0); NRBC # 0.04 10*3/uL; Neutrophils % 68.9 % (38.7-73.9); Platelet Count 366 T/CUMM (130-400); Red Blood Count 3.24 MC/CUMM (3.8-5.5); Red Cell Distribution Width 20.1 % (9.3-17.3); White Blood Count 10.3 T/CUMM (4-12)
[2020-11-26 07:49] LABS: Calcium 9.1 MG/DL (8.5-10.1); Osmolality,Calculated 267.1 MOS/KG (273-304); Potassium 4.2 MMOL/L (3.5-5.1)
[2020-11-26] MEDS: ENOXAPARIN 100 MG/ML SYRINGE SUBCUT SCH ×2 (09:45→20:23)
[2020-11-26] MEDS: HYDROXYCHLOROQUINE 200 MG TABLET PO SCH (09:46)
[2020-11-26] MEDS: FOLIC ACID 1 MG TABLET PO SCH (09:46)
[2020-11-26] MEDS: predniSONE 10 MG TABLET PO SCH (09:46)
[2020-11-26] MEDS: HYDROXYUREA 500 MG CAPSULE PO SCH (09:46)
[2020-11-26] MEDS: GABAPENTIN 600 MG TABLET PO SCH ×2 (09:46→20:23)
[2020-11-26] MEDS: TOPIRAMATE 25 MG TABLET PO SCH ×2 (09:46→20:23)
[2020-11-26] MEDS: DULoxetine 30 MG CAPSULE PO SCH (09:46)
[2020-11-26] MEDS: cefTRIAXone 1,000 MG in SODIUM CHLORIDE 0.9% 100 ML IV SCH (13:30)
[2020-11-26] MEDS: HYDROmorphone PCA 30 MG/30 ML SYRINGE IV SCH ×2 (14:31→15:18)
[2020-11-26] MEDS: traZODone 50 MG TABLET PO PRN (20:23)
[2020-11-27] MEDS: SODIUM CHLORIDE 0.45% 1,000 ML IV SCH ×2 (02:17→09:59)
[2020-11-27] MEDS: HYDROmorphone 2 MG TABLET PO PRN ×2 (02:21→08:22)
[2020-11-27] MEDS: predniSONE 10 MG TABLET PO SCH (08:18)
[2020-11-27] MEDS: FOLIC ACID 1 MG TABLET PO SCH (08:18)
[2020-11-27] MEDS: ENOXAPARIN 100 MG/ML SYRINGE SUBCUT SCH (08:19)
[2020-11-27] MEDS: DULoxetine 30 MG CAPSULE PO SCH (08:19)
[2020-11-27] MEDS: GABAPENTIN 600 MG TABLET PO SCH (08:19)
[2020-11-27] MEDS: HYDROXYUREA 500 MG CAPSULE PO SCH (08:19)
[2020-11-27] MEDS: HYDROXYCHLOROQUINE 200 MG TABLET PO SCH (08:19)
[2020-11-27] MEDS: TOPIRAMATE 25 MG TABLET PO SCH (08:19)
[2020-11-27 11:32] VITALS: BP 92/62
[2020-11-27] MEDS: cefTRIAXone 1,000 MG in SODIUM CHLORIDE 0.9% 100 ML IV SCH (11:43)
== END 2020-11-27 12:36 | disposition home or self-care (01) | DRG 812 ==
LOC: EDBD → EDUNIT# → N.ED 03:30 → N.EDINP 12:30 → SUATTDRO 12:30 → N.4E 14:37
PROVIDERS: ADMIT Emergency Medicine; ATTEND Internal Medicine

== ENCOUNTER 2021-05-17 07:20 | Observation (INO) ==
[2021-05-17] MEDS ORDERED: ONDANSETRON ODT 4 MG TABLET PO STA (07:35)
[2021-05-17] MEDS ORDERED: MORPHINE 2 MG/1 ML SYRINGE IV STA ×2 (07:35→12:12)
[2021-05-17] MEDS ORDERED: SODIUM CHLORIDE 0.9% 1,000 ML IV STA (07:35)
[2021-05-17 09:33] LABS: Basophils # 0.1 10*3/uL (0.0-0.2); Basophils % 0.9 % (0.0-0.8); Eosinophils # 0.4 10*3/uL (0.0-0.87); Eosinophils % 4.8 % (0.00-10.9); Hematocrit 25.9 VOL% (35.7-47.0); Hemoglobin 9.1 GM/DL (12.0-16.0); Immature Granulocytes % 1.1 %; Immature Granulocytes Absolute 0.09 #; Lymphocytes # 2.2 10*3/uL (1.4-4.0); Lymphocytes % 27.6 % (21.3-54.2); Mean Corpuscular HGB Conc 35.1 GM/DL (32-36); Mean Corpuscular Volume 71.3 FL (87-102); Mean Platelet Volume 10.3 FL (9.6-12.0); Monocytes % 7.1 % (1.7-12.7); NRBC # 0.04 10*3/uL; Neutrophils % 58.5 % (38.7-73.9); Platelet Count 380 T/CUMM (130-400); Red Blood Count 3.63 MC/CUMM (3.8-5.5); Red Cell Distribution Width 20.8 % (9.3-17.3); White Blood Count 8.1 T/CUMM (4-12)
[2021-05-17] MEDS ORDERED: HYDROmorphone 2 MG/1 ML VIAL ONE (09:33)
[2021-05-17] MEDS ORDERED: HYDROmorphone 2 MG/1 ML VIAL IV STA ×2 (09:47→11:44)
[2021-05-17 09:50] LABS: Hypochromia 1+
[2021-05-17 09:51] LABS: Microcytosis 1+; Platelet Estimate Adequate; Target Cells Few
[2021-05-17 09:52] LABS: Albumin 3.1 G/DL (3.4-5.0); Bilirubin,Total 0.4 MG/DL (0.20-1.00); Calcium 8.6 MG/DL (8.5-10.1); Osmolality,Calculated 273.5 MOS/KG (273-304); Total Protein 8.6 G/DL (6.4-8.2)
[2021-05-17] MEDS ORDERED: DOCUSATE SODIUM 100 MG CAPSULE PO PRN (12:12)
[2021-05-17] MEDS ORDERED: hydrALAZINE 20 MG/1 ML VIAL IV PRN (12:12)
[2021-05-17] MEDS ORDERED: ALBUTEROL 2.5 MG/3 ML NEB RESP TX PRN (12:12)
[2021-05-17] MEDS ORDERED: GLUCAGON 1 MG VIAL IM PRN (12:12)
[2021-05-17] MEDS ORDERED: ACETAMINOPHEN 325 MG TABLET PO PRN (12:12)
[2021-05-17] MEDS ORDERED: ONDANSETRON 4 MG/2 ML VIAL IV PRN (12:12)
[2021-05-17] MEDS ORDERED: DEXTROSE 10% 250 ML BAG IV PRN (12:17)
[2021-05-17] MEDS ORDERED: METOPROLOL TARTRATE 5 MG/5 ML VIAL IV ONE (14:31)
[2021-05-17] MEDS: HYDROmorphone 2 MG TABLET PO PRN (17:00)
[2021-05-17] MEDS: SODIUM CHLORIDE 0.9% 1,000 ML IV SCH (17:00)
[2021-05-17] MEDS: FOLIC ACID 1 MG TABLET PO SCH (17:00)
[2021-05-17] MEDS: DULoxetine 30 MG CAPSULE PO SCH (17:00)
[2021-05-17 17:48] LABS: Amorphous Crystals,Urine Occasional /HPF (Few); Bacteria,Urine Many /HPF (Few); Bilirubin,Urine Negative (Negative); Blood, Urine Negative (Negative); Glucose,Urine (UA) Negative (Negative); Ketones,Urine Negative (Negative); Mucus,Urine Occasional /LPF (Occasional); Nitrite,Urine Positive (Negative); Protein,Urine Negative; Squamous Epithelial Cell,Urine Occasional /HPF (0-10); Urine Appearance CLEAR (Clear); Urine Color Yellow (Yellow); Urine Specific Gravity 1.008 (1.001-1.035); Urine Urobilinogen < 2.0 EU/DL (<2.0)
[2021-05-17] MEDS: HYDROXYUREA 500 MG CAPSULE PO SCH (18:20)
[2021-05-17] MEDS ORDERED: ONDANSETRON 4 MG/2 ML VIAL IM ONE (20:44)
[2021-05-17] MEDS: MORPHINE 2 MG/1 ML SYRINGE IV PRN (21:29)
[2021-05-17] MEDS: GABAPENTIN 300 MG CAPSULE PO SCH (21:30)
[2021-05-18] MEDS: MORPHINE 2 MG/1 ML SYRINGE IV PRN ×3 (02:27→12:25)
[2021-05-18] MEDS: ONDANSETRON 4 MG/2 ML VIAL IV PRN ×3 (02:29→12:29)
[2021-05-18] MEDS: SODIUM CHLORIDE 0.9% 1,000 ML IV SCH (03:55)
[2021-05-18 04:17] LABS: Basophils # 0.1 10*3/uL (0.0-0.2); Basophils % 0.9 % (0.0-0.8); Eosinophils # 0.4 10*3/uL (0.0-0.87); Hematocrit 23.3 VOL% (35.7-47.0); Hemoglobin 8.1 GM/DL (12.0-16.0); Immature Granulocytes % 0.6 %; Immature Granulocytes Absolute 0.05 #; Lymphocytes # 2.3 10*3/uL (1.4-4.0); Lymphocytes % 29.1 % (21.3-54.2); Mean Corpuscular HGB Conc 34.8 GM/DL (32-36); Mean Corpuscular Volume 71.9 FL (87-102); Mean Platelet Volume 10.7 FL (9.6-12.0); NRBC # 0.03 10*3/uL; Neutrophils % 56.4 % (38.7-73.9); Platelet Count 344 T/CUMM (130-400); Red Blood Count 3.24 MC/CUMM (3.8-5.5); Red Cell Distribution Width 20.1 % (9.3-17.3); White Blood Count 7.7 T/CUMM (4-12)
[2021-05-18 04:38] LABS: Alanine Aminotransferase < 9 U/L (13-56); Albumin 2.6 G/DL (3.4-5.0); Alkaline Phosphatase 76 U/L (45-117); Aspartate Amino Transferase 16 U/L (0-37); Blood Urea Nitrogen 6 MG/DL (7-18); Calcium 8.2 MG/DL (8.5-10.1); Carbon Dioxide 23 MMOL/L (21-32); Estimated Glom Filtration Rate 151 ML/MIN; Glucose 85 MG/DL (74-106); Osmolality,Calculated 277.3 MOS/KG (273-304); Potassium 3.8 MMOL/L (3.5-5.1); Sodium 141 MMOL/L (136-145); Total Protein 7.6 G/DL (6.4-8.2)
[2021-05-18 04:39] LABS: Hypochromia 3+; Platelet Estimate Normal; Target Cells 3+
[2021-05-18 04:50] LABS: Howell-Jolly Bodies 1+
[2021-05-18 04:52] LABS: Sickle Cells Few
[2021-05-18] MEDS: HYDROmorphone 2 MG TABLET PO PRN (06:10)
[2021-05-18] MEDS ORDERED: PANTOPRAZOLE 40 MG TABLET PO SCH (09:00)
[2021-05-18] MEDS: HYDROXYUREA 500 MG CAPSULE PO SCH (10:56)
[2021-05-18] MEDS: DULoxetine 30 MG CAPSULE PO SCH (10:56)
[2021-05-18] MEDS: FOLIC ACID 1 MG TABLET PO SCH (10:56)
[2021-05-18] MEDS: GABAPENTIN 300 MG CAPSULE PO SCH (10:56)
[2021-05-18 15:44] VITALS: BP 110/54
== END 2021-05-18 15:35 | disposition home or self-care (01) ==
LOC: N.ED 07:20 → N.EDINP 07:20 → N.TELEN 05-18 08:56
PROVIDERS: ADMIT Internal Medicine; ATTEND Internal Medicine

== ENCOUNTER 2021-07-24 12:25 | Inpatient (IN) ==
[2021-07-24] MEDS ORDERED: SODIUM CHLORIDE 0.9% 1,000 ML IV STA (13:37)
[2021-07-24] MEDS ORDERED: ONDANSETRON 4 MG/2 ML VIAL IV STA (13:38)
[2021-07-24] MEDS ORDERED: HYDROmorphone 1 MG/1 ML SYRINGE IV STA ×2 (13:38→15:16)
[2021-07-24 14:35] LABS: Basophils # 0.1 10*3/uL (0.0-0.2); Basophils % 0.6 % (0.0-0.8); Eosinophils # 0.1 10*3/uL (0.0-0.87); Eosinophils % 1.2 % (0.00-10.9); Hematocrit 24.1 VOL% (35.7-47.0); Hemoglobin 8.7 GM/DL (12.0-16.0); Immature Granulocytes % 0.9 %; Lymphocytes # 2.3 10*3/uL (1.4-4.0); Lymphocytes % 21.3 % (21.3-54.2); Mean Corpuscular HGB Conc 36.1 GM/DL (32-36); Mean Corpuscular Volume 75.3 FL (87-102); Mean Platelet Volume 11.1 FL (9.6-12.0); Monocytes % 7.1 % (1.7-12.7); NRBC # 0.04 10*3/uL; Neutrophils % 68.9 % (38.7-73.9); Platelet Count 204 T/CUMM (130-400); Red Cell Distribution Width 21.8 % (9.3-17.3)
[2021-07-24 15:10] LABS: Albumin 2.9 G/DL (3.4-5.0); Bilirubin,Total 0.7 MG/DL (0.20-1.00); Calcium 8.7 MG/DL (8.5-10.1); Osmolality,Calculated 273.5 MOS/KG (273-304); Potassium 3.5 MMOL/L (3.5-5.1); Total Protein 7.8 G/DL (6.4-8.2)
[2021-07-24 15:48] LABS: Bacteria,Urine Occasional /HPF (Few); RBC,Urine <1 /HPF (0-4); Squamous Epithelial Cell,Urine Occasional /HPF (0-10); Urine Appearance Clear (Clear); Urine Color Yellow (Yellow)
[2021-07-24 15:49] LABS: Bilirubin,Urine Negative (Negative); Blood, Urine Trace mg/dL (Negative); Glucose,Urine (UA) Negative (Negative); Ketones,Urine Negative (Negative); Nitrite,Urine Negative (Negative); Protein,Urine Negative (Negative); Urine Urobilinogen 0.2 eU/dL (<2.0)
[2021-07-24 15:58] LABS: Barbiturates Screen,Urine Negative (Negative); Benzodiazepines Screen,Urine Negative (Negative); Cannabinoid Screen,Urine Positive (Negative); Opiate Screen,Urine Positive (Negative); Phencyclidine Screen,Urine Negative (Negative)
[2021-07-24] MEDS ORDERED: DOCUSATE SODIUM 100 MG CAPSULE PO PRN (15:59)
[2021-07-24] MEDS ORDERED: ACETAMINOPHEN 325 MG TABLET PO PRN (15:59)
[2021-07-24] MEDS ORDERED: GLUCAGON 1 MG VIAL IM PRN (15:59)
[2021-07-24] MEDS ORDERED: ONDANSETRON 4 MG/2 ML VIAL IV PRN (15:59)
[2021-07-24] MEDS ORDERED: hydrALAZINE 20 MG/1 ML VIAL IV PRN (15:59)
[2021-07-24] MEDS ORDERED: DEXTROSE 10% 250 ML BAG IV PRN (16:25)
[2021-07-24] MEDS: SODIUM CHLORIDE 0.9% 1,000 ML IV SCH (16:48)
[2021-07-24] MEDS ORDERED: diphenhydrAMINE CAP 25 MG CAPSULE PO PRN (17:28)
[2021-07-24] MEDS: HYDROmorphone 1 MG/1 ML SYRINGE IV PRN ×2 (19:13→22:24)
[2021-07-24] MEDS: TOPIRAMATE 25 MG TABLET PO SCH (21:03)
[2021-07-24] MEDS: GABAPENTIN 300 MG CAPSULE PO SCH (21:04)
[2021-07-25] MEDS: HYDROmorphone 1 MG/1 ML SYRINGE IV PRN ×4 (01:29→10:42)
[2021-07-25] MEDS: SODIUM CHLORIDE 0.9% 1,000 ML IV SCH ×3 (01:30→20:50)
[2021-07-25 05:43] LABS: Calcium 7.8 MG/DL (8.5-10.1); Potassium 3.9 MMOL/L (3.5-5.1)
[2021-07-25 07:54] LABS: Basophils % 0.3 % (0.0-0.8); Eosinophils # 0.2 10*3/uL (0.0-0.87); Eosinophils % 1.3 % (0.00-10.9); Hematocrit 22.9 VOL% (35.7-47.0); Hemoglobin 8.3 GM/DL (12.0-16.0); Immature Granulocytes % 0.9 %; Immature Granulocytes Absolute 0.11 #; Lymphocytes % 16.5 % (21.3-54.2); Mean Corpuscular HGB Conc 36.2 GM/DL (32-36); Mean Corpuscular Volume 74.4 FL (87-102); Mean Platelet Volume 10.6 FL (9.6-12.0); Monocytes % 11.5 % (1.7-12.7); NRBC # 0.02 10*3/uL; Neutrophils % 69.5 % (38.7-73.9); Platelet Count 197 T/CUMM (130-400); Red Blood Count 3.08 MC/CUMM (3.8-5.5); Red Cell Distribution Width 21.5 % (9.3-17.3); White Blood Count 12.4 T/CUMM (4-12)
[2021-07-25] MEDS: HYDROXYCHLOROQUINE 200 MG TABLET PO SCH (10:12)
[2021-07-25] MEDS: GABAPENTIN 300 MG CAPSULE PO SCH ×2 (10:12→20:50)
[2021-07-25] MEDS: DULoxetine 30 MG CAPSULE PO SCH (10:12)
[2021-07-25] MEDS: TOPIRAMATE 25 MG TABLET PO SCH ×2 (10:13→20:50)
[2021-07-25] MEDS: PANTOPRAZOLE 40 MG TABLET PO SCH (10:13)
[2021-07-25] MEDS: FOLIC ACID 1 MG TABLET PO SCH (10:14)
[2021-07-25] MEDS: HYDROXYUREA 500 MG CAPSULE PO SCH (10:15)
[2021-07-25] MEDS: predniSONE 5 MG TABLET PO SCH (10:16)
[2021-07-25] MEDS: ENOXAPARIN 100 MG/ML SYRINGE SUBCUT SCH (10:19)
[2021-07-25] MEDS ORDERED: NALOXONE 0.4 MG/ML VIAL IV PRN (10:40)
[2021-07-25] MEDS ORDERED: SODIUM CHLORIDE 0.9% 1,000 ML IV PRN (10:40)
[2021-07-25] MEDS ORDERED: HYDROmorphone PCA 30 MG/30 ML SYRINGE IV SCH (11:00)
[2021-07-26] MEDS: SODIUM CHLORIDE 0.9% 1,000 ML IV SCH ×3 (03:50→21:23)
[2021-07-26] MEDS: GABAPENTIN 300 MG CAPSULE PO SCH ×2 (09:55→21:24)
[2021-07-26] MEDS: FOLIC ACID 1 MG TABLET PO SCH (09:56)
[2021-07-26] MEDS: HYDROXYUREA 500 MG CAPSULE PO SCH (09:56)
[2021-07-26] MEDS: predniSONE 5 MG TABLET PO SCH (09:56)
[2021-07-26] MEDS: DULoxetine 30 MG CAPSULE PO SCH (09:56)
[2021-07-26] MEDS: PANTOPRAZOLE 40 MG TABLET PO SCH (09:56)
[2021-07-26] MEDS: HYDROXYCHLOROQUINE 200 MG TABLET PO SCH (09:57)
[2021-07-26] MEDS: ENOXAPARIN 100 MG/ML SYRINGE SUBCUT SCH (09:57)
[2021-07-26] MEDS: TOPIRAMATE 25 MG TABLET PO SCH ×2 (10:00→21:24)
[2021-07-26] MEDS ORDERED: HYDROmorphone PCA 30 MG/30 ML SYRINGE IV SCH (11:00)
[2021-07-26] MEDS: amLODIPine 10 MG TABLET PO SCH (15:54)
[2021-07-26 15:56] LABS: Basophils % 0.2 % (0.0-0.8); Eosinophils % 0.2 % (0.00-10.9); Hematocrit 25.6 VOL% (35.7-47.0); Immature Granulocytes % 0.5 %; Immature Granulocytes Absolute 0.05 #; Lymphocytes # 0.7 10*3/uL (1.4-4.0); Lymphocytes % 7.4 % (21.3-54.2); Mean Corpuscular HGB Conc 35.2 GM/DL (32-36); Mean Corpuscular Volume 77.1 FL (87-102); Monocytes % 1.9 % (1.7-12.7); NRBC # 0.03 10*3/uL; Neutrophils % 89.8 % (38.7-73.9); Platelet Count 99 T/CUMM (130-400); Red Blood Count 3.32 MC/CUMM (3.8-5.5); White Blood Count 9.2 T/CUMM (4-12)
[2021-07-26 16:26] LABS: Lymphocytes 8 % (20-55); Segmented Neutrophils 89 % (50-85); Total Cells Counted 100
[2021-07-26 16:28] LABS: Anisocytosis 1+; Platelet Estimate Decreased; Target Cells 2+
[2021-07-26 16:30] LABS: Microcytosis 1+
[2021-07-27] MEDS: SODIUM CHLORIDE 0.9% 1,000 ML IV SCH (04:00)
[2021-07-27 08:10] VITALS: BP 108/85
[2021-07-27] MEDS: ENOXAPARIN 100 MG/ML SYRINGE SUBCUT SCH (09:59)
[2021-07-27] MEDS: DULoxetine 30 MG CAPSULE PO SCH (09:59)
[2021-07-27] MEDS: amLODIPine 10 MG TABLET PO SCH (09:59)
[2021-07-27] MEDS: HYDROXYCHLOROQUINE 200 MG TABLET PO SCH (10:00)
[2021-07-27] MEDS: GABAPENTIN 300 MG CAPSULE PO SCH (10:00)
[2021-07-27] MEDS: predniSONE 5 MG TABLET PO SCH (10:00)
[2021-07-27] MEDS: HYDROXYUREA 500 MG CAPSULE PO SCH (10:01)
[2021-07-27] MEDS: PANTOPRAZOLE 40 MG TABLET PO SCH (10:01)
[2021-07-27] MEDS: FOLIC ACID 1 MG TABLET PO SCH (10:01)
[2021-07-27] MEDS: TOPIRAMATE 25 MG TABLET PO SCH (10:02)
[2021-07-27] MEDS ORDERED: HYDROmorphone 2 MG TABLET PO PRN (10:43)
== END 2021-07-27 10:55 | disposition home or self-care (01) | DRG 812 ==
LOC: N.ED 12:25 → N.EDINP 15:59 → SUATTDRO 15:59 → N.TELES 19:58
PROVIDERS: ADMIT Internal Medicine; ATTEND Hospitalist

== ENCOUNTER 2021-08-24 20:06 | Inpatient (IN) ==
[2021-08-24] MEDS ORDERED: SODIUM CHLORIDE 0.9% 1,000 ML IV STA (20:18)
[2021-08-24] MEDS ORDERED: PROMETHAZINE INJ 12.5 MG in SODIUM CHLORIDE 0.9% 50 ML IV STA (20:18)
[2021-08-24] MEDS ORDERED: HYDROmorphone 1 MG/1 ML SYRINGE IV STA ×2 (20:18→21:39)
[2021-08-24] MEDS ORDERED: PROMETHAZINE 25 MG/1 ML VIAL ONE (20:35)
[2021-08-24 21:03] LABS: Basophils # 0.1 10*3/uL (0.0-0.2); Basophils % 0.7 % (0.0-0.8); Eosinophils # 0.1 10*3/uL (0.0-0.87); Eosinophils % 1.3 % (0.00-10.9); Hematocrit 24.2 VOL% (35.7-47.0); Hemoglobin 8.5 GM/DL (12.0-16.0); Immature Granulocytes % 2.5 %; Immature Granulocytes Absolute 0.25 #; Lymphocytes # 1.8 10*3/uL (1.4-4.0); Lymphocytes % 17.8 % (21.3-54.2); Mean Corpuscular HGB Conc 35.1 GM/DL (32-36); Mean Corpuscular Volume 75.9 FL (87-102); Mean Platelet Volume 10.5 FL (9.6-12.0); Monocytes # 0.8 10*3/uL (0.11-0.8); NRBC # 0.16 10*3/uL; Neutrophils % 69.7 % (38.7-73.9); Platelet Count 278 T/CUMM (130-400); Red Blood Count 3.19 MC/CUMM (3.8-5.5); Red Cell Distribution Width 21.6 % (9.3-17.3); White Blood Count 9.9 T/CUMM (4-12)
[2021-08-24 21:34] LABS: Calcium 8.6 MG/DL (8.5-10.1); Osmolality,Calculated 274.4 MOS/KG (273-304); Potassium 4.3 MMOL/L (3.5-5.1)
[2021-08-24] MEDS ORDERED: PROMETHAZINE 25 MG/1 ML VIAL IM PRN (22:04)
[2021-08-24] MEDS ORDERED: GLUCAGON 1 MG VIAL IM PRN (22:04)
[2021-08-24] MEDS ORDERED: ONDANSETRON 4 MG/2 ML VIAL IV PRN (22:04)
[2021-08-24] MEDS ORDERED: DEXTROSE 10% 250 ML BAG IV PRN (22:04)
[2021-08-24] MEDS ORDERED: NICOTINE 21 MG/24 HR PATCH TRANSDERM PRN (22:04)
[2021-08-24] MEDS ORDERED: MORPHINE 2 MG/1 ML SYRINGE IV PRN (22:04)
[2021-08-24] MEDS ORDERED: hydrALAZINE 20 MG/1 ML VIAL IV PRN (22:04)
[2021-08-24] MEDS ORDERED: diphenhydrAMINE CAP 25 MG CAPSULE PO PRN (22:04)
[2021-08-24] MEDS ORDERED: guaiFENesin/DM ER 600-30 MG TABLET PO PRN (22:04)
[2021-08-25] MEDS: HYDROmorphone 1 MG/1 ML SYRINGE IV PRN ×3 (00:22→09:46)
[2021-08-25] MEDS: diphenhydrAMINE 50 MG/1 ML VIAL IV PRN ×5 (00:23→20:34)
[2021-08-25] MEDS: DOXYCYCLINE HYCLATE INJ 100 MG in SODIUM CHLORIDE 0.9% 100 ML IV SCH ×2 (00:23→09:50)
[2021-08-25] MEDS: SODIUM CHLORIDE 0.9% 1,000 ML IV SCH ×2 (01:48→14:38)
[2021-08-25] MEDS: HEPARIN 5,000 UNIT/1 ML VIAL SUBCUT SCH ×2 (09:49→10:00)
[2021-08-25] MEDS: PANTOPRAZOLE 40 MG TABLET PO SCH (09:49)
[2021-08-25] MEDS ORDERED: NALOXONE 0.4 MG/ML VIAL IV PRN (10:46)
[2021-08-25] MEDS ORDERED: HYDROmorphone PCA 30 MG/30 ML SYRINGE IV SCH (11:00)
[2021-08-25] MEDS: DULoxetine 30 MG CAPSULE PO SCH (12:22)
[2021-08-25] MEDS: cefTRIAXone 1,000 MG in SODIUM CHLORIDE 0.9% 100 ML IV SCH (12:27)
[2021-08-25] MEDS: ENOXAPARIN 100 MG/ML SYRINGE SUBCUT SCH (13:07)
[2021-08-25] MEDS: ALBUTEROL/IPRATROPIUM 3 ML NEB RESP TX SCH ×2 (14:30→19:29)
[2021-08-25] MEDS: GABAPENTIN 600 MG TABLET PO SCH (20:34)
[2021-08-25] MEDS: TOPIRAMATE 25 MG TABLET PO SCH (20:34)
[2021-08-26] MEDS: DOXYCYCLINE HYCLATE INJ 100 MG in SODIUM CHLORIDE 0.9% 100 ML IV SCH ×3 (00:09→23:34)
[2021-08-26] MEDS: ALBUTEROL/IPRATROPIUM 3 ML NEB RESP TX SCH ×4 (00:28→19:17)
[2021-08-26] MEDS: diphenhydrAMINE 50 MG/1 ML VIAL IV PRN ×6 (00:33→23:56)
[2021-08-26] MEDS: PANTOPRAZOLE 40 MG TABLET PO SCH (08:38)
[2021-08-26] MEDS: TOPIRAMATE 25 MG TABLET PO SCH ×2 (08:38→21:16)
[2021-08-26] MEDS: HYDROXYUREA 500 MG CAPSULE PO SCH (08:39)
[2021-08-26] MEDS: GABAPENTIN 600 MG TABLET PO SCH ×2 (08:39→21:12)
[2021-08-26] MEDS: DULoxetine 30 MG CAPSULE PO SCH (08:39)
[2021-08-26] MEDS: HYDROXYCHLOROQUINE 200 MG TABLET PO SCH (08:39)
[2021-08-26] MEDS: FOLIC ACID 1 MG TABLET PO SCH (08:39)
[2021-08-26] MEDS: SODIUM CHLORIDE 0.9% 1,000 ML IV SCH ×3 (10:15→23:36)
[2021-08-26] MEDS: cefTRIAXone 1,000 MG in SODIUM CHLORIDE 0.9% 100 ML IV SCH (11:49)
[2021-08-26] MEDS: HYDROmorphone PCA 30 MG/30 ML SYRINGE IV SCH (11:57)
[2021-08-26] MEDS: ENOXAPARIN 100 MG/ML SYRINGE SUBCUT SCH (13:16)
[2021-08-27] MEDS: diphenhydrAMINE 50 MG/1 ML VIAL IV PRN ×5 (04:54→21:08)
[2021-08-27] MEDS: ALBUTEROL/IPRATROPIUM 3 ML NEB RESP TX SCH ×4 (06:57→19:16)
[2021-08-27] MEDS: DULoxetine 30 MG CAPSULE PO SCH (08:57)
[2021-08-27] MEDS: HYDROXYCHLOROQUINE 200 MG TABLET PO SCH (08:58)
[2021-08-27] MEDS: GABAPENTIN 600 MG TABLET PO SCH ×2 (08:58→21:08)
[2021-08-27] MEDS: FOLIC ACID 1 MG TABLET PO SCH (08:58)
[2021-08-27] MEDS: TOPIRAMATE 25 MG TABLET PO SCH ×2 (08:58→21:08)
[2021-08-27] MEDS: PANTOPRAZOLE 40 MG TABLET PO SCH (09:03)
[2021-08-27] MEDS: HYDROXYUREA 500 MG CAPSULE PO SCH (09:03)
[2021-08-27 09:08] LABS: Alanine Aminotransferase 14 U/L (13-56); Albumin 2.6 G/DL (3.4-5.0); Alkaline Phosphatase 84 U/L (45-117); Aspartate Amino Transferase 21 U/L (0-37); Bilirubin,Total < 0.39 MG/DL (0.20-1.00); Blood Urea Nitrogen 3 MG/DL (7-18); Calcium 8.8 MG/DL (8.5-10.1); Carbon Dioxide 23 MMOL/L (21-32); Chloride 109 MMOL/L (98-107); Estimated Glom Filtration Rate 151 ML/MIN; Glucose 78 MG/DL (74-106); Osmolality,Calculated 265.1 MOS/KG (273-304); Potassium 4.3 MMOL/L (3.5-5.1); Sodium 135 MMOL/L (136-145); Total Protein 7.1 G/DL (6.4-8.2)
[2021-08-27] MEDS: HYDROmorphone PCA 30 MG/30 ML SYRINGE IV SCH (10:40)
[2021-08-27] MEDS: DOXYCYCLINE HYCLATE INJ 100 MG in SODIUM CHLORIDE 0.9% 100 ML IV SCH ×2 (10:40→21:08)
[2021-08-27] MEDS: cefTRIAXone 1,000 MG in SODIUM CHLORIDE 0.9% 100 ML IV SCH (12:26)
[2021-08-27 13:06] LABS: Basophils # 0.1 10*3/uL (0.0-0.2); Basophils % 1.1 % (0.0-0.8); Eosinophils # 0.3 10*3/uL (0.0-0.87); Eosinophils % 4.9 % (0.00-10.9); Hematocrit 23.8 VOL% (35.7-47.0); Hemoglobin 8.5 GM/DL (12.0-16.0); Immature Granulocytes % 0.9 %; Immature Granulocytes Absolute 0.06 #; Lymphocytes % 30.2 % (21.3-54.2); Mean Corpuscular HGB Conc 35.7 GM/DL (32-36); Mean Corpuscular Volume 74.1 FL (87-102); Mean Platelet Volume 11.4 FL (9.6-12.0); Monocytes # 0.6 10*3/uL (0.11-0.8); NRBC # 0.03 10*3/uL; Neutrophils % 53.9 % (38.7-73.9); Platelet Count 307 T/CUMM (130-400); Red Blood Count 3.21 MC/CUMM (3.8-5.5); Red Cell Distribution Width 21.5 % (9.3-17.3); White Blood Count 6.5 T/CUMM (4-12)
[2021-08-27 13:33] LABS: Atypical Lymphocytes Few; Eosinophils 5 % (0-10); Lymphocytes 39 % (20-55); Nucleated Red Blood Cells 1 (0-5); Total Cells Counted 100
[2021-08-27 13:34] LABS: Hypochromia Slight
[2021-08-27 13:35] LABS: Target Cells 2+
[2021-08-27 13:38] LABS: Anisocytosis Slight
[2021-08-27 13:39] LABS: Basophilic Stippling Few; Tear Drop Cells Few
[2021-08-27] MEDS: ENOXAPARIN 100 MG/ML SYRINGE SUBCUT SCH (14:35)
[2021-08-27] MEDS: SODIUM CHLORIDE 0.9% 1,000 ML IV SCH (15:54)
[2021-08-28] MEDS: ALBUTEROL/IPRATROPIUM 3 ML NEB RESP TX SCH ×4 (00:10→19:00)
[2021-08-28] MEDS: diphenhydrAMINE 50 MG/1 ML VIAL IV PRN ×6 (02:48→23:30)
[2021-08-28] MEDS: SODIUM CHLORIDE 0.9% 1,000 ML IV SCH ×2 (05:25→19:26)
[2021-08-28] MEDS: TOPIRAMATE 25 MG TABLET PO SCH ×2 (09:50→19:25)
[2021-08-28] MEDS: DOXYCYCLINE HYCLATE 100 MG CAPSULE PO SCH ×2 (09:50→19:25)
[2021-08-28] MEDS: GABAPENTIN 600 MG TABLET PO SCH ×2 (09:50→19:25)
[2021-08-28] MEDS: DULoxetine 30 MG CAPSULE PO SCH (09:50)
[2021-08-28] MEDS: HYDROXYCHLOROQUINE 200 MG TABLET PO SCH (09:50)
[2021-08-28] MEDS: FOLIC ACID 1 MG TABLET PO SCH (09:51)
[2021-08-28] MEDS: PANTOPRAZOLE 40 MG TABLET PO SCH (09:51)
[2021-08-28] MEDS: HYDROXYUREA 500 MG CAPSULE PO SCH (09:51)
[2021-08-28] MEDS: HYDROmorphone PCA 30 MG/30 ML SYRINGE IV SCH (11:17)
[2021-08-28] MEDS: cefTRIAXone 1,000 MG in SODIUM CHLORIDE 0.9% 100 ML IV SCH (11:17)
[2021-08-28] MEDS: ENOXAPARIN 100 MG/ML SYRINGE SUBCUT SCH (15:03)
[2021-08-29] MEDS: ALBUTEROL/IPRATROPIUM 3 ML NEB RESP TX SCH ×2 (01:30→07:09)
[2021-08-29] MEDS: HYDROmorphone PCA 30 MG/30 ML SYRINGE IV SCH ×2 (03:19→12:15)
[2021-08-29] MEDS: diphenhydrAMINE 50 MG/1 ML VIAL IV PRN ×2 (07:38→12:13)
[2021-08-29] MEDS ORDERED: HYDROmorphone 2 MG TABLET PO PRN (07:43)
[2021-08-29 08:15] LABS: Basophils # 0.1 10*3/uL (0.0-0.2); Basophils % 1.2 % (0.0-0.8); Eosinophils # 0.3 10*3/uL (0.0-0.87); Eosinophils % 4.1 % (0.00-10.9); Hematocrit 24.9 VOL% (35.7-47.0); Hemoglobin 8.9 GM/DL (12.0-16.0); Immature Granulocytes % 0.8 %; Immature Granulocytes Absolute 0.05 #; Lymphocytes # 2.1 10*3/uL (1.4-4.0); Lymphocytes % 32.6 % (21.3-54.2); Mean Corpuscular HGB Conc 35.7 GM/DL (32-36); Mean Corpuscular Volume 73.9 FL (87-102); Mean Platelet Volume 10.7 FL (9.6-12.0); Monocytes # 0.5 10*3/uL (0.11-0.8); NRBC # 0.02 10*3/uL; Neutrophils % 54.3 % (38.7-73.9); Platelet Count 310 T/CUMM (130-400); Red Blood Count 3.37 MC/CUMM (3.8-5.5); Red Cell Distribution Width 21.5 % (9.3-17.3); White Blood Count 6.5 T/CUMM (4-12)
[2021-08-29 08:35] LABS: Platelet Estimate Adequate; Target Cells Few
[2021-08-29 08:36] LABS: Osmolality,Calculated 273.5 MOS/KG (273-304); Potassium 4.1 MMOL/L (3.5-5.1)
[2021-08-29] MEDS: FOLIC ACID 1 MG TABLET PO SCH (10:00)
[2021-08-29] MEDS: GABAPENTIN 600 MG TABLET PO SCH (10:00)
[2021-08-29] MEDS: HYDROXYUREA 500 MG CAPSULE PO SCH (10:00)
[2021-08-29] MEDS: HYDROXYCHLOROQUINE 200 MG TABLET PO SCH (10:00)
[2021-08-29] MEDS: PANTOPRAZOLE 40 MG TABLET PO SCH (10:00)
[2021-08-29] MEDS: TOPIRAMATE 25 MG TABLET PO SCH (10:01)
[2021-08-29] MEDS: DOXYCYCLINE HYCLATE 100 MG CAPSULE PO SCH (10:01)
[2021-08-29] MEDS: DULoxetine 30 MG CAPSULE PO SCH (10:01)
[2021-08-29] MEDS: SODIUM CHLORIDE 0.9% 1,000 ML IV SCH (10:04)
[2021-08-29] MEDS: cefTRIAXone 1,000 MG in SODIUM CHLORIDE 0.9% 100 ML IV SCH (11:16)
[2021-08-29 12:17] VITALS: BP 124/84
[2021-08-29] MEDS: ENOXAPARIN 100 MG/ML SYRINGE SUBCUT SCH (13:20)
== END 2021-08-29 14:48 | disposition home or self-care (01) | DRG 811 ==
LOC: EDBD → EDUNIT# → N.ED 20:06 → N.EDINP 22:04 → SUATTDRO 22:04 → N.TELES 22:21
PROVIDERS: ADMIT Internal Medicine; ATTEND Internal Medicine

== ENCOUNTER 2021-09-15 20:52 | Inpatient (IN) ==
[2021-09-15] MEDS ORDERED: HYDROmorphone 1 MG/1 ML SYRINGE IV STA (21:29)
[2021-09-15] MEDS ORDERED: SODIUM CHLORIDE 0.9% 1,000 ML IV STA (21:29)
[2021-09-15] MEDS ORDERED: PROMETHAZINE INJ 12.5 MG in SODIUM CHLORIDE 0.9% 50 ML IV STA (21:29)
[2021-09-15 22:11] LABS: Basophils # 0.1 10*3/uL (0.0-0.2); Basophils % 0.6 % (0.0-0.8); Eosinophils # 0.1 10*3/uL (0.0-0.87); Eosinophils % 0.6 % (0.00-10.9); Hematocrit 26.9 VOL% (35.7-47.0); Hemoglobin 9.3 GM/DL (12.0-16.0); Immature Granulocytes % 0.7 %; Immature Granulocytes Absolute 0.06 #; Lymphocytes # 1.6 10*3/uL (1.4-4.0); Lymphocytes % 18.2 % (21.3-54.2); Mean Corpuscular HGB Conc 34.6 GM/DL (32-36); Mean Corpuscular Volume 75.6 FL (87-102); Mean Platelet Volume 10.8 FL (9.6-12.0); Monocytes # 0.6 10*3/uL (0.11-0.8); Monocytes % 6.4 % (1.7-12.7); NRBC # 0.03 10*3/uL; Neutrophils % 73.5 % (38.7-73.9); Platelet Count 370 T/CUMM (130-400); Red Blood Count 3.56 MC/CUMM (3.8-5.5); Red Cell Distribution Width 20.4 % (9.3-17.3); White Blood Count 8.6 T/CUMM (4-12)
[2021-09-15 22:22] LABS: PT Patient Result 11.4 SECS (10.5-12.0)
[2021-09-15 22:33] LABS: Albumin 3.3 G/DL (3.4-5.0); Bilirubin,Total 0.7 MG/DL (0.20-1.00); Calcium 8.8 MG/DL (8.5-10.1); Osmolality,Calculated 275.4 MOS/KG (273-304); Total Protein 8.1 G/DL (6.4-8.2)
[2021-09-15] MEDS ORDERED: PROMETHAZINE 25 MG/1 ML VIAL ONE (23:02)
[2021-09-15] MEDS ORDERED: diphenhydrAMINE 50 MG/1 ML VIAL IV STA (23:37)
[2021-09-16] MEDS ORDERED: HYDROmorphone 1 MG/1 ML SYRINGE IV STA (00:21)
[2021-09-16] MEDS ORDERED: GLUCAGON 1 MG VIAL IM PRN (01:32)
[2021-09-16] MEDS ORDERED: ACETAMINOPHEN 325 MG TABLET PO PRN (01:34)
[2021-09-16] MEDS ORDERED: NALOXONE 0.4 MG/ML VIAL IV PRN (01:34)
[2021-09-16] MEDS ORDERED: SIMETHICONE CHEW 125 MG TABLET PO PRN (01:34)
[2021-09-16] MEDS ORDERED: ONDANSETRON 4 MG/2 ML VIAL IV PRN (01:34)
[2021-09-16] MEDS ORDERED: DEXTROSE 10% 250 ML BAG IV PRN (01:39)
[2021-09-16] MEDS ORDERED: ENOXAPARIN 40 MG/0.4 ML SYRINGE SUBCUT SCH (02:00)
[2021-09-16] MEDS ORDERED: HYDROmorphone PCA 30 MG/30 ML SYRINGE IV SCH (02:00)
[2021-09-16] MEDS: SODIUM CHLORIDE 0.45% 1,000 ML IV SCH ×3 (02:27→18:16)
[2021-09-16] MEDS: diphenhydrAMINE CAP 25 MG CAPSULE PO PRN ×2 (03:52→20:26)
[2021-09-16] MEDS ORDERED: predniSONE 5 MG TABLET PO SCH (09:00)
[2021-09-16] MEDS: GABAPENTIN 600 MG TABLET PO SCH ×2 (09:39→20:26)
[2021-09-16] MEDS: TOPIRAMATE 25 MG TABLET PO SCH ×2 (09:39→20:26)
[2021-09-16] MEDS: HYDROXYCHLOROQUINE 200 MG TABLET PO SCH (09:40)
[2021-09-16] MEDS: HYDROXYUREA 500 MG CAPSULE PO SCH (09:40)
[2021-09-16] MEDS: PANTOPRAZOLE 40 MG TABLET PO SCH (09:40)
[2021-09-16] MEDS: DULoxetine 30 MG CAPSULE PO SCH (09:40)
[2021-09-16] MEDS: DOCUSATE SODIUM 100 MG CAPSULE PO SCH ×3 (09:50→20:26)
[2021-09-16] MEDS: APIXABAN 5 MG TABLET PO SCH ×2 (09:50→20:26)
[2021-09-16] MEDS: predniSONE 10 MG TABLET PO SCH (10:30)
[2021-09-16] MEDS: FOLIC ACID 1 MG TABLET PO SCH (13:15)
[2021-09-16 16:10] LABS: Barbiturates Screen,Urine Negative (Negative); Benzodiazepines Screen,Urine Negative (Negative); Cannabinoid Screen,Urine Positive (Negative); Opiate Screen,Urine Positive (Negative); Phencyclidine Screen,Urine Negative (Negative)
[2021-09-17] MEDS: SODIUM CHLORIDE 0.45% 1,000 ML IV SCH ×2 (02:13→09:53)
[2021-09-17] MEDS: diphenhydrAMINE CAP 25 MG CAPSULE PO PRN (02:15)
[2021-09-17] MEDS ORDERED: HYDROmorphone PCA 30 MG/30 ML SYRINGE IV SCH (03:00)
[2021-09-17] MEDS: HYDROmorphone 2 MG TABLET PO PRN ×2 (05:00→12:16)
[2021-09-17] MEDS: FOLIC ACID 1 MG TABLET PO SCH (09:34)
[2021-09-17] MEDS: predniSONE 10 MG TABLET PO SCH (09:34)
[2021-09-17] MEDS: DULoxetine 30 MG CAPSULE PO SCH (09:35)
[2021-09-17] MEDS: APIXABAN 5 MG TABLET PO SCH (09:36)
[2021-09-17] MEDS: HYDROXYUREA 500 MG CAPSULE PO SCH (09:36)
[2021-09-17] MEDS: TOPIRAMATE 25 MG TABLET PO SCH (09:37)
[2021-09-17] MEDS: GABAPENTIN 600 MG TABLET PO SCH (09:37)
[2021-09-17] MEDS: HYDROXYCHLOROQUINE 200 MG TABLET PO SCH (09:38)
[2021-09-17] MEDS: DOCUSATE SODIUM 100 MG CAPSULE PO SCH (09:38)
[2021-09-17] MEDS: PANTOPRAZOLE 40 MG TABLET PO SCH (09:38)
[2021-09-17 12:22] VITALS: BP 112/72
== END 2021-09-17 16:04 | disposition home or self-care (01) | DRG 313 ==
LOC: N.ED 20:52 → N.EDINP 09-16 01:32 → N.3E 09-16 02:27
PROVIDERS: ADMIT Internal Medicine; ATTEND Internal Medicine

== ENCOUNTER 2021-12-01 16:00 | Inpatient (IN) ==
[2021-12-01] MEDS ORDERED: SODIUM CHLORIDE 0.9% 1,000 ML IV ONE (17:11)
[2021-12-01] MEDS ORDERED: HYDROmorphone 1 MG/1 ML SYRINGE IV STA ×2 (17:11→20:12)
[2021-12-01 18:07] LABS: Basophils # 0.1 10*3/uL (0.0-0.2); Basophils % 0.4 % (0.0-0.8); Eosinophils # 0.3 10*3/uL (0.0-0.87); Eosinophils % 2.2 % (0.00-10.9); Hemoglobin 8.5 GM/DL (12.0-16.0); Immature Granulocytes % 0.7 %; Immature Granulocytes Absolute 0.09 #; Lymphocytes # 1.5 10*3/uL (1.4-4.0); Lymphocytes % 11.3 % (21.3-54.2); Mean Corpuscular HGB Conc 35.4 GM/DL (32-36); Mean Corpuscular Volume 73.6 FL (87-102); Mean Platelet Volume 11.4 FL (9.6-12.0); Monocytes # 0.4 10*3/uL (0.11-0.8); Monocytes % 3.3 % (1.7-12.7); NRBC # 0.03 10*3/uL; Neutrophils % 82.1 % (38.7-73.9); Platelet Count 318 T/CUMM (130-400); Red Blood Count 3.26 MC/CUMM (3.8-5.5); Red Cell Distribution Width 20.6 % (9.3-17.3); White Blood Count 12.9 T/CUMM (4-12)
[2021-12-01 18:23] LABS: Albumin 3.1 G/DL (3.4-5.0); Bilirubin,Total 0.6 MG/DL (0.20-1.00); Calcium 8.9 MG/DL (8.5-10.1); Osmolality,Calculated 274.4 MOS/KG (273-304); Potassium 4.1 MMOL/L (3.5-5.1)
[2021-12-01] MEDS ORDERED: diphenhydrAMINE 50 MG/1 ML VIAL IV STA (18:29)
[2021-12-01 20:00] LABS: Urine Appearance Clear (Clear); Urine Color Yellow (Yellow)
[2021-12-01 20:01] LABS: Bilirubin,Urine Negative (Negative); Blood, Urine Negative (Negative); Glucose,Urine (UA) Negative (Negative); Ketones,Urine Negative (Negative); Nitrite,Urine Positive (Negative); Protein,Urine Negative (Negative)
[2021-12-01 20:09] LABS: Bacteria,Urine Few /HPF (Few); RBC,Urine 1 /HPF (0-4); Squamous Epithelial Cell,Urine Occasional /HPF (0-10)
[2021-12-01 20:36] LABS: Barbiturates Screen,Urine Negative (Negative); Benzodiazepines Screen,Urine Negative (Negative); Cannabinoid Screen,Urine Positive (Negative); Opiate Screen,Urine Positive (Negative); Phencyclidine Screen,Urine Negative (Negative)
[2021-12-01] MEDS ORDERED: DEXTROSE 10% 250 ML BAG IV PRN (21:39)
[2021-12-01] MEDS ORDERED: ONDANSETRON 4 MG/2 ML VIAL IV PRN (21:39)
[2021-12-01] MEDS ORDERED: ACETAMINOPHEN 325 MG TABLET PO PRN (21:39)
[2021-12-01] MEDS ORDERED: GLUCAGON 1 MG VIAL IM PRN (21:39)
[2021-12-01] MEDS ORDERED: NALOXONE 0.4 MG/ML VIAL IV PRN (22:11)
[2021-12-01] MEDS ORDERED: HYDROmorphone PCA 30 MG/30 ML SYRINGE IV SCH (22:30)
[2021-12-01] MEDS: cefTRIAXone 1,000 MG in SODIUM CHLORIDE 0.9% 100 ML IV SCH (22:49)
[2021-12-01] MEDS: LACTATED RINGERS 1,000 ML IV SCH (22:49)
[2021-12-01] MEDS ORDERED: ALBUTEROL/IPRATROPIUM 3 ML NEB RESP TX ONE (23:09)
[2021-12-01] MEDS ORDERED: HYDROmorphone 1 MG/1 ML SYRINGE IV ONE (23:09)
[2021-12-01] MEDS: diphenhydrAMINE CAP 25 MG CAPSULE PO PRN (23:12)
[2021-12-01] MEDS: ALBUTEROL/IPRATROPIUM 3 ML NEB RESP TX SCH (23:37)
[2021-12-01] MEDS: DOXYCYCLINE HYCLATE INJ 100 MG in SODIUM CHLORIDE 0.9% 100 ML IV SCH (23:42)
[2021-12-02] MEDS: diphenhydrAMINE 50 MG/1 ML VIAL IV PRN ×2 (04:34→10:44)
[2021-12-02] MEDS: PROMETHAZINE INJ 12.5 MG in SODIUM CHLORIDE 0.9% 50 ML IV PRN (05:59)
[2021-12-02] MEDS: ALBUTEROL/IPRATROPIUM 3 ML NEB RESP TX SCH ×3 (07:55→19:07)
[2021-12-02] MEDS: LACTATED RINGERS 1,000 ML IV SCH ×2 (09:43→19:45)
[2021-12-02] MEDS: APIXABAN 5 MG TABLET PO SCH ×2 (09:49→20:05)
[2021-12-02] MEDS: FOLIC ACID 1 MG TABLET PO SCH (09:49)
[2021-12-02] MEDS: PANTOPRAZOLE 40 MG TABLET PO SCH (09:50)
[2021-12-02] MEDS: HYDROXYUREA 500 MG CAPSULE PO SCH (09:50)
[2021-12-02] MEDS: predniSONE 20 MG TABLET PO SCH (09:50)
[2021-12-02] MEDS: TOPIRAMATE 25 MG TABLET PO SCH ×2 (09:50→20:05)
[2021-12-02] MEDS: HYDROXYCHLOROQUINE 200 MG TABLET PO SCH (09:59)
[2021-12-02] MEDS: GABAPENTIN 600 MG TABLET PO SCH ×2 (09:59→20:05)
[2021-12-02] MEDS: diphenhydrAMINE CAP 25 MG CAPSULE PO PRN ×2 (10:40→20:12)
[2021-12-02] MEDS: DOXYCYCLINE HYCLATE INJ 100 MG in SODIUM CHLORIDE 0.9% 100 ML IV SCH ×2 (10:46→22:13)
[2021-12-02] MEDS: cefTRIAXone 1,000 MG in SODIUM CHLORIDE 0.9% 100 ML IV SCH (21:30)
[2021-12-03] MEDS: PROMETHAZINE INJ 12.5 MG in SODIUM CHLORIDE 0.9% 50 ML IV PRN ×3 (00:45→21:02)
[2021-12-03] MEDS: ALBUTEROL/IPRATROPIUM 3 ML NEB RESP TX SCH ×4 (01:08→19:38)
[2021-12-03] MEDS: diphenhydrAMINE CAP 25 MG CAPSULE PO PRN (07:49)
[2021-12-03 08:05] LABS: Basophils % 0.4 % (0.0-0.8); Eosinophils # 0.1 10*3/uL (0.0-0.87); Eosinophils % 1.5 % (0.00-10.9); Hematocrit 22.5 VOL% (35.7-47.0); Hemoglobin 8.3 GM/DL (12.0-16.0); Immature Granulocytes % 0.6 %; Immature Granulocytes Absolute 0.05 #; Lymphocytes # 2.7 10*3/uL (1.4-4.0); Lymphocytes % 33.3 % (21.3-54.2); Mean Corpuscular HGB Conc 36.9 GM/DL (32-36); Mean Corpuscular Volume 72.3 FL (87-102); Mean Platelet Volume 11.3 FL (9.6-12.0); Monocytes # 0.5 10*3/uL (0.11-0.8); Monocytes % 6.6 % (1.7-12.7); NRBC # 0.02 10*3/uL; Neutrophils % 57.6 % (38.7-73.9); Platelet Count 359 T/CUMM (130-400); Red Blood Count 3.11 MC/CUMM (3.8-5.5); Red Cell Distribution Width 20.8 % (9.3-17.3)
[2021-12-03 08:28] LABS: Calcium 9.1 MG/DL (8.5-10.1); Osmolality,Calculated 272.5 MOS/KG (273-304); Potassium 3.6 MMOL/L (3.5-5.1)
[2021-12-03] MEDS: diphenhydrAMINE 50 MG/1 ML VIAL IV SCH ×3 (11:32→22:20)
[2021-12-03] MEDS: APIXABAN 5 MG TABLET PO SCH ×2 (11:36→22:16)
[2021-12-03] MEDS: HYDROXYUREA 500 MG CAPSULE PO SCH (11:36)
[2021-12-03] MEDS: FOLIC ACID 1 MG TABLET PO SCH (11:36)
[2021-12-03] MEDS: predniSONE 20 MG TABLET PO SCH (11:36)
[2021-12-03] MEDS: GABAPENTIN 600 MG TABLET PO SCH ×2 (11:36→22:16)
[2021-12-03] MEDS: HYDROXYCHLOROQUINE 200 MG TABLET PO SCH (11:36)
[2021-12-03] MEDS: PANTOPRAZOLE 40 MG TABLET PO SCH (11:37)
[2021-12-03] MEDS: TOPIRAMATE 25 MG TABLET PO SCH ×2 (11:37→22:16)
[2021-12-03] MEDS: ONDANSETRON 4 MG/2 ML VIAL IV PRN ×2 (13:46→19:51)
[2021-12-03] MEDS: DOXYCYCLINE HYCLATE INJ 100 MG in SODIUM CHLORIDE 0.9% 100 ML IV SCH ×2 (14:56→22:45)
[2021-12-03] MEDS: LACTATED RINGERS 1,000 ML IV SCH (18:48)
[2021-12-03] MEDS: HYDROmorphone PCA 30 MG/30 ML SYRINGE IV SCH ×2 (22:02→22:39)
[2021-12-03] MEDS ORDERED: HYDROmorphone 2 MG TABLET PO PRN (22:12)
[2021-12-03] MEDS: cefTRIAXone 1,000 MG in SODIUM CHLORIDE 0.9% 100 ML IV SCH (22:16)
[2021-12-04] MEDS: ALBUTEROL/IPRATROPIUM 3 ML NEB RESP TX SCH ×5 (00:45→20:42)
[2021-12-04] MEDS: PROMETHAZINE 25 MG/1 ML VIAL IM PRN ×2 (02:41→08:40)
[2021-12-04] MEDS: HYDROmorphone 1 MG/1 ML SYRINGE IM PRN ×4 (02:41→13:05)
[2021-12-04] MEDS: diphenhydrAMINE 50 MG/1 ML VIAL IM SCH ×4 (05:56→18:06)
[2021-12-04 07:42] LABS: Basophils % 0.5 % (0.0-0.8); Eosinophils # 0.4 10*3/uL (0.0-0.87); Eosinophils % 5.1 % (0.00-10.9); Hematocrit 23.4 VOL% (35.7-47.0); Hemoglobin 8.5 GM/DL (12.0-16.0); Immature Granulocytes % 0.5 %; Immature Granulocytes Absolute 0.04 #; Lymphocytes # 2.4 10*3/uL (1.4-4.0); Lymphocytes % 29.4 % (21.3-54.2); Mean Corpuscular HGB Conc 36.3 GM/DL (32-36); Mean Corpuscular Volume 72.7 FL (87-102); Mean Platelet Volume 10.8 FL (9.6-12.0); Monocytes # 0.5 10*3/uL (0.11-0.8); Monocytes % 5.8 % (1.7-12.7); NRBC # 0.03 10*3/uL; Neutrophils % 58.7 % (38.7-73.9); Platelet Count 369 T/CUMM (130-400); Red Blood Count 3.22 MC/CUMM (3.8-5.5); Red Cell Distribution Width 20.4 % (9.3-17.3); White Blood Count 8.1 T/CUMM (4-12)
[2021-12-04] MEDS: LACTATED RINGERS 1,000 ML IV SCH ×3 (07:50→18:06)
[2021-12-04 08:06] LABS: Calcium 8.9 MG/DL (8.5-10.1); Osmolality,Calculated 276.3 MOS/KG (273-304); Potassium 3.7 MMOL/L (3.5-5.1)
[2021-12-04] MEDS: GABAPENTIN 600 MG TABLET PO SCH ×2 (08:39→23:12)
[2021-12-04] MEDS: PANTOPRAZOLE 40 MG TABLET PO SCH (08:39)
[2021-12-04] MEDS: HYDROXYCHLOROQUINE 200 MG TABLET PO SCH (08:39)
[2021-12-04] MEDS: TOPIRAMATE 25 MG TABLET PO SCH ×2 (08:39→23:12)
[2021-12-04] MEDS: predniSONE 20 MG TABLET PO SCH (08:40)
[2021-12-04] MEDS: APIXABAN 5 MG TABLET PO SCH ×2 (08:40→23:11)
[2021-12-04] MEDS: HYDROXYUREA 500 MG CAPSULE PO SCH (08:40)
[2021-12-04] MEDS: FOLIC ACID 1 MG TABLET PO SCH (08:40)
[2021-12-04] MEDS: DOXYCYCLINE HYCLATE 100 MG CAPSULE PO SCH ×2 (11:14→23:12)
[2021-12-04] MEDS: PROMETHAZINE INJ 12.5 MG in SODIUM CHLORIDE 0.9% 50 ML IV PRN ×2 (18:17→23:20)
[2021-12-04] MEDS: cefTRIAXone 1,000 MG in SODIUM CHLORIDE 0.9% 100 ML IV SCH (20:25)
[2021-12-04] MEDS: HYDROmorphone 1 MG/1 ML SYRINGE IV PRN (23:10)
[2021-12-04] MEDS: diphenhydrAMINE 50 MG/1 ML VIAL IV SCH (23:11)
[2021-12-05] MEDS: HYDROmorphone 1 MG/1 ML SYRINGE IV PRN ×3 (02:58→11:15)
[2021-12-05] MEDS: ALBUTEROL/IPRATROPIUM 3 ML NEB RESP TX SCH ×3 (03:11→14:19)
[2021-12-05] MEDS: diphenhydrAMINE 50 MG/1 ML VIAL IV SCH ×2 (06:29→10:10)
[2021-12-05] MEDS: PROMETHAZINE INJ 12.5 MG in SODIUM CHLORIDE 0.9% 50 ML IV PRN (06:30)
[2021-12-05] MEDS: LACTATED RINGERS 1,000 ML IV SCH ×2 (06:32→12:44)
[2021-12-05 08:53] LABS: Basophils # 0.1 10*3/uL (0.0-0.2); Basophils % 0.5 % (0.0-0.8); Eosinophils # 0.3 10*3/uL (0.0-0.87); Eosinophils % 3.3 % (0.00-10.9); Hematocrit 24.3 VOL% (35.7-47.0); Hemoglobin 8.6 GM/DL (12.0-16.0); Immature Granulocytes % 0.6 %; Immature Granulocytes Absolute 0.06 #; Lymphocytes # 3.5 10*3/uL (1.4-4.0); Lymphocytes % 37.3 % (21.3-54.2); Mean Corpuscular HGB Conc 35.4 GM/DL (32-36); Mean Corpuscular Volume 72.5 FL (87-102); Mean Platelet Volume 11.1 FL (9.6-12.0); Monocytes # 0.6 10*3/uL (0.11-0.8); Monocytes % 6.8 % (1.7-12.7); NRBC # 0.06 10*3/uL; Neutrophils % 51.5 % (38.7-73.9); Platelet Count 407 T/CUMM (130-400); Red Blood Count 3.35 MC/CUMM (3.8-5.5); Red Cell Distribution Width 20.4 % (9.3-17.3); White Blood Count 9.3 T/CUMM (4-12)
[2021-12-05 09:12] LABS: Osmolality,Calculated 278.3 MOS/KG (273-304); Potassium 3.4 MMOL/L (3.5-5.1)
[2021-12-05] MEDS: DOXYCYCLINE HYCLATE 100 MG CAPSULE PO SCH (10:08)
[2021-12-05] MEDS: HYDROXYUREA 500 MG CAPSULE PO SCH (10:08)
[2021-12-05] MEDS: GABAPENTIN 600 MG TABLET PO SCH (10:09)
[2021-12-05] MEDS: PANTOPRAZOLE 40 MG TABLET PO SCH (10:09)
[2021-12-05] MEDS: HYDROXYCHLOROQUINE 200 MG TABLET PO SCH (10:09)
[2021-12-05] MEDS: TOPIRAMATE 25 MG TABLET PO SCH (10:09)
[2021-12-05] MEDS: FOLIC ACID 1 MG TABLET PO SCH (10:09)
[2021-12-05] MEDS: APIXABAN 5 MG TABLET PO SCH (10:09)
[2021-12-05] MEDS: predniSONE 20 MG TABLET PO SCH (10:09)
[2021-12-05 12:17] VITALS: BP 123/77
[2021-12-05] MEDS ORDERED: POTASSIUM CHLORIDE 20 MEQ TABLET PO ONE (14:00)
[2021-12-05] MEDS: PROMETHAZINE 25 MG/1 ML VIAL IM PRN (14:28)
[2021-12-06 13:06] LABS: Mycoplasma pneumoniae Ab Inter SEE COMMENTS; Mycoplasma pneumoniae Ab, IgG Positive (Negative); Mycoplasma pneumoniae Ab, IgM Negative (Negative)
== END 2021-12-05 15:00 | disposition home or self-care (01) | DRG 811 ==
LOC: N.5E 16:00 → N.ED 16:00 → SUATTDRO 21:39 → N.5E 23:23
PROVIDERS: ADMIT Family Medicine; ATTEND Internal Medicine